=== PATIENT | male | born 1935 | race Caucasian/White ===

== ENCOUNTER 2016-12-01 23:48 | Inpatient (IN) ==
--- NOTE | 2016-12-02 00:31 | Emergency Department Note ---
Disposition Clinical Impression: Elevated troponin, Respiratory distress, Hypoxia, Lactic acidosis, Non-small cell cancer of left lung Pulmonary embolism Qualifiers: Pulmonary embolism type: other Chronicity: acute Acute cor pulmonale presence: without acute cor pulmonale Qualified Code(s): I26.99 - Other pulmonary embolism without acute cor pulmonale UTI (urinary tract infection) Qualifiers: Urinary tract infection type: site unspecified Hematuria presence: without hematuria Qualified Code(s): N39.0 - Urinary tract infection, site not specified Disposition: Admitted As Inpatient Condition: Fair Time of Disposition: 03:04 SOB HPI - General Chief Complaint: ED Shortness of Breath/Dyspnea Stated Complaint: TRACEE Time Seen by Provider: 12/02/16 00:04 Source: patient, EMS Mode of arrival: EMS Limitations: no limitations Nursing Notes Reviewed: Yes Vital Signs Reviewed: Yes - History of Present Illness 81-year-old male history of non-small cell lung carcinoma, COPD presents to the ED via EMS for difficulty breathing and hypoxia. Earlier this evening around 2200 patient was short of breath while at rest, hypoxic 76% on room air. He does not have any home oxygen supplementation. He typically sits around 88 to 90% on room air. Recently he has been very short of breath especially on exertion states anytime he takes more than 2 steps he is very winded. He is currently being treated for radiation pneumonitis on a steroid taper. He was diagnosed with cancer 1 year ago received 5 radiation treatments but needed to stop due to the radiation pneumonitis. He is on the 2nd round of steroid taper. He currently takes 2 tablets a day. He scheduled for CT of the chest tomorrow with a follow-up appointment to his radiologists oncologist Dr. Gautam . Dr. Jorgensen is his oncologist. Denies any fevers, chest pain, headache. Denies any nausea or vomiting. Denies any history of blood clots, recent long-distance travel or hospitalizations. He recently had a pacemaker placed this year. Denies any history of cardiac ischemic disease. Pt Subjective Complaint: shortness of breath - Related Data Home Medications Medication Instructions Recorded Confirmed Allopurinol [Zyloprim 300 MG] 300 mg PO DAILY 09/28/15 12/02/16 Aspirin Enteric Coated [Aspirin EC] 81 mg PO DAILY 09/28/15 12/02/16 Clopidogrel Bisulfate [Plavix] 75 mg PO DAILY 09/28/15 12/02/16 Gluc/Bartolome-MSM#1/C/Jasper/Arturo/Bor 1 tab PO DAILY 09/28/15 12/02/16 [Osteo Bi-Flex Caplet] Nitroglycerin [Nitrostat] 0.4 mg SL [id number] PRN 09/28/15 12/02/16 Pentoxifylline [TRENtal] 400 mg PO TIDWM 09/28/15 12/02/16 Pravastatin Sodium [Pravachol] 80 mg PO DAILY 09/28/15 12/02/16 Tamsulosin HCl [Flomax] 0.4 mg PO DAILY 09/28/15 12/02/16 Omeprazole [PriLOSEC] 20 mg PO DAILY 10/29/15 12/02/16 Atenolol [Tenormin] 50 mg PO DAILY 12/02/16 12/02/16 Cholecalciferol (D-3) [Vitamin D] 1,000 unit PO DAILY 12/02/16 12/02/16 Previous Rx's Medication Instructions Recorded Albuterol Sulfate [Albuterol 2 puff IH Q4HR PRN #1 hfa.aer.ad 09/11/16 Inhaler] Budesonide/Formoterol 160/4.5 2 puff IH BIDR #1 hfa.aer.ad 09/11/16 [Symbicort 160/4.5] predniSONE [Prednisone] 20 mg PO DAILY #60 tab.ds.pk 11/17/16 Allergies Allergy/AdvReac Type Severity Reaction Status Date / Time indomethacin [From Indocin] Allergy Dizziness Verified 04/24/16 08:27 All systems ED: reviewed and negative except as stated. Constitutional: Reports: weakness. Denies: fever, chills Cardiovascular: Reports: dyspnea on exertion. Denies: chest pain Respiratory: Reports: cough, dyspnea Gastrointestinal: Denies: abdominal pain, nausea, vomiting Genitourinary: Denies: urgency, dysuria Musculoskeletal: Denies: back pain Integumentary: Denies: rash, abrasion Neurological: Denies: headache Past Medical History - Past Medical History Attestation: Yes The following information was validated with the patient. Source: patient, obtained from family Medical history: Reports: cancer, COPD, coronary artery disease, hypertension, kidney stones, peripheral artery disease, TIA Surgical history: Reports: angioplasty/stent, carotid endarterectomy, LE Bypass Psychiatric history: Reports: no psych history - Social History Smoking Status: Former smoker Smokeless Tobacco Status: No Alcohol use: Reports: none Drug use: Reports: none Physical Exam - General Limitations: no limitations General appearance: alert, in no apparent distress - Head Head exam: atraumatic, normocephalic, normal inspection - Eye Eye exam: Present: normal appearance, PERRL, EOMI - ENT ENT exam: normal exam, normal oropharynx, mucous membranes moist - Neck Neck exam: Present: normal inspection, full ROM, trachea midline - Chest Chest inspection: Present: normal inspection, symmetric chest wall rise, other ( PACEMAKER CHEST WALL) - Respiratory Respiratory exam: Present: normal lung sounds bilaterally, respiratory distress (CONVERSATIONAL DYSPNEA). Absent: wheezes - Cardiovascular Cardiovascular exam: Present: regular rate, normal rhythm, normal heart sounds - Abdominal Exam Abdominal exam: Present: soft, Non-Tender, normal bowel sounds. Absent: tenderness, distention, guarding, rebound, rigidity - Extremities Exam Extremities exam: Present: normal inspection, full ROM, pedal edema (+1 LEFT). Absent: tenderness - Back Exam Back exam: Present: normal inspection, full ROM. Absent: tenderness - Neurological Exam Neurological exam: Present: alert, oriented X3 - Psychiatric Psychiatric exam: Present: normal affect, normal mood - Skin Skin exam: Present: warm, dry, intact, normal color Course Course Narrative: 81-year-old male presents with difficulty breathing. He has a history of non- small cell lung carcinoma. On initial presentation he was hypoxic lower 90%. He was placed on 3 L nasal cannula current oxygen saturation in the mid-90s. He has some conversational dyspnea. Lungs are clear to auscultation bilaterally. He has some mild pitting edema to lower extremities. Given his history of active cancer will get CTA of the chest rule out possible pulmonary embolism versus pneumonia. EKG, basic labs, troponin, lactate and urinalysis ordered. Anticipate admission, disposition pending workup. - Reevaluation(s) Reevaluation #1: Troponin is elevated 0.06. BNP is 585. He has some pitting edema to his left lower extremity. White blood cell count is likely elevated due to his steroids. His lactic acid is elevated 2.4. Due to his history of congestive heart failure will cautiously hydrate him 500 mL at a time, BP is stable at this time. Will continue to reassess. He continues to deny any chest pain. Patient will likely need admission. Reevaluation #2: Newly discovered pulmonary embolism in the right lower lobe. Patient will be placed on anticoagulation. He also has elevated troponin. CT does suggest some mild right heart strain. Patient remains hemodynamically stable. He is 96 % on 3 L nasal cannula. I do not believe he is a candidate for fibrinolytic. CT also shows new opacity, given his non-small cell carcinoma history suspect this is likely due to malignancy versus pneumonia. His elevation of his white blood cell count is likely due to his steroids as he has been afebrile. We will not treat for pneumonia at this time. Will obtain 2 sets of blood cultures. His urinalysis appears consistent with infection with positive nitrite and leuk esterase. Will treat it empirically with ceftriaxone. His repeat lactate improved after 500 mL down to 1.5. Patient will need admission. Impression is elevated troponin, new pulmonary embolism, UTI, lactic acidosis , history of non-small cell lung carcinoma. - Consultations Consultation #1: Spoke with radiologist Dr. Tovar reports right lower lobe posterior segment pulmonary embolism with right upper lobe new groundglass opacity suggestive of possible malignancy versus pneumonia. Time: 02:11 Consultation #2: Spoke with on-call hospitalist rex Montilla to admit for elevated troponin, respiratory distress, hypoxia, UTI, lactic acidosis, new pulmonary embolism. No further orders at this time Vital Signs Temperature 97.3 F L 12/01/16 23:50 Pulse Rate 99 12/01/16 23:50 Respiratory Rate 18 12/01/16 23:50 Blood Pressure 131/75 12/01/16 23:50 O2 Sat by Pulse Oximetry 86 12/01/16 23:50 Temperature 97.7 F 12/02/16 16:06 Pulse Rate 73 12/02/16 16:06 Respiratory Rate 16 12/02/16 16:16 Blood Pressure 132/73 12/02/16 16:06 O2 Sat by Pulse Oximetry 95 12/02/16 16:16 Oxygen Delivery Oxygen Delivery Nasal Cannula Shortness of Breath/Dyspnea - Medical Records Medical records reviewed: Yes I reviewed the patient's medical records. - Lab Data Lab results reviewed: Yes I reviewed the patient's lab results. Result diagrams: 12/02/16 00:43 12/02/16 00:43 Lab Results 12/02/16 12/02/16 12/02/16 Range/Units 00:43 00:43 00:43 WBC 20.9 H (4.3-11.1) K/mcL RBC 4.77 (4.19-5.50) M/mcL Hgb 14.2 (12.9-16.9) g/dL Hct 43.4 (37.5-50.1) % MCV 91.0 (83.0-100.0) fL MCH 29.8 (28.0-33.3) pg MCHC 32.7 (31.6-35.5) g/dL RDW 16.5 H (11.5-14.5) % Plt Count 175 (140-400) K/mcL MPV 9.7 (9.4-12.4) fL Immature Gran % 4.6 H (0-4) % Seg Neutrophils % 89.0 % Lymphocytes % 2.1 % Monocytes % 4.1 % Eosinophils % 0.0 % Basophils % 0.2 % Neutrophils # 18.6 H (1.6-8.9) K/mcL Lymphocytes # 0.4 L (0.6-4.6) K/mcL Monocytes # 0.9 (0.0-1.3) K/mcL Eosinophils # 0.0 (0.0-0.6) K/mcL Basophils # 0.1 (0.0-0.2) K/mcL PT (9.4-12.1) Seconds INR APTT (26.0-36.0) Seconds Sodium 135 L (136-145) mEq/L Potassium 3.9 (3.5-4.5) mEq/L Chloride 106 (98-109) mEq/L Carbon Dioxide 20 (19-29) mEq/L BUN 34 H (8-26) mg/dL Creatinine 1.15 (0.72-1.25) mg/dL Est GFR ( Amer) > 60 (> 60) Est GFR (Non-Af Amer) > 60 (> 60) BUN/Creatinine Ratio 30 H (6-26) Glucose 158 H (70-99) mg/dL Calculated Osmolality 291 (280-300) Lactic Acid 2.4 H (0.5-2.2) mmol/L Calcium 9.2 (8.6-10.8) mg/dL Troponin I (0-0.03) ng/mL B-Natriuretic Peptide (0-100) pg/mL Urine Color (Yellow) Urine Clarity (Clear) Urine pH (5.0-8.0) pH Units Ur Specific [place] (1.010-1.025) Urine Protein (Neg-Trace) mg/dL Urine Glucose (UA) (Normal) mg/dL Urine Ketones (Negative) mg/dL Urine Blood (Negative) Urine Nitrite (Negative) Urine Bilirubin (Negative) Urine Urobilinogen (Normal) mg/dL Ur Leukocyte Esterase (Negative) Urine Microscopic RBC (0-3) per hpf Urine Microscopic WBC (0-3) per hpf Ur Squamous Epith Cells (None-Few) per lpf Urine Bacteria (None-Few) per hpf Hyaline Casts (None-Few) per lpf Ur Culture Indicated? (NO) A. baumannii (PCR) (Not Detect) Nadeen albicans (PCR) (Not Detect) C. glabrata (PCR) (Not Detect) C. krusei (PCR) (Not Detect) C. parapsilosis (PCR) (Not Detect) C. tropicalis (PCR) (Not Detect) Enterobacteriac sp PCR (Not Detect) E. cloacae complex PCR (Not Detect) Enterococcus sp PCR (Not Detect) E. coli (PCR) (Not Detect) H. influenzae (PCR) (Not Detect) Klebsiella oxytoca PCR (Not Detect) Klebsiella pneumoniae (Not Detect) List. monocytogenes PCR (Not Detect) N. meningitidis (PCR) (Not Detect) Proteus species (PCR) (Not Detect) Serratia marcescens PCR (Not Detect) Staphylococcus sp PCR (Not Detect) Staph aureus (PCR) (Not Detect) mecA-Methicil Res Gene (Not Detect) Streptococcus sp PCR (Not Detect) Group A Strep DNA (Not Detect) Group B Strep (PCR) (Not Detect) Strep pneumoniae (PCR) (Not Detect) P. aeruginosa (PCR) (Not Detect) Young/B-Vanco Res Genes (Not Detect) KPC (blaKPC) Detect PCR (Not Detect) 12/02/16 12/02/16 12/02/16 Range/Units 00:43 00:43 00:43 WBC (4.3-11.1) K/mcL RBC (4.19-5.50) M/mcL Hgb (12.9-16.9) g/dL Hct (37.5-50.1) % MCV (83.0-100.0) fL MCH (28.0-33.3) pg MCHC (31.6-35.5) g/dL RDW (11.5-14.5) % Plt Count (140-400) K/mcL MPV (9.4-12.4) fL Immature Gran % (0-4) % Seg Neutrophils % % Lymphocytes % % Monocytes % % Eosinophils % % Basophils % % Neutrophils # (1.6-8.9) K/mcL Lymphocytes # (0.6-4.6) K/mcL Monocytes # (0.0-1.3) K/mcL Eosinophils # (0.0-0.6) K/mcL Basophils # (0.0-0.2) K/mcL PT 12.1 (9.4-12.1) Seconds INR 1.1 APTT 27.4 (26.0-36.0) Seconds Sodium (136-145) mEq/L Potassium (3.5-4.5) mEq/L Chloride (98-109) mEq/L Carbon Dioxide (19-29) mEq/L BUN (8-26) mg/dL Creatinine (0.72-1.25) mg/dL Est GFR ( Amer) (> 60) Est GFR (Non-Af Amer) (> 60) BUN/Creatinine Ratio (6-26) Glucose (70-99) mg/dL Calculated Osmolality (280-300) Lactic Acid (0.5-2.2) mmol/L Calcium (8.6-10.8) mg/dL Troponin I 0.06 H* (0-0.03) ng/mL B-Natriuretic Peptide 585 H (0-100) pg/mL Urine Color (Yellow) Urine Clarity (Clear) Urine pH (5.0-8.0) pH Units Ur Specific [place] (1.010-1.025) Urine Protein (Neg-Trace) mg/dL Urine Glucose (UA) (Normal) mg/dL Urine Ketones (Negative) mg/dL Urine Blood (Negative) Urine Nitrite (Negative) Urine Bilirubin (Negative) Urine Urobilinogen (Normal) mg/dL Ur Leukocyte Esterase (Negative) Urine Microscopic RBC (0-3) per hpf Urine Microscopic WBC (0-3) per hpf Ur Squamous Epith Cells (None-Few) per lpf Urine Bacteria (None-Few) per hpf Hyaline Casts (None-Few) per lpf Ur Culture Indicated? (NO) A. baumannii (PCR) (Not Detect) Nadeen albicans (PCR) (Not Detect) C. glabrata (PCR) (Not Detect) C. krusei (PCR) (Not Detect) C. parapsilosis (PCR) (Not Detect) C. tropicalis (PCR) (Not Detect) Enterobacteriac sp PCR (Not Detect) E. cloacae complex PCR (Not Detect) Enterococcus sp PCR (Not Detect) E. coli (PCR) (Not Detect) H. influenzae (PCR) (Not Detect) Klebsiella oxytoca PCR (Not Detect) Klebsiella pneumoniae (Not Detect) List. monocytogenes PCR (Not Detect) N. meningitidis (PCR) (Not Detect) Proteus species (PCR) (Not Detect) Serratia marcescens PCR (Not Detect) Staphylococcus sp PCR (Not Detect) Staph aureus (PCR) (Not Detect) mecA-Methicil Res Gene (Not Detect) Streptococcus sp PCR (Not Detect) Group A Strep DNA (Not Detect) Group B Strep (PCR) (Not Detect) Strep pneumoniae (PCR) (Not Detect) P. aeruginosa (PCR) (Not Detect) Young/B-Vanco Res Genes (Not Detect) KPC (blaKPC) Detect PCR (Not Detect) 12/02/16 12/02/16 12/02/16 Range/Units 01:30 02:30 02:34 WBC (4.3-11.1) K/mcL RBC (4.19-5.50) M/mcL Hgb (12.9-16.9) g/dL Hct (37.5-50.1) % MCV (83.0-100.0) fL MCH (28.0-33.3) pg MCHC (31.6-35.5) g/dL RDW (11.5-14.5) % Plt Count (140-400) K/mcL MPV (9.4-12.4) fL Immature Gran % (0-4) % Seg Neutrophils % % Lymphocytes % % Monocytes % % Eosinophils % % Basophils % % Neutrophils # (1.6-8.9) K/mcL Lymphocytes # (0.6-4.6) K/mcL Monocytes # (0.0-1.3) K/mcL Eosinophils # (0.0-0.6) K/mcL Basophils # (0.0-0.2) K/mcL PT (9.4-12.1) Seconds INR APTT (26.0-36.0) Seconds Sodium (136-145) mEq/L Potassium (3.5-4.5) mEq/L Chloride (98-109) mEq/L Carbon Dioxide (19-29) mEq/L BUN (8-26) mg/dL Creatinine (0.72-1.25) mg/dL Est GFR ( Amer) (> 60) Est GFR (Non-Af Amer) (> 60) BUN/Creatinine Ratio (6-26) Glucose (70-99) mg/dL Calculated Osmolality (280-300) Lactic Acid 1.5 (0.5-2.2) mmol/L Calcium (8.6-10.8) mg/dL Troponin I (0-0.03) ng/mL B-Natriuretic Peptide (0-100) pg/mL Urine Color Dark Yellow (Yellow) Urine Clarity Turbid A (Clear) Urine pH 5.5 (5.0-8.0) pH Units Ur Specific [place] 1.023 (1.010-1.025) Urine Protein 100 H (Neg-Trace) mg/dL Urine Glucose (UA) Normal (Normal) mg/dL Urine Ketones Trace H (Negative) mg/dL Urine Blood Large H (Negative) Urine Nitrite Positive A (Negative) Urine Bilirubin Negative (Negative) Urine Urobilinogen Normal (Normal) mg/dL Ur Leukocyte Esterase Large H (Negative) Urine Microscopic RBC TNTC H (0-3) per hpf Urine Microscopic WBC 50-100 H (0-3) per hpf Ur Squamous Epith Cells Moderate H (None-Few) per lpf Urine Bacteria Many H (None-Few) per hpf Hyaline Casts Few (None-Few) per lpf Ur Culture Indicated? YES A (NO) A. baumannii (PCR) Not Detected (Not Detect) Nadeen albicans (PCR) Not Detected (Not Detect) C. glabrata (PCR) Not Detected (Not Detect) C. krusei (PCR) Not Detected (Not Detect) C. parapsilosis (PCR) Not Detected (Not Detect) C. tropicalis (PCR) Not Detected (Not Detect) Enterobacteriac sp PCR DETECTED A (Not Detect) E. cloacae complex PCR Not Detected (Not Detect) Enterococcus sp PCR Not Detected (Not Detect) E. coli (PCR) DETECTED A (Not Detect) H. influenzae (PCR) Not Detected (Not Detect) Klebsiella oxytoca PCR Not Detected (Not Detect) Klebsiella pneumoniae Not Detected (Not Detect) List. monocytogenes PCR Not Detected (Not Detect) N. meningitidis (PCR) Not Detected (Not Detect) Proteus species (PCR) Not Detected (Not Detect) Serratia marcescens PCR Not Detected (Not Detect) Staphylococcus sp PCR Not Detected (Not Detect) Staph aureus (PCR) Not Detected (Not Detect) mecA-Methicil Res Gene N/A (Not Detect) Streptococcus sp PCR Not Detected (Not Detect) Group A Strep DNA Not Detected (Not Detect) Group B Strep (PCR) Not Detected (Not Detect) Strep pneumoniae (PCR) Not Detected (Not Detect) P. aeruginosa (PCR) Not Detected (Not Detect) Young/B-Vanco Res Genes N/A (Not Detect) KPC (blaKPC) Detect PCR Not Detected (Not Detect) 12/02/16 Range/Units 06:49 WBC (4.3-11.1) K/mcL RBC (4.19-5.50) M/mcL Hgb (12.9-16.9) g/dL Hct (37.5-50.1) % MCV (83.0-100.0) fL MCH (28.0-33.3) pg MCHC (31.6-35.5) g/dL RDW (11.5-14.5) % Plt Count (140-400) K/mcL MPV (9.4-12.4) fL Immature Gran % (0-4) % Seg Neutrophils % % Lymphocytes % % Monocytes % % Eosinophils % % Basophils % % Neutrophils # (1.6-8.9) K/mcL Lymphocytes # (0.6-4.6) K/mcL Monocytes # (0.0-1.3) K/mcL Eosinophils # (0.0-0.6) K/mcL Basophils # (0.0-0.2) K/mcL PT (9.4-12.1) Seconds INR APTT 71.7 H D (26.0-36.0) Seconds Sodium (136-145) mEq/L Potassium (3.5-4.5) mEq/L Chloride (98-109) mEq/L Carbon Dioxide (19-29) mEq/L BUN (8-26) mg/dL Creatinine (0.72-1.25) mg/dL Est GFR ( Amer) (> 60) Est GFR (Non-Af Amer) (> 60) BUN/Creatinine Ratio (6-26) Glucose (70-99) mg/dL Calculated Osmolality (280-300) Lactic Acid (0.5-2.2) mmol/L Calcium (8.6-10.8) mg/dL Troponin I (0-0.03) ng/mL B-Natriuretic Peptide (0-100) pg/mL Urine Color (Yellow) Urine Clarity (Clear) Urine pH (5.0-8.0) pH Units Ur Specific [place] (1.010-1.025) Urine Protein (Neg-Trace) mg/dL Urine Glucose (UA) (Normal) mg/dL Urine Ketones (Negative) mg/dL Urine Blood (Negative) Urine Nitrite (Negative) Urine Bilirubin (Negative) Urine Urobilinogen (Normal) mg/dL Ur Leukocyte Esterase (Negative) Urine Microscopic RBC (0-3) per hpf Urine Microscopic WBC (0-3) per hpf Ur Squamous Epith Cells (None-Few) per lpf Urine Bacteria (None-Few) per hpf Hyaline Casts (None-Few) per lpf Ur Culture Indicated? (NO) A. baumannii (PCR) (Not Detect) Nadeen albicans (PCR) (Not Detect) C. glabrata (PCR) (Not Detect) C. krusei (PCR) (Not Detect) C. parapsilosis (PCR) (Not Detect) C. tropicalis (PCR) (Not Detect) Enterobacteriac sp PCR (Not Detect) E. cloacae complex PCR (Not Detect) Enterococcus sp PCR (Not Detect) E. coli (PCR) (Not Detect) H. influenzae (PCR) (Not Detect) Klebsiella oxytoca PCR (Not Detect) Klebsiella pneumoniae (Not Detect) List. monocytogenes PCR (Not Detect) N. meningitidis (PCR) (Not Detect) Proteus species (PCR) (Not Detect) Serratia marcescens PCR (Not Detect) Staphylococcus sp PCR (Not Detect) Staph aureus (PCR) (Not Detect) mecA-Methicil Res Gene (Not Detect) Streptococcus sp PCR (Not Detect) Group A Strep DNA (Not Detect) Group B Strep (PCR) (Not Detect) Strep pneumoniae (PCR) (Not Detect) P. aeruginosa (PCR) (Not Detect) Young/B-Vanco Res Genes (Not Detect) KPC (blaKPC) Detect PCR (Not Detect) - Radiology Data Radiology results reviewed: Yes I reviewed the patient's radiology results. Chest CTA 12/02/16 00:33 IMPRESSION: 1. Pulmonary emboli within the posterior segmental branches of the right lower lobe. 2. RV: LV ratio of 1.05. However the evaluation of the heart is slightly limited due to motion artifact, but this may represent mild right heart dysfunction. 3. Redemonstration of extensive consolidation/airspace opacities, atelectasis and fibrosis of the right lower lobe with associated pleural thickening and small effusion. The right lower lobe lung mass is obscured. 4. Small left base pleural effusion with surrounding pleural enhancement, which is nonspecific. 5. New areas of ground-glass opacities in right upper lobe, which are nonspecific, could represent infection versus neoplasm. 6. Mediastinal lymph nodes are slightly smaller, largest measuring 13 mm. Findings were discussed with Tarv Mitchell at 2:19 am on 12/02/2016. D/ / Jos Tovar MD / Jos Tovar MD Interpreting Provider: Jos Tovar MD - EKG Data EKG attestation: Yes I reviewed and interpreted this EKG. EKG results narrative: EKG performed 001 electronic ventricular paste rhythm 91 bpm QRS 153 no Sgarbossa criteria. Compared to old EKG performed 09/16/2016 shows consistent findings. No acute ischemic changes. Critical Care Time Critical Care Time: Yes Total Critical Care Time: 60 Attestation: The high probability of a clinically significant, sudden or life threatening deterioration of the [pulm] system(s) required my full and direct attention, intervention and personal management. The aggregate critical care time was [60] minutes. This time is in addition to time spent performing reported procedures but includes the following: [X] Data Review and interpretation [X] Patient assessment and monitoring of vital signs [X] Documentation [X] Medication orders and management Attestation Statement - Attestation Attestation: I personally interviewed and examined this patient and my medical decision- making was reviewed with the ED Resident Physician, Dr. Mitchell I agree with the documented findings, disposition and treatment plan as described except to the extent set forth below. Pt is a 81 yo wm, hx non-small cell lung CA, s/p LLL lobectomy and steroetactic bx and radiation of R lung, who presents with grad worsening SOB and hypoxia. Pt improved on NC O2 on arrival to ED. Per pt's family, pt has been running with 85-88% RA O2 sats at home, awaiting approval for suppl O2 at home. Pt with worsening breathing over passt 2-3 days. No F/C, no cough/hemoptysis. Pt deneis any CP/press, no diaphoresis. No other assocd sxs or complaints. Pt has been weaning his steroids, which he was taking for radiation pneumonitis. Pt scheduled for repeat CT chest imaging in am. Agree with PE findings as documented. Pt with improvement in breathing on supple O2, and reports feeling "much better ". VSS. Pt's labs show UTI, and elev trop. EKg shows no acute findings, and pt has denied any CP throughout eD course. CT chest shows subsegmental PE on R with mild heart strain, questionable pneumonia vs inflammation. Cultures pending, and antibx initiated in ED. Gentle fluid administration with elev lactate. Pt remained hemodynamically stable, and heparin initiated in ED. Family and pt informed of test results and agree with admission and furhter treatment.
[2016-12-02] MEDS ORDERED: Dexamethasone 4 MG/ML VIAL IVP ONE (00:34)
[2016-12-02 00:50] LABS: Basophils # 0.1 K/mcL (0.0-0.2); Basophils % 0.2 %; Hematocrit 43.4 % (37.5-50.1); Hemoglobin 14.2 g/dL (12.9-16.9); Immature Granulocytes % 4.6 % (0-4); Lymphocytes # 0.4 K/mcL (0.6-4.6); Lymphocytes % 2.1 %; Mean Corpuscular HGB Conc 32.7 g/dL (31.6-35.5); Mean Corpuscular Hemoglobin 29.8 pg (28.0-33.3); Mean Platelet Volume 9.7 fL (9.4-12.4); Monocytes # 0.9 K/mcL (0.0-1.3); Monocytes % 4.1 %; Neutrophils # 18.6 K/mcL (1.6-8.9); Platelet Count 175 K/mcL (140-400); Red Blood Count 4.77 M/mcL (4.19-5.50); Red Cell Distribution Width 16.5 % (11.5-14.5)
[2016-12-02 01:03] LABS: BUN/Creatinine Ratio 30 (6-26); Blood Urea Nitrogen 34 mg/dL (8-26); Calcium 9.2 mg/dL (8.6-10.8); Carbon Dioxide 20 mEq/L (19-29); Chloride 106 mEq/L (98-109); Glucose 158 mg/dL (70-99); Osmolality,Calculated 291 (280-300); Potassium 3.9 mEq/L (3.5-4.5); Sodium 135 mEq/L (136-145); eGFR For African Americans > 60 (> 60); eGFR For Non-African Americans > 60 (> 60)
[2016-12-02] MEDS ORDERED: 0.9 % Sodium Chloride 500 ML IVC ONE (01:15)
[2016-12-02 01:40] LABS: Bilirubin,Urine Negative (Negative); Blood,Urine Large (Negative); Clarity,Urine Turbid (Clear); Color,Urine Dark Yellow (Yellow); Glucose,Urine (UA) Normal (Normal); Ketones,Urine Trace mg/dL (Negative); Leukocyte Esterase,Urine Large (Negative); Nitrite,Urine Positive (Negative); PH,Urine 5.5 pH Units (5.0-8.0); Protein,Urine 100 mg/dL (Neg-Trace); Specific Gravity,Urine 1.023 (1.010-1.025); Urobilinogen,Urine Normal (Normal)
[2016-12-02 01:42] LABS: Bacteria,Urine Many per hpf (None-Few); Hyaline Casts,Urine Few per lpf (None-Few); RBC,Urine TNTC per hpf (0-3); Squamous Epithelial Cell,Urine Moderate per lpf (None-Few); WBC,Urine 50-100 per hpf (0-3)
[2016-12-02] MEDS ORDERED: *HR* Heparin 5,000 UNIT/ML VIAL IVP PRN ×2 (02:16)
[2016-12-02] MEDS ORDERED: *HR* Heparin 5,000 UNIT/ML VIAL IVP ONE (02:16)
[2016-12-02 02:36] LABS: INR 1.1; Prothrombin Time 12.1 Seconds (9.4-12.1)
[2016-12-02 02:38] LABS: Activated Partial Thrombo Time 27.4 Seconds (26.0-36.0)
[2016-12-02] MEDS: Heparin 25,000 UNIT/500 ML D5W 25,000 UNIT/500 ML MLS IVC SCH (03:02)
--- NOTE | 2016-12-02 03:09 | Internal Med History&Physical ---
Date of Encounter: 12/02/16 Time of Encounter: 03:08 Assessment and Plan (1) Essential hypertension Current visit: No Status: Chronic will continue home meds (2) Pulmonary embolism Current visit: Yes Status: Acute CTA showed segmental PE on right posterior side of the lung. he has been started on heparin drip at ED. high risk given active cancer. sating 95% on 3 l, will titrate o2 to maintain sats >95%. will also order ECHO to check for RV strain and b/l doppler of lower legs to r/ o DVT. he is currently hemodynamically stable. Qualifiers: Pulmonary embolism type: other Chronicity: acute Acute cor pulmonale presence: without acute cor pulmonale Qualified Code(s): I26.99 - Other pulmonary embolism without acute cor pulmonale (3) Hypoxia Current visit: Yes Status: Acute better with 3 l of o2 nasal cannula,will continue that for now. (4) Non-small cell cancer of left lung Current visit: Yes Status: Acute follows with and DR. Gautam for radiation treatment. received radiation treatment 1 yr ago and is being treated for radiation pneumonitis. will continue the tapering dose of steroids here. (5) UTI (urinary tract infection) Current visit: Yes Status: Acute will send urine cx. starting on Ceftriaxone which will cover UTI/pneumonia' Qualifiers: Urinary tract infection type: site unspecified Hematuria presence: without hematuria Qualified Code(s): N39.0 - Urinary tract infection, site not specified (6) Radiation pneumonitis Current visit: Yes Status: Acute patinet being treated for radiation pneumonitis with steroids and is on tapering dose now. will continue the tapering dose now and will consult oncology for further recommendations on duration of treatment. Internal Medicine - H&P: HPI Chief complaint: sob Admitted From: Home Plans for Post Hospital Care: Home History of present illness: Mr. Nunez is a 81 year old male with history of small cell lung carcinoma, COPD presents to the ED via EMS for difficulty breathing and hypoxia. Earlier this evening around 2200 patient was short of breath while at rest, hypoxic 76% on room air. He does not have any home oxygen supplementation. He typically sits around 88 to 90% on room air. as per the grand daughter and the , he has been very short of breath especially on exertion. He had small cell lung ca and has been cancer free for the last 10 yrs however had a relapse last yr and follows with radiation oncology. He is currently being treated for radiation pneumonitis on a steroid taper. He has received 5 radiation treatments but needed to stop due to the radiation pneumonitis. He is on the 2nd round of steroids. He currently takes 2 tablets a day. He scheduled for CT of the chest tomorrow with a follow-up appointment to his radiologists oncologist Dr. Gautam . Dr. Jorgensen is his oncologist. Denies any fevers, chest pain, headache. Denies any nausea or vomiting. Denies any history of blood clots, recent long-distance travel or hospitalizations. He recently had a pacemaker placed this year. Denies any history of cardiac ischemic disease. Past Med Surg Social Fam HX - Past Medical History Medical history: cancer, COPD, coronary artery disease, hypertension, kidney stones, peripheral artery disease, TIA Psychiatric history: no psych history - Past Surgical History Surgical History: angioplasty/stent, carotid endarterectomy, LE Bypass - Social History Smoking Status: Former smoker Smokeless Tobacco Status: No Alcohol use: none Drug use: none - Family History Mother Hx Family Cardiac Disorders: Yes (CAD) Internal Medicine - H&P: Meds Allopurinol [Zyloprim 300 MG] 300 mg PO DAILY 09/28/15 [History] Aspirin Enteric Coated [Aspirin EC] 81 mg PO DAILY 09/28/15 [History] Clopidogrel Bisulfate [Plavix] 75 mg PO DAILY 09/28/15 [History] Gluc/Bartolome-MSM#1/C/Jasper/Arturo/Bor [Osteo Bi-Flex Caplet] 1 each PO DAILY 09/28/15 [ History] Nitroglycerin [Nitrostat] 0.4 mg SL AD PRN 09/28/15 [History] Pentoxifylline [TRENtal] 400 mg PO TIDWM 09/28/15 [History] Pravastatin Sodium [Pravachol] 80 mg PO DAILY 09/28/15 [History] Tamsulosin HCl [Flomax] 0.4 mg PO DAILY 09/28/15 [History] Omeprazole [PriLOSEC] 20 mg PO DAILY 10/29/15 [History] Albuterol Sulfate [Albuterol Inhaler] 2 puff IH Q4HR PRN #1 hfa.aer.ad 09/11/16 [Rx] Budesonide/Formoterol 160/4.5 [Symbicort 160/4.5] 2 puff IH BIDR #1 hfa.aer.ad 09/11/16 [Rx] Guaifenesin [Guaifenesin ER] 1,200 mg PO Q12H PRN #60 tab.er.12h 09/11/16 [Rx] Lidocaine/Prilocaine CREAM [Emla] 5 gm TP PRN PRN #1 tube 09/11/16 [Rx] predniSONE [PredniSONE] 10 mg PO DAILY #160 tablet 10/02/16 [Rx] Fluconazole [Diflucan] 100 mg PO DAILY #5 tablet 10/23/16 [Rx] predniSONE [Prednisone] 20 mg PO DAILY #60 tab.ds.pk 11/17/16 [Rx] Allergies indomethacin [From Indocin] Allergy (Verified 04/24/16 08:27) Dizziness All Systems PM: A 10-system review of systems was performed and is negative for pertinent findings except as documented above in the HPI. - Constitutional Constitutional: as per HPI - EENT Eyes: as per HPI Ears: as per HPI Nose, mouth and throat: as per HPI - Breasts Breasts: as per HPI - Cardiovascular Cardiovascular ROS IM: as per HPI - Respiratory Respiratory: as per HPI - Gastrointestinal Gastrointestinal: as per HPI - Genitourinary Genitourinary ROS male: as per HPI - Musculoskeletal Musculoskeletal ROS IM: as per HPI - Integumentary Integumentary IM: as per HPI - Constitutional Vitals: Temp Pulse Resp BP Pulse Ox 97.3 F L 72 20 133/78 96 12/01/16 23:50 12/02/16 02:46 12/02/16 02:46 12/02/16 02:46 12/02/16 02:46 General appearance: Present: A&O X 3, no acute distress Exam: neck-supple chest- b/l clinically clear , no added sounds CVS-s1 and s2, no mr/g/ abd-soft, non tender , bs are present ext- no edema neuro- no focal neuro deficits, alert and awake. Internal Med - H&P Results - Labs CBC & Chem 7: 12/02/16 00:43 12/02/16 00:43
[2016-12-02] MEDS: Albuterol 2.5 MG/3 ML NEBULIZER IH SCH ×5 (08:25→23:35)
[2016-12-02] MEDS: predniSONE 10 MG TABLET PO SCH (09:47)
[2016-12-02] MEDS: Fluconazole 100 MG TABLET PO SCH (09:47)
[2016-12-02] MEDS: Aspirin Enteric Coated 81 MG Tablet PO SCH (09:48)
[2016-12-02] MEDS: Budesonide/Formoterol 160/4.5 MDI IH SCH ×2 (10:56→20:46)
[2016-12-02 15:10] LABS: Enterococcus by PCR Not Detected (Not Detect); blaKPC Carbapenem-Resist Gene Not Detected (Not Detect)
[2016-12-02 15:11] LABS: Acinetobacter baumannii by PCR Not Detected (Not Detect); Candida albicans by PCR Not Detected (Not Detect); Candida glabrata by PCR Not Detected (Not Detect); Candida krusei by PCR Not Detected (Not Detect); Candida parapsilosis by PCR Not Detected (Not Detect); Candida tropicalis by PCR Not Detected (Not Detect); Escherichia coli by PCR ***DETECTED*** (Not Detect); Klebsiella oxytoca by PCR Not Detected (Not Detect); Klebsiella pneumoniae by PCR Not Detected (Not Detect); Pseudomonas aeruginosa by PCR Not Detected (Not Detect); Serratia marcescens by PCR Not Detected (Not Detect); Staphylococcus aureus by PCR Not Detected (Not Detect); Streptococcus agalactiae(B)PCR Not Detected (Not Detect); Streptococcus by PCR Not Detected (Not Detect); Streptococcus pneumoniae PCR Not Detected (Not Detect); Streptococcus pyogenes (A) PCR Not Detected (Not Detect)
--- NOTE | 2016-12-02 15:33 | Internal Med Progress Note ---
<Suzanne Mark - Last Filed: 12/02/16 16:12> Date of Encounter: 12/02/16 Time of Encounter: 09:30 - Assessment and plan (1) Bacteremia Current Visit: Yes Status: Acute Assessment and plan: - 2/2 Blood cultures from 12/02/16 grew GNR, likely E. coli per PCR. Further identification and sensitivity pending. - Likely secondary to UTI. - Continue IV ceftriaxone (since 12/01) - Continue to monitor. (2) Pulmonary embolism Current Visit: Yes Status: Acute Assessment and plan: - CTA chest on 12/02/16 found pulmonary emboli within the posterior segmental branches of the right lower lobe. - Troponin downtrended from 0.06 to 0.02. - Echo today shows LVEF 60%, mild LV diastoic dysfunction and normal right ventricular size and function. Also noted Severe pulmonary hypertension with estimated RVSP = 68 mmHg. - Given troponin and echo do not indicate right heart strain, no need of TPA at this time. - Continue heparin drip. - Will discuss with patient different anticoagulation options including novel oral anticoagulants. Qualifiers: Pulmonary embolism type: other Chronicity: acute Acute cor pulmonale presence: without acute cor pulmonale Qualified Code(s): I26.99 - Other pulmonary embolism without acute cor pulmonale (3) UTI (urinary tract infection) Current Visit: Yes Status: Acute Assessment and plan: - Complicated UTI (given male gender) with urinary symptom (difficulty urinating ) and leukocytosis (20.9) - UA positive for nitrite and leukocyte esterase strongly suggestive of UTI. - Urine culture pending. - Likely E. coli given positive on PCR and blood cultures. - Continue IV ceftriaxone (since 12/01). Will 14-day course of antibiotic for complicated UTI. Qualifiers: Urinary tract infection type: site unspecified Hematuria presence: without hematuria Qualified Code(s): N39.0 - Urinary tract infection, site not specified (4) Radiation pneumonitis Current Visit: Yes Status: Chronic Assessment and plan: - Continue chronic prednisone therapy. 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 - Per patient, his oncologist told him that he is cancer-free at his oncology visit this year. (6) COPD (chronic obstructive pulmonary disease) Current Visit: Yes Status: Chronic Assessment and plan: - Continue steroid and scheduled albuterol. Qualifiers: COPD type: unspecified COPD Qualified Code(s): J44.9 - Chronic obstructive pulmonary disease, unspecified - Subjective Interval history: This note is NOT for billing purpose. Patient was seen and examined this morning. Patient still has some dry cough but overall feels breathing better. Patient reports having difficulty urinating. Patient denies fever, chills, nausea, vomiting, diarrhea, chest pain , abdominal pain. - Constitutional Vitals: Temp Pulse Resp BP Pulse Ox 97.7 F 77 18 124/71 95 12/02/16 12:00 12/02/16 12:00 12/02/16 12:00 12/02/16 12:00 12/02/16 12:00 General appearance: Present: A&O X 3, no acute distress - Head Head exam: Present: atraumatic, normocephalic - Eye Eye exam: Present: EOMI, PERRL, conjuntiva pink, sclera anicteric - Neck Neck exam general surgery: Present: supple, trachea midline. Absent: lymphadenopathy - Respiratory Respiratory exam: Present: CTAB. Absent: accessory muscle use, rhonchi, wheezes - Cardiovascular Cardiovascular exam: Present: RRR, +S1, +S2. Absent: diastolic murmur, gallop, rubs, systolic murmur - GI/Abdominal GI/Abdominal exam: Present: normal bowel sounds, soft, no peritoneal signs. Absent: distended, tenderness - Extremities Exam Extremities exam: Present: warm, radial pulses palpable and symetrical. Absent : calf tenderness, cyanotic, pedal edema - Neurological Exam Neurological exam: Present: CN II-XII intact, oriented X3, no focal deficits. Absent: pronater drift, facial droop, speech deficit - Skin Skin exam: Present: dry, intact, warm Internal Medicine: Result - Labs CBC & Chem 7: 12/02/16 00:43 12/02/16 00:43 Labs: Cardiac Enzymes 12/02/16 Range/Units 14:55 Troponin I 0.02 (0-0.03) ng/mL - ABG Interpretation ABG results: PT/INR, D-dimer PT 12.1 Seconds (9.4-12.1) 12/02/16 00:43 Consult Discharge Plan - Plan Referrals: Farshad Lunsford MD [Primary Care Provider] - <Heriberto Murillo - Last Filed: 12/02/16 17:07> Date of Encounter: 12/02/16 - Constitutional Vitals: Temp Pulse Resp BP Pulse Ox 97.7 F 73 16 132/73 95 12/02/16 16:06 12/02/16 16:06 12/02/16 16:06 12/02/16 16:06 12/02/16 16:06 Internal Medicine: Result - Labs CBC & Chem 7: 12/02/16 00:43 12/02/16 00:43 Labs: Cardiac Enzymes 12/02/16 Range/Units 14:55 Troponin I 0.02 (0-0.03) ng/mL - ABG Interpretation ABG results: PT/INR, D-dimer PT 12.1 Seconds (9.4-12.1) 12/02/16 00:43 - Attending Attestation I examined this patient and my medical decision-making was reviewed with the Resident Physician on 12/02/16. I agree with the documented findings, disposition and treatment plan as described except to the extent set forth below. 81 M with Acute hypoxemia secondary to Acute sub-segmental PE and severe Pulm HTN demand ischemia with slighlty elevated troponin on exam , GN bacteremia possibly from E.cOli UTI Physical exam revealed a chronically ill-looking elderly man in no form of distress, on O2 by NC, chest with equal air entry, S1 S2, RRR, abdomen is benign , no pedal edema labs and Imaging reviewed, ECHO noted, normal R heart function and size, severe Pulm HTN Plan is to continue antibiotics, increase Ceftriaxone to 2g daily, follow final cultures, continue heparin, discuss NICOLE with patient, resume home meds, continue oxygen Rest of details as in Resident's documentation
--- NOTE | 2016-12-02 16:33 | Electrocardiograph Report ---
[place] [id number] Test Date: 2016-12-02 Pat Name: Randolph Nunez Department: 102 Room: [facility], [place] Gender: M [employer]: : 1935 Requested By: Areli Swanson Order Number: [id number] Reading MD: Randolph Tim Measurements Intervals [place] Rate: 91 P: 42 ND: 124 QRS: -63 QRSD: 153 T: 79 QT: 381 QTc: 430 Interpretive Statements ELECTRONIC VENTRICULAR PACEMAKER ABNORMAL RHYTHM ECG Electronically Signed On 12-02-2016 16:31:37 EDT by Randolph Tim
--- NOTE | 2016-12-02 17:13 | Venous Imaging Report ---
LE Venous Duplex Patient Name:Randolph Nunez Order Number:[id number] Procedure Date:12/02/2016 Date:1935ge:81 yrs Gender:Male Location:[facility] Room #: 2A62 Lag Screwer:Francisco Garcia RN Referring MD:Geovany Valdivia MD glass cut off supervisor:Farshad Lunsford MD Reading MD:Pako Nguyen MD Primary Indications:Pulmonary Embolism Secondary Indications: Risk Factors Yes/No Hypertension Yes Diabetes No Hypercholesterolemia Yes Smoker Previous Yes Anticoagulants Yes Hx of DVT No Impressions: Normal bilateral lower extremity deep and superficial venous exam. Recommendations: Test completed on 12/02/2016 at 2:00:00 pm. Findings Venous Duplex Results: Right: Venous imaging of the lower extremity reveals full patency and normal vessel compressibility of the right distal iliac, right common femoral, right superficial femoral, right popliteal, right posterior tibial, right peroneal, right great saphenous and right lesser saphenous. Doppler signals in the evaluated veins were normal. Left: Venous imaging of the lower extremity reveals full patency and normal vessel compressibility of the left distal iliac, left common femoral, left superficial femoral, left popliteal, left posterior tibial, left peroneal, left great saphenous and left lesser saphenous. Doppler signals in the evaluated veins were normal. Prior Study: No prior study available for comparison. Lower Extremity Venous Duplex Side Vein Compress Spontaneous Flow Augment Diameter (cm) Depth (cm) Right Distal Iliac Normal Yes Phasic Yes Right Common Femoral Normal Yes Phasic Yes Right Superficial Femoral Normal Yes Phasic Yes Right Popliteal Normal Yes Phasic Yes Right Posterior Tibial Normal Yes Phasic Yes Right Peroneal Normal Yes Phasic Yes Right Great Saphenous Normal Yes Phasic Yes Right Lesser Saphenous Normal Yes Phasic Yes Left Distal Iliac Normal Yes Phasic Yes Left Common Femoral Normal Yes Phasic Yes Left Superficial Femoral Normal Yes Phasic Yes Left Popliteal Normal Yes Phasic Yes Left Posterior Tibial Normal Yes Phasic Yes Left Peroneal Normal Yes Phasic Yes Left Great Saphenous Normal Yes Phasic Yes Left Lesser Saphenous Normal Yes Phasic Yes Updated by Pako Nguyen MD on 12/02/2016 5:07:16 PM electronically signed on 12/02/2016 5:08:22 PM with status of Final
[2016-12-03] MEDS: Heparin 25,000 UNIT/500 ML D5W 25,000 UNIT/500 ML MLS IVC SCH (02:12)
[2016-12-03] MEDS: Albuterol 2.5 MG/3 ML NEBULIZER IH SCH ×5 (04:33→20:55)
[2016-12-03 06:25] LABS: Basophils # 0.1 K/mcL (0.0-0.2); Basophils % 0.3 %; Hematocrit 38.8 % (37.5-50.1); Hemoglobin 12.7 g/dL (12.9-16.9); Immature Granulocytes % 2.6 % (0-4); Lymphocytes # 0.6 K/mcL (0.6-4.6); Lymphocytes % 3.5 %; Mean Corpuscular HGB Conc 32.7 g/dL (31.6-35.5); Mean Corpuscular Hemoglobin 29.7 pg (28.0-33.3); Mean Corpuscular Volume 90.9 fL (83.0-100.0); Mean Platelet Volume 10.3 fL (9.4-12.4); Monocytes # 0.8 K/mcL (0.0-1.3); Monocytes % 4.2 %; Neutrophils # 16.4 K/mcL (1.6-8.9); Platelet Count 167 K/mcL (140-400); Red Blood Count 4.27 M/mcL (4.19-5.50); Red Cell Distribution Width 16.6 % (11.5-14.5); Segmented Neutrophils % 89.4 %
[2016-12-03 06:38] LABS: BUN/Creatinine Ratio 33 (6-26); Blood Urea Nitrogen 30 mg/dL (8-26); Calcium 8.8 mg/dL (8.6-10.8); Carbon Dioxide 22 mEq/L (19-29); Chloride 104 mEq/L (98-109); Glucose 164 mg/dL (70-99); Osmolality,Calculated 288 (280-300); Potassium 3.9 mEq/L (3.5-4.5); Sodium 134 mEq/L (136-145); eGFR For African Americans > 60 (> 60); eGFR For Non-African Americans > 60 (> 60)
--- NOTE | 2016-12-03 08:09 | Oncology Inp Consult Note ---
Date of Encounter: 12/03/16 Time of Encounter: 08:06 - Data of Consult Patient: known to practice within the last 3 years Consult date: 12/03/16 Requesting Physician: Heriberto Murillo MD Primary Care Provider: Farshad Lunsford MD - Consult Narrative Reason for consult: History of lung cancer, Pulmonary embolism. History of present illness: Mr. Nunez is a 81 year old gentleman who is established with oncologist for ongoing management of previously treated lung cancer. He follows up with Dr. Nahun Gautam and myself. I have summarized patient's heme/onc background below based on my most recent office report dated 10/01/16. Oncology history: He initially presented with unexplained hypotension and recurrent near syncopal episode associated with exertional dyspnea. Chest x-ray revealed a right lower lobe mass and the subsequent chest CT 08/24/15 showed a 4.2 cm spiculated right lower lobe mass associated with 1.5 cm right hilar and a 1.1 cm precarinal node suspicious for primary lung cancer. CT-guided biopsy 09/12/15 was positive for non-small cell carcinoma immunopositive for CK 5/6, p63, TTF-1 overall compatible with squamous cell histology. PFT 09/11/15 showed an FEV1 70% predicted (2L). PET/CT 09/26/15 confirmed hypermetabolic right lower lobe mass compatible with biopsy confirmed malignancy. Mildly hypermetabolic right hilar and mediastinal nodes including subcarinal, AP window lymph nodes considered indeterminate. Reactive etiology not excluded. Brain MRI 10/01/15 and was negative for intracranial metastasis. Bronchoscopy and EBUSNA/left lower lobe BAL by Dr. Isabel Holden 10/16/15 showed atypical cells suspicious for squamous cell carcinoma. FNA of subcarinal and right hilar lymph node was reportedly nondiagnostic. Specimen was only blood.No viable cells He had defintive SBRT to his right lower lobe, biopsy-proven malignant mass and has done well subsequently with no definitive evidence of disease recurrence. Treatment summary: 11/13-11/29/15: SBRT for clinically localized,right sided lung cancer under the care of Dr. Gautam. Most recent imaging: Chest CT 09/02/16 showed interval decrease in size of fentanyl 3.4 cm spiculated mass in the right lower lobe consistent with treatment-related changes. There is some interval increase in peritumoral opacity likely due to post radiation fibrosis. Stable mediastinal adenopathy mild severity. No other evidence of recurrent/progressive malignancy. At his last office visit, he was having radiation pneumonitis and started on a course of steroids by Dr. Gautam. He was last seen 10/23/16 and was scheduled for follow-up tomorrow. I reviewed Dr. Gautam's office report for details. Patient is currently hospitalized for acute hypoxemic respiratory failure after presenting with progressive shortness of breath. He is also been diagnosed with a UTI which is under active treatment by the hospital team. A CT angiogram on admission showed pulmonary embolism within the posterior segmental branches of the right lower lobe. Additional findings of extensive consolidation/as this opacity with atelectasis of fibrosis in the right lower lobe associated with pleural thickening and small effusion. Likely related to previous treatments including radiotherapy. New groundglass opacity in the right upper lobe nonspecific. Mediastinal lymphadenopathy improving. Currently measures 1.3 cm. Lower extremity Doppler negative for DVT. For his pulmonary embolism, he has been started on heparin drip. As also on supplemental O2 and is maintaining good oxygenation. For his UTI, he is on IV Rocephin. Oncology is consulted re: since underlying lung cancer and pulmonary embolism. Patient seen and examined at bedside with present who provided additional information. Chart review for details of ongoing care by hospital team which is much appreciated. He reports feeling considerably better since hospitalization. He notes progressive dyspnea with activity intolerance over the last week and a half or so. He is also having right upper quadrant abdominal pain at today's visit. Rest of past medical, surgical, family, social history detailed below and verified with patient today. Review of systems: 12 point review of systems performed with patient and positive findings noted in history of present illness. All other systems are negative: Physical exam: Vital Signs Temp 97.5 F L 12/03/16 04:27 Pulse 85 12/03/16 04:27 Resp 14 12/03/16 04:35 BP 163/88 12/03/16 04:27 Pulse Ox 98 12/03/16 04:35 GENERAL: Alert and oriented, chronically ill appearing. Mental Status: Affect appropriate for circumstances HEENT: Sclerae anicteric. No mucositis or thrush. No other oral or pharyngeal lesions or erythema. Skin: No rashes or petechiae. No evidence of skin malignancy Lymph nodes: No cervical, supraclavicular, axillary, or inguinal adenopathy. Lungs: Clear to auscultation bilaterally. Clear to percussion bilaterally. Cardiovascular: Regular rate and rhythm. No gallops, murmurs, or rubs. Abdomen: Soft, nontender; No organomegaly or masses palpable. Extremities: No edema. No calf swelling or tenderness. No joint deformity. Neurologic: Alert, normal gait; no focal weakness or sensory abnormalities. Results: Laboratory Last Values WBC 18.4 K/mcL (4.3-11.1) H 12/03/16 05:59 RBC 4.27 M/mcL (4.19-5.50) 12/03/16 05:59 Hgb 12.7 g/dL (12.9-16.9) L D 12/03/16 05:59 Hct 38.8 % (37.5-50.1) 12/03/16 05:59 MCV 90.9 fL (83.0-100.0) 12/03/16 05:59 MCH 29.7 pg (28.0-33.3) 12/03/16 05:59 MCHC 32.7 g/dL (31.6-35.5) 12/03/16 05:59 RDW 16.6 % (11.5-14.5) H 12/03/16 05:59 Plt Count 167 K/mcL (140-400) 12/03/16 05:59 MPV 10.3 fL (9.4-12.4) 12/03/16 05:59 Immature Gran % 2.6 % (0-4) 12/03/16 05:59 Seg Neutrophils % 89.4 % 12/03/16 05:59 Lymphocytes % 3.5 % 12/03/16 05:59 Monocytes % 4.2 % 12/03/16 05:59 Eosinophils % 0.0 % 12/03/16 05:59 Basophils % 0.3 % 12/03/16 05:59 Neutrophils # 16.4 K/mcL (1.6-8.9) H 12/03/16 05:59 Lymphocytes # 0.6 K/mcL (0.6-4.6) 12/03/16 05:59 Monocytes # 0.8 K/mcL (0.0-1.3) 12/03/16 05:59 Eosinophils # 0.0 K/mcL (0.0-0.6) 12/03/16 05:59 Basophils # 0.1 K/mcL (0.0-0.2) 12/03/16 05:59 PT 12.1 Seconds (9.4-12.1) 12/02/16 00:43 INR 1.1 12/02/16 00:43 APTT 70.0 Seconds (26.0-36.0) H 12/03/16 05:59 Sodium 134 mEq/L (136-145) L 12/03/16 05:59 Potassium 3.9 mEq/L (3.5-4.5) 12/03/16 05:59 Chloride 104 mEq/L (98-109) 12/03/16 05:59 Carbon Dioxide 22 mEq/L (19-29) 12/03/16 05:59 BUN 30 mg/dL (8-26) H 12/03/16 05:59 Creatinine 0.92 mg/dL (0.72-1.25) 12/03/16 05:59 Est GFR ( Amer) > 60 (> 60) 12/03/16 05:59 Est GFR (Non-Af Amer) > 60 (> 60) 12/03/16 05:59 BUN/Creatinine Ratio 33 (6-26) H 12/03/16 05:59 Glucose 164 mg/dL (70-99) H 12/03/16 05:59 Calculated Osmolality 288 (280-300) 12/03/16 05:59 Lactic Acid 1.5 mmol/L (0.5-2.2) 12/02/16 02:34 Calcium 8.8 mg/dL (8.6-10.8) 12/03/16 05:59 Troponin I 0.02 ng/mL (0-0.03) 12/02/16 14:55 B-Natriuretic Peptide 585 pg/mL (0-100) H 12/02/16 00:43 Urine Color Dark Yellow (Yellow) 12/02/16 01:30 Urine Clarity Turbid (Clear) A 12/02/16 01:30 Urine pH 5.5 pH Units (5.0-8.0) 12/02/16 01:30 Ur Specific [place] 1.023 (1.010-1.025) 12/02/16 01:30 Urine Protein 100 mg/dL (Neg-Trace) H 12/02/16 01:30 Urine Glucose (UA) Normal mg/dL (Normal) 12/02/16 01:30 Urine Ketones Trace mg/dL (Negative) H 12/02/16 01:30 Urine Blood Large (Negative) H 12/02/16 01:30 Urine Nitrite Positive (Negative) A 12/02/16 01:30 Urine Bilirubin Negative (Negative) 12/02/16 01:30 Urine Urobilinogen Normal mg/dL (Normal) 12/02/16 01:30 Ur Leukocyte Esterase Large (Negative) H 12/02/16 01:30 Urine Microscopic RBC TNTC per hpf (0-3) H 12/02/16 01:30 Urine Microscopic WBC 50-100 per hpf (0-3) H 12/02/16 01:30 Ur Squamous Epith Cells Moderate per lpf (None-Few) H 12/02/16 01:30 Urine Bacteria Many per hpf (None-Few) H 12/02/16 01:30 Hyaline Casts Few per lpf (None-Few) 12/02/16 01:30 Ur Culture Indicated? YES (NO) A 12/02/16 01:30 A. baumannii (PCR) Not Detected (Not Detect) 12/02/16 02:30 Nadeen albicans (PCR) Not Detected (Not Detect) 12/02/16 02:30 C. glabrata (PCR) Not Detected (Not Detect) 12/02/16 02:30 C. krusei (PCR) Not Detected (Not Detect) 12/02/16 02:30 C. parapsilosis (PCR) Not Detected (Not Detect) 12/02/16 02:30 C. tropicalis (PCR) Not Detected (Not Detect) 12/02/16 02:30 Enterobacteriac sp PCR DETECTED (Not Detect) A 12/02/16 02:30 E. cloacae complex PCR Not Detected (Not Detect) 12/02/16 02:30 Enterococcus sp PCR Not Detected (Not Detect) 12/02/16 02:30 E. coli (PCR) DETECTED (Not Detect) A 12/02/16 02:30 H. influenzae (PCR) Not Detected (Not Detect) 12/02/16 02:30 Klebsiella oxytoca PCR Not Detected (Not Detect) 12/02/16 02:30 Klebsiella pneumoniae Not Detected (Not Detect) 12/02/16 02:30 List. monocytogenes PCR Not Detected (Not Detect) 12/02/16 02:30 N. meningitidis (PCR) Not Detected (Not Detect) 12/02/16 02:30 Proteus species (PCR) Not Detected (Not Detect) 12/02/16 02:30 Serratia marcescens PCR Not Detected (Not Detect) 12/02/16 02:30 Staphylococcus sp PCR Not Detected (Not Detect) 12/02/16 02:30 Staph aureus (PCR) Not Detected (Not Detect) 12/02/16 02:30 mecA-Methicil Res Gene N/A (Not Detect) 12/02/16 02:30 Streptococcus sp PCR Not Detected (Not Detect) 12/02/16 02:30 Group A Strep DNA Not Detected (Not Detect) 12/02/16 02:30 Group B Strep (PCR) Not Detected (Not Detect) 12/02/16 02:30 Strep pneumoniae (PCR) Not Detected (Not Detect) 12/02/16 02:30 P. aeruginosa (PCR) Not Detected (Not Detect) 12/02/16 02:30 Young/B-Vanco Res Genes N/A (Not Detect) 12/02/16 02:30 KPC (blaKPC) Detect PCR Not Detected (Not Detect) 12/02/16 02:30 Radiographic studies: I personally reviewed and interpreted patient's most recent imaging studies dated 12/02/16. I discussed the findings with the patient today. Chest CTA 12/02/16 00:33 IMPRESSION: 1. Pulmonary emboli within the posterior segmental branches of the right lower lobe. 2. RV:LV ratio of 1.05. However the evaluation of the heart is slightly limited due to motion artifact, but this may represent mild right heart dysfunction. 3. Redemonstration of extensive consolidation/airspace opacities, atelectasis and fibrosis of the right lower lobe with associated pleural thickening and small effusion. The right lower lobe lung mass is obscured. 4. Small left base pleural effusion with surrounding pleural enhancement, which is nonspecific. 5. New areas of ground-glass opacities in the right upper lobe, which are nonspecific, could represent infection versus neoplasm. 6. Mediastinal lymph nodes are slightly smaller, largest measuring 13 mm. Findings were discussed with Trav Mitchell at 2:19 am on 12/02/2016. D/ / 12/02/2016 07:16:52 Jos Tovar MD / Myrna Dutton Interpreting Provider: Jos Tovar MD Impression/recommendations: Metachronous Rt. sided lung cancer. Suspected T2 Nx M0. Treatment intent curative. His been definitively treated with radiation therapy. He did not require chemotherapy. Based on his most recent imaging, no unequivocal evidence of lung cancer progression. I suspect multitude of changes described on imaging may be related to radiation pneumonitis. Previously noted mediastinal lymphadenopathy continues to improve. We reviewed the natural history of possibly clinically localized lung cancer and discussed NCCN guidelines for management/surveillance. I do not believe he has active malignancy at this time. He will need continued radiographic surveillance and Dr. Gautam recommended repeat chest CT sometime around mid November. I think CT scan from this hospitalization to suffice for that purpose. We'll defer to Dr. Gautam. Radiation pneumonitis: He is on a course of steroids per Dr. Gautam. He reports recent deterioration of his respiratory symptoms leading up to his current hospitalization. Evidently, had been on a tapering course of steroids and I wonder if we need to re-escalated steroid dosing at this time. We'll recommend to increase his steroid dose to 40 mg prednisone by mouth daily also unit of equivalent. Upon discharge, he will follow-up with Dr. Gautam regarding need for steroid dose adjustment. He also has inhaled bronchodilator at home but does not think it helped much. Pulmonary embolism. He has no clinical risk factors for venous catheter embolism and lower extremity Doppler is negative. I'm not sure this is an in situ thrombus in his pulmonary vasculature on account of ongoing inflammation. Nevertheless, he will need anticoagulation for 3 months at a minimum. Duration of anticoagulation to be determined by residual clot burden and result of thrombophilia studies. He is doing okay on heparin infusion with no bleeding issues. I think he can be transitioned to a Lovenox or oral anticoagulant. Coumadin versus NOACs I equally reasonable considerations depending on coverage status and patient preference. Please send d-dimer assay, factor V Leiden and prothrombin gene mutations prior to discharge. Upon discharge, we'll set up an outpatient follow-up for further recommendations. Right-sided chest wall pain: This is an ongoing problem for him. He reports right upper quadrant abdominal pain today. I'm sure this is related to his underlying lung cancer diagnosis. We'll recommend a right upper quadrant abdomen ultrasound or CT scan for further evaluation. We'll follow the patient along with you. Please call with interval questions. Thank you for your excellent ongoing care for allowing us to see him while in- house. Past Med Surg Social Fam HX - Past Medical History Medical history: cancer, COPD, coronary artery disease, hypertension, kidney stones, peripheral artery disease, TIA Psychiatric history: no psych history - Past Surgical History Surgical History: angioplasty/stent, carotid endarterectomy, LE Bypass - Social History Smoking Status: Former smoker Smokeless Tobacco Status: No Alcohol use: none Drug use: none - Family History Mother Hx Family Cardiac Disorders: Yes (CAD) Medications and Allergies Allopurinol [Zyloprim 300 MG] 300 mg PO DAILY 09/28/15 [History] Aspirin Enteric Coated [Aspirin EC] 81 mg PO DAILY 09/28/15 [History] Clopidogrel Bisulfate [Plavix] 75 mg PO DAILY 09/28/15 [History] Gluc/[place]-MSM#1/C/[place]asper/Arturo/Bor [Osteo Bi-Flex Caplet] 1 tab PO DAILY 09/28/15 [ History] Nitroglycerin [Nitrostat] 0.4 mg SL [id number] PRN 09/28/15 [History] Pentoxifylline [TRENtal] 400 mg PO TIDWM 09/28/15 [History] Pravastatin Sodium [Pravachol] 80 mg PO DAILY 09/28/15 [History] Tamsulosin HCl [Flomax] 0.4 mg PO DAILY 09/28/15 [History] Omeprazole [PriLOSEC] 20 mg PO DAILY 10/29/15 [History] Albuterol Sulfate [Albuterol Inhaler] 2 puff IH Q4HR PRN #1 hfa.aer.ad 09/11/16 [Rx] Budesonide/Formoterol 160/4.5 [Symbicort 160/4.5] 2 puff IH BIDR #1 hfa.aer.ad 04/20/17 [Rx] predniSONE [Prednisone] 20 mg PO DAILY #60 tab.ds.pk 11/17/16 [Rx] Atenolol [Tenormin] 50 mg PO DAILY 12/02/16 [History] Cholecalciferol (D-3) [Vitamin D] 1,000 unit PO DAILY 12/02/16 [History] Allergies indomethacin [From Indocin] Allergy (Verified 04/24/16 08:27) Dizziness Oncology - Exam - Constitutional Vitals: Temp Pulse Resp BP Pulse Ox 97.5 F L 85 14 163/88 98 12/03/16 04:27 12/03/16 04:27 12/03/16 04:35 12/03/16 04:27 12/03/16 04:35 Oncology - Results - Labs Labs: Short CBC 12/03/16 Range/Units 05:59 WBC 18.4 H (4.3-11.1) K/mcL Hgb 12.7 L D (12.9-16.9) g/dL Hct 38.8 (37.5-50.1) % Plt Count 167 (140-400) K/mcL Neutrophils # 16.4 H (1.6-8.9) K/mcL BMP 12/03/16 05:59 Sodium 134 L Potassium 3.9 Chloride 104 Carbon Dioxide 22 BUN 30 H Creatinine 0.92 Glucose 164 H Calcium 8.8 Cardiac Enzymes 12/02/16 Range/Units 14:55 Troponin I 0.02 (0-0.03) ng/mL Consult Discharge Plan - Plan Referrals: Farshad Lunsford MD [Primary Care Provider] -
[2016-12-03] MEDS: Budesonide/Formoterol 160/4.5 MDI IH SCH ×2 (08:20→20:55)
[2016-12-03] MEDS: Aspirin Enteric Coated 81 MG Tablet PO SCH (09:13)
[2016-12-03] MEDS: predniSONE 10 MG TABLET PO SCH (09:14)
[2016-12-03] MEDS: Fluconazole 100 MG TABLET PO SCH (09:14)
--- NOTE | 2016-12-03 09:28 | Internal Med Progress Note ---
<Suzanne Mark - Last Filed: 12/03/16 13:23> Date of Encounter: 12/03/16 Time of Encounter: 08:45 - Assessment and plan (1) Bacteremia Current Visit: Yes Status: Acute Assessment and plan: - 2/2 Blood cultures from 12/02/16 grew GNR, likely E. coli per PCR. Further identification and sensitivity pending. - Likely secondary to UTI (with urine culture also grew GNR). - Continue IV ceftriaxone (since 12/01) - Continue to monitor. (2) Pulmonary embolism Current Visit: Yes Status: Acute Assessment and plan: - CTA chest on 12/02/16 found pulmonary emboli within the posterior segmental branches of the right lower lobe. - Troponin downtrended from 0.06 to 0.02. - Echo on 12/02/16 shows LVEF 60%, mild LV diastoic dysfunction and normal right ventricular size and function. Also noted severe pulmonary hypertension with estimated RVSP = 68 mmHg. - Given troponin and echo do not indicate right heart strain, no need of TPA at this time. - Currently on heparin drip. Will switch to Lovenox so patient can have less blood draw. - Oncology is okay with either Coumadin or DOAC for patient's long-term anticoagulation. - Will have read check for Lovenox and Eliquis and then discuss with patient different anticoagulation options. Qualifiers: Pulmonary embolism type: other Chronicity: acute Acute cor pulmonale presence: without acute cor pulmonale Qualified Code(s): I26.99 - Other pulmonary embolism without acute cor pulmonale (3) UTI (urinary tract infection) Current Visit: Yes Status: Acute Assessment and plan: - Complicated UTI (given male gender) with urinary symptom (difficulty urinating ) and leukocytosis on admission (20.9) - UA positive for nitrite and leukocyte esterase strongly suggestive of UTI. - Urine culture grew GNR. Final identification and sensitivity pending. - Likely E. coli given positive on PCR and blood cultures. - Continue IV ceftriaxone (since 12/01). Will need 14-day course of antibiotic for complicated UTI. Qualifiers: Urinary tract infection type: site unspecified Hematuria presence: without hematuria Qualified Code(s): N39.0 - Urinary tract infection, site not specified (4) Radiation pneumonitis Current Visit: Yes Status: Chronic Assessment and plan: - Continue prednisone. 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 - No active cancer at this time per oncology. (6) COPD (chronic obstructive pulmonary disease) Current Visit: Yes Status: Chronic Assessment and plan: - Continue steroid and scheduled albuterol. Qualifiers: COPD type: unspecified COPD Qualified Code(s): J44.9 - Chronic obstructive pulmonary disease, unspecified - Subjective Interval history: No significant event noted overnight. Patient was seen and examined this morning. Patient still has some RUQ pain aggravated by breathing or cough. Patient reports breathing improve. Patient denies fever, chills, nausea, vomiting, diarrhea. - Constitutional Vitals: Temp Pulse Resp BP Pulse Ox 98.3 F 91 16 161/77 3 12/03/16 08:15 12/03/16 08:15 12/03/16 08:23 12/03/16 08:15 12/03/16 09:00 General appearance: Present: cooperative, A&O X 3, no acute distress - Head Head exam: Present: atraumatic, normocephalic - Eye Eye exam: Present: EOMI, PERRL, conjuntiva pink, sclera anicteric - Neck Neck exam general surgery: Present: supple, trachea midline. Absent: lymphadenopathy - Respiratory Respiratory exam: Present: rales (Right basilar crackles). Absent: accessory muscle use, rhonchi, wheezes - Cardiovascular Cardiovascular exam: Present: RRR, +S1, +S2. Absent: diastolic murmur, gallop, rubs, systolic murmur - GI/Abdominal GI/Abdominal exam: Present: normal bowel sounds, soft, tenderness (RUQ), no peritoneal signs. Absent: distended - Extremities Exam Extremities exam: Present: warm, radial pulses palpable and symetrical. Absent : calf tenderness, cyanotic, pedal edema - Neurological Exam Neurological exam: Present: CN II-XII intact, oriented X3, no focal deficits. Absent: pronater drift, facial droop, speech deficit - Skin Skin exam: Present: dry, intact, warm Internal Medicine: Result - Labs CBC & Chem 7: 12/03/16 05:59 12/03/16 05:59 Labs: Short CBC 12/03/16 Range/Units 05:59 WBC 18.4 H (4.3-11.1) K/mcL Hgb 12.7 L D (12.9-16.9) g/dL Hct 38.8 (37.5-50.1) % Plt Count 167 (140-400) K/mcL Neutrophils # 16.4 H (1.6-8.9) K/mcL BMP 12/03/16 05:59 Sodium 134 L Potassium 3.9 Chloride 104 Carbon Dioxide 22 BUN 30 H Creatinine 0.92 Glucose 164 H Calcium 8.8 Cardiac Enzymes 12/02/16 Range/Units 14:55 Troponin I 0.02 (0-0.03) ng/mL - ABG Interpretation ABG results: PT/INR, D-dimer PT 12.1 Seconds (9.4-12.1) 12/02/16 00:43 Consult Discharge Plan - Plan Referrals: Farshad Lunsford MD [Primary Care Provider] - 12/11/16 11:00 am <Heriberto Murillo - Last Filed: 12/03/16 16:12> Date of Encounter: 12/03/16 - Constitutional Vitals: Temp Pulse Resp BP Pulse Ox 98.2 F 87 16 130/68 93 12/03/16 11:02 12/03/16 11:02 12/03/16 15:54 12/03/16 11:02 12/03/16 15:54 Internal Medicine: Result - Labs CBC & Chem 7: 12/03/16 05:59 12/03/16 05:59 Labs: Short CBC 12/03/16 Range/Units 05:59 WBC 18.4 H (4.3-11.1) K/mcL Hgb 12.7 L D (12.9-16.9) g/dL Hct 38.8 (37.5-50.1) % Plt Count 167 (140-400) K/mcL Neutrophils # 16.4 H (1.6-8.9) K/mcL BMP 12/03/16 05:59 Sodium 134 L Potassium 3.9 Chloride 104 Carbon Dioxide 22 BUN 30 H Creatinine 0.92 Glucose 164 H Calcium 8.8 - ABG Interpretation ABG results: PT/INR, D-dimer PT 12.1 Seconds (9.4-12.1) 12/02/16 00:43 - Attending Attestation I examined this patient and my medical decision-making was reviewed with the Resident Physician on 12/03/16. I agree with the documented findings, disposition and treatment plan as described except to the extent set forth below. 81 M with Acute hypoxemia secondary to Acute sub-segmental PE and severe Pulm HTN demand ischemia with slightly elevated troponin on exam , GN bacteremia possibly from E.cOli UTI Complained of RUQ pain, which is reproducible, no other abdominal symptoms Physical exam revealed a chronically ill-looking elderly man in no form of distress, on O2 by NC, chest with equal air entry, S1 S2, RRR, abdomen is benign , no pedal edema labs and Imaging reviewed, ECHO noted, normal R heart function and size, severe Pulm HTN, Leukocytosis improving Plan is to continue antibiotics, follow final cultures, switch heparin drip to lovenox, , discussed NICOLE/lovenox injections with patient, SW to find out cost/co -pay. Obtain GB USS for RUQ pain. Oncologist review noted and appreciated, continue oxygen, will require O2 qualification prior to discharge Rest of details as in Resident's documentation
[2016-12-03] MEDS: APIXABAN 5 MG TABLET PO SCH (21:45)
[2016-12-03] MEDS: Melatonin 3 MG TABLET PO SCH (21:45)
[2016-12-03] MEDS ORDERED: *HR* Enoxaparin 80 MG/0.8 ML SYRINGE SQ SCH (22:00)
[2016-12-04] MEDS: Albuterol 2.5 MG/3 ML NEBULIZER IH SCH ×7 (00:07→23:29)
[2016-12-04 07:01] LABS: Hematocrit 37.8 % (37.5-50.1); Hemoglobin 12.1 g/dL (12.9-16.9); Mean Corpuscular Hemoglobin 29.5 pg (28.0-33.3); Mean Corpuscular Volume 92.2 fL (83.0-100.0); Mean Platelet Volume 10.3 fL (9.4-12.4); Platelet Count 158 K/mcL (140-400); Red Cell Distribution Width 16.7 % (11.5-14.5)
[2016-12-04 07:16] LABS: BUN/Creatinine Ratio 29 (6-26); Blood Urea Nitrogen 27 mg/dL (8-26); Calcium 8.6 mg/dL (8.6-10.8); Carbon Dioxide 23 mEq/L (19-29); Chloride 106 mEq/L (98-109); Glucose 143 mg/dL (70-99); Osmolality,Calculated 290 (280-300); Potassium 3.9 mEq/L (3.5-4.5); Sodium 136 mEq/L (136-145); eGFR For African Americans > 60 (> 60); eGFR For Non-African Americans > 60 (> 60)
[2016-12-04] MEDS: Budesonide/Formoterol 160/4.5 MDI IH SCH ×2 (07:51→20:03)
[2016-12-04] MEDS: predniSONE 10 MG TABLET PO SCH (08:59)
[2016-12-04] MEDS: APIXABAN 5 MG TABLET PO SCH ×2 (08:59→20:22)
[2016-12-04] MEDS: Aspirin Enteric Coated 81 MG Tablet PO SCH (08:59)
[2016-12-04] MEDS: Fluconazole 100 MG TABLET PO SCH (09:00)
--- NOTE | 2016-12-04 13:30 | Internal Med Progress Note ---
<Suzanne Mark - Last Filed: 12/04/16 16:35> Date of Encounter: 12/04/16 Time of Encounter: 10:15 - Assessment and plan (1) Bacteremia Current Visit: Yes Status: Acute Assessment and plan: - 2/2 Blood cultures from 12/02/16 grew bullock-sensitive E. coli - Likely secondary to UTI (as urine culture also grew E. coli). - Continue IV ceftriaxone (since 12/01). Case was discussed with infectious diseases specialist on the phone. Patient can be switched to PO antibiotic on discharge and will need total 14-day course of treatment. - Continue to monitor. (2) Pulmonary embolism Current Visit: Yes Status: Acute Assessment and plan: - CTA chest on 12/02/16 found pulmonary emboli within the posterior segmental branches of the right lower lobe. - Troponin downtrended from 0.06 to 0.02. - Echo on 12/02/16 shows LVEF 60%, mild LV diastoic dysfunction and normal right ventricular size and function. Also noted severe pulmonary hypertension with estimated RVSP = 68 mmHg. - Given troponin and echo do not indicate right heart strain, no need of TPA at this time. - Oncology is okay with either Coumadin or DOAC for patient's long-term anticoagulation. - Patient chose Eliquis for his long-term anticoagulation drug and tolerates it well so far. Continue Eliquis. Qualifiers: Pulmonary embolism type: other Chronicity: acute Acute cor pulmonale presence: without acute cor pulmonale Qualified Code(s): I26.99 - Other pulmonary embolism without acute cor pulmonale (3) UTI (urinary tract infection) Current Visit: Yes Status: Acute Assessment and plan: - Complicated UTI (given male gender) with urinary symptom (difficulty urinating ) and leukocytosis on admission (20.9) - UA positive for nitrite and leukocyte esterase strongly suggestive of UTI. - Urine culture grew bullock-sensitive E. coli - Continue IV ceftriaxone (since 12/01). Will need at lease 14-day course of antibiotic for complicated UTI. Qualifiers: Urinary tract infection type: site unspecified Hematuria presence: without hematuria Qualified Code(s): N39.0 - Urinary tract infection, site not specified (4) Radiation pneumonitis Current Visit: Yes Status: Chronic Assessment and plan: - Continue prednisone. 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 - No active cancer at this time per oncology. (6) COPD (chronic obstructive pulmonary disease) Current Visit: Yes Status: Chronic Assessment and plan: - Continue steroid and scheduled albuterol. Qualifiers: COPD type: unspecified COPD Qualified Code(s): J44.9 - Chronic obstructive pulmonary disease, unspecified - Subjective Interval history: No significant event noted overnight. Patient was seen and examined this morning. Patient reports breathing and RUQ abd pain continue to improve. Patient denies fever, chills, nausea, vomiting, diarrhea. - Constitutional Vitals: Temp Pulse Resp BP Pulse Ox 97.6 F 92 24 148/78 90 12/04/16 12:18 12/04/16 12:18 12/04/16 12:18 12/04/16 12:18 12/04/16 12:18 General appearance: Present: cooperative, A&O X 3, no acute distress - Head Head exam: Present: atraumatic, normocephalic - Eye Eye exam: Present: EOMI, PERRL, conjuntiva pink, sclera anicteric - Neck Neck exam general surgery: Present: supple, trachea midline - Respiratory Respiratory exam: Present: rales (Mild right basilar crackles). Absent: accessory muscle use, rhonchi, wheezes - Cardiovascular Cardiovascular exam: Present: RRR, +S1, +S2. Absent: diastolic murmur, gallop, rubs, systolic murmur - GI/Abdominal GI/Abdominal exam: Present: normal bowel sounds, soft, no peritoneal signs. Absent: distended, tenderness - Extremities Exam Extremities exam: Present: warm, radial pulses palpable and symetrical. Absent : calf tenderness, cyanotic, pedal edema - Neurological Exam Neurological exam: Present: oriented X3, no focal deficits. Absent: pronater drift, facial droop, speech deficit - Skin Skin exam: Present: dry, intact, warm Internal Medicine: Result - Labs CBC & Chem 7: 12/04/16 06:31 12/04/16 06:31 Labs: Short CBC 12/04/16 Range/Units 06:31 WBC 15.2 H (4.3-11.1) K/mcL Hgb 12.1 L (12.9-16.9) g/dL Hct 37.8 (37.5-50.1) % Plt Count 158 (140-400) K/mcL [facility] 12/04/16 06:31 Sodium 136 Potassium 3.9 Chloride 106 Carbon Dioxide 23 BUN 27 H Creatinine 0.92 Glucose 143 H Calcium 8.6 - ABG Interpretation ABG results: PT/INR, D-dimer PT 12.1 Seconds (9.4-12.1) 12/02/16 00:43 - Impressions Impressions Gallbladder Ultrasound 12/03/16 17:00 IMPRESSION: Somewhat limited evaluation due to bowel gas and patient's inability to breath hold. No acute findings. D/ / Shilpa Meza MD / Shilpa Meza MD Interpreting Provider: Shilpa Meza MD Consult Discharge Plan - Plan Referrals: Farshad Lunsford MD [Primary Care Provider] - 12/11/16 11:00 am <Heriberto Murillo T - Last Filed: 12/04/16 17:34> Date of Encounter: 12/04/16 - Constitutional Vitals: Temp Pulse Resp BP Pulse Ox 98.3 F 81 22 160/78 94 12/04/16 16:37 12/04/16 16:37 12/04/16 16:37 12/04/16 16:37 12/04/16 16:37 Internal Medicine: Result - Labs CBC & Chem 7: 12/04/16 06:31 12/04/16 06:31 Labs: Short CBC 12/04/16 Range/Units 06:31 WBC 15.2 H (4.3-11.1) K/mcL Hgb 12.1 L (12.9-16.9) g/dL Hct 37.8 (37.5-50.1) % Plt Count 158 (140-400) K/mcL [facility] 12/04/16 06:31 Sodium 136 Potassium 3.9 Chloride 106 Carbon Dioxide 23 BUN 27 H Creatinine 0.92 Glucose 143 H Calcium 8.6 - ABG Interpretation ABG results: PT/INR, D-dimer PT 12.1 Seconds (9.4-12.1) 12/02/16 00:43 - Impressions Impressions Gallbladder Ultrasound 12/03/16 17:00 IMPRESSION: Somewhat limited evaluation due to bowel gas and patient's inability to breath hold. No acute findings. D/ / Shilpa Meza MD / Shilpa Meza MD Interpreting Provider: Shilpa Meza MD - Attending Attestation I examined this patient and my medical decision-making was reviewed with the Resident Physician on 12/03/16. I agree with the documented findings, disposition and treatment plan as described except to the extent set forth below. 81 M with Acute hypoxemia secondary to Acute sub-segmental PE and severe Pulm HTN, demand ischemia with slightly elevated troponin on exam , GN bacteremia from E.cOli and complicated UTI Has no new complains on evaluation today. Physical exam revealed a chronically ill-looking elderly man in no form of distress, on O2 by NC, chest with equal air entry, S1 S2, RRR, abdomen is benign , no pedal edema labs and Imaging reviewed, ECHO noted, normal R heart function and size, severe Pulm HTN, Leukocytosis improving. Gall bladder USS unremarkable. Plan is to continue antibiotics, repeat blood cultures. Restart and titrate antihypertensives. O2 qualification. Likely discharge a.m.... Rest of details as in Resident's documentation
[2016-12-04] MEDS: Melatonin 3 MG TABLET PO SCH (20:22)
[2016-12-04] MEDS ORDERED: Melatonin 3 MG TABLET PO SCH (20:51)
[2016-12-05] MEDS: Albuterol 2.5 MG/3 ML NEBULIZER IH SCH ×4 (04:40→16:07)
[2016-12-05 06:48] LABS: Hematocrit 39.2 % (37.5-50.1); Hemoglobin 12.9 g/dL (12.9-16.9); Mean Corpuscular HGB Conc 32.9 g/dL (31.6-35.5); Mean Corpuscular Hemoglobin 30.3 pg (28.0-33.3); Mean Platelet Volume 10.4 fL (9.4-12.4); Platelet Count 168 K/mcL (140-400); Red Blood Count 4.26 M/mcL (4.19-5.50); Red Cell Distribution Width 17.2 % (11.5-14.5)
[2016-12-05 06:52] LABS: BUN/Creatinine Ratio 27 (6-26); Blood Urea Nitrogen 23 mg/dL (8-26); Calcium 8.7 mg/dL (8.6-10.8); Carbon Dioxide 26 mEq/L (19-29); Chloride 104 mEq/L (98-109); Glucose 97 mg/dL (70-99); Osmolality,Calculated 286 (280-300); Potassium 4.4 mEq/L (3.5-4.5); Sodium 136 mEq/L (136-145); eGFR For African Americans > 60 (> 60); eGFR For Non-African Americans > 60 (> 60)
[2016-12-05] MEDS: Budesonide/Formoterol 160/4.5 MDI IH SCH (07:53)
[2016-12-05] MEDS: Aspirin Enteric Coated 81 MG Tablet PO SCH (10:35)
[2016-12-05] MEDS: predniSONE 10 MG TABLET PO SCH (10:35)
[2016-12-05] MEDS: APIXABAN 5 MG TABLET PO SCH (10:35)
[2016-12-05] MEDS: Fluconazole 100 MG TABLET PO SCH (10:36)
[2016-12-05 12:24] VITALS: BP 116/75
--- NOTE | 2016-12-05 13:02 | Discharge Summary ---
<Suzanne Mark - Last Filed: 12/05/16 15:02> Date of Encounter: 12/05/16 Time of Encounter: 10:30 - Discharge Diagnosis (1) Pulmonary embolism Priority: Primary Status: Acute Qualifiers: Pulmonary embolism type: other Chronicity: acute Acute cor pulmonale presence: without acute cor pulmonale Qualified Code(s): I26.99 - Other pulmonary embolism without acute cor pulmonale (2) Acute respiratory failure with hypoxia Priority: Secondary Status: Acute Comments: - O2 sat 86% on room air in ED. Patient was not on home oxygen. - Likely secondary to PE. - Patient is qualified for home oxygen and will go home with 4.5 L of continuous oxygen. (3) Bacteremia Priority: Primary Status: Acute (4) UTI (urinary tract infection) Priority: Primary Status: Acute Qualifiers: Urinary tract infection type: site unspecified Hematuria presence: without hematuria Qualified Code(s): N39.0 - Urinary tract infection, site not specified (5) Radiation pneumonitis Priority: Secondary Status: Chronic (6) History of lung cancer Priority: Secondary Status: Chronic (7) COPD (chronic obstructive pulmonary disease) Priority: Secondary Status: Chronic Qualifiers: COPD type: unspecified COPD Qualified Code(s): J44.9 - Chronic obstructive pulmonary disease, unspecified - Discharge Medications Prescriptions: Cefdinir [Omnicef] 300 mg PO BID #20 capsule Home Medications: Allopurinol [Zyloprim 300 MG] 300 mg PO DAILY 09/28/15 [History] Aspirin Enteric Coated [Aspirin EC] 81 mg PO DAILY 09/28/15 [History] Clopidogrel Bisulfate [Plavix] 75 mg PO DAILY 09/28/15 [History] Gluc/Bartolome-MSM#1/C/Jasper/Arturo/Bor [Osteo Bi-Flex Caplet] 1 tab PO DAILY 09/28/15 [ History] Nitroglycerin [Nitrostat] 0.4 mg SL [id number] PRN 09/28/15 [History] Pentoxifylline [TRENtal] 400 mg PO TIDWM 09/28/15 [History] Pravastatin Sodium [Pravachol] 80 mg PO DAILY 09/28/15 [History] Tamsulosin HCl [Flomax] 0.4 mg PO DAILY 09/28/15 [History] Omeprazole [PriLOSEC] 20 mg PO DAILY 10/29/15 [History] Albuterol Sulfate [Albuterol Inhaler] 2 puff IH Q4HR PRN #1 hfa.aer.ad 09/11/16 [Rx] Budesonide/Formoterol 160/4.5 [Symbicort 160/4.5] 2 puff IH BIDR #1 hfa.aer.ad 09/11/16 [Rx] predniSONE [Prednisone] 20 mg PO DAILY #60 tab.ds.pk 11/17/16 [Rx] Atenolol [Tenormin] 50 mg PO DAILY 12/02/16 [History] Cholecalciferol (D-3) [Vitamin D] 1,000 unit PO DAILY 12/02/16 [History] Apixaban [Eliquis] 10 mg PO BID #78 tab 12/05/16 [Rx] Cefdinir [Omnicef] 300 mg PO BID #20 capsule 12/05/16 [Rx] Allergies/Adverse Reactions: Allergies indomethacin [From Indocin] Allergy (Verified 04/24/16 08:27) Dizziness Procedures/tests Complete & Pending: Procedures Performed prior 72 hours Category Date Time Status US gall bladder [US] Routine Exams 12/03/16 17:00 Completed Date of admission: 12/02/16 12:01 Primary care physician: Farshad Lunsford MD Consults: 12/04/16 09:05 Consult to Occupational Therapy [CONS] Routine Comment: Evaluate, develop and implement POC Reason for Consult: d/c planning Consult to Physical Therapy [CONS] Routine Comment: Evaluate, develop and implement POC Reason for Consult: weakness, d/c planning Consult to Yard Conductor [CONS] Routine Reason for SW Consult: d/c planning, home O2 Discharging clinician: Suzanne Mark Anticipated date of discharge: 12/05/16 - Patient Status Disposition: Home Health Service Condition: Fair Functional capacity at discharge: uses cane/walker Overall status at discharge: patient is progressing back to baseline - Discharge Instructions Instructions: Pulmonary Embolism (DC), Urinary Tract Infection in Men (DC) Follow Up With: Farshad Lunsford MD [Primary Care Provider] - 12/11/16 11:00 am Additional Instructions: Please take 10 more days of cefdinir 300 mg twice a day to finish total 14-day course of antibiotic therapy for complicated UTI. Please take Eliquis 10 mg twice a day for 5 more days and then 5 mg twice a day. Please follow up with your primary care provider within a week regarding your hospitalization and anticoagulation/antiplatelet therapy. - Diet and Activity Activity: as per physical therapy Diet: low fat, low cholesterol Hospital course: Mr. Nunez is a 81 year old male with COPD (not on home oxygen), CAD, HTN, history of lung cancer s/p radiation therapy and associate radiation pneumonitis currently on prednisone. Patient presented with worsening shortness of breath and was noted to be hypoxic (86%) on room air with leukocytosis (20.9) . CTA chest on 12/02/16 found pulmonary emboli within the posterior segmental branches of the right lower lobe. Patient was admitted on 12/02/16 for pulmonary embolism and started on heparin drip. Troponin downtrended from 0.06 to 0.02. Echo on 12/02/16 shows LVEF 60%, mild LV diastoic dysfunction and normal right ventricular size and function, suggestive of no right heart strain. Oncology states no active cancer at this time and is okay with either Coumadin or DOAC for patient's long-term anticoagulation. Different anticoagulation options were discussed with patient and he chose to be on Eliquis, which was started on night. Patient is also qualified for 4.5 L of continuous home oxygen. Patient was also noted to have blood cultures and urine culture positive for bullock -sensitive E. coli. Patient is on IV ceftriaxone since admission and his urinary symptoms and leukocytosis improve. Given patient improves clinically and remains hemodynamically stable, patient will be discharged home with home oxygen and home health as recommended by PT/OT. Patient is instructed to take 10 more days of cefdinir 300 mg twice a day to finish total 14-day course of antibiotic therapy for complicated UTI. Patient will continue Eliquis 10 mg twice a day for 5 more days and then 5 mg twice a day. Patient will follow up with his primary care provider within a week regarding his hospitalization and anticoagulation/antiplatelet therapy. Patient and his family verbalized their understanding and agreed with the discharge plan. All questions answered. - Time Spent with Patient Total time spent providing and/or coordinating discharge services: Greater than 30 minutes - Constitutional Vitals: Temp Pulse Resp BP Pulse Ox 97.7 F 77 20 116/75 95 12/05/16 12:20 12/05/16 12:20 12/05/16 12:20 12/05/16 12:20 12/05/16 12:20 General appearance: Present: cooperative, A&O X 3, no acute distress - Head Head exam: Present: atraumatic, normocephalic - Eye Eye exam: Present: EOMI, PERRL, conjuntiva pink, sclera anicteric - Neck Neck exam general surgery: Present: supple, trachea midline. Absent: lymphadenopathy - Respiratory Respiratory exam: Present: rales (Right basilar crackles). Absent: accessory muscle use, rhonchi, wheezes - Cardiovascular Cardiovascular exam: Present: RRR, +S1, +S2. Absent: diastolic murmur, gallop, rubs, systolic murmur - GI/Abdominal GI/Abdominal exam: Present: normal bowel sounds, soft, no peritoneal signs. Absent: distended, tenderness - Extremities Exam Extremities exam: Present: warm, radial pulses palpable and symetrical. Absent : calf tenderness, cyanotic, pedal edema - Neurological Exam Neurological exam: Present: CN II-XII intact, oriented X3, no focal deficits. Absent: pronater drift, facial droop, speech deficit - Skin Skin exam: Present: dry, intact, warm <Heriberto Murillo T - Last Filed: 12/05/16 17:37> Date of Encounter: 12/05/16 Procedures/tests Complete & Pending: Procedures Performed prior 72 hours Category Date Time Status US gall bladder [US] Routine Exams 12/03/16 17:00 Completed Date of admission: 12/02/16 12:01 Primary care physician: Farshad Lunsford MD Consults: 12/04/16 09:05 Consult to Occupational Therapy [CONS] Routine Comment: Evaluate, develop and implement POC Reason for Consult: d/c planning Consult to Physical Therapy [CONS] Routine Comment: Evaluate, develop and implement POC Reason for Consult: weakness, d/c planning Consult to Yard Conductor [CONS] Routine Reason for SW Consult: d/c planning, home O2 Hospital course: Mr. Nunez is a 81 year old male - Time Spent with Patient Total time spent providing and/or coordinating discharge services: - Constitutional Vitals: Temp Pulse Resp BP Pulse Ox 97.7 F 77 20 116/75 92 12/05/16 12:20 12/05/16 12:20 12/05/16 16:07 12/05/16 12:20 12/05/16 16:07 - Attending Attestation I examined this patient and my medical decision-making was reviewed with the Resident Physician on 12/05/16. I agree with the documented findings, disposition and treatment plan as described except to the extent set forth below. Seen and evaluated at bedside with family Mr Nunez was admitted and managed for acute hypoxic respiratory failure secondary to PE with mild demand ischemia, E.Coli UTI and E.Coli bacteremia He has no new complains today, his physical exam is unremarkable, repeat blood culture is preliminary negative and his leukocytosis is down-trending He is stable for discharge home with home O2, antibiotics, anticoagulation, PT/ OT home health as recommended. Plan of care discussed with family and the patient who verbalized understanding Rest of details as in resident physicians documentation
--- NOTE | 2016-12-05 14:10 | Physician Discharge Referral ---
Home Health/Hosp Referral Info Transfer to: Home Health Provider in Charge Post Discharge: PCP - Diagnosis (1) Bacteremia Priority: Primary Status: Acute (2) Pulmonary embolism Priority: Primary Status: Acute (3) UTI (urinary tract infection) Priority: Primary Status: Acute (4) Radiation pneumonitis Priority: Secondary Status: Chronic (5) History of lung cancer Priority: Secondary Status: Chronic (6) COPD (chronic obstructive pulmonary disease) Priority: Secondary Status: Chronic - Respiratory Orders Oxygen / L per min (4.5 L) Smoking Cessation: Smoking cessation has been advised. For more information, call the [place] Tobacco Quit Line at 0-252-HMLK-NOW. - Diet/Nutrition Diet/Nutrition Orders: Cardiac - Activity Activity Orders: Walker - Services Needed Following services are medically necessary services: Home Health Aide, Physical Therapy, Occupational Therapy - Transfer Medications Prescriptions: Cefdinir [Omnicef] 300 mg PO BID #20 capsule Home Medications: Allopurinol [Zyloprim 300 MG] 300 mg PO DAILY 09/28/15 [History] Aspirin Enteric Coated [Aspirin EC] 81 mg PO DAILY 09/28/15 [History] Clopidogrel Bisulfate [Plavix] 75 mg PO DAILY 09/28/15 [History] Gluc/Bartolome-MSM#1/C/Jasper/Arturo/Bor [Osteo Bi-Flex Caplet] 1 tab PO DAILY 09/28/15 [ History] Nitroglycerin [Nitrostat] 0.4 mg SL [id number] PRN 09/28/15 [History] Pentoxifylline [TRENtal] 400 mg PO TIDWM 09/28/15 [History] Pravastatin Sodium [Pravachol] 80 mg PO DAILY 09/28/15 [History] Tamsulosin HCl [Flomax] 0.4 mg PO DAILY 09/28/15 [History] Omeprazole [PriLOSEC] 20 mg PO DAILY 10/29/15 [History] Albuterol Sulfate [Albuterol Inhaler] 2 puff IH Q4HR PRN #1 hfa.aer.ad 09/11/16 [Rx] Budesonide/Formoterol 160/4.5 [Symbicort 160/4.5] 2 puff IH BIDR #1 hfa.aer.ad 09/11/16 [Rx] predniSONE [Prednisone] 20 mg PO DAILY #60 tab.ds.pk 11/17/16 [Rx] Atenolol [Tenormin] 50 mg PO DAILY 12/02/16 [History] Cholecalciferol (D-3) [Vitamin D] 1,000 unit PO DAILY 12/02/16 [History] Apixaban [Eliquis] 10 mg PO BID #78 tab 12/05/16 [Rx] Cefdinir [Omnicef] 300 mg PO BID #20 capsule 12/05/16 [Rx] Allergies/Adverse Reactions: Allergies indomethacin [From Indocin] Allergy (Verified 04/24/16 08:27) Dizziness Certification: Further, I certify that my clinical findings support that this patient is homebound (i.e. absences from home require considerable and taxing effort and are for medical reasons or [employer] or infrequently or short duration when for other reasons) because: Homebound Reason: Patient requires assistance of a person or device to safely leave home Attestation: My signature below is to certify that this patient is under my care and that I, or nurse practitioner, or a physician's assistant store manager trainee working with me, has a face-to -face encounter with this patient.
== END 2016-12-05 17:27 | disposition home health service (06) | DRG 175 ==
LOC: EMEROO 23:48 → 2ANU 23:48 → SUATTDRO 12-02 03:02 → 2ANU 12-02 03:20
PROVIDERS: ADMIT Hospitalist; ATTEND Internal Medicine

== ENCOUNTER 2017-01-29 11:55 | Inpatient (IN) ==
[2017-01-29] MEDS ORDERED: methylPREDNISolone 125 MG/2 ML VIAL IVP ONE (12:07)
[2017-01-29] MEDS ORDERED: Ipratropium/Albuterol Neb 3 ML IH ONE (12:07)
--- NOTE | 2017-01-29 12:11 | Emergency Department Note ---
Disposition Clinical Impression: COPD exacerbation, Hypoxia Disposition: Admitted As Inpatient Condition: Fair Referrals: Farshad Lunsford MD [Primary Care Provider] - SOB HPI - General Chief Complaint: ED Shortness of Breath/Dyspnea Stated Complaint: TRACEE / back pain Time Seen by Provider: 01/29/17 11:58 Source: patient, family Mode of arrival: private vehicle Limitations: age Nursing Notes Reviewed: Yes Vital Signs Reviewed: Yes - History of Present Illness 81-year-old male history of lung cancer currently being treated with radiation, CAD, pulmonary embolism on anticoagulation who presents to the ER from his radiation oncologist office due to respiratory difficulty. Family reports that he was diagnosed with a PE over the last few months. They state since that time he has been short of breath and was recently on a steroid taper over the weekend but started having worsening shortness of breath as a taper his dose. He was seen today by his radiation oncologist who referred him here due to Haldol he was breathing there. He was found to be 80% on 5 L which is his usual oxygen requirement. Family reports a cough at home. He has had no fevers. Denies chest pain but has had some back pain. Reports compliance with his anticoagulation. No other complaints. Pt Subjective Complaint: shortness of breath Onset (ago): day(s) Context: other Severity: severe Consistency/Duration: gradually worsening Improves with: oxygen, rest Worsens with: nothing Known history of: PE, other (Lung cancer) Associated symptoms: Reports: cough. Denies: chest pain, fever, diaphoresis, nausea/vomiting Treatment prior to arrival: oxygen Cough present: Yes Cough Description: Involuntary Cough Frequency: Intermittent Sputum production: No Sputum Amount: None - Related Data Home oxygen amount: other (5 L) Home Medications Medication Instructions Recorded Confirmed Allopurinol [Zyloprim 300 MG] 300 mg PO DAILY 09/28/15 01/29/17 Aspirin Enteric Coated [Aspirin EC] 81 mg PO DAILY 09/28/15 01/29/17 Gluc/Bartolome-MSM#1/C/Jasper/Arturo/Bor 1 tab PO DAILY 09/28/15 01/29/17 [Osteo Bi-Flex Caplet] Nitroglycerin [Nitrostat] 0.4 mg SL [id number] PRN 09/28/15 01/29/17 Pentoxifylline [TRENtal] 400 mg PO TIDWM 09/28/15 01/29/17 Pravastatin Sodium [Pravachol] 80 mg PO DAILY 09/28/15 01/29/17 Tamsulosin HCl [Flomax] 0.4 mg PO DAILY 09/28/15 01/29/17 Omeprazole [PriLOSEC] 20 mg PO DAILY 10/29/15 01/29/17 Atenolol [Tenormin] 0.5 tab PO DAILY 12/02/16 01/29/17 Benzonatate [Tessalon] 100 mg PO TID 12/09/16 01/29/17 Previous Rx's Medication Instructions Recorded Apixaban [Eliquis] 10 mg PO BID #78 tab 12/05/16 Allergies Allergy/AdvReac Type Severity Reaction Status Date / Time indomethacin [From Indocin] Allergy Dizziness Verified 01/29/17 11:14 All systems ED: reviewed and negative except as stated. Constitutional: Denies: fever Cardiovascular: Denies: chest pain Respiratory: Reports: cough, dyspnea. Denies: hemoptysis Gastrointestinal: Denies: abdominal pain, nausea, vomiting, diarrhea Musculoskeletal: Reports: back pain. Denies: neck pain Past Medical History - Past Medical History Attestation: Yes The following information was validated with the patient. Source: patient, obtained from family Medical history: Reports: cancer, COPD, coronary artery disease, hypertension, kidney stones, peripheral artery disease, TIA Surgical history: Reports: angioplasty/stent, carotid endarterectomy, LE Bypass Psychiatric history: Reports: no psych history - Social History Smoking Status: Former smoker Smokeless Tobacco Status: No Alcohol use: Reports: none Drug use: Reports: none Physical Exam - General Limitations: no limitations General appearance: alert, in no apparent distress - Head Head exam: atraumatic, normocephalic, normal inspection - Eye Eye exam: Present: normal appearance, EOMI - ENT ENT exam: normal exam - Neck Neck exam: Present: normal inspection, full ROM - Chest Chest inspection: Present: normal inspection, symmetric chest wall rise - Respiratory Respiratory exam: Present: accessory muscle use, other (Diminished breath sounds bilaterally worse on the left.). Absent: wheezes, stridor - Cardiovascular Cardiovascular exam: Present: regular rate, normal rhythm, normal heart sounds - Abdominal Exam Abdominal exam: Present: soft, Non-Tender. Absent: tenderness, rigidity - Extremities Exam Extremities exam: Present: normal inspection, full ROM - Expanded Upper Extremity Exam Shoulder exam: Present: normal inspection, full ROM Arm exam: Present: normal inspection, full ROM Elbow exam: Present: normal inspection, full ROM Forearm/Wrist exam: Present: normal inspection, full ROM Hand exam: Present: normal inspection, full ROM Vascular exam: Normal: radial pulse - Expanded Lower Extremity Exam Hip/Pelvis exam: Present: normal inspection, full ROM Upper leg exam: Present: normal inspection, full ROM Knee exam: Present: normal inspection, full ROM Lower leg exam: Present: normal inspection, full ROM Ankle exam: Present: normal inspection, full ROM Foot/toe exam: Present: normal inspection, full ROM Neurovascular/Tendon exam: Absent: motor deficit, sensory deficit - Neurological Exam Neurological exam: Present: alert, other (GCS 15. Nonfocal neurologic exam.) - Psychiatric Psychiatric exam: Present: normal affect, normal mood - Skin Skin exam: Present: warm, dry, intact, normal color Course Course Narrative: Patient seen and examined. He was hypoxic here on nasal cannula. Patient placed on nonrebreather with improvement to 100% O2 saturation. We will obtain an EKG, chest x-ray as well as labs including coags and troponin. Respiratory therapy called and patient attempted BiPAP but states he was unable to tolerated. We will keep him on a nonrebreather. - Reevaluation(s) Reevaluation #1: Patient now currently on 4 L nasal cannula satting in the high 90s. Discussed results of imaging and lab work with the patient and family. They are in agreement with being admitted to the hospital. Hospitalist paged. Vital Signs Temperature 98.1 F 01/29/17 12:05 Pulse Rate 78 01/29/17 12:05 Respiratory Rate 16 01/29/17 12:05 Blood Pressure 144/83 01/29/17 12:05 O2 Sat by Pulse Oximetry 100 01/29/17 12:05 Temperature 98.1 F 01/29/17 12:05 Pulse Rate 83 01/29/17 13:20 Respiratory Rate 17 01/29/17 13:20 Blood Pressure 138/69 01/29/17 13:20 O2 Sat by Pulse Oximetry 95 01/29/17 13:20 Oxygen Delivery Oxygen Delivery Nasal Cannula Shortness of Breath/Dyspnea - [facility] Narrative Medical decision making narrative: 81-year-old male history of lung cancer currently undergoing radiation therapy, PE currently on anticoagulation who presents to the ER due to respiratory distress and hypoxia. Patient was 80% on 5 L nasal cannula which is his normal home oxygen requirement. Reports he was recently on a steroid taper. Sent by radiation oncology for admission. No chest pain. EKG is paced without ischemic features. Chest x-ray as read by radiology demonstrates no acute changes from his prior CTA. Patient was given DuoNeb treatment and steroids here. He is currently on 4 L nasal cannula. He was admitted to the hospitalist service for hypoxia and COPD exacerbation. I examined this patient and my medical decision-making was reviewed with the Resident Physician. I agree with the documented findings, disposition and treatment plan as described except to the extent set forth below. Patient was seen on arrival with Dr. Ko, I agree with his evaluation and management plan, supervised the care of the patient's stay. She has a history of lung cancer had a lobectomy done on the right several years ago. No cancer on the left side received radiation treatments for it this year; no chemotherapy at this time. Also COPD. Has a history of PE this year and is on Elaquis . Has developed increasing shortness of breath. Family thinks it is due to the fact he has been off steroids. That he uses for his COPD. His sats are low. But he is not in any distress at this time. He said he gets more distressed and more dyspneic when he is unable to rate. He does have some edema in his lower extremities but no calf pain. Denies any chest pain or fevers. He is nontoxic in appearance. We started him on BiPAP he said he could not tolerate that well so we got him back on regular oxygen and breathing treatments and then we will reassess. He will need admission. He is in agreement with this plan. Chest X-Ray 01/29/17 11:59 IMPRESSION: Given differences in modality there is no significant change from prior CTA chest 01/02/2017, with persistent dense, hazy and streaky opacities to the mid to lower lung zones bilaterally, right more than left. These likely reflect a combination of small bilateral pleural effusions, right larger than left, atelectasis, scarring/fibrosis, and posttreatment change, along with, in the case of the right lower lung zone, superimposed persistent lesion. Reference can be made to the prior CTA chest 01/02/2017, for additional information. No evidence for new acute cardiopulmonary process is seen. D/ / 01/29/2017 12:29:54 Trav Munoz MD / esrttasia Interpreting Provider: Trav Munoz MD - Lab Data Lab results reviewed: Yes I reviewed the patient's lab results. Result diagrams: 01/29/17 12:53 01/29/17 12:53 Lab Results 01/29/17 01/29/17 01/29/17 Range/Units 12:53 12:53 12:53 WBC 12.8 H (4.3-11.1) K/mcL RBC 4.57 (4.19-5.50) M/mcL Hgb 13.5 (12.9-16.9) g/dL Hct 43.3 (37.5-50.1) % MCV 94.7 (83.0-100.0) fL MCH 29.5 (28.0-33.3) pg MCHC 31.2 L (31.6-35.5) g/dL RDW 15.3 H (11.5-14.5) % Plt Count 289 (140-400) K/mcL MPV 9.9 (9.4-12.4) fL Immature Gran % 1.0 (0-4) % Seg Neutrophils % 87.8 % Lymphocytes % 4.8 % Monocytes % 5.9 % Eosinophils % 0.2 % Basophils % 0.3 % Neutrophils # 11.3 H (1.6-8.9) K/mcL Lymphocytes # 0.6 (0.6-4.6) K/mcL Monocytes # 0.8 (0.0-1.3) K/mcL Eosinophils # 0.0 (0.0-0.6) K/mcL Basophils # 0.0 (0.0-0.2) K/mcL PT 16.9 H (9.4-12.1) Seconds INR 1.6 APTT 31.8 (26.0-36.0) Seconds Sodium 139 (136-145) mEq/L Potassium 4.0 (3.5-4.5) mEq/L Chloride 101 (98-109) mEq/L Carbon Dioxide 26 (19-29) mEq/L BUN 18 (8-26) mg/dL Creatinine 1.01 (0.72-1.25) mg/dL Est GFR ( Amer) > 60 (> 60) Est GFR (Non-Af Amer) > 60 (> 60) BUN/Creatinine Ratio 18 (6-26) Glucose 99 (70-99) mg/dL Calculated Osmolality 290 (280-300) Calcium 9.7 (8.6-10.8) mg/dL Troponin I (0-0.03) ng/mL B-Natriuretic Peptide (0-100) pg/mL 01/29/17 01/29/17 Range/Units 12:53 12:53 WBC (4.3-11.1) K/mcL RBC (4.19-5.50) M/mcL Hgb (12.9-16.9) g/dL Hct (37.5-50.1) % MCV (83.0-100.0) fL MCH (28.0-33.3) pg MCHC (31.6-35.5) g/dL RDW (11.5-14.5) % Plt Count (140-400) K/mcL MPV (9.4-12.4) fL Immature Gran % (0-4) % Seg Neutrophils % % Lymphocytes % % Monocytes % % Eosinophils % % Basophils % % Neutrophils # (1.6-8.9) K/mcL Lymphocytes # (0.6-4.6) K/mcL Monocytes # (0.0-1.3) K/mcL Eosinophils # (0.0-0.6) K/mcL Basophils # (0.0-0.2) K/mcL PT (9.4-12.1) Seconds INR APTT (26.0-36.0) Seconds Sodium (136-145) mEq/L Potassium (3.5-4.5) mEq/L Chloride (98-109) mEq/L Carbon Dioxide (19-29) mEq/L BUN (8-26) mg/dL Creatinine (0.72-1.25) mg/dL Est GFR ( Amer) (> 60) Est GFR (Non-Af Amer) (> 60) BUN/Creatinine Ratio (6-26) Glucose (70-99) mg/dL Calculated Osmolality (280-300) Calcium (8.6-10.8) mg/dL Troponin I 0.02 (0-0.03) ng/mL B-Natriuretic Peptide 308 H (0-100) pg/mL - Radiology Data Radiology results reviewed: Yes I reviewed the patient's radiology results. Chest X-Ray 01/29/17 11:59 IMPRESSION: Given differences in modality there is no significant change from prior CTA chest 01/02/2017, with persistent dense, hazy and streaky opacities to the mid to lower lung zones bilaterally, right more than left. These likely reflect a combination of small bilateral pleural effusions, right larger than left, atelectasis, scarring/fibrosis, and posttreatment change, along with, in the case of the right lower lung zone, superimposed persistent lesion. Reference can be made to the prior CTA chest 01/02/2017, for additional information. No evidence for new acute cardiopulmonary process is seen. D/ / 01/29/2017 12:29:54 Trav Munoz MD / ancelmo Interpreting Provider: Trav Munoz MD - EKG Data EKG attestation: Yes I reviewed and interpreted this EKG. EKG results narrative: EKG demonstrates a ventricularly paced rhythm with a rate of 84 bpm. Left axis deviation. WA interval 136. QRS duration 161. QTC 419. No gross ST elevations or depressions. No acute ischemic findings. No significant changes from previous EKG dated 12/02/16. Stoney.Terrance - Steven Situation: Demographics, MOA Background: Presenting Complaint, Relevant PMH, Meds, & Allergies Assessment: Vital Signs, Course and respsone to treatment, Exam Concerns, Patient/Family Expectation, Pertinant Lab Results, Outstanding Labs Recommendation: Barrier(s) to disposition, Recommendation based on pending studies, treatments, or consults S.BTheo Report Given to: Dr. Alexys Harris Repor Time: 13:42
[2017-01-29 13:06] LABS: Basophils % 0.3 %; Eosinophils % 0.2 %; Hematocrit 43.3 % (37.5-50.1); Hemoglobin 13.5 g/dL (12.9-16.9); Lymphocytes # 0.6 K/mcL (0.6-4.6); Lymphocytes % 4.8 %; Mean Corpuscular HGB Conc 31.2 g/dL (31.6-35.5); Mean Corpuscular Hemoglobin 29.5 pg (28.0-33.3); Mean Corpuscular Volume 94.7 fL (83.0-100.0); Mean Platelet Volume 9.9 fL (9.4-12.4); Monocytes # 0.8 K/mcL (0.0-1.3); Monocytes % 5.9 %; Neutrophils # 11.3 K/mcL (1.6-8.9); Platelet Count 289 K/mcL (140-400); Red Blood Count 4.57 M/mcL (4.19-5.50); Red Cell Distribution Width 15.3 % (11.5-14.5); Segmented Neutrophils % 87.8 %
[2017-01-29 13:14] LABS: INR 1.6; Prothrombin Time 16.9 Seconds (9.4-12.1)
[2017-01-29 13:16] LABS: Activated Partial Thrombo Time 31.8 Seconds (26.0-36.0)
[2017-01-29 13:19] LABS: BUN/Creatinine Ratio 18 (6-26); Blood Urea Nitrogen 18 mg/dL (8-26); Calcium 9.7 mg/dL (8.6-10.8); Carbon Dioxide 26 mEq/L (19-29); Chloride 101 mEq/L (98-109); Glucose 99 mg/dL (70-99); Osmolality,Calculated 290 (280-300); Sodium 139 mEq/L (136-145); eGFR For African Americans > 60 (> 60); eGFR For Non-African Americans > 60 (> 60)
[2017-01-29] MEDS ORDERED: Ondansetron 4 MG/2 ML VIAL IVP PRN (15:21)
[2017-01-29] MEDS ORDERED: *HR* Morphine 2 MG/ML SYRINGE IVP PRN (15:21)
[2017-01-29] MEDS ORDERED: *HR* HYDROcodone/Acet 5/325 mg TABLET PO PRN (15:21)
[2017-01-29] MEDS ORDERED: Acetaminophen 325 MG TABLET PO PRN (15:21)
[2017-01-29] MEDS ORDERED: Naloxone 0.4 MG/ML INJ IVP PRN (15:21)
[2017-01-29] MEDS ORDERED: Nitroglycerin 0.4 MG TAB.SUBL SL PRN (15:28)
[2017-01-29] MEDS ORDERED: Pantoprazole 40 MG VIAL IVP SCH (15:30)
[2017-01-29 15:57] LABS: Bilirubin,Urine Negative (Negative); Blood,Urine Negative (Negative); Clarity,Urine Clear (Clear); Color,Urine Yellow (Yellow); Glucose,Urine (UA) Normal (Normal); Ketones,Urine Negative (Negative); Leukocyte Esterase,Urine Small (Negative); Nitrite,Urine Negative (Negative); Protein,Urine Negative (Neg-Trace); Specific Gravity,Urine 1.017 (1.010-1.025); Urobilinogen,Urine Normal (Normal)
[2017-01-29 15:59] LABS: Bacteria,Urine None Seen per hpf (None-Few); Hyaline Casts,Urine None Seen per lpf (None-Few); RBC,Urine 0-3 per hpf (0-3); Squamous Epithelial Cell,Urine Few per lpf (None-Few)
[2017-01-29] MEDS: Ipratropium/Albuterol Neb 3 ML IH SCH ×3 (16:04→23:38)
[2017-01-29] MEDS: MethylPREDNISolone 40 MG/ML VIAL IVP SCH ×2 (16:16→23:30)
--- NOTE | 2017-01-29 16:20 | Internal Med History&Physical ---
Date of Encounter: 01/29/17 Time of Encounter: 15:00 Assessment and Plan (1) COPD exacerbation Current visit: Yes Status: Acute Patient presents with acute exacerbation of COPD. Patient has known history of PE and is currently on Eliquis for anticoagulation. He also reports a cough with minimal sputum production and pain that is centralized to his back that he states is similar to when he was diagnosed with his non-small cell lung cancer of the left lung. 1-View CXR today shows no significant change from prior CTA of the chest on 01/02/17 with persistent and dense haze and streaky opacities to the mid to lower lung zones bilaterally, right more than left. These likely reflect a combination of small bilateral pleural effusions, right larger than left, atelectasis, scarring/fibrosis, and post-treatment change along with in the case of the right lower lung zone, superimposed lesion. Patient placed on supplemental O2 with continuous SpO2 monitoring, DuoNebs Q4 scheduled, Solumedrol IVP 40 mg Q8. Patient to be monitored closely for signs of respiratory and/or cardiac distress. (2) Hypoxia Current visit: Yes Status: Acute Patient presents with acute hypoxia upon admission to the ED today. Patient states he was at his oncologist's office and found to have an SpO2 of 80% on 5L of O2. Patient was sent to the ED where he was given a DuoNeb treatment and steroids. Patient reports he recently finished a treatment of oral steroids last week. ABGs ordered. Patient to be placed on supplemental O2 with continuous SpO2 monitoring. DuoNebs ordered Q4 scheduled. Patient placed as falls/safety precautions due to SOB. (3) Leukocytosis Current visit: Yes Status: Acute Patient presents with WBC of 12.8 on admission to ED today. Patient reports history of chronic UTIs but denies any current symptoms, recent illness, nausea , vomiting, fever, chills, or weakness. Patient's vital signs include temperature of 98.1, HR of 83, RR of 17, BP of 138/69, and SpO2 of 95% on supplemental O2. Patient does not currently meet sepsis criteria. U/A with reflex micro ordered due to WBC and hx of UTIs. Will administer IV antibiotics based on U/A results if appropriate. Follow-up labs ordered to monitor WBC. Qualifiers: Leukocytosis type: unspecified Qualified Code(s): D72.829 - Elevated white blood cell count, unspecified (4) CAD (coronary artery disease) Current visit: Yes Status: Chronic Patient presents with history of chronic coronary artery disease. Patient reports TIA in 1999 as well as angioplasty with stent placement, carotid endarterectomy, and lower extremity bypass. Patient is currently on Eliquis for anticoagulation. Patient also reports pacemaker placement and EKG today is unchanged from previous EKG showing chronic ventricular pacemaker abnormal rhythm ECG. Patient to be placed on continuous cardiac telemetry. Initial troponin today was 0.02. Will trend troponins x2. Will continue patient's HTN and HLD medications as well as aspirin therapy. Qualifiers: Coronary Disease-Associated Artery/Lesion type: unspecified vessel or lesion type [place] vs. transplanted heart: [place] heart Associated angina: without angina Qualified Code(s): I25.10 - Atherosclerotic heart disease of [place] coronary artery without angina pectoris (5) Non-small cell cancer of left lung Current visit: Yes Status: Chronic Patient presents with history of non-small cell cancer of the left lung. Patient reports he received 5 radiation treatments last year but did not due to chemotherapy treatments. Patient to follow-up with oncologist post-discharge. (6) DVT prophylaxis Current visit: Yes Status: Acute Patient to be placed on DVT prophylaxis due to current admission protocol and bedrest status. Will continue patient's Eliquis. Internal Medicine - H&P: HPI Chief complaint: Shortness of Breath/Dyspnea Admitted From: Emergency Dept Plans for Post Hospital Care: Home History of present illness: Mr. Nunez is a 81 year old male with medical history of non-small cell lung cancer, COPD, CAD, HTN, chronic UTIs, PAD, and TIA in 1999 presents from the ED with chief complaint of severe shortness of breath and dyspnea. Patient reports he recently completed a steroid taper last week. He was seen by his oncologist today who referred him to the ED when he was found to have an SPO2 of 80% on 5 L. Mr. Nunez reports a cough with minimum sputum production and pain radiated to the center of his back. He reports similar to what he was diagnosed with lung cancer. He states he was recently diagnosed with PE and placed on Eliquis. He denies chest pain, fever, recent illness, nausea, vomiting , diaphoresis, abdominal pain, headache, generalized weakness, dizziness, pre- syncope, or syncope. On admission to the ED, the patient was given a DuoNeb breathing treatment and steroids which he reports helped his breathing. He states that he is usually on 4L of O2 at home but had to increase it to 5L yesterday due to increasing SOB. Patient's vital signs on admission the ED include temperature of 98.1F, heart rate of 83, respiratory rate is 17, BP of 138/69, an SPO2 of 95% on nasal cannula @ 5L. on examination, patient is hemodynamically stable and reports no acute distress. Information taken from the patient, his family, chart review, imaging studies, and previous medical records. Mr. Nunez is at high risk for further respiratory distress based on his current symptoms and hypoxia, dx of lung cancer, and risk factors/hx and will be placed as inpatient status. Time spent with patient >40 minutes. Past Med Surg Social Fam HX - Past Medical History Source: patient Medical history: cancer, COPD, coronary artery disease, hypertension, peripheral artery disease, TIA Psychiatric history: no psych history - Past Surgical History Surgical History: angioplasty/stent, carotid endarterectomy, LE Bypass, LE stent (s) - Social History Smoking Status: Former smoker Packs per day: 2 PPD - Reports quitting in 1993 Smokeless Tobacco Status: No Alcohol use: none Drug use: none Occupational status: retired Current living situation: Home, With Family Activity Level: Independent ambulation, Uses cane/walker Recent Out of Country Travel Within the Last 8 Weeks: No Exposure or Possible Exposure to Illness During Travel: No - Family History Father Race: Family Member Ethnicity: Non- Living Status: Age at : 92 Cause of : Pneumonia Hx Family Cardiac Disorders: Yes (Stroke, [place], HTN) Mother Race: Family Member Ethnicity: Non- Living Status: Age at : 80 Cause of : HD Hx Family Cardiac Disorders: Yes (HD, HTN) Hx Family Endocrine Disorder: Yes (DM) Brother Race: Family Member Ethnicity: Non- Living Status: Still Living Hx Family Cardiac Disorders: Yes (HD, Heart valve replacement) Sister Race: Family Member Ethnicity: Non- Living Status: Age at : 60 Cause of : Lung cancer Hx Family Cancer: Yes (Lung) Internal Medicine - H&P: Meds Allopurinol [Zyloprim 300 MG] 300 mg PO DAILY 09/28/15 [History] Aspirin Enteric Coated [Aspirin EC] 81 mg PO DAILY 09/28/15 [History] Gluc/Bartolome-MSM#1/C/Jasper/Arturo/Bor [Osteo Bi-Flex Caplet] 1 tab PO DAILY 09/28/15 [ History] Nitroglycerin [Nitrostat] 0.4 mg SL [id number] PRN 09/28/15 [History] Pentoxifylline [TRENtal] 400 mg PO TIDWM 09/28/15 [History] Pravastatin Sodium [Pravachol] 80 mg PO DAILY 09/28/15 [History] Tamsulosin HCl [Flomax] 0.4 mg PO DAILY 09/28/15 [History] Omeprazole [PriLOSEC] 20 mg PO DAILY 10/29/15 [History] Atenolol [Tenormin] 12.5 mg PO DAILY 12/02/16 [History] Benzonatate [Tessalon] 100 mg PO TID 12/09/16 [History] Apixaban [Eliquis] 5 mg PO BID 01/29/17 [History] 3 Allergy/AdvReac Type Severity Reaction Status Date / Time indomethacin [From Indocin] Allergy Dizziness Verified 01/29/17 11:14 All Systems PM: A 10-system review of systems was performed and is negative for pertinent findings except as documented above in the HPI. - Constitutional Constitutional: as per HPI, weakness (From SOB), no chills, no fever(s), no night sweats - EENT Eyes: no change in vision, no discharge, no pain, no photophobia Ears: no ear discharge, no ear pain, no tinnitus Nose, mouth and throat: no dysphagia, no nasal discharge, no neck pain, no sore throat - Breasts Breasts: as per HPI - Cardiovascular Cardiovascular ROS IM: as per HPI, dyspnea, dyspnea on exertion, edema ( Bilateral non-pitting edema of LEs) - Respiratory Respiratory: as per HPI, cough, dyspnea, dyspnea on exertion, wheezing - Gastrointestinal Gastrointestinal: as per HPI, constipation, no abdominal pain, no diarrhea, no hematemesis, no hematochezia, no melena, no nausea, no vomiting - Genitourinary Genitourinary ROS male: as per HPI - Musculoskeletal Musculoskeletal ROS IM: no numbness, no tingling - Integumentary Integumentary IM: no rash, no unusual bruising - Neurological Neurological ROS: no confusion, no convulsions, no focal weakness, no numbness, no tingling, no tremor(s) - Psychiatric Psychiatric: as per HPI - Endocrine Endocrine IM: as per HPI - Hematologic/Lymphatic Hematologic/Lymphatic: no easy bruising - Allergic/Immunologic Allergic/Immunologic: as per HPI - Constitutional Vitals: Temp Pulse Resp BP Pulse Ox 97.9 F 100 16 187/83 95 01/29/17 14:49 01/29/17 14:49 01/29/17 14:49 01/29/17 14:49 01/29/17 14:49 General appearance: Present: cooperative, A&O X 3, pleasant, no acute distress, answers questions appropriately - Head Head exam: Present: atraumatic, normocephalic - Eye Eye exam: Present: PERRL, conjuntiva pink, sclera anicteric Pupils: Present: PERRL - ENT ENT exam: Present: normal exam, normal external ear exam - Neck Neck exam general surgery: Present: normal inspection, supple, trachea midline - Respiratory Respiratory exam: Present: accessory muscle use, decreased breath sounds, wheezes - Cardiovascular Additional comments: Ventricular pacing. - GI/Abdominal GI/Abdominal exam: Present: normal bowel sounds, soft, no peritoneal signs. Absent: distended, tenderness - Rectal Rectal exam: Present: deferred - Additional comments: exam deferred. - Extremities Exam Extremities exam: Present: warm, radial pulses palpable and symmetrical. Absent : calf tenderness, cyanotic, pedal edema - Back Exam Back exam: Present: normal inspection - Neurological Exam Neurological exam: Present: CN II-XII intact, oriented X3, no focal deficits. Absent: pronater drift, facial droop, speech deficit - Psychiatric Psychiatric exam: Present: normal affect, normal mood - Skin Skin exam: Present: dry, intact Internal Med - H&P Results - Labs CBC & Chem 7: 01/29/17 12:53 01/29/17 12:53 Labs: Urine 01/29/17 Range/Units 15:30 Urine Color Yellow (Yellow) Urine Clarity Clear (Clear) Urine pH 6.0 (5.0-8.0) pH Units Ur Specific [place] 1.017 (1.010-1.025) Urine Protein Negative (Neg-Trace) mg/dL Urine Glucose (UA) Normal (Normal) mg/dL - EKG Data Prior EKG available for review: yes When compared to previous EKG: there is no significant change EKG comments: 01/29/17 16:30 EKG dated 12/02/16 shows electronic ventricular pacemaker with abnormal rhythm ECG. EKG dated 01/29/17 shows electronic ventricular pacemaker with abnormal rhythm ECG.
[2017-01-29] MEDS ORDERED: APIXABAN 5 MG TABLET PO SCH (21:00)
[2017-01-29] MEDS: Melatonin 3 MG TABLET PO PRN (21:27)
[2017-01-29] MEDS: Benzonatate 100 MG CAPSULE PO SCH (21:27)
[2017-01-30] MEDS: Ipratropium/Albuterol Neb 3 ML IH SCH ×5 (03:32→20:00)
[2017-01-30] MEDS ORDERED: *HR* Heparin 5,000 UNIT/ML VIAL IVP PRN ×4 (04:02→09:00)
[2017-01-30] MEDS ORDERED: Aspirin 325 MG TABLET PO ONE (04:04)
[2017-01-30 04:31] LABS: Basophils % 0.1 %; Hematocrit 38.6 % (37.5-50.1); Hemoglobin 12.5 g/dL (12.9-16.9); Immature Granulocytes % 0.8 % (0-4); Lymphocytes # 0.4 K/mcL (0.6-4.6); Lymphocytes % 3.9 %; Mean Corpuscular HGB Conc 32.4 g/dL (31.6-35.5); Mean Corpuscular Hemoglobin 30.2 pg (28.0-33.3); Mean Corpuscular Volume 93.2 fL (83.0-100.0); Mean Platelet Volume 9.5 fL (9.4-12.4); Monocytes # 0.1 K/mcL (0.0-1.3); Monocytes % 0.9 %; Neutrophils # 10.7 K/mcL (1.6-8.9); Platelet Count 265 K/mcL (140-400); Red Blood Count 4.14 M/mcL (4.19-5.50); Red Cell Distribution Width 15.2 % (11.5-14.5); Segmented Neutrophils % 94.3 %
[2017-01-30 04:37] LABS: INR 1.6; Prothrombin Time 17.1 Seconds (9.4-12.1)
[2017-01-30 04:40] LABS: Activated Partial Thrombo Time 30.7 Seconds (26.0-36.0)
[2017-01-30 04:44] LABS: Hemoglobin A1C 5.6 %
[2017-01-30 04:53] LABS: Alanine Aminotransferase 10 Units/L (0-55); Albumin/Globulin Ratio 0.8 (1.1-2.2); Alkaline Phosphatase 78 Units/L (38-126); Aspartate Amino Transferase 15 Units/L (5-34); BUN/Creatinine Ratio 20 (6-26); Bilirubin,Total 0.8 mg/dL (0.2-1.2); Blood Urea Nitrogen 22 mg/dL (8-26); Calcium 9.8 mg/dL (8.6-10.8); Carbon Dioxide 23 mEq/L (19-29); Chloride 101 mEq/L (98-109); Chol/HDL Ratio 3.5 (0-4.9); Cholesterol 174 mg/dL (< 200); Globulin 3.6 g/dL (2.4-3.5); Glucose 174 mg/dL (70-99); HDL Cholesterol 50 mg/dL (40-59); LDL Cholesterol,Calculated 107 mg/dL (0-99); Magnesium 1.6 mg/dL (1.6-2.6); Osmolality,Calculated 294 (280-300); Potassium 3.9 mEq/L (3.5-4.5); Sodium 138 mEq/L (136-145); Total Protein 6.6 g/dL (6.0-8.3); Triglycerides 86 mg/dL (< 150); eGFR For African Americans > 60 (> 60); eGFR For Non-African Americans > 60 (> 60)
--- NOTE | 2017-01-30 08:25 | Cardiology Consult Note ---
Date of Encounter: 01/30/17 Time of Encounter: 08:21 Assessment and Plan (1) Atypical chest pain Current Visit: Yes Status: Acute Atypical chest pain in the setting of SOB, hypoxia, PE, and SVT. EKG shows SVT, HR [address] depression in the anterior lateral leads. Troponin 0.03, 0.03, 0.04. Likely demand ischemia in the setting of hypoxia, SVT, DCHF, and COPD exacerbation. TTE 11/2016- Normal LV systolic function, LVEF 60%. Atypical septal motion consistent with ventricular pacing. Mild left ventricular diastolic dysfunction. Normal right ventricular size and function. A device lead was visualized in the right atrium and right ventricle. Moderate-severe tricuspid regurgitation. Severe pulmonary hypertension. Estimated RVSP = 68 mmHg. Continue medical management. Continue asa, statin, and bb. PRN SL NTG. Agree with IV lasix for fluid overload. Increase atenolol. (2) Diastolic CHF, acute on chronic Current Visit: Yes Status: Acute Acute diastolic and right sided CHF. TTE 11/2016 showed preserved EF. Moderate to severe TR. Severe pulmonary hypertension CXR shows small bilateral pleural effusions. BNP 308. Increasing BLE edema, SOB, and orthopnea. Multi-factoral in the setting of DCHF , COPD exacerbation, recent PE, and RLL lung CA. Agree with IV lasix started today. Strict I&O and daily weights, Low sodium diet. (3) CAD (coronary artery disease) Current Visit: Yes Status: Chronic H/o PCI to the 1st diagonal artery in 2013. Continue asa, statin, and bb. Qualifiers: Coronary Disease-Associated Artery/Lesion type: unspecified vessel or lesion type [place] vs. transplanted heart: tling[place] heart Associated angina: without angina Qualified Code(s): I25.10 - Atherosclerotic heart disease of [place] coronary artery without angina pectoris (4) Pacemaker Current Visit: Yes Status: Acute Dual chamber PPM in place secondary to SSS. Last device check 09/23/16 showed no events. (5) SVT (supraventricular tachycardia) Current Visit: Yes Status: Acute H/o of SVT seen on previous PPM reports per last cardiology note. EKG shows SVT HR 176. Increase beta-anthony. Discussion w patient/family: The assessment and plan as outlined above was discussed with the patient and/or family members who expressed understanding and agreement. All questions were answered. Thank you for involving us in the care of your patient. Please call with any questions. History of Present Illness Consult date: 01/30/17 Requesting physician: Tee Kong Consult reason: Chest pain, EKG changes Chief complaint: SOB History of present illness: Mr. 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 He was found to be hypoxic with SPO2 at 80%. Cardiology consulted for chest pain and EKG changes. Last night he was ambulating to the bathroom when he became SOB and developed right lower chest pain. Pain increases with deep breath. SPO2 seen to be 70% at that time and HR up to 170's. EKG was completed and showed atrial tachycardia and ST depression in the anterior and lateral leads. Heart rate and symptoms resolved with rest. He admits to intermittent right lower chest pain when he is SOB. Previous cardiac tasting: TTE 12/02/16: Normal LV systolic function, LVEF 60%. Atypical septal motion consistent with ventricular pacing. Mild left ventricular diastolic dysfunction. Normal right ventricular size and function. A device lead was visualized in the right atrium and right ventricle. Moderate-severe tricuspid regurgitation. Severe pulmonary hypertension. Estimated RVSP = 68 mmHg. Holter monitor 08/09/15: Baseline rhythm normal sinus with markedly prolonged first degree AV block. Occasional PVCs. No symptoms noted. C 07/11/13: 30% stenosis in the Mid LAD. 40% stenosis of the Ostial 1st Diagonal. 80% stenosis in the 1st Diagonal at bifurcation, PTCA and DIEUDONNE placed. 30% stenosis in the Mid Circumflex.40% stenosis in the Distal Circumflex. 30% stenosis in the Mid RCA. Carotid utrasound:The right internal carotid artery is occluded. The left carotid arteries have minimal plaque throughout. Past Med Surg Social Fam HX - Past Medical History Medical history: cancer, COPD, coronary artery disease, hypertension, peripheral artery disease, TIA Psychiatric history: no psych history - Past Surgical History Surgical History: angioplasty/stent, carotid endarterectomy, LE Bypass, LE stent (s) - Social History Smoking Status: Former smoker Packs per day: 2 PPD - Reports quitting in 1993 Smokeless Tobacco Status: No Alcohol use: none Drug use: none - Family History Father Race: Family Member Ethnicity: Non- Living Status: Age at : 92 Cause of : Pneumonia Hx Family Cardiac Disorders: Yes (Stroke, [place], HTN) Hx Family Neurologic Disorders: Yes (Stroke) Brother Race: Family Member Ethnicity: Non- Living Status: Still Living Hx Family Cardiac Disorders: Yes (HD, Heart valve replacement) Sister Race: Family Member Ethnicity: Non- Living Status: Age at : 60 Cause of : Lung cancer Hx Family Cancer: Yes (Lung) Mother Race: Family Member Ethnicity: Non- Living Status: Age at : 80 Cause of : HD Hx Family Cardiac Disorders: Yes (HD, HTN) Hx Family Endocrine Disorder: Yes (DM) Medications and Allergies Allopurinol [Zyloprim 300 MG] 300 mg PO DAILY 09/28/15 [History] Aspirin Enteric Coated [Aspirin EC] 81 mg PO DAILY 09/28/15 [History] Gluc/Bartolome-MSM#1/C/Jasper/Arturo/Bor [Osteo Bi-Flex Caplet] 1 tab PO DAILY 09/28/15 [ History] Nitroglycerin [Nitrostat] 0.4 mg SL [id number] PRN 09/28/15 [History] Pentoxifylline [TRENtal] 400 mg PO TIDWM 09/28/15 [History] Pravastatin Sodium [Pravachol] 80 mg PO DAILY 09/28/15 [History] Tamsulosin HCl [Flomax] 0.4 mg PO DAILY 09/28/15 [History] Omeprazole [PriLOSEC] 20 mg PO DAILY 10/29/15 [History] Atenolol [Tenormin] 12.5 mg PO DAILY 12/02/16 [History] Benzonatate [Tessalon] 100 mg PO TID 12/09/16 [History] Apixaban [Eliquis] 5 mg PO BID 01/29/17 [History] 3 Allergy/AdvReac Type Severity Reaction Status Date / Time indomethacin [From Indocin] Allergy Dizziness Verified 01/29/17 11:14 All Systems Review: A 10-system review of systems was performed and is negative for pertinent findings except as documented above in the HPI. Physical Examination Vital Signs, Last 4 Hours Temp Pulse Resp BP Pulse Ox 01/30/17 05:03 98.3 F 90 16 143/82 91 General: Conversant, No Apparent Distress, Other (Ill appearing elderly male. ) HEENT: Atraumatic, Normocephaly, Mucus Membranes Moist Neck: No JVD, Normal carotid pulses Cardiac: Reg Rate and Rhythm, Normal S1 and S2, No Murmur Lungs: Normal Breath Sounds, No Wheeze, Rales, Rhonchi, Other (lung sounds diminished more on right) Neuro: Alert and responsive, No focal deficits noted Abdomen: Soft, Non-Tender Skin: No rashes noted on visualized skin Musculoskeletal: No Chest Wall Tenderness Extremities: No Clubbing, No Cyanosis, Normal Pulses, Other (1+ edema BLE. ) Results 01/30/17 04:14 01/30/17 04:14 Lab Results 01/29/17 01/30/17 01/30/17 23:14 04:14 04:14 WBC 11.4 H Hgb 12.5 L Hct 38.6 Plt Count 265 INR APTT Sodium Potassium Chloride Carbon Dioxide BUN Creatinine Glucose Calcium Magnesium Total Bilirubin AST ALT Alkaline Phosphatase Troponin I 0.02 0.04 H* 01/30/17 01/30/17 04:14 04:14 WBC Hgb Hct Plt Count INR 1.6 APTT 30.7 Sodium 138 Potassium 3.9 Chloride 101 Carbon Dioxide 23 BUN 22 Creatinine 1.10 Glucose 174 H Calcium 9.8 Magnesium 1.6 Total Bilirubin 0.8 AST 15 ALT 10 Alkaline Phosphatase 78 Troponin I - Imaging and Cardiology Echo: report reviewed Cardiac cath: report reviewed Consult Discharge Plan - Plan Referrals: Farshad Lunsford MD [Primary Care Provider] -
[2017-01-30] MEDS ORDERED: Heparin 25,000 UNIT/500 ML D5W 25,000 UNIT/500 ML MLS IVC SCH (09:00)
--- NOTE | 2017-01-30 09:28 | Internal Med Progress Note ---
Date of Encounter: 01/30/17 Time of Encounter: 09:28 - Assessment and plan (1) Acute and chronic respiratory failure with hypoxia Current Visit: Yes Status: Acute Assessment and plan: Due to COPD exacerbation as well as CHF exacerbation and possible obstructive pneumonia / pneumonitis reviewed CXR - patchy infiltrates in RML, RLL, concerned for obstructive pneumonia / pneumonitis Cont Duoneb and O2 Slightly better today.. start tapering steroids Stable mass in Rt Lung.. consulted heme Onc.. regarding rx options for chemo vs radiation therapy for that mass Will defer to Heme Onc for further imaging studies CTA of chest Since he does have worsening shortness of breath with above mentioned comorbidities, he may get benefit with home CPAP / BiPAP Pulmonary consulted (2) Pneumonitis Current Visit: Yes Status: Acute Assessment and plan: Mostly bacterial Started on empirical abx Zosyn Sputum cx ordered (3) Diastolic CHF, acute on chronic Current Visit: Yes Status: Acute Assessment and plan: Reviewed 2 D Echo from showed normal LVEF 60 %, Mild diastolic dysfunction No need to repeat another 2 D echo He is mild CHF exacerbation too Started him on Lasix 20 IV BID Cont BB , ASA (4) Essential hypertension Current Visit: No Status: Chronic Assessment and plan: stable with current meds (5) Elevated troponin Current Visit: No Status: Acute Assessment and plan: due to demand ischemia no further work needed (6) Pulmonary embolism Current Visit: No Status: Chronic Assessment and plan: Cont eliquis No need to change to Heparin Qualifiers: Pulmonary embolism type: other Chronicity: acute Acute cor pulmonale presence: without acute cor pulmonale Qualified Code(s): I26.99 - Other pulmonary embolism without acute cor pulmonale (7) History of lung cancer Current Visit: No Status: Chronic Assessment and plan: Stable Rt LL mass consulted Heme Onc for further eval (8) COPD exacerbation Current Visit: Yes Status: Acute Assessment and plan: on Steroids, Duoneb and O2 - Subjective Interval history: Mr. Nunez is a 81 year old male with medical history of non-small cell lung cancer, COPD, CAD, HTN, chronic UTIs, PAD, and TIA in 1999 presents from the ED with chief complaint of severe shortness of breath and dyspnea. Patient reports he recently completed a steroid taper last week. He was seen by his oncologist today who referred him to the ED when he was found to have an SPO2 of 80% on 5 L. Mr. Nunez reports a cough with minimum sputum production and pain radiated to the center of his back. Pt's radiation oncologist Dr. Gautam recommend him to go to ER for further evaluation. Pt was admitted here for acute on chronic hypoxic respiratory failure. He is alert, awake and O x 3, denied any chest pain, except some Rt chest wall pain with cough. Pt stated he is feeling little better now.. Currently on 4 lit O2 NC. Does c/o Cough.. with minimal expectoration - Constitutional Vitals: Temp Pulse Resp BP Pulse Ox 98.3 F 90 16 143/82 91 01/30/17 05:03 01/30/17 05:03 01/30/17 05:03 01/30/17 05:03 01/30/17 05:03 General appearance: Present: cooperative, A&O X 3, pleasant, no acute distress, answers questions appropriately - Head Head exam: Present: atraumatic, normal inspection - Respiratory Respiratory exam: Present: decreased breath sounds, rales, respiratory distress (mild), wheezes. Absent: rhonchi - Cardiovascular Cardiovascular exam: Present: RRR, +S1, +S2. Absent: systolic murmur - GI/Abdominal GI/Abdominal exam: Present: normal bowel sounds, soft. Absent: rebound, rigid, tenderness - Extremities Exam Extremities exam: Present: pedal edema (1-2+). Absent: calf tenderness, tenderness - Neurological Exam Neurological exam: Present: alert, oriented X3 - Psychiatric Psychiatric exam: Present: normal affect, normal mood Internal Medicine: Result - Labs CBC & Chem 7: 01/30/17 04:14 01/30/17 04:14 Labs: Short CBC 01/30/17 Range/Units 04:14 WBC 11.4 H (4.3-11.1) K/mcL Hgb 12.5 L (12.9-16.9) g/dL Hct 38.6 (37.5-50.1) % Plt Count 265 (140-400) K/mcL Neutrophils # 10.7 H (1.6-8.9) K/mcL BMP 01/30/17 04:14 Sodium 138 Potassium 3.9 Chloride 101 Carbon Dioxide 23 BUN 22 Creatinine 1.10 Glucose 174 H Calcium 9.8 Cardiac Enzymes 01/29/17 01/30/17 Range/Units 23:14 04:14 Troponin I 0.02 0.04 H* (0-0.03) ng/mL Liver Function 01/30/17 Range/Units 04:14 Total Bilirubin 0.8 (0.2-1.2) mg/dL AST 15 (5-34) Units/L ALT 10 (0-55) Units/L Alkaline Phosphatase 78 (38-126) Units/L Albumin 3.0 L (3.5-5.0) g/dL Urine 01/29/17 Range/Units 15:30 Urine Color Yellow (Yellow) Urine Clarity Clear (Clear) Urine pH 6.0 (5.0-8.0) pH Units Ur Specific [place] 1.017 (1.010-1.025) Urine Protein Negative (Neg-Trace) mg/dL Urine Glucose (UA) Normal (Normal) mg/dL - ABG Interpretation ABG results: PT/INR, D-dimer PT 17.1 Seconds (9.4-12.1) H 01/30/17 04:14 Consult Discharge Plan - Plan Referrals: Farshad Lunsford MD [Primary Care Provider] -
[2017-01-30] MEDS: Aspirin Enteric Coated 81 MG Tablet PO SCH (09:29)
[2017-01-30] MEDS: Benzonatate 100 MG CAPSULE PO SCH ×3 (09:29→20:58)
[2017-01-30] MEDS: MethylPREDNISolone 40 MG/ML VIAL IVP SCH ×2 (09:32→20:59)
[2017-01-30] MEDS: APIXABAN 5 MG TABLET PO SCH ×2 (11:47→20:58)
[2017-01-30] MEDS: Piperacillin/Tazobactam 3.375 GM in D5% in Water (Mini-Bag+) 100 ML IVPB SCH ×2 (11:47→16:01)
--- NOTE | 2017-01-30 12:46 | Pulmonology Consult Note ---
Date of Encounter: 01/30/17 Time of Encounter: 12:30 Assessment and Plan (1) Acute and chronic respiratory failure with hypoxia Current Visit: Yes Status: Acute Patient symptoms got worsened after he stopped chronic prednisone therapy . With his Severe COPD with emphysema with background of lung cancer . Patient should be on chronic prednisone therapy (2) COPD with exacerbation Current Visit: Yes Status: Acute Patient presentation more like COPD exacerbation than worsening of lung cancer or recurrent PE on eliquis . Will treat with Duo neb will add symbicort , patient should go home on Symbicort . Will change to Po prednisone 40 mg PO tomorrow slowly taper over 20 days to Prednisone 10 mg , patient should not completely stop prednisone , counseled about pros and cons of chronic steroid therapy . Reasonable to give IV antibiotics can change to PO levofloxacin tomoorrow . Patient should be walked to his baseline activities and ascertain O2 needs (3) Pulmonary embolism Current Visit: No Status: Chronic low suspicion for recurrent PE. Qualifiers: Pulmonary embolism type: other Chronicity: acute Acute cor pulmonale presence: without acute cor pulmonale Qualified Code(s): I26.99 - Other pulmonary embolism without acute cor pulmonale (4) Non-small cell cancer of right lung Current Visit: Yes Status: Chronic Comparing the silvering applicator flim of CT scan in December with current chest xray no significant progression of disease , patient has some pleural effusion will follow it up not enough amount to do thoracentesis. History of Present Illness Consult date: 01/30/17 Requesting physician: Rosetta Perez Chief complaint: Shortness of breadth History of present illness: Mr. Nunez is a 81 year old male with medical history of non-small cell lung cancer, COPD, CAD, HTN, chronic UTIs, PAD, and TIA in 1999 presents from the ED with chief complaint of severe shortness of breath and dyspnea. According to family patient is seen by radiation oncologist who put him on chronic prednisone therapy 10 days he tapered it off after tapering slowly developed shortness of breadth some cough and not much sputum production , he had this right sided chest pain which is on and off patient had PE two months ago started on eliquis regularly takes it , patient required Oxygen more than his baseline that is 5 litres , at baseline he uses 4 litres normally walks to the bathroom mostly he sits in the house sometimes he moves around , patient doesnt complain fever or chills , denies any other constitutional symptoms . Pulmonary was consulted for worsening of his chronic hypoxic respiratory failure. Past Med Surg Social Fam HX - Past Medical History Medical history: cancer, COPD, coronary artery disease, hypertension, peripheral artery disease, TIA Psychiatric history: no psych history - Past Surgical History Surgical History: angioplasty/stent, carotid endarterectomy, LE Bypass, LE stent (s) - Social History Smoking Status: Former smoker Packs per day: 2 PPD - Reports quitting in 1993 Smokeless Tobacco Status: No Alcohol use: none Drug use: none - Family History Father Race: Family Member Ethnicity: Non- Living Status: Age at : 92 Cause of : Pneumonia Hx Family Cardiac Disorders: Yes (Stroke, [place], HTN) Hx Family Neurologic Disorders: Yes (Stroke) Brother Race: Family Member Ethnicity: Non- Living Status: Still Living Hx Family Cardiac Disorders: Yes (HD, Heart valve replacement) Sister Race: Family Member Ethnicity: Non- Living Status: Age at : 60 Cause of : Lung cancer Hx Family Cancer: Yes (Lung) Mother Race: Family Member Ethnicity: Non- Living Status: Age at : 80 Cause of : HD Hx Family Cardiac Disorders: Yes (HD, HTN) Hx Family Endocrine Disorder: Yes (DM) Medications and Allergies Allopurinol [Zyloprim 300 MG] 300 mg PO DAILY 09/28/15 [History] Aspirin Enteric Coated [Aspirin EC] 81 mg PO DAILY 09/28/15 [History] Gluc/Bartolome-MSM#1/C/Jasper/Arturo/Bor [Osteo Bi-Flex Caplet] 1 tab PO DAILY 09/28/15 [ History] Nitroglycerin [Nitrostat] 0.4 mg SL [id number] PRN 09/28/15 [History] Pentoxifylline [TRENtal] 400 mg PO TIDWM 09/28/15 [History] Pravastatin Sodium [Pravachol] 80 mg PO DAILY 09/28/15 [History] Tamsulosin HCl [Flomax] 0.4 mg PO DAILY 09/28/15 [History] Omeprazole [PriLOSEC] 20 mg PO DAILY 10/29/15 [History] Atenolol [Tenormin] 12.5 mg PO DAILY 12/02/16 [History] Benzonatate [Tessalon] 100 mg PO TID 12/09/16 [History] Apixaban [Eliquis] 5 mg PO BID 01/29/17 [History] 3 Allergy/AdvReac Type Severity Reaction Status Date / Time indomethacin [From Indocin] Allergy Dizziness Verified 01/29/17 11:14 All Systems: A 10-system review of systems was performed and is negative for pertinent findings except as documented above in the HPI. Physical Examination Vital Signs: Vital Signs, Last 4 Hours Temp Pulse Resp BP Pulse Ox 01/30/17 12:20 20 95 01/30/17 11:56 97.7 F 87 16 129/72 91 Results - Laboratory Findings CBC and BMP: 01/30/17 04:14 01/30/17 04:14 PT/INR, D-dimer PT 17.1 Seconds (9.4-12.1) H 01/30/17 04:14 Abnormal lab findings: Abnormal lab results WBC 11.4 K/mcL (4.3-11.1) H 01/30/17 04:14 RBC 4.14 M/mcL (4.19-5.50) L 01/30/17 04:14 Hgb 12.5 g/dL (12.9-16.9) L 01/30/17 04:14 RDW 15.2 % (11.5-14.5) H 01/30/17 04:14 Neutrophils # 10.7 K/mcL (1.6-8.9) H 01/30/17 04:14 Lymphocytes # 0.4 K/mcL (0.6-4.6) L 01/30/17 04:14 PT 17.1 Seconds (9.4-12.1) H 01/30/17 04:14 Glucose 174 mg/dL (70-99) H 01/30/17 04:14 Troponin I 0.04 ng/mL (0-0.03) H* 01/30/17 04:14 B-Natriuretic Peptide 308 pg/mL (0-100) H 01/29/17 12:53 Albumin 3.0 g/dL (3.5-5.0) L 01/30/17 04:14 Globulin 3.6 g/dL (2.4-3.5) H 01/30/17 04:14 Albumin/Globulin Ratio 0.8 (1.1-2.2) L 01/30/17 04:14 LDL Cholesterol, Calc 107 mg/dL (0-99) H 01/30/17 04:14 Ur Leukocyte Esterase Small (Negative) H 01/29/17 15:30 Urine Microscopic WBC 3-5 per hpf (0-3) H 01/29/17 15:30 Ur Culture Indicated? YES (NO) A 01/29/17 15:30 - Clinical Findings Intake & Output: Intake & Output 01/29/17 01/30/17 01/30/17 23:59 07:59 15:59 Intake Total 120 / 120 Balance 120 / 120 Weight 83 kg Consult Discharge Plan - Plan Referrals: Farshad Lunsford MD [Primary Care Provider] -
[2017-01-30] MEDS: Furosemide 20 MG/2 ML VIAL IVP SCH ×2 (13:02→20:59)
--- NOTE | 2017-01-30 15:44 | Electrocardiograph Report ---
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
--- NOTE | 2017-01-30 16:27 | Electrocardiograph Report ---
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
[2017-01-30] MEDS: Budesonide/Formoterol 160/4.5 MDI IH SCH ×2 (20:00→20:14)
[2017-01-30] MEDS ORDERED: Magnesium Sulfate 2 GM in D5% in Water 100 ML IVPB ONE (21:46)
[2017-01-31] MEDS: Piperacillin/Tazobactam 3.375 GM in D5% in Water (Mini-Bag+) 100 ML IVPB SCH (00:04)
[2017-01-31] MEDS: Ipratropium/Albuterol Neb 3 ML IH SCH ×6 (00:08→20:13)
[2017-01-31] MEDS: Budesonide/Formoterol 160/4.5 MDI IH SCH ×2 (07:59→20:11)
[2017-01-31 08:14] LABS: Hematocrit 36.7 % (37.5-50.1); Hemoglobin 11.9 g/dL (12.9-16.9); Mean Corpuscular HGB Conc 32.4 g/dL (31.6-35.5); Mean Corpuscular Hemoglobin 30.4 pg (28.0-33.3); Mean Corpuscular Volume 93.6 fL (83.0-100.0); Mean Platelet Volume 9.8 fL (9.4-12.4); Platelet Count 288 K/mcL (140-400); Red Blood Count 3.92 M/mcL (4.19-5.50); Red Cell Distribution Width 15.7 % (11.5-14.5)
[2017-01-31 08:29] LABS: Monocytes # 0.5 K/mcL (0.0-1.3); Neutrophils # 22.3 K/mcL (1.6-8.9); Platelet Estimate Normal (Normal)
[2017-01-31 08:41] LABS: Alanine Aminotransferase 13 Units/L (0-55); Albumin 2.8 g/dL (3.5-5.0); Albumin/Globulin Ratio 0.9 (1.1-2.2); Alkaline Phosphatase 65 Units/L (38-126); Aspartate Amino Transferase 22 Units/L (5-34); BUN/Creatinine Ratio 24 (6-26); Bilirubin,Total 0.5 mg/dL (0.2-1.2); Carbon Dioxide 30 mEq/L (19-29); Chloride 100 mEq/L (98-109); Globulin 3.1 g/dL (2.4-3.5); Glucose 142 mg/dL (70-99); Magnesium 2.3 mg/dL (1.6-2.6); Osmolality,Calculated 294 (280-300); Potassium 3.9 mEq/L (3.5-4.5); Sodium 137 mEq/L (136-145); Total Protein 5.9 g/dL (6.0-8.3); eGFR For African Americans > 60 (> 60); eGFR For Non-African Americans 51 (> 60)
[2017-01-31 08:42] LABS: Blood Urea Nitrogen 33 mg/dL (8-26)
--- NOTE | 2017-01-31 09:21 | Pulmonology Progress Note ---
Date of Encounter: 01/31/17 Time of Encounter: 09:00 Assessment and Plan (1) Acute and chronic respiratory failure with hypoxia Current Visit: Yes Status: Acute Due to COPD exacerbation patient is getting better on the current regimen of bronchodilators and steroids (2) COPD with exacerbation Current Visit: Yes Status: Acute Patient looks like he is steroid dependent as the exacerbation started after his steroid was weaned off . To walk him to see his exercise oxygen needs . if he is ready to go home send him home on steroid taper to eventually to prednisone 10 mg patient should be on this regimen for 10 mg daily for atleast 1 -2 months and then reasess will change IV Zosyn and PO Levofloxacin as patient doesnt bring much sputum low suspicion for pseudomonal pneumonia . To complete a 7 day course of Levofloxacin. (3) Pulmonary embolism Current Visit: No Status: Chronic To continue Eliquis no signs of bleeding Qualifiers: Pulmonary embolism type: other Chronicity: chronic Acute cor pulmonale presence: without acute cor pulmonale Qualified Code(s): I27.82 - Chronic pulmonary embolism (4) Non-small cell cancer of right lung Current Visit: Yes Status: Chronic Patient is followed up by radiation oncologist. Subjective Principal diagnosis: Acute on chronic Hypoxic respiratory failure Interval history: Patient is saying he is feeling lot better denies any chest pain ,yet to walk today Objective PUL Vital signs: Last Vital Signs Temp 98.1 F 01/31/17 07:53 Pulse 79 01/31/17 07:53 Resp 16 01/31/17 08:00 BP 130/75 01/31/17 07:53 Pulse Ox 96 01/31/17 08:00 Auscultation: bilateral: wheezes (mild scattered wheezes ) Results - Laboratory Findings CBC and BMP: 01/31/17 06:48 01/31/17 06:48 PT/INR, D-dimer PT 17.1 Seconds (9.4-12.1) H 01/30/17 04:14 Abnormal lab findings: Abnormal lab results WBC 23.7 K/mcL (4.3-11.1) H D 01/31/17 06:48 RBC 3.92 M/mcL (4.19-5.50) L 01/31/17 06:48 Hgb 11.9 g/dL (12.9-16.9) L 01/31/17 06:48 Hct 36.7 % (37.5-50.1) L 01/31/17 06:48 RDW 15.7 % (11.5-14.5) H 01/31/17 06:48 Neutrophils # 22.3 K/mcL (1.6-8.9) H 01/31/17 06:48 PT 17.1 Seconds (9.4-12.1) H 01/30/17 04:14 Carbon Dioxide 30 mEq/L (19-29) H 01/31/17 06:48 BUN 33 mg/dL (8-26) H D 01/31/17 06:48 Creatinine 1.35 mg/dL (0.72-1.25) H 01/31/17 06:48 Est GFR (Non-Af Amer) 51 (> 60) L 01/31/17 06:48 Glucose 142 mg/dL (70-99) H 01/31/17 06:48 Troponin I 0.04 ng/mL (0-0.03) H* 01/30/17 04:14 B-Natriuretic Peptide 308 pg/mL (0-100) H 01/29/17 12:53 Serum Total Protein 5.9 g/dL (6.0-8.3) L 01/31/17 06:48 Albumin 2.8 g/dL (3.5-5.0) L 01/31/17 06:48 Albumin/Globulin Ratio 0.9 (1.1-2.2) L 01/31/17 06:48 LDL Cholesterol, Calc 107 mg/dL (0-99) H 01/30/17 04:14 Ur Leukocyte Esterase Small (Negative) H 01/29/17 15:30 Urine Microscopic WBC 3-5 per hpf (0-3) H 01/29/17 15:30 Ur Culture Indicated? YES (NO) A 01/29/17 15:30 - Microbiology Findings Microbiology Findings: Microbiology, Last 48 Hours 01/29/17 15:30 Urine Culture - Final Urine,Clean Catch No growth. - Clinical Findings Intake & Output: Intake & Output 01/30/17 01/31/17 01/31/17 23:59 07:59 15:59 Intake Total 100 / 100 525 / 525 Output Total 0 / 0 450 / 450 Balance 100 / 100 75 / 75 Weight 85.4 kg Consult Discharge Plan - Plan Referrals: [place],Farshad E, MD [Primary Care Provider] -
[2017-01-31] MEDS: MethylPREDNISolone 40 MG/ML VIAL IVP SCH (09:46)
[2017-01-31] MEDS: Aspirin Enteric Coated 81 MG Tablet PO SCH (09:46)
[2017-01-31] MEDS: Benzonatate 100 MG CAPSULE PO SCH ×3 (09:46→20:39)
[2017-01-31] MEDS: levoFLOXacin 750 MG TABLET PO SCH (09:49)
[2017-01-31] MEDS: APIXABAN 5 MG TABLET PO SCH ×2 (09:49→20:39)
--- NOTE | 2017-01-31 12:29 | Internal Med Progress Note ---
Date of Encounter: 01/31/17 Time of Encounter: 11:45 - Assessment and plan (1) Acute and chronic respiratory failure with hypoxia Current Visit: Yes Status: Acute Assessment and plan: Due to COPD exacerbation as well as CHF exacerbation and possible obstructive pneumonia / pneumonitis reviewed CXR - patchy infiltrates in RML, RLL, concerned for obstructive pneumonia / pneumonitis Cont Duoneb and O2 Slightly better today.. start tapering steroids Stable mass in Rt Lung.. Need to f/u with his Radiation Oncologist regarding rx options for chemo vs radiation therapy for that mass Pulmonary on board WBC elevated due to mostly reactive due to steroids. (2) Pneumonitis Current Visit: Yes Status: Acute Assessment and plan: Mostly bacterial Improving changed abx to PO today by Pulm Sputum cx ordered (3) Sinus tachycardia Current Visit: Yes Status: Acute Assessment and plan: Mostly due to resp failure improved d/c Cardizem gtt switched to PO Cardizem (4) Diastolic CHF, acute on chronic Current Visit: Yes Status: Acute Assessment and plan: Reviewed 2 D Echo from showed normal LVEF 60 %, Mild diastolic dysfunction Improved Held Lasix due to VIK Cont BB , ASA (5) Essential hypertension Current Visit: No Status: Chronic Assessment and plan: stable with current meds (6) Elevated troponin Current Visit: No Status: Acute Assessment and plan: due to demand ischemia no further work needed (7) Pulmonary embolism Current Visit: No Status: Chronic Assessment and plan: Cont eliquis No need to change to Heparin Qualifiers: Pulmonary embolism type: other Chronicity: chronic Acute cor pulmonale presence: without acute cor pulmonale Qualified Code(s): I27.82 - Chronic pulmonary embolism (8) History of lung cancer Current Visit: No Status: Chronic Assessment and plan: Stable Rt LL mass consulted Heme Onc for further eval (9) COPD exacerbation Current Visit: Yes Status: Acute Assessment and plan: on Steroids, Duoneb and O2 may need to be chronic steroid therapy (10) VIK (acute kidney injury) Current Visit: Yes Status: Acute Assessment and plan: due to diuresis held Lasix check Cr in AM - Subjective Interval history: Mr. Nunez is a 81 year old male with medical history of non-small cell lung cancer, COPD, CAD, HTN, chronic UTIs, PAD, and TIA in 1999 presents from the ED with chief complaint of severe shortness of breath and dyspnea. Patient reports he recently completed a steroid taper last week. He was seen by his oncologist today who referred him to the ED when he was found to have an SPO2 of 80% on 5 L. Mr. Nunez reports a cough with minimum sputum production and pain radiated to the center of his back. Pt's radiation oncologist Dr. Gautam recommend him to go to ER for further evaluation. Pt was admitted here for acute on chronic hypoxic respiratory failure. He is alert, awake and O x 3, denied any chest pain, except some Rt chest wall pain with cough. Pt stated he is feeling little better now.. He did went into SVT last night trasnferred to 2NE for close monitoring. He was started on on Cardizem gtt.. Cureently on 2.5mg IV gtt. On 4 lit O2 NC. Does c/o Cough.. with minimal expectoration. - Constitutional Vitals: Temp Pulse Resp BP Pulse Ox 98.1 F 78 15 121/66 94 01/31/17 11:30 01/31/17 11:30 01/31/17 11:30 01/31/17 11:30 01/31/17 11:30 General appearance: Present: cooperative, A&O X 3, pleasant, no acute distress, answers questions appropriately - Head Head exam: Present: atraumatic, normal inspection - Respiratory Respiratory exam: Present: decreased breath sounds, wheezes. Absent: rales, respiratory distress, rhonchi - Cardiovascular Cardiovascular exam: Present: RRR, +S1, +S2. Absent: systolic murmur - GI/Abdominal GI/Abdominal exam: Present: normal bowel sounds, soft, no peritoneal signs. Absent: distended, tenderness - Extremities Exam Extremities exam: Present: pedal edema (trace). Absent: calf tenderness, tenderness - Neurological Exam Neurological exam: Present: alert, oriented X3 - Psychiatric Psychiatric exam: Present: normal affect, normal mood Internal Medicine: Result - Labs CBC & Chem 7: 01/31/17 06:48 01/31/17 06:48 Labs: Short CBC 01/31/17 Range/Units 06:48 WBC 23.7 H D (4.3-11.1) K/mcL Hgb 11.9 L (12.9-16.9) g/dL Hct 36.7 L (37.5-50.1) % Plt Count 288 (140-400) K/mcL Neutrophils # 22.3 H (1.6-8.9) K/mcL BMP 01/31/17 06:48 Sodium 137 Potassium 3.9 Chloride 100 Carbon Dioxide 30 H BUN 33 H D Creatinine 1.35 H Glucose 142 H Calcium 9.0 Liver Function 01/31/17 Range/Units 06:48 Total Bilirubin 0.5 (0.2-1.2) mg/dL AST 22 (5-34) Units/L ALT 13 (0-55) Units/L Alkaline Phosphatase 65 (38-126) Units/L Albumin 2.8 L (3.5-5.0) g/dL - ABG Interpretation ABG results: PT/INR, D-dimer PT 17.1 Seconds (9.4-12.1) H 01/30/17 04:14 - Impressions Impressions Chest X-Ray 01/30/17 22:20 IMPRESSION: No significant change compared to prior chest radiograph. Please reference prior CT chest for further details. D/ /31/2017 07:17:43 Jos Tovar MD / marjan Interpreting Provider: Jos Tovar MD Consult Discharge Plan - Plan Referrals: Farshad Lunsford MD [Primary Care Provider] -
[2017-01-31] MEDS: Melatonin 3 MG TABLET PO PRN (23:34)
[2017-02-01] MEDS: Ipratropium/Albuterol Neb 3 ML IH SCH ×4 (00:36→11:25)
[2017-02-01 03:42] LABS: Basophils % 0.1 %; Hematocrit 35.7 % (37.5-50.1); Hemoglobin 11.8 g/dL (12.9-16.9); Lymphocytes # 0.6 K/mcL (0.6-4.6); Lymphocytes % 3.1 %; Mean Corpuscular HGB Conc 33.1 g/dL (31.6-35.5); Mean Corpuscular Hemoglobin 31.1 pg (28.0-33.3); Mean Corpuscular Volume 93.9 fL (83.0-100.0); Mean Platelet Volume 9.7 fL (9.4-12.4); Monocytes % 4.7 %; Neutrophils # 18.8 K/mcL (1.6-8.9); Nucleated Red Blood Cells 0.1 /100 WBC (0); Platelet Count 275 K/mcL (140-400); Red Cell Distribution Width 15.6 % (11.5-14.5); Segmented Neutrophils % 91.1 %
[2017-02-01 03:55] LABS: BUN/Creatinine Ratio 26 (6-26); Blood Urea Nitrogen 35 mg/dL (8-26); Calcium 8.9 mg/dL (8.6-10.8); Carbon Dioxide 25 mEq/L (19-29); Chloride 102 mEq/L (98-109); Glucose 137 mg/dL (70-99); Magnesium 2.1 mg/dL (1.6-2.6); Osmolality,Calculated 294 (280-300); Potassium 4.2 mEq/L (3.5-4.5); Sodium 137 mEq/L (136-145); eGFR For African Americans > 60 (> 60); eGFR For Non-African Americans 51 (> 60)
[2017-02-01 07:08] VITALS: BP 134/75
[2017-02-01] MEDS: Budesonide/Formoterol 160/4.5 MDI IH SCH (07:31)
--- NOTE | 2017-02-01 07:53 | Pulmonology Progress Note ---
Date of Encounter: 02/01/17 Time of Encounter: 07:45 Assessment and Plan (1) Acute and chronic respiratory failure with hypoxia Current Visit: Yes Status: Acute Due to COPD exacerbation patient is getting better on the current regimen of bronchodilators and steroids. Patient is back to baseline he might be ready to go home today . Will walk him around to ascertain exercise oxygen needs (2) COPD with exacerbation Current Visit: Yes Status: Acute Patient looks like he is steroid dependent as the exacerbation started after his steroid was weaned off . To walk him to see his exercise oxygen needs . if he is ready to go home send him home on steroid taper to eventually to prednisone 10 mg patient should be on this regimen for 10 mg daily for atleast 1 -2 months and then reasess will change IV Zosyn to PO Levofloxacin as patient doesnt bring much sputum low suspicion for pseudomonal pneumonia . To complete a 7 day course of Levofloxacin. (3) Pulmonary embolism Current Visit: No Status: Chronic To continue Eliquis no signs of bleeding Qualifiers: Pulmonary embolism type: other Chronicity: chronic Acute cor pulmonale presence: without acute cor pulmonale Qualified Code(s): I27.82 - Chronic pulmonary embolism (4) Non-small cell cancer of right lung Current Visit: Yes Status: Chronic Patient is followed up by radiation oncologist. Subjective Principal diagnosis: Acute on chronic Hypoxic respiratory failure Interval history: Patient is saying he is feeling lot better denies any chest pain ,yet to walk today will ascertain exercise tolerance otherwise he says he is back to baseline Objective PUL Vital signs: Last Vital Signs Temp 97.6 F 02/01/17 07:07 Pulse 72 02/01/17 07:07 Resp 20 02/01/17 07:37 BP 134/75 02/01/17 07:07 Pulse Ox 97 02/01/17 07:37 Auscultation: right: diminished breath sounds, bilateral: wheezes (very minimal scattered wheezes ) Results - Laboratory Findings CBC and BMP: 02/01/17 03:15 02/01/17 03:15 PT/INR, D-dimer PT 17.1 Seconds (9.4-12.1) H 01/30/17 04:14 Abnormal lab findings: Abnormal lab results WBC 20.6 K/mcL (4.3-11.1) H 02/01/17 03:15 RBC 3.80 M/mcL (4.19-5.50) L 02/01/17 03:15 Hgb 11.8 g/dL (12.9-16.9) L 02/01/17 03:15 Hct 35.7 % (37.5-50.1) L 02/01/17 03:15 RDW 15.6 % (11.5-14.5) H 02/01/17 03:15 Neutrophils # 18.8 K/mcL (1.6-8.9) H 02/01/17 03:15 Nucleated RBCs/100 WBC 0.1 /100 WBC (0) H 02/01/17 03:15 PT 17.1 Seconds (9.4-12.1) H 01/30/17 04:14 BUN 35 mg/dL (8-26) H 02/01/17 03:15 Creatinine 1.34 mg/dL (0.72-1.25) H 02/01/17 03:15 Est GFR (Non-Af Amer) 51 (> 60) L 02/01/17 03:15 Glucose 137 mg/dL (70-99) H 02/01/17 03:15 Troponin I 0.04 ng/mL (0-0.03) H* 01/30/17 04:14 B-Natriuretic Peptide 308 pg/mL (0-100) H 01/29/17 12:53 Serum Total Protein 5.9 g/dL (6.0-8.3) L 01/31/17 06:48 Albumin 2.8 g/dL (3.5-5.0) L 01/31/17 06:48 Albumin/Globulin Ratio 0.9 (1.1-2.2) L 01/31/17 06:48 LDL Cholesterol, Calc 107 mg/dL (0-99) H 01/30/17 04:14 Ur Leukocyte Esterase Small (Negative) H 01/29/17 15:30 Urine Microscopic WBC 3-5 per hpf (0-3) H 01/29/17 15:30 Ur Culture Indicated? YES (NO) A 01/29/17 15:30 - Microbiology Findings Microbiology Findings: Microbiology, Last 48 Hours 01/29/17 15:30 Urine Culture - Final Urine,Clean Catch No growth. - Clinical Findings Intake & Output: Intake & Output 01/31/17 01/31/17 02/01/17 15:59 23:59 07:59 Intake Total 440 / 440 200 / 200 Output Total 200 / 200 0 / 0 Balance 240 / 240 200 / 200 Weight 83.4 kg Consult Discharge Plan - Plan Instructions: Metoprolol (By mouth), Diltiazem (By mouth), Furosemide (By mouth ), Prednisone (By mouth), Levofloxacin (By mouth), Ipratropium/Albuterol (By breathing), Budesonide/Formoterol (By breathing), Chronic Obstructive Pulmonary Disease (DC) Additional Instructions: Continue home oxygen @ 4L/MIN as previous. Referrals: Farshad Lunsford MD [Primary Care Provider] - (please follow up with in 5-7 days after discharge. call tomorrow to make appt.) Nahun Gautam MD [Partnered Physician] - (Please followup as previously scheduled.) Isabel Holden MD [Partnered Physician] - (Please followup within 2 weeks after discharge.) Prescriptions: Budesonide/Formoterol 160/4.5 [Symbicort 160/4.5] 2 puff IH BIDR #1 Diltiazem CD (24hr) [Cardizem CD] 120 mg PO DAILY #30 cap.er.24h Furosemide [Lasix] 20 mg PO DAILY PRN #15 tablet PRN Reason: Edema Ipratropium/Albuterol Neb [Duoneb] 3 ml IH Q6H PRN #120 inh PRN Reason: Shortness Of Breath levoFLOXacin [Levaquin] 500 mg PO DAILY #4 tablet Metoprolol [Lopressor] 50 mg PO BID #60 tab predniSONE [PredniSONE] 40 mg PO DAILY #30 tab
[2017-02-01] MEDS ORDERED: predniSONE 20 MG TABLET PO SCH (09:00)
[2017-02-01] MEDS: Aspirin Enteric Coated 81 MG Tablet PO SCH (10:03)
[2017-02-01] MEDS: Benzonatate 100 MG CAPSULE PO SCH (10:03)
[2017-02-01] MEDS: levoFLOXacin 750 MG TABLET PO SCH (10:04)
[2017-02-01] MEDS: APIXABAN 5 MG TABLET PO SCH (10:04)
--- NOTE | 2017-02-01 11:18 | Discharge Summary ---
Date of Encounter: 02/01/17 Time of Encounter: 11:13 - Discharge Diagnosis (1) Acute and chronic respiratory failure with hypoxia Priority: Primary Status: Acute (2) Pneumonitis Priority: Primary Status: Acute (3) Sinus tachycardia Priority: Secondary Status: Acute (4) Diastolic CHF, acute on chronic Priority: Secondary Status: Acute (5) Essential hypertension Priority: Secondary Status: Chronic (6) Elevated troponin Priority: Secondary Status: Acute (7) Pulmonary embolism Priority: Secondary Status: Chronic Qualifiers: Pulmonary embolism type: other Chronicity: chronic Acute cor pulmonale presence: without acute cor pulmonale Qualified Code(s): I27.82 - Chronic pulmonary embolism (8) History of lung cancer Priority: Secondary Status: Chronic (9) COPD exacerbation Priority: Primary Status: Acute (10) VIK (acute kidney injury) Priority: Secondary Status: Acute - Discharge Medications Prescriptions: Budesonide/Formoterol 160/4.5 [Symbicort 160/4.5] 2 puff IH BIDR #1 Diltiazem CD (24hr) [Cardizem CD] 120 mg PO DAILY #30 cap.er.24h Furosemide [Lasix] 20 mg PO DAILY PRN #15 tablet PRN Reason: Edema Ipratropium/Albuterol Neb [Duoneb] 3 ml IH Q6H PRN #120 inh PRN Reason: Shortness Of Breath levoFLOXacin [Levaquin] 500 mg PO DAILY #4 tablet Metoprolol [Lopressor] 50 mg PO BID #60 tab predniSONE [PredniSONE] 40 mg PO DAILY #30 tab Home Medications: Allopurinol [Zyloprim 300 MG] 300 mg PO DAILY 09/28/15 [History] Aspirin Enteric Coated [Aspirin EC] 81 mg PO DAILY 09/28/15 [History] Gluc/Bartolome-MSM#1/C/Jasper/Arturo/Bor [Osteo Bi-Flex Caplet] 1 tab PO DAILY 09/28/15 [ History] Nitroglycerin [Nitrostat] 0.4 mg SL [id number] PRN 09/28/15 [History] Pentoxifylline [TRENtal] 400 mg PO TIDWM 09/28/15 [History] Pravastatin Sodium [Pravachol] 80 mg PO DAILY 09/28/15 [History] Tamsulosin HCl [Flomax] 0.4 mg PO DAILY 09/28/15 [History] Omeprazole [PriLOSEC] 20 mg PO DAILY 10/29/15 [History] Benzonatate [Tessalon] 100 mg PO TID 12/09/16 [History] Apixaban [Eliquis] 5 mg PO BID 01/29/17 [History] Budesonide/Formoterol 160/4.5 [Symbicort 160/4.5] 2 puff IH BIDR #1 02/01/17 [ Rx] Diltiazem CD (24hr) [Cardizem CD] 120 mg PO DAILY #30 cap.er.24h 02/01/17 [Rx] Furosemide [Lasix] 20 mg PO DAILY PRN #15 tablet 02/01/17 [Rx] Ipratropium/Albuterol Neb [Duoneb] 3 ml IH Q6H PRN #120 inh 02/01/17 [Rx] Metoprolol [Lopressor] 50 mg PO BID #60 tab 02/01/17 [Rx] levoFLOXacin [Levaquin] 500 mg PO DAILY #4 tablet 02/01/17 [Rx] predniSONE [PredniSONE] 40 mg PO DAILY #30 tab 02/01/17 [Rx] Allergies/Adverse Reactions: 3 Allergy/AdvReac Type Severity Reaction Status Date / Time indomethacin [From Indocin] Allergy Dizziness Verified 01/29/17 11:14 Procedures/tests Complete & Pending: Procedures Performed prior 72 hours Category Date Time Status ECG 12 lead ECG [ECG] Routine Y 01/30/17 04:00 Completed Venous Doppler [EV venous imaging UE LT] Routine Y 02/01/17 06:59 Completed Date of admission: 01/29/17 15:21 Primary care physician: Farshad Lunsford MD Consults: 01/30/17 04:03 Consult to Cardiology [CONS] Routine Comment: Consulting Provider: Cardiology [place] Reason for Consult: chest pain, EKG changes Call Completed: No 01/30/17 09:17 Consult to Occupational Therapy [CONS] Routine Comment: Evaluate, develop and implement POC Reason for Consult: Eval and treat Consult to Physical Therapy [CONS] Routine Comment: Evaluate, develop and implement POC Reason for Consult: Possible need for PT/OT - discharge planning Consult to Center Rep [CONS] Routine Reason for SW Consult: Eval and treat 01/30/17 09:23 Consult to Oncology [CONS] Routine Consulting Provider: [facility] Reason for Consult: RLL NSCL.. ?? Obstrustive pneumonia, RLL Mass Call Completed: Yes Consult to Pulmonology [CONS] Routine Consulting Provider: Pulm [facility] [place] Reason for Consult: Acute hypoxic resp failure.. RLL Mass Call Completed: Yes - Patient Status Disposition: Home, Self-Care Condition: Fair Overall status at discharge: patient is back to baseline - Discharge Instructions Follow Up With: Farshad Lunsford MD [Primary Care Provider] - Isabel Holden MD [Partnered Physician] - Nahun Gautam MD [Partnered Physician] - Forms: ED Satisfaction Letter - Diet and Activity Activity: increase activity as tolerated Diet: low salt diet Hospital course: Mr. Nunez is a 81 year old male with medical history of non-small cell lung cancer, COPD, CAD, HTN, chronic UTIs, PAD, and TIA in 1999 presents from the ED with chief complaint of severe shortness of breath and dyspnea. Patient reports he recently completed a steroid taper last week. He was seen by his oncologist today who referred him to the ED when he was found to have an SPO2 of 80% on 5 L. Mr. Nunez reports a cough with minimum sputum production and pain radiated to the center of his back. Pt's radiation oncologist Dr. Gautam recommend him to go to ER for further evaluation. Pt was admitted here for acute on chronic hypoxic respiratory failure with pneumonia, also had mild acute on chronic diastolic heart failure. Pt was started on high dose systemic and INH steroids and empirical abx with Zosyn. He was also placed on low dose IV diuretics. His symptoms started improving slowly. 2 days ago he went into SVT due to respiratory distress, which resolved now with PO Metoprolol and Cardizem. Pt seems to be back to his baseline breathing spears, he wanted go home since y/d. Pt was evaluated by Md Physician Dermatologist who recommend to start him on chronic steroid therapy since he seems be more of steroid dependent at this stage. So will cont tapering his Prednisone from 40mg to 10mg and continue there after. I did talk to the pt and his family about this instructions. He is currently on 4 lit O2 and Spo2 @ 94, HR: 72, RR: 16 BP : 134/75 - Time Spent with Patient Total time spent providing and/or coordinating discharge services: Greater than 30 minutes (Spent 45 minutes on this patient's discharge summary due to complex medical problems and patient needed a lot of education regarding discharge instructions) - Constitutional Vitals: Temp Pulse Resp BP Pulse Ox 97.6 F 72 20 134/75 97 02/01/17 07:07 02/01/17 07:07 02/01/17 07:37 02/01/17 07:07 02/01/17 07:37 General appearance: Present: cooperative, A&O X 3, pleasant, no acute distress, answers questions appropriately - Head Head exam: Present: atraumatic, normal inspection - Respiratory Respiratory exam: Present: decreased breath sounds, wheezes. Absent: rales, respiratory distress, rhonchi - Cardiovascular Cardiovascular exam: Present: RRR, +S1, +S2. Absent: systolic murmur - GI/Abdominal GI/Abdominal exam: Present: normal bowel sounds, soft. Absent: rebound, rigid, tenderness - Extremities Exam Extremities exam: Absent: calf tenderness, pedal edema, tenderness - Neurological Exam Neurological exam: Present: alert, oriented X3 - Psychiatric Psychiatric exam: Present: normal affect, normal mood
--- NOTE | 2017-02-02 11:43 | Venous Imaging Report ---
UE Venous Duplex Patient Name:Randolph Nunez Order Number:[id number] Procedure Date:02/01/2017 Date:1935ge:81 yrs Gender:Male Location:[facility] Room #: Airport Driver:Gavin Bourne LISA Referring MD:Erasto Lerma MD manager public:Farshad Lunsford MD Reading MD:Pako Nguyen MD Primary Indications:Swelling Secondary Indications: Risk Factors Yes/No Anticoagulants Yes Hx of Chemotherapy Yes Impressions: Normal left upper extremity deep and superficial venous exam. Normal contralateral subclavian vein. Recommendations: After imaging the patient returned to their room. Findings Venous Duplex Results: Right: Venous imaging of the upper extremity reveals full patency and normal vessel compressibility of the right subclavian. Doppler signals in the evaluated veins were normal. Left: Venous imaging of the upper extremity reveals full patency and normal vessel compressibility of the left jugular, left subclavian, left axillary, left brachial, left cephalic, left basilic, left radial and left ulnar. Doppler signals in the evaluated veins were normal. Prior Study: No prior study available for comparison. Upper Extremity Venous Duplex Side Vein Compress Spontaneous Flow Augment Left Jugular Normal Yes Phasic Yes Left Subclavian Normal Yes Phasic Yes Left Axillary Normal Yes Phasic Yes Left Brachial Normal Yes Phasic Yes Left Cephalic Normal Yes Phasic Yes Left Basilic Normal Yes Phasic Yes Left Radial Normal Yes Phasic Yes Left Ulnar Normal Yes Phasic Yes Right Subclavian Normal Yes Phasic Yes Updated by Pako Nguyen MD on 02/02/2017 11:35:52 AM electronically signed on 02/02/2017 11:36:07 AM with status of Final
== END 2017-02-01 13:50 | disposition home or self-care (01) | DRG 190 ==
LOC: EMEROO 11:55 → 3NENU 11:55 → 2NENU 01-30 23:55
PROVIDERS: ADMIT Internal Medicine; ATTEND Family Medicine

== ENCOUNTER 2017-04-20 11:00 | Inpatient (IN) ==
[~2017-04-20 11:00] MED LIST: *HR* Midazolam HCl 5 MG/5 ML VIAL IVP ONE; *HR* Rocuronium Bromide 100 MG/10 ML VIAL IVC ONE
[2017-04-20] MEDS ORDERED: Ipratropium/Albuterol Neb 3 ML IH ONE (11:11)
[2017-04-20] MEDS ORDERED: Acetylcysteine 10% 2 ML INHSOL IH ONE (11:33)
[2017-04-20 11:37] LABS: Basophils % 0.2 %; Hematocrit 45.6 % (37.5-50.1); Hemoglobin 14.7 g/dL (12.9-16.9); Immature Granulocytes % 2.2 % (0-4); Lymphocytes # 0.5 K/mcL (0.6-4.6); Lymphocytes % 2.9 %; Mean Corpuscular HGB Conc 32.2 g/dL (31.6-35.5); Mean Corpuscular Hemoglobin 29.7 pg (28.0-33.3); Mean Corpuscular Volume 92.1 fL (83.0-100.0); Monocytes # 0.7 K/mcL (0.0-1.3); Monocytes % 3.9 %; Neutrophils # 16.2 K/mcL (1.6-8.9); Nucleated Red Blood Cells 0.3 /100 WBC (0); Platelet Count 236 K/mcL (140-400); Red Blood Count 4.95 M/mcL (4.19-5.50); Red Cell Distribution Width 15.3 % (11.5-14.5); Segmented Neutrophils % 90.8 %
[2017-04-20 11:50] LABS: BUN/Creatinine Ratio 18 (6-26); Blood Urea Nitrogen 22 mg/dL (8-26); Calcium 9.6 mg/dL (8.6-10.8); Carbon Dioxide 29 mEq/L (19-29); Chloride 95 mEq/L (98-109); Glucose 212 mg/dL (70-99); Osmolality,Calculated 296 (280-300); Potassium 3.9 mEq/L (3.5-4.5); Sodium 138 mEq/L (136-145); eGFR For African Americans > 60 (> 60); eGFR For Non-African Americans 56 (> 60)
--- NOTE | 2017-04-20 11:53 | Emergency Department Note ---
Disposition Clinical Impression: Acute exacerbation of chronic obstructive airways disease Community acquired pneumonia Qualifiers: Laterality: right Lung location: unspecified part of lung Qualified Code(s): J18.9 - Pneumonia, unspecified organism Disposition: Admitted As Inpatient Time of Disposition: 14:15 SOB HPI - General Chief Complaint: ED Shortness of Breath/Dyspnea Stated Complaint: TRACEE Time Seen by Provider: 04/20/17 11:07 Source: family, EMS Mode of arrival: EMS Limitations: no limitations Nursing Notes Reviewed: Yes Vital Signs Reviewed: Yes - History of Present Illness 81-year-old male presents to the ED complaining of shortness of breath. Patient does have a history of COPD he also has a history of a lobectomy on the left side and has had radiation to the right side due to lung cancer. Patient is always on 4 L of oxygen. They said that over the past 2 days they have noticed increased shortness of breath where they have bumped his oxygen level to 5 L by mask nasal cane. He does not have a BiPAP or CPAP machine at home. Patient has had a history of having pneumonias was last recently admitted to the hospital in January. Otherwise has been doing well. They have noticed that he has been warm they have not actually checked his temperature this that he has felt warm and also had some chills. He otherwise is having normal bowel movements no pain with urination, no abdominal pain, no chest pain, no headaches , no blurry vision, no back pain, no neck pain, no pain or tingling down the arms or legs or any generalized numbness. - Related Data Home Medications Medication Instructions Recorded Confirmed Allopurinol [Zyloprim 300 MG] 300 mg PO DAILY 09/28/15 04/20/17 Aspirin Enteric Coated [Aspirin EC] 81 mg PO DAILY 09/28/15 04/20/17 Gluc/Bartolome-MSM#1/C/Jasper/Arturo/Bor 1 tab PO DAILY 09/28/15 04/20/17 [Osteo Bi-Flex Caplet] Nitroglycerin [Nitrostat] 0.4 mg SL [id number] PRN 09/28/15 04/20/17 Pentoxifylline [TRENtal] 400 mg PO TIDWM 09/28/15 04/20/17 Pravastatin Sodium [Pravachol] 80 mg PO DAILY 09/28/15 04/20/17 Tamsulosin HCl [Flomax] 0.4 mg PO DAILY 09/28/15 04/20/17 Omeprazole [PriLOSEC] 20 mg PO DAILY 10/29/15 04/20/17 Ipratropium/Albuterol Neb [Duoneb] 3 ml IH Q6HR PRN 02/09/17 04/20/17 Metoprolol Succinate 50 mg PO DAILY 04/20/17 04/20/17 PredniSONE [Deltasone] See Taper PO AD 04/20/17 04/20/17 Previous Rx's Medication Instructions Recorded Diltiazem CD (24hr) [Cardizem CD] 120 mg PO DAILY #30 cap.er.24h 02/01/17 Furosemide [Lasix] 20 mg PO DAILY PRN #15 tablet 02/01/17 Apixaban [Eliquis] 5 mg PO BID #60 tablet 02/09/17 Nystatin [Nystatin Suspension] 500,000 unit PO DAILY #200 ml 04/01/17 Allergies Allergy/AdvReac Type Severity Reaction Status Date / Time indomethacin [From Indocin] Allergy Dizziness Verified 01/29/17 11:14 Review of Systems: 10 point review of systems done and negative unless otherwise stated in history of present illness. All systems ED: reviewed and negative except as stated. Review of Systems: As Per HPI Past Medical History - Past Medical History Attestation: Yes The following information was validated with the patient. Medical history: Reports: cancer, COPD, coronary artery disease, hypertension, peripheral artery disease, TIA Surgical history: Reports: angioplasty/stent, carotid endarterectomy, LE Bypass , LE stent(s) Psychiatric history: Reports: no psych history - Social History Smoking Status: Former smoker Smokeless Tobacco Status: No Alcohol use: Reports: none Drug use: Reports: none Physical Exam - General Limitations: no limitations General appearance: alert - Head Head exam: atraumatic, normocephalic, normal inspection - Eye Eye exam: Present: normal appearance - ENT ENT exam: normal exam, normal oropharynx, mucous membranes moist - Neck Neck exam: Present: normal inspection, full ROM, trachea midline - Chest Chest inspection: Present: normal inspection, symmetric chest wall rise - Respiratory Respiratory exam: Present: respiratory distress, wheezes, accessory muscle use. Absent: stridor - Expanded Respiratory Exam Location: rhonchi: Left, Right, Upper, Lower, decreased breath sounds: Left, Lower - Cardiovascular Cardiovascular exam: Present: regular rate, normal rhythm, normal heart sounds - Abdominal Exam Abdominal exam: Present: soft, Non-Tender. Absent: tenderness, distention, guarding, rebound, rigidity - Extremities Exam Extremities exam: Present: normal inspection, full ROM, normal capillary refill. Absent: tenderness, pedal edema, joint swelling, calf tenderness - Expanded Lower Extremity Exam Neurovascular/Tendon exam: Present: normal capillary refill. Absent: pulse deficit, motor deficit, sensory deficit, tendon deficit - Back Exam Back exam: Present: normal inspection, full ROM. Absent: tenderness, CVA tenderness (R), CVA tenderness (L) - Neurological Exam Neurological exam: Present: alert, oriented X3 - Skin Skin exam: Present: warm, dry, intact, normal color Course Course Narrative: 81-year-old male presented to the ED complaining of shortness of breath is most likely COPD exacerbation most likely from a underlying pneumonia. This could be community-acquired pneumonia. We will start him down the sepsis pathway but he is non-septic shock at this time. We will get CBC, BMP, lactate with a timed lactate, blood cultures, chest x-ray. Will also start him on triple DuoNeb treatment we will also give him a Mucomyst in the nail to help with his possible mucous plugging. Patient family okay with this plan. Most likely disposition will be admission. - Reevaluation(s) Reevaluation #1: Labs came back showing a elevated lactate as well as a white count so most likely is going to be an admission will start antibiotics now. Also the elevated lactate patient needs normal saline fluid but due to his volume status and difficulty in breathing wean on oral forms we will place him on BiPAP once he finishes the duonebs. Also start fluids at that time. Time: 11:57 Vital Signs Temperature 98.2 F 04/20/17 11:03 Pulse Rate 115 04/20/17 11:03 Respiratory Rate 28 04/20/17 11:03 Blood Pressure 119/79 04/20/17 11:03 O2 Sat by Pulse Oximetry 93 04/20/17 11:03 Temperature 96.3 F L 04/20/17 18:00 Pulse Rate 78 04/20/17 18:00 Respiratory Rate 20 04/20/17 18:11 Blood Pressure 116/78 04/20/17 18:11 O2 Sat by Pulse Oximetry 100 04/20/17 18:11 Oxygen Delivery Oxygen Delivery Ventilator Procedures - Intubation Time out performed: Yes sedative: Ketamine Mg Given: 80 paralytic: Rocuronium Mg Given: 70 Laryngoscope: Clarissa ET Tube Size: 7.5 ET Tube Uncuffed: No Tube Secured Depth (cm): 23 Tube Secured Location: teeth Tube Placement Confirmation: visualized tube passing through cords, equal breath sounds bilaterally, no breath sounds over epigastrium Patient Tolerated Procedure: well Intubation Complications: none Shortness of Breath/Dyspnea - [facility] Narrative Medical decision making narrative: 81-year-old male presents to the ED complaining of shortness of breath. Patient does have a lobectomy on the left side had radiation to the right lung due to lung cancer. This occurred approximate year ago. Patient has had increased oxygen demand. Today we did triple DuoNeb treatment also gave him Mucomyst which did help with his breathing but he was still having a difficult time and was still hypoxic [place] was tried to start BiPAP. We did do an ABG which came back normal. He did have an elevated lactate as well as a white blood cell count chest x-ray did show a pneumonia as well as an effusion. Due to patient's high oxygen demand as well as elevated lactate we felt that admission was needed. I spoke with the hospitalist who felt that ICU would be a better place for this patient. At this time I spoke with the customer service rep who agreed and said they would come see the patient. After coming and seeing the patient asked if we would intubate the patient down here they would transfer with the event up to the ICU. We did intubate the patient with a 7.5 ET tube days, using direct laryngoscopy this was successfully done by myself under the supervision of Dr. Mayorga. We used 80 mg of ketamine, 70 mg of rocuronium and 5 mg of Versed to induce the patient. Procedure went well the tube was at 23 cm at the lip. Was then placed on the vent and bent it well. We did get a chest x -ray that confirmed the location. We did have to move it lower down in or to get good view of it within the chest. Patient is now admitted to the ICU in stable condition. The ICU, and tenseness had agreed to accept the patient. - Medical Records Medical records reviewed: Yes I reviewed the patient's medical records. - Lab Data Lab results reviewed: Yes I reviewed the patient's lab results. Result diagrams: 04/20/17 11:04/20/17 11: Lab Results 04/20/17 04/20/17 04/20/17 Range/Units 11: 11: 11: WBC 17.8 H (4.3-11.1) K/mcL RBC 4.95 (4.19-5.50) M/mcL Hgb 14.7 (12.9-16.9) g/dL Hct 45.6 (37.5-50.1) % MCV 92.1 (83.0-100.0) fL MCH 29.7 (28.0-33.3) pg MCHC 32.2 (31.6-35.5) g/dL RDW 15.3 H (11.5-14.5) % Plt Count 236 (140-400) K/mcL MPV 10.0 (9.4-12.4) fL Immature Gran % 2.2 (0-4) % Seg Neutrophils % 90.8 % Lymphocytes % 2.9 % Monocytes % 3.9 % Eosinophils % 0.0 % Basophils % 0.2 % Neutrophils # 16.2 H (1.6-8.9) K/mcL Lymphocytes # 0.5 L (0.6-4.6) K/mcL Monocytes # 0.7 (0.0-1.3) K/mcL Eosinophils # 0.0 (0.0-0.6) K/mcL Basophils # 0.0 (0.0-0.2) K/mcL Nucleated RBCs/100 WBC 0.3 H (0) /100 WBC ABG pH (7.32-7.45) pH Units ABG pCO2 (35-45) mmHg ABG pO2 (85-104) mmHg ABG HCO3 (21-27) mEq/L ABG Total CO2 (20-26) mEq/L ABG O2 Saturation (95-98) % ABG Base Excess (-2 to 3) mEq/L O2 Delivery Device Blood Gas Modality Inspired O2 (1-15=lpm [id number]=%) Sodium 138 (136-145) mEq/L Potassium 3.9 (3.5-4.5) mEq/L Chloride 95 L (98-109) mEq/L Carbon Dioxide 29 (19-29) mEq/L BUN 22 (8-26) mg/dL Creatinine 1.23 (0.72-1.25) mg/dL Est GFR ( Amer) > 60 (> 60) Est GFR (Non-Af Amer) 56 L (> 60) BUN/Creatinine Ratio 18 (6-26) Glucose 212 H (70-99) mg/dL Calculated Osmolality 296 (280-300) Lactic Acid 4.4 H* (0.5-2.2) mmol/L Calcium 9.6 (8.6-10.8) mg/dL Phosphorus 3.3 (2.3-4.7) mg/dL Magnesium 1.9 (1.6-2.6) mg/dL Total Bilirubin 1.2 (0.2-1.2) mg/dL Direct Bilirubin 0.5 (0.0-0.5) mg/dL Indirect Bilirubin 0.7 (0.0-1.2) mg/dL AST 17 (5-34) Units/L ALT 19 (0-55) Units/L Alkaline Phosphatase 74 (38-126) Units/L Troponin I (0-0.03) ng/mL B-Natriuretic Peptide (0-100) pg/mL Serum Total Protein 6.8 (6.0-8.3) g/dL Albumin 3.2 L (3.5-5.0) g/dL Globulin 3.6 H (2.4-3.5) g/dL Albumin/Globulin Ratio 0.9 L (1.1-2.2) 04/20/17 04/20/17 04/20/17 Range/Units 11: 11: 13:13 WBC (4.3-11.1) K/mcL RBC (4.19-5.50) M/mcL Hgb (12.9-16.9) g/dL Hct (37.5-50.1) % MCV (83.0-100.0) fL MCH (28.0-33.3) pg MCHC (31.6-35.5) g/dL RDW (11.5-14.5) % Plt Count (140-400) K/mcL MPV (9.4-12.4) fL Immature Gran % (0-4) % Seg Neutrophils % % Lymphocytes % % Monocytes % % Eosinophils % % Basophils % % Neutrophils # (1.6-8.9) K/mcL Lymphocytes # (0.6-4.6) K/mcL Monocytes # (0.0-1.3) K/mcL Eosinophils # (0.0-0.6) K/mcL Basophils # (0.0-0.2) K/mcL Nucleated RBCs/100 WBC (0) /100 WBC ABG pH 7.41 (7.32-7.45) pH Units ABG pCO2 38 (35-45) mmHg ABG pO2 75 L (85-104) mmHg ABG HCO3 24 (21-27) mEq/L ABG Total CO2 25 (20-26) mEq/L ABG O2 Saturation 95 (95-98) % ABG Base Excess 0 (-2 to 3) mEq/L O2 Delivery Device BiPAP Blood Gas Modality st Inspired O2 50.0 (1-15=lpm [id number]=%) Sodium (136-145) mEq/L Potassium (3.5-4.5) mEq/L Chloride (98-109) mEq/L Carbon Dioxide (19-29) mEq/L BUN (8-26) mg/dL Creatinine (0.72-1.25) mg/dL Est GFR ( Amer) (> 60) Est GFR (Non-Af Amer) (> 60) BUN/Creatinine Ratio (6-26) Glucose (70-99) mg/dL Calculated Osmolality (280-300) Lactic Acid (0.5-2.2) mmol/L Calcium (8.6-10.8) mg/dL Phosphorus (2.3-4.7) mg/dL Magnesium (1.6-2.6) mg/dL Total Bilirubin (0.2-1.2) mg/dL Direct Bilirubin (0.0-0.5) mg/dL Indirect Bilirubin (0.0-1.2) mg/dL AST (5-34) Units/L ALT (0-55) Units/L Alkaline Phosphatase (38-126) Units/L Troponin I 0.13 H* (0-0.03) ng/mL B-Natriuretic Peptide 234 H (0-100) pg/mL Serum Total Protein (6.0-8.3) g/dL Albumin (3.5-5.0) g/dL Globulin (2.4-3.5) g/dL Albumin/Globulin Ratio (1.1-2.2) 04/20/17 Range/Units 13:14 WBC (4.3-11.1) K/mcL RBC (4.19-5.50) M/mcL Hgb (12.9-16.9) g/dL Hct (37.5-50.1) % MCV (83.0-100.0) fL MCH (28.0-33.3) pg MCHC (31.6-35.5) g/dL RDW (11.5-14.5) % Plt Count (140-400) K/mcL MPV (9.4-12.4) fL Immature Gran % (0-4) % Seg Neutrophils % % Lymphocytes % % Monocytes % % Eosinophils % % Basophils % % Neutrophils # (1.6-8.9) K/mcL Lymphocytes # (0.6-4.6) K/mcL Monocytes # (0.0-1.3) K/mcL Eosinophils # (0.0-0.6) K/mcL Basophils # (0.0-0.2) K/mcL Nucleated RBCs/100 WBC (0) /100 WBC ABG pH (7.32-7.45) pH Units ABG pCO2 (35-45) mmHg ABG pO2 (85-104) mmHg ABG HCO3 (21-27) mEq/L ABG Total CO2 (20-26) mEq/L ABG O2 Saturation (95-98) % ABG Base Excess (-2 to 3) mEq/L O2 Delivery Device Blood Gas Modality Inspired O2 (1-15=lpm [id number]=%) Sodium (136-145) mEq/L Potassium (3.5-4.5) mEq/L Chloride (98-109) mEq/L Carbon Dioxide (19-29) mEq/L BUN (8-26) mg/dL Creatinine (0.72-1.25) mg/dL Est GFR ( Amer) (> 60) Est GFR (Non-Af Amer) (> 60) BUN/Creatinine Ratio (6-26) Glucose (70-99) mg/dL Calculated Osmolality (280-300) Lactic Acid 11.1 H* (0.5-2.2) mmol/L Calcium (8.6-10.8) mg/dL Phosphorus (2.3-4.7) mg/dL Magnesium (1.6-2.6) mg/dL Total Bilirubin (0.2-1.2) mg/dL Direct Bilirubin (0.0-0.5) mg/dL Indirect Bilirubin (0.0-1.2) mg/dL AST (5-34) Units/L ALT (0-55) Units/L Alkaline Phosphatase (38-126) Units/L Troponin I (0-0.03) ng/mL B-Natriuretic Peptide (0-100) pg/mL Serum Total Protein (6.0-8.3) g/dL Albumin (3.5-5.0) g/dL Globulin (2.4-3.5) g/dL Albumin/Globulin Ratio (1.1-2.2) - Radiology Data Radiology results reviewed: Yes I reviewed the patient's radiology results. - EKG Data EKG attestation: Yes I reviewed and interpreted this EKG. EKG results narrative: EKG done at 1114 review myself and attending shows electronically ventricular paced rhythm at a rate of 116, FL interval 87, QRS 168, QTC 445 with a normal axis. There is no acute ST changes, no acute T-wave changes, no signs of heart strain or heart block or hypertrophy, no signs of rigidity/got a syndrome. This is unchanged when compared with old EKG done 01/30/17. Attestation Statement - Attestation Attestation: I examined this patient and my medical decision-making was reviewed with the Resident Physician. I agree with the documented findings, disposition and treatment plan as described except to the extent set forth below. 81-year-old male presents ED because of dyspnea. He has had 2 day progression of increasing dyspnea with cough that has been productive of yellow sputum. No associated fevers. Denies pain. He has worsening orthopnea as well as exertional dyspnea. No peripheral edema. No abdominal pain. No vomiting. Poor fluid intake over the past 24 hours. He does have a history of lung cancer and has had prior left lower lobectomy and is also recently received radiation treatment to the right lung within the past year. No recent chemotherapy within the last 30 days. No recent hospitalizations. No known ill exposures. No long distance travel. Elderly male who is in mild to moderate respiratory distress on presentation. He is able to speak but only a short choppy sentences. He is on high flow oxygen maintaining her saturation around 88-92%. Oropharynx is clear mucous membranes are dry. Neck is supple. No JVD. Chest has coarse breath sounds throughout all lung samayoa with lateral expiratory wheezes. Cardiac exam is tachycardic, regular. Chest wall nontender. Abdomen soft and nontender. Extremities are well perfused, warm and dry. Chest x-ray exhibits pleural effusion and pneumonia on the right with infiltrate throughout the left base. Moderate volume loss. EKG is paced rhythm. Leukocytosis and elevated lactate of 4.4 are noted. Renal function is preserved. He was given sequential DuoNeb treatments along with Mucomyst with some transient improvement. IV antibiotics were started addressing community- acquired pneumonia and with expectations that he will would likely end up intensive care unit. He was placed on BiPAP due to persistent hypoxia and worsening respiratory distress and with this did exhibit some transient improvement. However, he became more fatigued. He was evaluated in the emergency department by pulmonary customer service rep who felt that he should be intubated prior to transfer to the intensive care unit. Patient and family were in agreement with this. He was continued on high flow auction. He was given a total of 2 L of fluid and a second IV was in place. Prior to the intubation he did not have any issues with hypotension but did have persistent tachycardia. He was given rocuronium, ketamine and Versed with adequate sedation and paralysis and was intubated with 7.5 mm ET tube on the first attempt by direct laryngoscopy. Tube was secured at 23 cm. There appeared to be some intermittent leaking with the positive pressure ventilation. 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 Audio Experience Expert also requested face and right internal jugular central line due to his climbing lactate as he will likely need CVP monitoring. There was further delay in getting him to the intensive care unit. Family consented to placement of central line for central hemolytic monitoring. Under ultrasound guidance, triple lumen catheters placed in the right internal jugular vein per Dr. Reynoso without difficulty. Chest x-ray confirms ET tube and central line to be in good position. He did have transient hypotension following intubation but this improved with sequential fluid boluses. He was subsequently admitted to the critical-care unit in critical condition. The high probability of a clinically significant, sudden or life threatening deterioration of the [Cardiovascular, neurovascular, renal] system(s) required my full and direct attention, intervention and personal management. The aggregate critical care time was [75] minutes. This time is in addition to time spent performing reported procedures but includes the following: [x] Data Review and interpretation [x] Patient assessment and monitoring of vital signs [x] Documentation [x] Medication orders and management
[2017-04-20] MEDS ORDERED: Aspirin 81 MG TAB.CHEW PO ONE (12:00)
[2017-04-20] MEDS ORDERED: 0.9 % Sodium Chloride 1,000 ML IVC ONE ×2 (12:01→15:45)
[2017-04-20] MEDS ORDERED: Vancomycin 1,000 MG in D5% in Water 250 ML IVPB ONE (12:02)
[2017-04-20] MEDS ORDERED: Piperacillin/Tazobactam 3.375 GM in D5% in Water 50 ML IVPB ONE (12:02)
[2017-04-20] MEDS ORDERED: Levofloxacin 750 MG/150 ML 750 MG/150 ML BAG IVPB ONE (12:02)
[2017-04-20] MEDS ORDERED: Piperacillin/Tazobactam 3.375 GM in 0.9 % Sodium Chloride Mini Bag 100 ML IVPB ONE ×2 (12:15→12:30)
[2017-04-20] MEDS ORDERED: TAZOBACTAM IVPB ONE (12:15)
[2017-04-20] MEDS ORDERED: SODIUM CHLORIDE 0.9% IVPB ONE (12:15)
[2017-04-20] MEDS ORDERED: PIPERACILLIN IVPB ONE (12:15)
[2017-04-20] MEDS ORDERED: *HR* LORazepam 2 MG/ML VIAL IVP ONE (13:15)
[2017-04-20 13:16] LABS: ABG Base Excess 0 mEq/L (-2 to 3); ABG HCO3 24 mEq/L (21-27); ABG Oxygen Saturation 95 % (95-98); ABG PCO2 38 mmHg (35-45); ABG PH 7.41 pH Units (7.32-7.45); ABG PO2 75 mmHg (85-104); ABG TCO2 25 mEq/L (20-26)
[2017-04-20] MEDS ORDERED: Ketamine *HR* 500 MG/10 ML MDV IVP ONE (13:29)
[2017-04-20] MEDS ORDERED: *HR* Rocuronium Bromide 50 MG/5 ML VIAL IVP ONE (13:32)
[2017-04-20] MEDS ORDERED: Ketamine *HR* 500 MG/10 ML MDV ONE (13:34)
[2017-04-20] MEDS: *HR* Midazolam HCl 2 MG/2 ML VIAL IVP ONE ×2 (13:41→15:24)
[2017-04-20] MEDS ORDERED: 0.9 % Sodium Chloride 1,000 ML ONE (14:25)
[2017-04-20] MEDS ORDERED: Naloxone 0.4 MG/ML INJ IVP PRN (14:28)
--- NOTE | 2017-04-20 14:29 | Pulmonology History & Physical ---
<Suzanne Mark - Last Filed: 04/20/17 17:07> Date of Encounter: 04/20/17 Time of Encounter: 13:30 Assessment and Plan (1) Severe sepsis Current visit: Yes Status: Acute - 3 SIRS criteria (tachycardia, tachypnea, leukocytosis) with lactic acid as high as 11.1 on initial presentation. - Likely secondary to pneumonia. - Blood cultures pending. - Will check UA and obtain sputum culture if possible. - Continue hydration with IV fluid starting with NS bolus x 2L. - Start IV vancomycin, Zosyn and levofloxacin. - Continue to monitor closely. (2) Acute and chronic respiratory failure with hypoxia Current visit: No Status: Acute - Significant respiratory distress despite of being on BiPAP. - Patient was intubated in ED and started on mechanical ventilation support. - Likely secondary to pneumonia and AE COPD in the setting of poor respiratory status at baseline from history of LLL lobectomy and right lung radiation. - Start empiric antibiotics for pneumonia. - Start steroid, Symbicort and Duoneb for AE COPD. - Continue to monitor closely. (3) Pneumonia Current visit: Yes Status: Acute - CXR found worsening airspace opacities in the bilateral lower lungs with enlarged right pleural effusion, concerning of pneumonia. - Will obtain sputum culture if possible. - Given patient's recent hospitalization in January 2017 and significant respiratory distress, will start IV vancomycin, Zosyn and levofloxacin. Qualifiers: Pneumonia type: due to unspecified organism Laterality: bilateral Lung location: lower lobe of lung Qualified Code(s): J18.9 - Pneumonia, unspecified organism (4) Acute exacerbation of chronic obstructive airways disease Current visit: Yes Status: Acute - Start Solu-Medrol 60 mg IV q6H, Symbicort and scheduled Duoneb. (5) Elevated troponin Current visit: No Status: Acute - Elevated troponin at 0.13. - No significant ischemic change on EKG. - Likely related to current hypoxic respiratory failure. - Continue trend troponin. 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 (7) History of pulmonary embolus (PE) Current visit: Yes Status: Chronic - On Eliquis at home. - Given patient is intubate and cannot take Eliquis PO, will switch to Lovenox SQ for now. (8) Sick sinus syndrome Current visit: No Status: Chronic - With pacemaker. (9) Diastolic CHF Current visit: Yes Status: Chronic - Echo from 12/02/16 found LVEF 60% with mild LV diastolic dysfunction. - BNP 234 today compared to 308 on 01/29/17. Qualifiers: Congestive heart failure chronicity: chronic Qualified Code(s): I50.32 - Chronic diastolic (congestive) heart failure History of Present Illness Chief complaint: Shortness of breath HPI: Mr. Nunez is a 81 year old male with PMH of CAD, tachy-sadi syndrome on pacemaker, dCHF(LVEF 60% with mild LV diastolic function per echo on 12/02/16), HTN, severe pulmonary hypertension, COPD on 4L home oxygen, history of TIA in 1999 and history of squamous cell lung cancer s/p radiation to right lung and LLL lobectomy. Patient presented to [place] ED for worsening shortness of breath. Lab in ED showed WBC 17.8, lactic acid 4.4 and troponin 0.13. CXR found worsening airspace opacities in the bilateral lower lungs with enlarged right pleural effusion, concerning of pneumonia. Patient was seen and examined in ED. Patient still has significant respiratory distress with accessory muscle use despite of being on BiPAP. Given patient's respiratory distress requiring BiPAP , much of history was obtained from talking to patient's family at bedside and reviewing medical records. Per patient's family, patient has worsening shortness of breath for past 2 days and needs increase of home oxygen to 5L. Patient is full code and agrees to have intubation when it's medically necessary. Past Med Surg Social Fam HX - Past Medical History Medical history: cancer, COPD, coronary artery disease, hypertension, peripheral artery disease, TIA Psychiatric history: no psych history - Past Surgical History Surgical History: angioplasty/stent, carotid endarterectomy, LE Bypass, LE stent (s) - Social History Smoking Status: Former smoker Smokeless Tobacco Status: No Alcohol use: none Drug use: none - Family History Father Family Member Ethnicity: Non- Living Status: Hx Family Cardiac Disorders: Yes (Stroke, [place], HTN) Hx Family Neurologic Disorders: Yes (Stroke) Brother Family Member Ethnicity: Non- Living Status: Still Living Hx Family Cardiac Disorders: Yes (HD, Heart valve replacement) Sister Family Member Ethnicity: Non- Living Status: Hx Family Cancer: Yes (Lung) Mother Family Member Ethnicity: Non- Living Status: Hx Family Cardiac Disorders: Yes (HD, HTN) Hx Family Endocrine Disorder: Yes (DM) Medications and Allergies Allopurinol [Zyloprim 300 MG] 300 mg PO DAILY 09/28/15 [History] Aspirin Enteric Coated [Aspirin EC] 81 mg PO DAILY 09/28/15 [History] Gluc/Bartolome-MSM#1/C/Jasper/Arturo/Bor [Osteo Bi-Flex Caplet] 1 tab PO DAILY 09/28/15 [ History] Nitroglycerin [Nitrostat] 0.4 mg SL [id number] PRN 09/28/15 [History] Pentoxifylline [TRENtal] 400 mg PO TIDWM 09/28/15 [History] Pravastatin Sodium [Pravachol] 80 mg PO DAILY 09/28/15 [History] Tamsulosin HCl [Flomax] 0.4 mg PO DAILY 09/28/15 [History] Omeprazole [PriLOSEC] 20 mg PO DAILY 10/29/15 [History] Diltiazem CD (24hr) [Cardizem CD] 120 mg PO DAILY #30 cap.er.24h 02/01/17 [Rx] Furosemide [Lasix] 20 mg PO DAILY PRN #15 tablet 02/01/17 [Rx] Apixaban [Eliquis] 5 mg PO BID #60 tablet 02/09/17 [Rx] Ipratropium/Albuterol Neb [Duoneb] 3 ml IH Q6HR PRN 02/09/17 [History] Nystatin [Nystatin Suspension] 500,000 unit PO DAILY #200 ml 04/01/17 [Rx] Metoprolol Succinate 50 mg PO DAILY 04/20/17 [History] PredniSONE [Deltasone] See Taper PO AD 04/20/17 [History] 3 Allergy/AdvReac Type Severity Reaction Status Date / Time indomethacin [From Indocin] Allergy Dizziness Verified 01/29/17 11:14 ROS unobtainable: other (Due to respiratory distress requiring BiPAP use.) Physical Examination General appearance: appears uncomfortable (With tachypnea) Eyes: nonicteric ENT: other (On BiPAP) Neck: supple Effort: very labored Inspection: normal Auscultation: bilateral: rales, rhonchi Cardiovascular: other (Tachycardia) Gastrointestinal: normoactive bowel sounds, soft Integumentary: normal Extremities: no cyanosis, edema Musculoskeletal: no deformities Results - Laboratory Findings CBC and BMP: 04/20/17 11:27 04/20/17 11:27 ABG ABG pH 7.41 pH Units (7.32-7.45) 04/20/17 13:13 ABG pCO2 38 mmHg (35-45) 04/20/17 13:13 ABG pO2 75 mmHg (85-104) L 04/20/17 13:13 ABG O2 Saturation 95 % (95-98) 04/20/17 13:13 Abnormal lab findings: Abnormal lab results WBC 17.8 K/mcL (4.3-11.1) H 04/20/17 11:27 RDW 15.3 % (11.5-14.5) H 04/20/17 11:27 Neutrophils # 16.2 K/mcL (1.6-8.9) H 04/20/17 11:27 Lymphocytes # 0.5 K/mcL (0.6-4.6) L 04/20/17 11:27 Nucleated RBCs/100 WBC 0.3 /100 WBC (0) H 04/20/17 11:27 ABG pO2 75 mmHg (85-104) L 04/20/17 13:13 Chloride 95 mEq/L (98-109) L 04/20/17 11:27 Est GFR (Non-Af Amer) 56 (> 60) L 04/20/17 11:27 Glucose 212 mg/dL (70-99) H 04/20/17 11:27 Lactic Acid 11.1 mmol/L (0.5-2.2) H* 04/20/17 13:14 Troponin I 0.13 ng/mL (0-0.03) H* 04/20/17 11:27 B-Natriuretic Peptide 234 pg/mL (0-100) H 04/20/17 11:27 - Diagnostic Findings Chest x-ray: report reviewed, image reviewed <Linda Ayon - Last Filed: 04/20/17 22:10> Date of Encounter: 04/20/17 History of Present Illness HPI: Mr. Nunez is a 81 year old male All Systems: A 10-system review of systems was performed and is negative for pertinent findings except as documented above in the HPI. Physical Examination Vital Signs: Vital Signs, Last 4 Hours Temp Pulse Resp BP Pulse Ox 04/20/17 18:11 20 116/78 100 04/20/17 18:00 96.3 F L 78 14 114/66 99 04/20/17 17:02 105 22 116/78 100 04/20/17 15:29 108 14 132/91 93 Results - Laboratory Findings CBC and BMP: 04/20/17 11:27 04/20/17 11:27 ABG ABG pH 7.29 pH Units (7.32-7.45) L 04/20/17 18:34 ABG pCO2 52 mmHg (35-45) H 04/20/17 18:34 ABG pO2 98 mmHg (85-104) 04/20/17 18:34 ABG O2 Saturation 97 % (95-98) 04/20/17 18:34 Abnormal lab findings: Abnormal lab results WBC 17.8 K/mcL (4.3-11.1) H 04/20/17 11:27 RDW 15.3 % (11.5-14.5) H 04/20/17 11:27 Neutrophils # 16.2 K/mcL (1.6-8.9) H 04/20/17 11:27 Lymphocytes # 0.5 K/mcL (0.6-4.6) L 04/20/17 11:27 Nucleated RBCs/100 WBC 0.3 /100 WBC (0) H 04/20/17 11:27 ABG pH 7.29 pH Units (7.32-7.45) L 04/20/17 18:34 ABG pCO2 52 mmHg (35-45) H 04/20/17 18:34 ABG Total CO2 27 mEq/L (20-26) H 04/20/17 18:34 Chloride 95 mEq/L (98-109) L 04/20/17 11:27 Est GFR (Non-Af Amer) 56 (> 60) L 04/20/17 11:27 Glucose 212 mg/dL (70-99) H 04/20/17 11:27 POC Glucose 269 (58-89) H 04/20/17 18:29 Lactic Acid 11.1 mmol/L (0.5-2.2) H* 11/27/17 13:14 Troponin I 0.13 ng/mL (0-0.03) H* 04/20/17 11:27 B-Natriuretic Peptide 234 pg/mL (0-100) H 04/20/17 11:27 Albumin 3.2 g/dL (3.5-5.0) L 04/20/17 11:27 Globulin 3.6 g/dL (2.4-3.5) H 04/20/17 11:27 Albumin/Globulin Ratio 0.9 (1.1-2.2) L 04/20/17 11:27 Urine Glucose (UA) 250 mg/dL (Normal) H 04/20/17 17:33 - Attending Attestation I saw the patient with the resident agree with History and Physical exam findings. Labs and Radiology were reviewed Ventilator data were reviewed tidal volume was adjusted and RR lung mechanics decent IRONER SOCK: Patient was following commands before intubation wanted to get intubated , after intubation patient was not following commands likely due to sedation vs septic encephalopathy NECK : No JVD appreciated Pulmonary : Patient is hypoxic and hypercarbic due to COPD exacerbation secondary pneumonia and right sided pleural effusion adjusted TV and RR will aim PH around 7.30 if there is not much endo tracheal aspirate will consider bronchoscopy airway examination and BAL since patient is immunocompromized with chronic prednisone therapy patient had previous squamous cell ca s/p LLL and Right Lung radiation . Cardiac : Patient has diastolic dysfunction currently hemodynamically stable in the background of sepsis may end up of septic shock will start on Levophed as needed Nutrition/GI: PPI prophylaxis Renal : Labs and UOP reviewed . Heme onc : All labs reviewed ID :Pneumonia will cover with broad spectrum antibiotics , blood cultures , urine cultures if not much endotracheal aspirate will do Bronchoscopy with BAL Endo: Patient is on chronic prednisone therpay will change to IV solumedrol Musculo skeletal / skin issues : No issues Disposition : Critically Ill Code status: Full Code Family/POA: , Daughter , Grand Daughter Spent 40 minutes of Critical Care in medical decision to protect vital organ function and prevent further decline
[2017-04-20] MEDS ORDERED: Calcium Gluconate 1,000 MG in D5% in Water 100 ML IVPB PRN (14:35)
[2017-04-20] MEDS ORDERED: Potassium Phosphate 44 MEQ in 0.9 % Sodium Chloride 250 ML IVPB PRN (14:35)
[2017-04-20 14:55] LABS: Alanine Aminotransferase 19 Units/L (0-55); Albumin 3.2 g/dL (3.5-5.0); Albumin/Globulin Ratio 0.9 (1.1-2.2); Alkaline Phosphatase 74 Units/L (38-126); Aspartate Amino Transferase 17 Units/L (5-34); Bilirubin,Direct 0.5 mg/dL (0.0-0.5); Bilirubin,Indirect 0.7 mg/dL (0.0-1.2); Bilirubin,Total 1.2 mg/dL (0.2-1.2); Globulin 3.6 g/dL (2.4-3.5); Magnesium 1.9 mg/dL (1.6-2.6); Phosphorous 3.3 mg/dL (2.3-4.7); Total Protein 6.8 g/dL (6.0-8.3)
[2017-04-20] MEDS ORDERED: *HR* FentaNYL (PF) 100 MCG/2 ML VIAL IVP ONE (14:59)
[2017-04-20] MEDS ORDERED: *HR* Midazolam HCl 5 MG/5 ML VIAL IVP ONE (14:59)
[2017-04-20 15:26] LABS: ABG Base Excess 0 mEq/L (-2 to 3); ABG HCO3 29 mEq/L (21-27); ABG Oxygen Saturation 89 % (95-98); ABG PCO2 68 mmHg (35-45); ABG PH 7.24 pH Units (7.32-7.45); ABG PO2 68 mmHg (85-104); ABG TCO2 31 mEq/L (20-26); Blood Gas Modality ASSIST CONTROL; Blood Gas PEEP 5 cm H2O; Blood Gas Respiration Rate 12; Blood Gas VT 600 cc
[2017-04-20] MEDS ORDERED: Vancomycin 1,250 MG in D5% in Water 250 ML IVPB SCH (16:00)
--- NOTE | 2017-04-20 16:11 | Emergency Department Note ---
Disposition Clinical Impression: Acute exacerbation of chronic obstructive airways disease Community acquired pneumonia Qualifiers: Laterality: right Lung location: unspecified part of lung Qualified Code(s): J18.9 - Pneumonia, unspecified organism Disposition: Admitted As Inpatient General Adult HPI - General Chief complaint: ED Shortness of Breath/Dyspnea Stated complaint: TRACEE Time Seen by Provider: 04/20/17 11:07 Source: family, EMS Mode of arrival: EMS Limitations: no limitations - History of Present Illness HPI Narrative: This is just a procedure note for the central line placement please refer to my full note for full history and physical. Pain Scale: 0 - Related Data Home Medications Medication Instructions Recorded Confirmed Allopurinol [Zyloprim 300 MG] 300 mg PO DAILY 09/28/15 04/20/17 Aspirin Enteric Coated [Aspirin EC] 81 mg PO DAILY 09/28/15 04/20/17 Gluc/Bartolome-MSM#1/C/Jasper/Arturo/Bor 1 tab PO DAILY 09/28/15 04/20/17 [Osteo Bi-Flex Caplet] Nitroglycerin [Nitrostat] 0.4 mg SL [id number] PRN 09/28/15 04/20/17 Pentoxifylline [TRENtal] 400 mg PO TIDWM 09/28/15 04/20/17 Pravastatin Sodium [Pravachol] 80 mg PO DAILY 09/28/15 04/20/17 Tamsulosin HCl [Flomax] 0.4 mg PO DAILY 09/28/15 04/20/17 Omeprazole [PriLOSEC] 20 mg PO DAILY 10/29/15 04/20/17 Ipratropium/Albuterol Neb [Duoneb] 3 ml IH Q6HR PRN 02/09/17 04/20/17 Metoprolol Succinate 50 mg PO DAILY 04/20/17 04/20/17 PredniSONE [Deltasone] See Taper PO AD 04/20/17 04/20/17 Previous Rx's Medication Instructions Recorded Diltiazem CD (24hr) [Cardizem CD] 120 mg PO DAILY #30 cap.er.24h 02/01/17 Furosemide [Lasix] 20 mg PO DAILY PRN #15 tablet 02/01/17 Apixaban [Eliquis] 5 mg PO BID #60 tablet 02/09/17 Nystatin [Nystatin Suspension] 500,000 unit PO DAILY #200 ml 04/01/17 Allergies Allergy/AdvReac Type Severity Reaction Status Date / Time indomethacin [From Indocin] Allergy Dizziness Verified 01/29/17 11:14 Past Medical History - Past Medical History Medical history: Reports: cancer, COPD, coronary artery disease, hypertension, peripheral artery disease, TIA Surgical history: Reports: angioplasty/stent, carotid endarterectomy, LE Bypass , LE stent(s) Psychiatric history: Reports: no psych history - Social History Smoking Status: Former smoker Smokeless Tobacco Status: No Alcohol use: Reports: none Drug use: Reports: none Physical Exam - General Limitations: no limitations General appearance: alert Course Vital Signs Temperature 98.2 F 04/20/17 11:03 Pulse Rate 115 04/20/17 11:03 Respiratory Rate 28 04/20/17 11:03 Blood Pressure 119/79 04/20/17 11:03 O2 Sat by Pulse Oximetry 93 04/20/17 11:03 Temperature 96.3 F L 04/20/17 18:00 Pulse Rate 78 04/20/17 18:00 Respiratory Rate 20 04/20/17 18:11 Blood Pressure 116/78 04/20/17 18:11 O2 Sat by Pulse Oximetry 100 04/20/17 18:11 Oxygen Delivery Oxygen Delivery Ventilator Procedures - Central Line Placement Right IJ Central Line Inserted*: Yes Central Line Catheter Replacement*: Yes Central Line Insertion: emergent Consent Obtained: written consent Procedural Pause: verify patient name and date of , timeout performed per policy, chuck and assess the site, assemble equipment and verify supplies, perform hand hygiene Patient Placed on Monitor/Pulse Ox: Yes (Patient currently intubated and on ventilator.) During the Procedure: clinician is wearing sterile gloves, cap, mask,& gown during insertion, sterile field and sterile technique are maintained, patient's face is covered with drape or mask and wearing a cap, everyone in room is wearing a mask Central Line Prep: Chlorhexidine scrub, sterile drapes applied Prep the Procedure Site: apply chloraprep to the skin using a back and forth scrubbing motion, apply chloraprep for 30 seconds (upper body), 1-2 min ( femoral sites), allow prep to dry, drape the patient with a full body drape Local Anesthetic: lidocaine 1% Amount of anesthesia used (mL): 3 Ultrasound Used for Placement: Yes Central Line Lumen Inserted: triple Post Procedure: sutured in place, good blood return, all ports aspirated, flushed, capped, sterile dressing applied, guide wire removed and visualized Post Procedure X-Ray: tip of catheter in good position, no pneumothorax seen Patient Tolerated Procedure: well Complications: none Name of Clinician Inserting Central Line: Dr. Wesly Reynoso Clinician Assisting/Completing Checklist: Dr. Blaine Mayorga Date: 04/20/17 Time: 16:12 Medical Decision Making - MDM Narrative Medical decision making narrative: This is just a procedure note for the central line placement please refer to my full note for full history and physical. - Lab Data Result diagrams: 04/20/17 11:27 04/20/17 11:27 Lab Results 04/20/17 04/20/17 04/20/17 Range/Units 11:27 11:27 11:27 WBC 17.8 H (4.3-11.1) K/mcL RBC 4.95 (4.19-5.50) M/mcL Hgb 14.7 (12.9-16.9) g/dL Hct 45.6 (37.5-50.1) % MCV 92.1 (83.0-100.0) fL MCH 29.7 (28.0-33.3) pg MCHC 32.2 (31.6-35.5) g/dL RDW 15.3 H (11.5-14.5) % Plt Count 236 (140-400) K/mcL MPV 10.0 (9.4-12.4) fL Immature Gran % 2.2 (0-4) % Seg Neutrophils % 90.8 % Lymphocytes % 2.9 % Monocytes % 3.9 % Eosinophils % 0.0 % Basophils % 0.2 % Neutrophils # 16.2 H (1.6-8.9) K/mcL Lymphocytes # 0.5 L (0.6-4.6) K/mcL Monocytes # 0.7 (0.0-1.3) K/mcL Eosinophils # 0.0 (0.0-0.6) K/mcL Basophils # 0.0 (0.0-0.2) K/mcL Nucleated RBCs/100 WBC 0.3 H (0) /100 WBC ABG pH (7.32-7.45) pH Units ABG pCO2 (35-45) mmHg ABG pO2 (85-104) mmHg ABG HCO3 (21-27) mEq/L ABG Total CO2 (20-26) mEq/L ABG O2 Saturation (95-98) % ABG Base Excess (-2 to 3) mEq/L O2 Delivery Device Blood Gas Modality Inspired O2 (1-15=lpm [id number]=%) Sodium 138 (136-145) mEq/L Potassium 3.9 (3.5-4.5) mEq/L Chloride 95 L (98-109) mEq/L Carbon Dioxide 29 (19-29) mEq/L BUN 22 (8-26) mg/dL Creatinine 1.23 (0.72-1.25) mg/dL Est GFR ( Amer) > 60 (> 60) Est GFR (Non-Af Amer) 56 L (> 60) BUN/Creatinine Ratio 18 (6-26) Glucose 212 H (70-99) mg/dL Calculated Osmolality 296 (280-300) Lactic Acid 4.4 H* (0.5-2.2) mmol/L Calcium 9.6 (8.6-10.8) mg/dL Phosphorus 3.3 (2.3-4.7) mg/dL Magnesium 1.9 (1.6-2.6) mg/dL Total Bilirubin 1.2 (0.2-1.2) mg/dL Direct Bilirubin 0.5 (0.0-0.5) mg/dL Indirect Bilirubin 0.7 (0.0-1.2) mg/dL AST 17 (5-34) Units/L ALT 19 (0-55) Units/L Alkaline Phosphatase 74 (38-126) Units/L Troponin I (0-0.03) ng/mL B-Natriuretic Peptide (0-100) pg/mL Serum Total Protein 6.8 (6.0-8.3) g/dL Albumin 3.2 L (3.5-5.0) g/dL Globulin 3.6 H (2.4-3.5) g/dL Albumin/Globulin Ratio 0.9 L (1.1-2.2) 04/20/17 04/20/17 04/20/17 Range/Units 11: 11: 13:13 WBC (4.3-11.1) K/mcL RBC (4.19-5.50) M/mcL Hgb (12.9-16.9) g/dL Hct (37.5-50.1) % MCV (83.0-100.0) fL MCH (28.0-33.3) pg MCHC (31.6-35.5) g/dL RDW (11.5-14.5) % Plt Count (140-400) K/mcL MPV (9.4-12.4) fL Immature Gran % (0-4) % Seg Neutrophils % % Lymphocytes % % Monocytes % % Eosinophils % % Basophils % % Neutrophils # (1.6-8.9) K/mcL Lymphocytes # (0.6-4.6) K/mcL Monocytes # (0.0-1.3) K/mcL Eosinophils # (0.0-0.6) K/mcL Basophils # (0.0-0.2) K/mcL Nucleated RBCs/100 WBC (0) /100 WBC ABG pH 7.41 (7.32-7.45) pH Units ABG pCO2 38 (35-45) mmHg ABG pO2 75 L (85-104) mmHg ABG HCO3 24 (21-27) mEq/L ABG Total CO2 25 (20-26) mEq/L ABG O2 Saturation 95 (95-98) % ABG Base Excess 0 (-2 to 3) mEq/L O2 Delivery Device BiPAP Blood Gas Modality st Inspired O2 50.0 (1-15=lpm [id number]=%) Sodium (136-145) mEq/L Potassium (3.5-4.5) mEq/L Chloride (98-109) mEq/L Carbon Dioxide (19-29) mEq/L BUN (8-26) mg/dL Creatinine (0.72-1.25) mg/dL Est GFR ( Amer) (> 60) Est GFR (Non-Af Amer) (> 60) BUN/Creatinine Ratio (6-26) Glucose (70-99) mg/dL Calculated Osmolality (280-300) Lactic Acid (0.5-2.2) mmol/L Calcium (8.6-10.8) mg/dL Phosphorus (2.3-4.7) mg/dL Magnesium (1.6-2.6) mg/dL Total Bilirubin (0.2-1.2) mg/dL Direct Bilirubin (0.0-0.5) mg/dL Indirect Bilirubin (0.0-1.2) mg/dL AST (5-34) Units/L ALT (0-55) Units/L Alkaline Phosphatase (38-126) Units/L Troponin I 0.13 H* (0-0.03) ng/mL B-Natriuretic Peptide 234 H (0-100) pg/mL Serum Total Protein (6.0-8.3) g/dL Albumin (3.5-5.0) g/dL Globulin (2.4-3.5) g/dL Albumin/Globulin Ratio (1.1-2.2) 04/20/17 Range/Units 13:14 WBC (4.3-11.1) K/mcL RBC (4.19-5.50) M/mcL Hgb (12.9-16.9) g/dL Hct (37.5-50.1) % MCV (83.0-100.0) fL MCH (28.0-33.3) pg MCHC (31.6-35.5) g/dL RDW (11.5-14.5) % Plt Count (140-400) K/mcL MPV (9.4-12.4) fL Immature Gran % (0-4) % Seg Neutrophils % % Lymphocytes % % Monocytes % % Eosinophils % % Basophils % % Neutrophils # (1.6-8.9) K/mcL Lymphocytes # (0.6-4.6) K/mcL Monocytes # (0.0-1.3) K/mcL Eosinophils # (0.0-0.6) K/mcL Basophils # (0.0-0.2) K/mcL Nucleated RBCs/100 WBC (0) /100 WBC ABG pH (7.32-7.45) pH Units ABG pCO2 (35-45) mmHg ABG pO2 (85-104) mmHg ABG HCO3 (21-27) mEq/L ABG Total CO2 (20-26) mEq/L ABG O2 Saturation (95-98) % ABG Base Excess (-2 to 3) mEq/L O2 Delivery Device Blood Gas Modality Inspired O2 (1-15=lpm [id number]=%) Sodium (136-145) mEq/L Potassium (3.5-4.5) mEq/L Chloride (98-109) mEq/L Carbon Dioxide (19-29) mEq/L BUN (8-26) mg/dL Creatinine (0.72-1.25) mg/dL Est GFR ( Amer) (> 60) Est GFR (Non-Af Amer) (> 60) BUN/Creatinine Ratio (6-26) Glucose (70-99) mg/dL Calculated Osmolality (280-300) Lactic Acid 11.1 H* (0.5-2.2) mmol/L Calcium (8.6-10.8) mg/dL Phosphorus (2.3-4.7) mg/dL Magnesium (1.6-2.6) mg/dL Total Bilirubin (0.2-1.2) mg/dL Direct Bilirubin (0.0-0.5) mg/dL Indirect Bilirubin (0.0-1.2) mg/dL AST (5-34) Units/L ALT (0-55) Units/L Alkaline Phosphatase (38-126) Units/L Troponin I (0-0.03) ng/mL B-Natriuretic Peptide (0-100) pg/mL Serum Total Protein (6.0-8.3) g/dL Albumin (3.5-5.0) g/dL Globulin (2.4-3.5) g/dL Albumin/Globulin Ratio (1.1-2.2) Attestation Statement - Attestation Attestation: I examined this patient and my medical decision-making was reviewed with the Resident Physician. I agree with the documented findings, disposition and treatment plan as described except to the extent set forth below.
[2017-04-20] MEDS ORDERED: *HR* LORazepam 2 MG/ML VIAL IVP STA ×2 (16:44→17:02)
[2017-04-20] MEDS: FentaNYL (PF) 1,000 MCG in 0.9 % Sodium Chloride 80 ML IVC SCH (17:32)
[2017-04-20] MEDS ORDERED: Lacri-Lube 3.5 GM TUBE BOTH EYES PRN (17:32)
[2017-04-20 17:43] LABS: Bilirubin,Urine Negative (Negative); Blood,Urine Negative (Negative); Clarity,Urine Clear (Clear); Color,Urine Yellow (Yellow); Glucose,Urine (UA) 250 mg/dL (Normal); Ketones,Urine Negative (Negative); Leukocyte Esterase,Urine Negative (Negative); Nitrite,Urine Negative (Negative); PH,Urine 6.5 pH Units (5.0-8.0); Protein,Urine Negative (Neg-Trace); Specific Gravity,Urine 1.013 (1.010-1.025); Urobilinogen,Urine Normal (Normal)
[2017-04-20] MEDS: Piperacillin/Tazobactam 3.375 GM in 0.9 % Sodium Chloride Mini Bag 100 ML IVPB SCH (18:15)
[2017-04-20] MEDS: 0.9 % Sodium Chloride 1,000 ML IVC SCH (18:19)
[2017-04-20] MEDS: Dexmedetomidine HCl 400 MCG/100 ML MLS IVC SCH (18:19)
[2017-04-20] MEDS: methylPREDNISolone 125 MG/2 ML VIAL IVP SCH ×2 (18:22→18:24)
[2017-04-20] MEDS: *HR* Enoxaparin 80 MG/0.8 ML SYRINGE SQ SCH (18:23)
[2017-04-20] MEDS: Ipratropium/Albuterol Neb 3 ML IH SCH ×2 (18:24→19:50)
[2017-04-20 18:44] LABS: ABG Base Excess -2 mEq/L (-2 to 3); ABG HCO3 25 mEq/L (21-27); ABG Oxygen Saturation 97 % (95-98); ABG PCO2 52 mmHg (35-45); ABG PH 7.29 pH Units (7.32-7.45); ABG PO2 98 mmHg (85-104); ABG TCO2 27 mEq/L (20-26)
[2017-04-20] MEDS: Budesonide/Formoterol 160/4.5 MDI IH SCH (19:51)
[2017-04-20] MEDS: Lacri-Lube 3.5 GM TUBE BOTH EYES SCH (21:11)
[2017-04-20] MEDS: Chlorhexidine Rinse 15 ML MOUTHWASH MM SCH (21:14)
[2017-04-20] MEDS: Norepinephrine 4 MG in D5% in Water 250 ML IVC SCH (21:35)
[2017-04-21] MEDS: Ipratropium/Albuterol Neb 3 ML IH SCH ×7 (00:29→19:31)
[2017-04-21] MEDS: methylPREDNISolone 125 MG/2 ML VIAL IVP SCH ×5 (00:43→23:43)
[2017-04-21] MEDS: Lacri-Lube 3.5 GM TUBE BOTH EYES SCH ×7 (00:44→23:42)
[2017-04-21] MEDS: 0.9 % Sodium Chloride 1,000 ML IVC SCH ×3 (00:45→21:08)
[2017-04-21] MEDS: Piperacillin/Tazobactam 3.375 GM in 0.9 % Sodium Chloride Mini Bag 100 ML IVPB SCH ×2 (01:16→07:17)
[2017-04-21] MEDS ORDERED: Vancomycin 1,250 MG in D5% in Water 250 ML IVPB SCH (04:00)
[2017-04-21] MEDS: FentaNYL (PF) 1,000 MCG in 0.9 % Sodium Chloride 80 ML IVC SCH ×3 (04:11→23:55)
[2017-04-21 04:23] LABS: ABG Base Excess 5 mEq/L (-2 to 3); ABG HCO3 28 mEq/L (21-27); ABG Oxygen Saturation 99 % (95-98); ABG PCO2 34 mmHg (35-45); ABG PH 7.51 pH Units (7.32-7.45); ABG PO2 105 mmHg (85-104); ABG TCO2 29 mEq/L (20-26); Blood Gas Modality VC; Blood Gas PEEP 5 cm H2O; Blood Gas Respiration Rate 18; Blood Gas VT 620 cc
[2017-04-21 04:38] LABS: Basophils % 0.1 %; Hematocrit 32.3 % (37.5-50.1); Immature Granulocytes % 1.5 % (0-4); Lymphocytes # 0.4 K/mcL (0.6-4.6); Lymphocytes % 2.6 %; Mean Corpuscular HGB Conc 33.4 g/dL (31.6-35.5); Mean Corpuscular Hemoglobin 30.3 pg (28.0-33.3); Mean Corpuscular Volume 90.5 fL (83.0-100.0); Mean Platelet Volume 9.5 fL (9.4-12.4); Monocytes # 0.3 K/mcL (0.0-1.3); Neutrophils # 12.8 K/mcL (1.6-8.9); Nucleated Red Blood Cells 0.4 /100 WBC (0); Platelet Count 177 K/mcL (140-400); Red Blood Count 3.57 M/mcL (4.19-5.50); Red Cell Distribution Width 15.3 % (11.5-14.5); Segmented Neutrophils % 93.8 %
[2017-04-21 04:40] LABS: Hemoglobin 10.8 g/dL (12.9-16.9)
[2017-04-21 04:42] LABS: VBG Ionized Calcium 1.08 mmol/L (1.15-1.35); VBG PH 7.46 pH Units (7.32-7.42)
[2017-04-21 04:48] LABS: Magnesium 1.3 mg/dL (1.6-2.6); Phosphorous 2.3 mg/dL (2.3-4.7)
[2017-04-21 04:50] LABS: BUN/Creatinine Ratio 21 (6-26); Blood Urea Nitrogen 23 mg/dL (8-26); Calcium 7.9 mg/dL (8.6-10.8); Carbon Dioxide 26 mEq/L (19-29); Chloride 103 mEq/L (98-109); Glucose 150 mg/dL (70-99); Osmolality,Calculated 293 (280-300); Potassium 3.5 mEq/L (3.5-4.5); Sodium 138 mEq/L (136-145); eGFR For African Americans > 60 (> 60); eGFR For Non-African Americans > 60 (> 60)
[2017-04-21] MEDS: Potassium Chloride 40 MEQ/200 ML BAG IVPB PRN (05:35)
[2017-04-21] MEDS: *HR* Enoxaparin 80 MG/0.8 ML SYRINGE SQ SCH ×2 (05:43→17:07)
[2017-04-21] MEDS ORDERED: Furosemide 40 MG/4 ML VIAL IVP ONE (06:53)
--- NOTE | 2017-04-21 07:13 | Electrocardiograph Report ---
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
[2017-04-21] MEDS: Chlorhexidine Rinse 15 ML MOUTHWASH MM SCH ×2 (07:17→21:15)
[2017-04-21] MEDS: Pantoprazole 40 MG VIAL IVPB SCH (07:17)
[2017-04-21] MEDS ORDERED: D5% in Water 1,000 ML IVC PRN (07:18)
[2017-04-21] MEDS ORDERED: *HR* Dextrose 50 % in Water (Syg) 50 ML SYRINGE IVP PRN (07:18)
[2017-04-21] MEDS ORDERED: Dextrose Gel 15 GM PO PRN ×2 (07:18)
[2017-04-21] MEDS: Levofloxacin 750 MG/150 ML 750 MG/150 ML BAG IVPB SCH (07:18)
[2017-04-21] MEDS: Budesonide/Formoterol 160/4.5 MDI IH SCH ×2 (07:59→19:31)
[2017-04-21 09:34] LABS: INR 1.9; Prothrombin Time 20.2 Seconds (9.4-12.1)
[2017-04-21] MEDS: Dexmedetomidine HCl 400 MCG/100 ML MLS IVC SCH ×2 (09:35→19:56)
[2017-04-21 09:37] LABS: Activated Partial Thrombo Time 27.9 Seconds (26.0-36.0)
--- NOTE | 2017-04-21 09:41 | Pulmonology Progress Note ---
<Suzanne Mark - Last Filed: 04/21/17 17:13> Date of Encounter: 04/21/17 Time of Encounter: 08:15 Assessment and Plan (1) Septic shock Current Visit: Yes Status: Acute - 3 SIRS criteria (tachycardia, tachypnea, leukocytosis) with lactic acid as high as 11.1 on initial presentation. Patient was also noted to have significant hypotension requiring Levophed. - Likely secondary to pneumonia. - Blood cultures pending. - UA does not indicate UTI. - Will obtain sputum culture if possible. - Improves as tachycardia, tachypnea and leukocytosis normalized and - Continue hydration with IV fluid and pressure support with Levophed. - Continue IV vancomycin, Zosyn and levofloxacin. - Continue to monitor closely. (2) Acute and chronic respiratory failure with hypoxia Current Visit: No Status: Acute - Significant respiratory distress despite of being on BiPAP. - Patient was intubated in ED and started on mechanical ventilation support. - Likely secondary to pneumonia and AE COPD in the setting of poor respiratory status at baseline from history of LLL lobectomy and right lung radiation. - Continue empiric antibiotics for pneumonia. - Continue steroid, Symbicort and Duoneb for AE COPD. - Continue to monitor closely. (3) Pneumonia Current Visit: Yes Status: Acute - CXR found worsening airspace opacities in the bilateral lower lungs with enlarged right pleural effusion, concerning of pneumonia. - Will obtain sputum culture if possible. - Given patient's recent hospitalization in January 2017 and significant respiratory distress, continue IV vancomycin (since 04/20), Zosyn (since 04/20) and levofloxacin (since 04/20). Further de-escalation based on clinical course and culture results. - May consider right thoracentesis if US suggests appropriate pocket and patient is stable. Qualifiers: Pneumonia type: due to unspecified organism Laterality: bilateral Lung location: lower lobe of lung Qualified Code(s): J18.9 - Pneumonia, unspecified organism (4) Acute exacerbation of chronic obstructive airways disease Current Visit: Yes Status: Acute - Continue Solu-Medrol, Symbicort and scheduled Duoneb. (5) Elevated troponin Current Visit: No Status: Acute - Elevated troponin at 0.13 in ED but remained adynamic (0.12, 0.13, 0.12) since. - No significant ischemic change on EKG. - Likely related to current hypoxic respiratory failure. 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 (7) History of pulmonary embolus (PE) Current Visit: Yes Status: Chronic - On Eliquis at home. - Given patient is intubate and cannot take Eliquis PO, Lovenox SQ can be the option but will hold for now given blood noted in suction. (8) Sick sinus syndrome Current Visit: No Status: Chronic - With pacemaker. (9) Diastolic CHF Current Visit: Yes Status: Chronic - Echo from 12/02/16 found LVEF 60% with mild LV diastolic dysfunction. - BNP 234 on 04/21/17 compared to 308 on 01/29/17. - Patient received one dose of Lasix IV 40 mg this morning. Qualifiers: Congestive heart failure chronicity: chronic Qualified Code(s): I50.32 - Chronic diastolic (congestive) heart failure Subjective Principal diagnosis: Acute on chronic respiratory failure Interval history: No significant event noted overnight. Patient was seen and examined this morning. Patient is still intubated and sedated. Objective PUL Vital signs: Last Vital Signs Temp 97.6 F 04/21/17 07:10 Pulse 68 04/21/17 09:00 Resp 17 04/21/17 09:37 BP 94/63 04/21/17 09:37 Pulse Ox 92 04/21/17 09:37 General appearance: other (Sedated and intubated) ENT: oropharynx dry, other (Intubated) Neck: supple Effort: normal Auscultation: bilateral: rales (bibasilar crackles) Cardiovascular: regular rate and rhythm Gastrointestinal: normoactive bowel sounds, soft Integumentary: normal Extremities: no cyanosis, edema (BLE pitting edema) Musculoskeletal: no deformities Ventilator Settings Ventilator Settings: Ventilator Settings, Last 8 Hours Ventilator Mode A/C Ventilator Mode A/C Ventilator Mode A/C Ventilator Mode A/C Ventilator Mode VC+ Ventilator Mode VC+ Ventilator Mode VC+ Ventilator Mode VC+ Ventilator Mode VC+ Ventilator Mode VC+ Ventilator Mode VC+ Ventilator Mode VC+ Ventilator Mode VC+ Ventilator Mode VC+ Ventilator Tidal Volume 520 Setting Ventilator Tidal Volume 520 Setting Ventilator Tidal Volume 520 Setting Ventilator Tidal Volume 520 Setting Ventilator Tidal Volume 520 Setting Ventilator Tidal Volume 620 Setting Ventilator Tidal Volume 620 Setting Ventilator Tidal Volume 620 Setting Ventilator Tidal Volume 620 Setting Ventilator Tidal Volume 620 Setting Ventilator Tidal Volume 620 Setting Ventilator Tidal Volume 620 Setting Ventilator Tidal Volume 620 Setting Ventilator Tidal Volume 620 Setting Ventilator Respiratory Rate 16 Setting Ventilator Respiratory Rate 16 Setting Ventilator Respiratory Rate 16 Setting Ventilator Respiratory Rate 16 Setting Ventilator Respiratory Rate 16 Setting Ventilator Respiratory Rate 18 Setting Ventilator Respiratory Rate 18 Setting Ventilator Respiratory Rate 18 Setting Ventilator Respiratory Rate 18 Setting Ventilator Respiratory Rate 18 Setting Ventilator Respiratory Rate 18 Setting Ventilator Respiratory Rate 18 Setting Ventilator Respiratory Rate 18 Setting Ventilator Respiratory Rate 18 Setting Actual Respiratory Rate 17 Actual Respiratory Rate 16 Actual Respiratory Rate 16 Actual Respiratory Rate 16 Actual Respiratory Rate 16 Actual Respiratory Rate 18 Actual Respiratory Rate 18 Actual Respiratory Rate 18 Actual Respiratory Rate 18 Actual Respiratory Rate 18 Actual Respiratory Rate 18 Actual Respiratory Rate 18 Actual Respiratory Rate 18 Positive End Expiratory 5 Pressure Positive End Expiratory 5 Pressure Positive End Expiratory 5 Pressure Positive End Expiratory 5 Pressure Positive End Expiratory 5 Pressure Positive End Expiratory 5 Pressure Positive End Expiratory 5 Pressure Positive End Expiratory 5 Pressure Positive End Expiratory 5 Pressure Positive End Expiratory 5 Pressure Positive End Expiratory 5 Pressure Positive End Expiratory 5 Pressure Positive End Expiratory 5 Pressure Positive End Expiratory 5 Pressure Peak Inspiratory Airway 26 Pressure Peak Inspiratory Airway 22 Pressure Peak Inspiratory Airway 24 Pressure Peak Inspiratory Airway 24 Pressure Peak Inspiratory Airway 23 Pressure Peak Inspiratory Airway 26 Pressure Peak Inspiratory Airway 26 Pressure Peak Inspiratory Airway 26 Pressure Peak Inspiratory Airway 26 Pressure Peak Inspiratory Airway 25 Pressure Peak Inspiratory Airway 25 Pressure Peak Inspiratory Airway 25 Pressure Results - Laboratory Findings CBC and BMP: 04/21/17 04:18 04/21/17 09:30 ABG ABG pH 7.51 pH Units (7.32-7.45) H 04/21/17 04:19 ABG pCO2 34 mmHg (35-45) L 04/21/17 04:19 ABG pO2 105 mmHg (85-104) H 04/21/17 04:19 ABG O2 Saturation 99 % (95-98) H 04/21/17 04:19 PT/INR, D-dimer PT 20.2 Seconds (9.4-12.1) H 04/21/17 09:26 Abnormal lab findings: Abnormal lab results WBC 13.7 K/mcL (4.3-11.1) H 04/21/17 04:18 RBC 3.57 M/mcL (4.19-5.50) L 04/21/17 04:18 Hgb 10.8 g/dL (12.9-16.9) L D 04/21/17 04:18 Hct 32.3 % (37.5-50.1) L 04/21/17 04:18 RDW 15.3 % (11.5-14.5) H 04/21/17 04:18 Neutrophils # 12.8 K/mcL (1.6-8.9) H 04/21/17 04:18 Lymphocytes # 0.4 K/mcL (0.6-4.6) L 04/21/17 04:18 Nucleated RBCs/100 WBC 0.4 /100 WBC (0) H 04/21/17 04:18 PT 20.2 Seconds (9.4-12.1) H 04/21/17 09:26 ABG pH 7.51 pH Units (7.32-7.45) H 04/21/17 04:19 ABG pCO2 34 mmHg (35-45) L 04/21/17 04:19 ABG pO2 105 mmHg (85-104) H 04/21/17 04:19 ABG HCO3 28 mEq/L (21-27) H 04/21/17 04:19 ABG Total CO2 29 mEq/L (20-26) H 04/21/17 04:19 ABG O2 Saturation 99 % (95-98) H 04/21/17 04:19 ABG Base Excess 5 mEq/L (-2 to 3) H 04/21/17 04:19 VBG pH 7.46 pH Units (7.32-7.42) H 04/21/17 04:39 Glucose 150 mg/dL (70-99) H 04/21/17 04:18 POC Glucose 229 (58-89) H 04/20/17 23:07 Calcium 7.9 mg/dL (8.6-10.8) L D 04/21/17 04:18 Venous Ioniz Calcium 1.08 mmol/L (1.15-1.35) L 04/21/17 04:39 Magnesium 1.3 mg/dL (1.6-2.6) L 04/21/17 04:18 Troponin I 0.12 ng/mL (0-0.03) H* 04/21/17 07:01 B-Natriuretic Peptide 234 pg/mL (0-100) H 04/20/17 11:27 Albumin 3.2 g/dL (3.5-5.0) L 04/20/17 11:27 Globulin 3.6 g/dL (2.4-3.5) H 04/20/17 11:27 Albumin/Globulin Ratio 0.9 (1.1-2.2) L 04/20/17 11:27 Urine Glucose (UA) 250 mg/dL (Normal) H 04/20/17 17:33 - Diagnostic Findings Chest x-ray: report reviewed, image reviewed - Clinical Findings Intake & Output: Intake & Output 04/20/17 04/21/17 04/21/17 23:59 07:59 15:59 Intake Total 1250 / 1250 1950 / 1950 360 / 360 Output Total 575 / 575 150 / 150 Balance 675 / 675 1800 / 1800 360 / 360 Weight 81.4 kg 83 kg Consult Discharge Plan - Plan Referrals: Farshad Lunsford MD [Primary Care Provider] - <Linda Ayon - Last Filed: 04/21/17 22:18> Date of Encounter: 04/21/17 Objective PUL Vital signs: Last Vital Signs Temp 99.6 F 04/21/17 20:56 Pulse 87 04/21/17 21:00 Resp 16 04/21/17 21:00 BP 93/60 04/21/17 21:00 Pulse Ox 96 04/21/17 21:00 Ventilator Settings Ventilator Settings: Ventilator Settings, Last 8 Hours Ventilator Mode VC+ Ventilator Mode VC+ Ventilator Mode VC+ Ventilator Mode VC+ Ventilator Mode VC+ Ventilator Mode VC+ Ventilator Mode VC+ Ventilator Mode VC+ Ventilator Mode VC+ Ventilator Mode VC+ Ventilator Tidal Volume 520 Setting Ventilator Tidal Volume 520 Setting Ventilator Tidal Volume 520 Setting Ventilator Tidal Volume 520 Setting Ventilator Tidal Volume 520 Setting Ventilator Tidal Volume 520 Setting Ventilator Tidal Volume 520 Setting Ventilator Tidal Volume 520 Setting Ventilator Tidal Volume 520 Setting Ventilator Tidal Volume 520 Setting Ventilator Respiratory Rate 16 Setting Ventilator Respiratory Rate 16 Setting Ventilator Respiratory Rate 16 Setting Ventilator Respiratory Rate 16 Setting Ventilator Respiratory Rate 16 Setting Ventilator Respiratory Rate 16 Setting Ventilator Respiratory Rate 16 Setting Ventilator Respiratory Rate 16 Setting Ventilator Respiratory Rate 16 Setting Ventilator Respiratory Rate 16 Setting Actual Respiratory Rate 16 Actual Respiratory Rate 16 Actual Respiratory Rate 19 Actual Respiratory Rate 16 Actual Respiratory Rate 16 Actual Respiratory Rate 16 Actual Respiratory Rate 17 Actual Respiratory Rate 16 Actual Respiratory Rate 16 Actual Respiratory Rate 16 Positive End Expiratory 5 Pressure Positive End Expiratory 5 Pressure Positive End Expiratory 5 Pressure Positive End Expiratory 5 Pressure Positive End Expiratory 5 Pressure Positive End Expiratory 5 Pressure Positive End Expiratory 5 Pressure Positive End Expiratory 5 Pressure Positive End Expiratory 5 Pressure Positive End Expiratory 5 Pressure Peak Inspiratory Airway 24 Pressure Peak Inspiratory Airway 23 Pressure Peak Inspiratory Airway 23 Pressure Peak Inspiratory Airway 24 Pressure Peak Inspiratory Airway 22 Pressure Peak Inspiratory Airway 22 Pressure Peak Inspiratory Airway 22 Pressure Peak Inspiratory Airway 23 Pressure Peak Inspiratory Airway 24 Pressure Peak Inspiratory Airway 34 Pressure Results - Laboratory Findings CBC and BMP: 04/21/17 04:18 04/21/17 09:30 ABG ABG pH 7.51 pH Units (7.32-7.45) H 04/21/17 04:19 ABG pCO2 34 mmHg (35-45) L 04/21/17 04:19 ABG pO2 105 mmHg (85-104) H 04/21/17 04:19 ABG O2 Saturation 99 % (95-98) H 04/21/17 04:19 PT/INR, D-dimer PT 20.2 Seconds (9.4-12.1) H 04/21/17 09:26 Abnormal lab findings: Abnormal lab results WBC 13.7 K/mcL (4.3-11.1) H 04/21/17 04:18 RBC 3.57 M/mcL (4.19-5.50) L 04/21/17 04:18 Hgb 10.8 g/dL (12.9-16.9) L D 04/21/17 04:18 Hct 32.3 % (37.5-50.1) L 04/21/17 04:18 RDW 15.3 % (11.5-14.5) H 04/21/17 04:18 Neutrophils # 12.8 K/mcL (1.6-8.9) H 04/21/17 04:18 Lymphocytes # 0.4 K/mcL (0.6-4.6) L 04/21/17 04:18 Nucleated RBCs/100 WBC 0.4 /100 WBC (0) H 04/21/17 04:18 PT 20.2 Seconds (9.4-12.1) H 04/21/17 09:26 ABG pH 7.51 pH Units (7.32-7.45) H 04/21/17 04:19 ABG pCO2 34 mmHg (35-45) L 04/21/17 04:19 ABG pO2 105 mmHg (85-104) H 04/21/17 04:19 ABG HCO3 28 mEq/L (21-27) H 04/21/17 04:19 ABG Total CO2 29 mEq/L (20-26) H 04/21/17 04:19 ABG O2 Saturation 99 % (95-98) H 04/21/17 04:19 ABG Base Excess 5 mEq/L (-2 to 3) H 04/21/17 04:19 VBG pO2 62 mmHg (25-50) H 04/21/17 09:41 VBG HCO3 29 mEq/L (21-27) H 04/21/17 09:41 Glucose 150 mg/dL (70-99) H 04/21/17 04:18 POC Glucose 129 (58-89) H 04/21/17 11:58 Calcium 7.9 mg/dL (8.6-10.8) L D 04/21/17 04:18 Venous Ioniz Calcium 1.13 mmol/L (1.15-1.35) L 04/21/17 09:41 Troponin I 0.12 ng/mL (0-0.03) H* 04/21/17 07:01 B-Natriuretic Peptide 234 pg/mL (0-100) H 04/20/17 11:27 Albumin 3.2 g/dL (3.5-5.0) L 04/20/17 11:27 Globulin 3.6 g/dL (2.4-3.5) H 04/20/17 11:27 Albumin/Globulin Ratio 0.9 (1.1-2.2) L 04/20/17 11:27 Urine Glucose (UA) 250 mg/dL (Normal) H 04/20/17 17:33 - Clinical Findings Intake & Output: Intake & Output 04/21/17 04/21/17 04/21/17 07:59 15:59 23:59 Intake Total 1950 / 1950 610 / 610 493 / 493 Output Total 150 / 150 675 / 675 200 / 200 Balance 1800 / 1800 -65 / -65 293 / 293 Weight 83 kg - Attending Attestation I saw the patient with the resident agree with History and Physical exam findings. 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 NECK : No JVD appreciated Pulmonary : Patient is hypoxic and hypercarbic due to COPD exacerbation secondary pneumonia and right sided pleural effusion adjusted TV and RR if there is not much endo tracheal aspirate will consider bronchoscopy airway examination and BAL since patient is immunocompromized with chronic prednisone therapy patient had previous squamous cell ca s/p LLL and Right Lung radiation , will postpone bronchscopy today as patient has severe bronchospasm with cant ventilate situation reversed with bronchodilators , will hold off thoracentesis for today will deeply sedate him Cardiac : Patient has diastolic dysfunction on and off levophed when he is off levophed will start diuresing him Nutrition/GI: will start trophic feeds .PPI prophylaxis Renal : Labs and UOP reviewed . Heme onc : All labs reviewed ID :Pneumonia will cover with broad spectrum antibiotics , blood cultures , urine cultures negative if not much endotracheal aspirate will do Bronchoscopy with BAL Endo: Patient is on chronic prednisone therapy will change to IV solumedrol Musculo skeletal / skin issues : No issues Disposition : Critically Ill Code status: Full Code Family/POA: , Daughter ,Son, Grand Daughter Spent 45 minutes of Critical care time in making medical decision making for preservation of vital organ function and further decline .
[2017-04-21 09:47] LABS: VBG HCO3 29 mEq/L (21-27); VBG Ionized Calcium 1.13 mmol/L (1.15-1.35); VBG PCO2 49 mmHg (41-51); VBG PH 7.38 pH Units (7.32-7.42); VBG PO2 62 mmHg (25-50)
[2017-04-21 09:49] LABS: Magnesium 1.8 mg/dL (1.6-2.6); Phosphorous 2.6 mg/dL (2.3-4.7); Potassium 3.8 mEq/L (3.5-4.5)
[2017-04-21] MEDS: Insulin LISPRO 300 UNITS/3 ML VIAL SQ SCH ×3 (12:37→23:43)
[2017-04-21] MEDS: Piperacillin/Tazobactam 3.375 GM/200 ML BAG IVPB SCH ×2 (15:04→23:43)
[2017-04-21] MEDS: Norepinephrine 4 MG in D5% in Water 250 ML IVC SCH (21:08)
[2017-04-21] MEDS: Vancomycin 1,250 MG in D5% in Water 250 ML IVPB SCH (21:15)
[2017-04-22] MEDS: Ipratropium/Albuterol Neb 3 ML IH SCH ×6 (00:27→20:22)
[2017-04-22] MEDS: Lacri-Lube 3.5 GM TUBE BOTH EYES SCH ×5 (03:25→21:31)
[2017-04-22 04:02] LABS: VBG HCO3 29 mEq/L (21-27); VBG Ionized Calcium 1.13 mmol/L (1.15-1.35); VBG PCO2 49 mmHg (41-51); VBG PH 7.37 pH Units (7.32-7.42); VBG PO2 76 mmHg (25-50)
[2017-04-22 04:05] LABS: Basophils % 0.1 %; Hemoglobin 10.8 g/dL (12.9-16.9); Immature Granulocytes % 1.6 % (0-4); Lymphocytes # 0.3 K/mcL (0.6-4.6); Lymphocytes % 2.1 %; Mean Corpuscular HGB Conc 31.8 g/dL (31.6-35.5); Mean Corpuscular Hemoglobin 29.7 pg (28.0-33.3); Mean Corpuscular Volume 93.4 fL (83.0-100.0); Mean Platelet Volume 10.2 fL (9.4-12.4); Monocytes # 0.3 K/mcL (0.0-1.3); Monocytes % 2.2 %; Nucleated Red Blood Cells 0.4 /100 WBC (0); Platelet Count 168 K/mcL (140-400); Red Blood Count 3.64 M/mcL (4.19-5.50); Red Cell Distribution Width 15.5 % (11.5-14.5)
[2017-04-22 04:08] LABS: BUN/Creatinine Ratio 23 (6-26); Blood Urea Nitrogen 30 mg/dL (8-26); Calcium 8.1 mg/dL (8.6-10.8); Carbon Dioxide 25 mEq/L (19-29); Chloride 104 mEq/L (98-109); Glucose 164 mg/dL (70-99); Magnesium 2.2 mg/dL (1.6-2.6); Osmolality,Calculated 294 (280-300); Phosphorous 3.7 mg/dL (2.3-4.7); Potassium 3.9 mEq/L (3.5-4.5); Sodium 137 mEq/L (136-145); eGFR For African Americans > 60 (> 60); eGFR For Non-African Americans 53 (> 60)
[2017-04-22 04:24] LABS: ABG Base Excess 2 mEq/L (-2 to 3); ABG HCO3 27 mEq/L (21-27); ABG Oxygen Saturation 97 % (95-98); ABG PCO2 42 mmHg (35-45); ABG PH 7.42 pH Units (7.32-7.45); ABG PO2 86 mmHg (85-104); ABG TCO2 28 mEq/L (20-26); Blood Gas Modality VC; Blood Gas PEEP 5 cm H2O; Blood Gas Respiration Rate 16; Blood Gas VT 520 cc
[2017-04-22] MEDS: Dexmedetomidine HCl 400 MCG/100 ML MLS IVC SCH ×3 (05:54→18:44)
[2017-04-22] MEDS: *HR* Enoxaparin 80 MG/0.8 ML SYRINGE SQ SCH ×2 (06:05→16:50)
[2017-04-22] MEDS: methylPREDNISolone 125 MG/2 ML VIAL IVP SCH (06:05)
[2017-04-22] MEDS: Insulin LISPRO 300 UNITS/3 ML VIAL SQ SCH ×3 (06:06→16:55)
[2017-04-22] MEDS: 0.9 % Sodium Chloride 1,000 ML IVC SCH (06:06)
[2017-04-22] MEDS: Piperacillin/Tazobactam 3.375 GM/200 ML BAG IVPB SCH ×2 (07:26→15:27)
[2017-04-22] MEDS: Levofloxacin 750 MG/150 ML 750 MG/150 ML BAG IVPB SCH (07:48)
[2017-04-22] MEDS: Chlorhexidine Rinse 15 ML MOUTHWASH MM SCH ×2 (07:48→21:30)
[2017-04-22] MEDS: Pantoprazole 40 MG VIAL IVPB SCH (07:48)
[2017-04-22] MEDS: Budesonide/Formoterol 160/4.5 MDI IH SCH ×2 (08:19→20:22)
--- NOTE | 2017-04-22 08:21 | Pulmonology Progress Note ---
<Suzanne Mark - Last Filed: 04/22/17 09:23> Date of Encounter: 04/22/17 Time of Encounter: 07:20 Assessment and Plan (1) Acute and chronic respiratory failure with hypoxia Current Visit: No Status: Acute - Significant respiratory distress initially despite of being on BiPAP. - Patient was intubated in ED and started on mechanical ventilation support. - Likely secondary to pneumonia and AE COPD in the setting of poor respiratory status at baseline from history of LLL lobectomy and right lung radiation. - Continue empiric antibiotics for pneumonia. - Continue steroid, Symbicort and Duoneb for AE COPD. - Continue to monitor closely in ICU. (2) Septic shock Current Visit: Yes Status: Acute - 3 SIRS criteria (tachycardia, tachypnea, leukocytosis) with lactic acid as high as 11.1 on initial presentation. Patient was also noted to have significant hypotension requiring Levophed. - Likely secondary to pneumonia. - Blood cultures pending. - UA does not indicate UTI. - Will obtain sputum culture if possible. - Resolved as tachycardia, tachypnea and leukocytosis normalized and patient had been weaned off from Levophed. - Continue hydration with IV fluid. - Continue IV vancomycin, Zosyn and levofloxacin. - Continue to monitor closely. (3) Pneumonia Current Visit: Yes Status: Acute - CXR found worsening airspace opacities in the bilateral lower lungs with enlarged right pleural effusion, concerning of pneumonia. - Will obtain sputum culture if possible. - Given patient's recent hospitalization in January 2017 and significant respiratory distress, continue IV vancomycin (since 04/20), Zosyn (since 04/20) and levofloxacin (since 04/20). Further de-escalation based on clinical course and culture results. - May consider right thoracentesis if US suggests appropriate pocket and patient is stable. - May consider bronchoscopy if respiratory sputum is needed. Qualifiers: Pneumonia type: due to unspecified organism Laterality: bilateral Lung location: lower lobe of lung Qualified Code(s): J18.9 - Pneumonia, unspecified organism (4) Acute exacerbation of chronic obstructive airways disease Current Visit: Yes Status: Acute - Continue Solu-Medrol, Symbicort and scheduled Duoneb. (5) Elevated troponin Current Visit: No Status: Acute - Elevated troponin at 0.13 in ED but remained adynamic (0.12, 0.13, 0.12) since. - No significant ischemic change on EKG. - Likely related to current hypoxic respiratory failure. 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 (7) History of pulmonary embolus (PE) Current Visit: Yes Status: Chronic - On Eliquis at home. - Continue Lovenox SQ. (8) Sick sinus syndrome Current Visit: No Status: Chronic - With pacemaker. (9) Diastolic CHF Current Visit: Yes Status: Chronic - Echo from 12/02/16 found LVEF 60% with mild LV diastolic dysfunction. - BNP 234 on 04/21/17 compared to 308 on 01/29/17. - Patient received one dose of Lasix IV 40 mg so far. Qualifiers: Congestive heart failure chronicity: chronic Qualified Code(s): I50.32 - Chronic diastolic (congestive) heart failure Subjective Principal diagnosis: Acute on chronic respiratory failure Interval history: No significant event noted overnight. Patient was seen and examined this morning. Patient is still intubated but more awake as patient opens his eyes spontaneously. Objective PUL Vital signs: Last Vital Signs Temp 98.8 F 04/22/17 07:49 Pulse 92 04/22/17 07:30 Resp 16 04/22/17 07:00 BP 122/63 04/22/17 07:00 Pulse Ox 98 04/22/17 07:00 General appearance: alert (Intubated) Eyes: nonicteric ENT: other (Intubated) Neck: supple Effort: normal Auscultation: left: clear, right: diminished breath sounds (RLL) Cardiovascular: regular rate and rhythm Gastrointestinal: normoactive bowel sounds, soft Integumentary: normal Extremities: no cyanosis, edema Musculoskeletal: no deformities Ventilator Settings Ventilator Settings: Ventilator Settings, Last 8 Hours Ventilator Mode VC+ Ventilator Mode VC+ Ventilator Mode VC+ Ventilator Mode VC+ Ventilator Mode VC+ Ventilator Mode VC+ Ventilator Mode VC+ Ventilator Mode VC+ Ventilator Mode VC+ Ventilator Mode VC+ Ventilator Mode VC+ Ventilator Mode VC+ Ventilator Tidal Volume 520 Setting Ventilator Tidal Volume 520 Setting Ventilator Tidal Volume 530 Setting Ventilator Tidal Volume 520 Setting Ventilator Tidal Volume 520 Setting Ventilator Tidal Volume 520 Setting Ventilator Tidal Volume 520 Setting Ventilator Tidal Volume 520 Setting Ventilator Tidal Volume 520 Setting Ventilator Tidal Volume 520 Setting Ventilator Tidal Volume 520 Setting Ventilator Tidal Volume 520 Setting Ventilator Respiratory Rate 16 Setting Ventilator Respiratory Rate 16 Setting Ventilator Respiratory Rate 16 Setting Ventilator Respiratory Rate 16 Setting Ventilator Respiratory Rate 16 Setting Ventilator Respiratory Rate 16 Setting Ventilator Respiratory Rate 16 Setting Ventilator Respiratory Rate 16 Setting Ventilator Respiratory Rate 16 Setting Ventilator Respiratory Rate 16 Setting Ventilator Respiratory Rate 16 Setting Ventilator Respiratory Rate 16 Setting Actual Respiratory Rate 16 Actual Respiratory Rate 16 Actual Respiratory Rate 21 Actual Respiratory Rate 21 Actual Respiratory Rate 20 Actual Respiratory Rate 22 Actual Respiratory Rate 20 Actual Respiratory Rate 16 Actual Respiratory Rate 22 Actual Respiratory Rate 19 Actual Respiratory Rate 16 Positive End Expiratory 5 Pressure Positive End Expiratory 5 Pressure Positive End Expiratory 5 Pressure Positive End Expiratory 5 Pressure Positive End Expiratory 5 Pressure Positive End Expiratory 5 Pressure Positive End Expiratory 5 Pressure Positive End Expiratory 5 Pressure Positive End Expiratory 5 Pressure Positive End Expiratory 5 Pressure Positive End Expiratory 5 Pressure Positive End Expiratory 5 Pressure Peak Inspiratory Airway 22 Pressure Peak Inspiratory Airway 22 Pressure Peak Inspiratory Airway 21 Pressure Peak Inspiratory Airway 20 Pressure Peak Inspiratory Airway 18 Pressure Peak Inspiratory Airway 18 Pressure Peak Inspiratory Airway 11 Pressure Peak Inspiratory Airway 20 Pressure Peak Inspiratory Airway 20 Pressure Peak Inspiratory Airway 22 Pressure Peak Inspiratory Airway 24 Pressure Results - Laboratory Findings CBC and BMP: 04/22/17 03:46 04/22/17 03:40 ABG ABG pH 7.42 pH Units (7.32-7.45) 04/22/17 04:21 ABG pCO2 42 mmHg (35-45) 04/22/17 04:21 ABG pO2 86 mmHg (85-104) 04/22/17 04:21 ABG O2 Saturation 97 % (95-98) 04/22/17 04:21 PT/INR, D-dimer PT 20.2 Seconds (9.4-12.1) H 04/21/17 09:26 Abnormal lab findings: Abnormal lab results WBC 14.9 K/mcL (4.3-11.1) H 04/22/17 03:46 RBC 3.64 M/mcL (4.19-5.50) L 04/22/17 03:46 Hgb 10.8 g/dL (12.9-16.9) L 04/22/17 03:46 Hct 34.0 % (37.5-50.1) L 04/22/17 03:46 RDW 15.5 % (11.5-14.5) H 04/22/17 03:46 Neutrophils # 14.0 K/mcL (1.6-8.9) H 04/22/17 03:46 Lymphocytes # 0.3 K/mcL (0.6-4.6) L 04/22/17 03:46 Nucleated RBCs/100 WBC 0.4 /100 WBC (0) H 04/22/17 03:46 PT 20.2 Seconds (9.4-12.1) H 04/21/17 09:26 ABG Total CO2 28 mEq/L (20-26) H 04/22/17 04:21 VBG pO2 76 mmHg (25-50) H 04/22/17 03:59 VBG HCO3 29 mEq/L (21-27) H 04/22/17 03:59 BUN 30 mg/dL (8-26) H 04/22/17 03:40 Creatinine 1.29 mg/dL (0.72-1.25) H 04/22/17 03:40 Est GFR (Non-Af Amer) 53 (> 60) L 04/22/17 03:40 Glucose 164 mg/dL (70-99) H 04/22/17 03:40 POC Glucose 149 (58-89) H 04/22/17 05:44 Calcium 8.1 mg/dL (8.6-10.8) L 04/22/17 03:40 Venous Ioniz Calcium 1.13 mmol/L (1.15-1.35) L 04/22/17 03:59 Troponin I 0.12 ng/mL (0-0.03) H* 04/21/17 07:01 B-Natriuretic Peptide 234 pg/mL (0-100) H 04/20/17 11:27 Albumin 3.2 g/dL (3.5-5.0) L 04/20/17 11:27 Globulin 3.6 g/dL (2.4-3.5) H 04/20/17 11:27 Albumin/Globulin Ratio 0.9 (1.1-2.2) L 04/20/17 11:27 Urine Glucose (UA) 250 mg/dL (Normal) H 04/20/17 17:33 - Clinical Findings Intake & Output: Intake & Output 04/21/17 04/22/17 04/22/17 23:59 07:59 15:59 Intake Total 1043 / 1043 456 / 456 Output Total 200 / 200 250 / 250 Balance 843 / 843 206 / 206 Weight 84.4 kg - VTE Documentation of Mechanical Device: Intermittent pneumatic compression device Consult Discharge Plan - Plan Referrals: Farshad Lunsford MD [Primary Care Provider] - <Linda Ayon - Last Filed: 04/22/17 21:52> Date of Encounter: 04/22/17 Objective PUL Vital signs: Last Vital Signs Temp 98.5 F 04/22/17 20:10 Pulse 100 04/22/17 21:00 Resp 17 04/22/17 21:00 BP 116/75 04/22/17 21:00 Pulse Ox 98 04/22/17 21:00 Ventilator Settings Ventilator Settings: Ventilator Settings, Last 8 Hours Ventilator Mode A/C Ventilator Mode VC+ Ventilator Mode A/C Ventilator Mode A/C Ventilator Mode A/C Ventilator Mode A/C Ventilator Mode A/C Ventilator Mode A/C Ventilator Mode A/C Ventilator Mode A/C Ventilator Mode A/C Ventilator Tidal Volume 520 Setting Ventilator Tidal Volume 520 Setting Ventilator Tidal Volume 520 Setting Ventilator Tidal Volume 520 Setting Ventilator Tidal Volume 520 Setting Ventilator Tidal Volume 520 Setting Ventilator Tidal Volume 520 Setting Ventilator Tidal Volume 520 Setting Ventilator Tidal Volume 520 Setting Ventilator Tidal Volume 520 Setting Ventilator Tidal Volume 520 Setting Ventilator Respiratory Rate 16 Setting Ventilator Respiratory Rate 16 Setting Ventilator Respiratory Rate 16 Setting Ventilator Respiratory Rate 16 Setting Ventilator Respiratory Rate 16 Setting Ventilator Respiratory Rate 16 Setting Ventilator Respiratory Rate 16 Setting Ventilator Respiratory Rate 16 Setting Ventilator Respiratory Rate 16 Setting Ventilator Respiratory Rate 16 Setting Ventilator Respiratory Rate 16 Setting Actual Respiratory Rate 17 Actual Respiratory Rate 16 Actual Respiratory Rate 18 Actual Respiratory Rate 19 Actual Respiratory Rate 20 Actual Respiratory Rate 20 Actual Respiratory Rate 20 Actual Respiratory Rate 16 Actual Respiratory Rate 16 Actual Respiratory Rate 16 Actual Respiratory Rate 16 Positive End Expiratory 5 Pressure Positive End Expiratory 5 Pressure Positive End Expiratory 5 Pressure Positive End Expiratory 5 Pressure Positive End Expiratory 5 Pressure Positive End Expiratory 5 Pressure Positive End Expiratory 5 Pressure Positive End Expiratory 5 Pressure Positive End Expiratory 5 Pressure Positive End Expiratory 5 Pressure Positive End Expiratory 5 Pressure Peak Inspiratory Airway 23 Pressure Peak Inspiratory Airway 23 Pressure Peak Inspiratory Airway 24 Pressure Peak Inspiratory Airway 20 Pressure Peak Inspiratory Airway 26 Pressure Peak Inspiratory Airway 26 Pressure Peak Inspiratory Airway 24 Pressure Peak Inspiratory Airway 23 Pressure Peak Inspiratory Airway 20 Pressure Peak Inspiratory Airway 23 Pressure Peak Inspiratory Airway 22 Pressure Results - Laboratory Findings CBC and BMP: 04/22/17 03:46 04/22/17 03:40 ABG ABG pH 7.42 pH Units (7.32-7.45) 04/22/17 04:21 ABG pCO2 42 mmHg (35-45) 04/22/17 04:21 ABG pO2 86 mmHg (85-104) 04/22/17 04:21 ABG O2 Saturation 97 % (95-98) 04/22/17 04:21 PT/INR, D-dimer PT 20.2 Seconds (9.4-12.1) H 04/21/17 09:26 Abnormal lab findings: Abnormal lab results WBC 14.9 K/mcL (4.3-11.1) H 04/22/17 03:46 RBC 3.64 M/mcL (4.19-5.50) L 04/22/17 03:46 Hgb 10.8 g/dL (12.9-16.9) L 04/22/17 03:46 Hct 34.0 % (37.5-50.1) L 04/22/17 03:46 RDW 15.5 % (11.5-14.5) H 04/22/17 03:46 Neutrophils # 14.0 K/mcL (1.6-8.9) H 04/22/17 03:46 Lymphocytes # 0.3 K/mcL (0.6-4.6) L 04/22/17 03:46 Nucleated RBCs/100 WBC 0.4 /100 WBC (0) H 04/22/17 03:46 PT 20.2 Seconds (9.4-12.1) H 04/21/17 09:26 ABG Total CO2 28 mEq/L (20-26) H 04/22/17 04:21 VBG pO2 76 mmHg (25-50) H 04/22/17 03:59 VBG HCO3 29 mEq/L (21-27) H 04/22/17 03:59 BUN 30 mg/dL (8-26) H 04/22/17 03:40 Creatinine 1.29 mg/dL (0.72-1.25) H 04/22/17 03:40 Est GFR (Non-Af Amer) 53 (> 60) L 04/22/17 03:40 Glucose 164 mg/dL (70-99) H 04/22/17 03:40 POC Glucose 202 (58-89) H 04/22/17 16:53 Calcium 8.1 mg/dL (8.6-10.8) L 04/22/17 03:40 Venous Ioniz Calcium 1.13 mmol/L (1.15-1.35) L 04/22/17 03:59 Troponin I 0.12 ng/mL (0-0.03) H* 04/21/17 07:01 B-Natriuretic Peptide 234 pg/mL (0-100) H 04/20/17 11:27 Albumin 3.2 g/dL (3.5-5.0) L 04/20/17 11:27 Globulin 3.6 g/dL (2.4-3.5) H 04/20/17 11:27 Albumin/Globulin Ratio 0.9 (1.1-2.2) L 04/20/17 11:27 Urine Glucose (UA) 250 mg/dL (Normal) H 04/20/17 17:33 - Clinical Findings Intake & Output: Intake & Output 04/22/17 04/22/17 04/22/17 07:59 15:59 23:59 Intake Total 456 / 456 746 / 746 695 / 695 Output Total 250 / 250 150 / 150 1150 / 1150 Balance 206 / 206 596 / 596 -455 / -455 Weight 84.4 kg - Attending Attestation I saw the patient with the resident agree with History and Physical exam findings. Labs and Radiology were reviewed Ventilator data were reviewed adjusted TV and RR DATABASE ADMINISTRATION PROJECT MANAGER: Patient is arousable from sedation follows commands on and off because of ventilator dysynchrony will keep him sedated . NECK : No JVD appreciated Pulmonary : Patient is hypoxic and hypercarbic due to COPD exacerbation secondary pneumonia and right sided pleural effusion adjusted TV and RR if there is not much endo tracheal aspirate will consider bronchoscopy airway examination and BAL since patient is immunocompromized with chronic prednisone therapy patient had previous squamous cell ca s/p LLL and Right Lung radiation , Was planning on Thoracentesis family declined didnt want to pursue inasive procedures tried SBT today was anxious became tachypneic started on desaturate Cardiac : Patient has diastolic dysfunction with fluid overload will continue diuresing him Nutrition/GI: will start trophic feeds .PPI prophylaxis Renal : Labs and UOP reviewed . Heme onc : All labs reviewed ID :Pneumonia will cover with broad spectrum antibiotics , blood cultures , urine cultures negative Endo: IV solumedrol Musculo skeletal / skin issues : No issues Disposition : Critically Ill Code status: Full Code Family/POA: , Daughter ,Son, Grand Daughter Had a lengthy discussion with and Grand daughter family is of opinion is that he is going through a lot leaning towards DNRADNI will revisit tomorrow .
[2017-04-22] MEDS: FentaNYL (PF) 1,000 MCG in 0.9 % Sodium Chloride 80 ML IVC SCH ×2 (09:10→16:13)
[2017-04-22] MEDS: Sennosides/Docusate Sodium TABLET PO SCH ×2 (09:45→21:30)
[2017-04-22] MEDS ORDERED: Furosemide 40 MG/4 ML VIAL IVP ONE (12:58)
[2017-04-22] MEDS: Potassium Chloride 40 MEQ/200 ML BAG IVPB PRN (14:29)
[2017-04-22] MEDS: MethylPREDNISolone 40 MG/ML VIAL IVP SCH (15:24)
[2017-04-22] MEDS: Vancomycin 1,250 MG in D5% in Water 250 ML IVPB SCH (15:33)
[2017-04-23] MEDS: Lacri-Lube 3.5 GM TUBE BOTH EYES SCH ×7 (00:15→23:27)
[2017-04-23] MEDS: Piperacillin/Tazobactam 3.375 GM/200 ML BAG IVPB SCH ×4 (00:15→23:28)
[2017-04-23] MEDS: MethylPREDNISolone 40 MG/ML VIAL IVP SCH ×4 (00:15→23:28)
[2017-04-23] MEDS: Insulin LISPRO 300 UNITS/3 ML VIAL SQ SCH ×5 (00:16→23:28)
[2017-04-23] MEDS: Ipratropium/Albuterol Neb 3 ML IH SCH ×7 (00:17→23:55)
[2017-04-23] MEDS: Dexmedetomidine HCl 400 MCG/100 ML MLS IVC SCH ×3 (02:12→17:38)
[2017-04-23 04:04] LABS: Basophils % 0.1 %; Hemoglobin 10.8 g/dL (12.9-16.9); Lymphocytes # 0.2 K/mcL (0.6-4.6); Lymphocytes % 1.5 %; Mean Corpuscular HGB Conc 31.8 g/dL (31.6-35.5); Mean Corpuscular Hemoglobin 29.6 pg (28.0-33.3); Mean Corpuscular Volume 93.2 fL (83.0-100.0); Mean Platelet Volume 9.6 fL (9.4-12.4); Monocytes # 0.4 K/mcL (0.0-1.3); Monocytes % 2.8 %; Neutrophils # 13.3 K/mcL (1.6-8.9); Nucleated Red Blood Cells 0.5 /100 WBC (0); Platelet Count 160 K/mcL (140-400); Red Blood Count 3.65 M/mcL (4.19-5.50); Red Cell Distribution Width 15.4 % (11.5-14.5); Segmented Neutrophils % 92.6 %
[2017-04-23 04:27] LABS: BUN/Creatinine Ratio 31 (6-26); Blood Urea Nitrogen 35 mg/dL (8-26); Calcium 8.6 mg/dL (8.6-10.8); Carbon Dioxide 29 mEq/L (19-29); Chloride 104 mEq/L (98-109); Glucose 183 mg/dL (70-99); Magnesium 2.3 mg/dL (1.6-2.6); Osmolality,Calculated 303 (280-300); Phosphorous 2.9 mg/dL (2.3-4.7); Potassium 4.1 mEq/L (3.5-4.5); Sodium 140 mEq/L (136-145); eGFR For African Americans > 60 (> 60); eGFR For Non-African Americans > 60 (> 60)
[2017-04-23 04:48] LABS: ABG Base Excess 5 mEq/L (-2 to 3); ABG HCO3 30 mEq/L (21-27); ABG Oxygen Saturation 97 % (95-98); ABG PCO2 47 mmHg (35-45); ABG PH 7.42 pH Units (7.32-7.45); ABG PO2 88 mmHg (85-104); ABG TCO2 31 mEq/L (20-26); Blood Gas Modality ASSIST CONTROL; Blood Gas PEEP 5 cm H2O; Blood Gas Respiration Rate 16; Blood Gas VT 520 cc
[2017-04-23] MEDS: *HR* Enoxaparin 80 MG/0.8 ML SYRINGE SQ SCH (05:04)
[2017-04-23] MEDS: FentaNYL (PF) 1,000 MCG in 0.9 % Sodium Chloride 80 ML IVC SCH ×2 (06:39→15:16)
[2017-04-23] MEDS: Levofloxacin 750 MG/150 ML 750 MG/150 ML BAG IVPB SCH (07:53)
[2017-04-23] MEDS: Sennosides/Docusate Sodium TABLET PO SCH ×2 (07:53→20:27)
[2017-04-23] MEDS: Pantoprazole 40 MG VIAL IVPB SCH (07:53)
[2017-04-23] MEDS: Chlorhexidine Rinse 15 ML MOUTHWASH MM SCH ×2 (07:54→20:27)
[2017-04-23] MEDS ORDERED: Aminoglycoside Consult 1 EACH MC ONE (07:54)
[2017-04-23] MEDS: Budesonide/Formoterol 160/4.5 MDI IH SCH ×2 (08:11→20:08)
[2017-04-23] MEDS: Vancomycin 1,250 MG in D5% in Water 250 ML IVPB SCH (09:30)
[2017-04-23] MEDS: Furosemide 40 MG/4 ML VIAL IVP SCH ×2 (10:14→16:25)
--- NOTE | 2017-04-23 16:32 | Procedure Note ---
<Serg Boyd - Last Filed: 04/23/17 16:30> Date of procedure: 04/23/17 Pre-op diagnosis: Pleural effusion Post-op diagnosis: same Procedure: A time-out was completed verifying correct patient, procedure, site, positioning , and special equipment if applicable. The patient remained intubated during the procedure an his right side was prepped and draped in a sterile manner after the appropriate infiltration level was confirmed by ultrasound. 1% lidocaine was used anesthetize the surrounding skin. A finder needle was then used to locate fluid and brown/alanna fluid was obtained. A 10-blade scalpel used to make the incision. The thoracentesis catheter was then threaded without difficulty. The patient had 1200mL of brown/alanna fluid removed. Attending Dr. Ayon was present for the entire procedure. A post-procedure chest x-ray was ordered and the fluid will be sent for several studies. Estimated Blood Loss: 0cc The patient tolerated the procedure well and there were no complications. Chest X-Ray 04/23/17 15:00 IMPRESSION: Decreased size of right pleural effusion, which appears partially loculated. No pneumothorax. Stable small left pleural effusion and bibasilar airspace consolidation and/or atelectasis. Surgeon: Serg Boyd Meeting Planner: Emmie Helms Estimated blood loss (cc): 0 Pathology: other (sent for pleural fluid analysis) Condition: critical Disposition: ICU <Linda Ayon - Last Filed: 04/23/17 23:39> Procedure: 1200 ml of hemorrhagic pleural effusion concerning for recurrence of malignancy . The thoracentesis was done after stopped the Lovenox after 12 hrs
[2017-04-23 17:00] LABS: Appearance of Pleural Fl Bloody (Clear)
[2017-04-23 17:05] LABS: LDH,Pleural Fluid 478 Units/L (No Ref Range); RBC,Pleural Fluid 0.085 M/mcL; Total Protein,Pleural Fluid 2.6 g/dL (No Ref Range); Triglycerides, Pleural Fluid 43 mg/dL (No Ref Range)
--- NOTE | 2017-04-23 18:37 | Pulmonology Progress Note ---
<Emmie Helms - Last Filed: 04/23/17 18:34> Date of Encounter: 04/23/17 Time of Encounter: 10:00 Assessment and Plan (1) Acute and chronic respiratory failure with hypoxia Current Visit: No Status: Acute - Significant respiratory distress initially despite of being on BiPAP. - Patient was intubated in ED and started on mechanical ventilation support. - Likely secondary to pneumonia and AE COPD in the setting of poor respiratory status at baseline from history of LLL lobectomy and right lung radiation. - Continue empiric antibiotics for pneumonia. - Continue steroid, Symbicort and Duoneb for AE COPD. - Continue to monitor closely in ICU. -Drained over a liter of pleural effusion today 04/23 during thoracentesis that was bloody. -FU pleural fluid analysis. -IV Lasix 40mg BID. - (2) Septic shock Current Visit: Yes Status: Acute - 3 SIRS criteria (tachycardia, tachypnea, leukocytosis) with lactic acid as high as 11.1 on initial presentation. Patient was also noted to have significant hypotension requiring Levophed. - Likely secondary to pneumonia. - Blood cultures pending. - UA does not indicate UTI. - Will obtain sputum culture if possible. - Resolved as tachycardia, tachypnea and leukocytosis normalized and patient had been weaned off from Levophed. - Continue hydration with IV fluid. - Continue IV Zosyn and levofloxacin. -DC Vancomycin on 04/23 today after 3 completed days. - Continue to monitor closely. (3) Pneumonia Current Visit: Yes Status: Acute - CXR found worsening airspace opacities in the bilateral lower lungs with enlarged right pleural effusion, concerning of pneumonia. - Will obtain sputum culture if possible. - Given patient's recent hospitalization in January 2017 and significant respiratory distress, Discontinue IV vancomycin today 04/23 (since 04/20) after 3 completed days, continue Zosyn (since 04/20) and levofloxacin (since 04/20). Further de-escalation based on clinical course and culture results. -FU Pleural Fluid Analysis Qualifiers: Pneumonia type: due to unspecified organism Laterality: bilateral Lung location: lower lobe of lung Qualified Code(s): J18.9 - Pneumonia, unspecified organism (4) Acute exacerbation of chronic obstructive airways disease Current Visit: Yes Status: Acute -continue solu-medrol, symbicort, and scheduled duoneb. (5) Elevated troponin Current Visit: No Status: Acute - Elevated troponin at 0.13 in ED but remained adynamic (0.12, 0.13, 0.12) since. - No significant ischemic change on EKG. - Likely related to current hypoxic respiratory failure. 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 (7) History of pulmonary embolus (PE) Current Visit: Yes Status: Chronic - On Eliquis at home. - Continue Lovenox SQ. (8) Sick sinus syndrome Current Visit: No Status: Chronic - With pacemaker. (9) Diastolic CHF Current Visit: Yes Status: Chronic - Echo from 12/02/16 found LVEF 60% with mild LV diastolic dysfunction. - BNP 234 on 04/21/17 compared to 308 on 01/29/17. - Start lasix 40mg IV BID today based on patients I&O's. Qualifiers: Congestive heart failure chronicity: chronic Qualified Code(s): I50.32 - Chronic diastolic (congestive) heart failure Subjective Principal diagnosis: Acute on chronic respiratory failure Interval history: No acute events over night. Family at bedside. They desire to proceed with thoracentesis. Objective PUL Vital signs: Last Vital Signs Temp 99.7 F H 04/23/17 15:57 Pulse 101 04/23/17 18:00 Resp 15 04/23/17 18:20 BP 102/63 04/23/17 18:00 Pulse Ox 98 04/23/17 18:20 General appearance: comatose, other (Intubated and sedated) Eyes: injected ENT: oropharynx dry Auscultation: bilateral: diminished breath sounds, wheezes, rales Cardiovascular: other (Borderline tachycardia) Gastrointestinal: normoactive bowel sounds, soft, non-tender, non-distended Integumentary: normal Extremities: no cyanosis, pulses normal, edema, anasarca Ventilator Settings Ventilator Settings: Ventilator Settings, Last 8 Hours Ventilator Mode VC+ Ventilator Mode VC+ Ventilator Mode VC+ Ventilator Mode VC+ Ventilator Mode VC+ Ventilator Mode VC+ Ventilator Mode VC+ Ventilator Mode VC+ Ventilator Mode VC+ Ventilator Mode VC+ Ventilator Mode VC+ Ventilator Tidal Volume 520 Setting Ventilator Tidal Volume 520 Setting Ventilator Tidal Volume 520 Setting Ventilator Tidal Volume 520 Setting Ventilator Tidal Volume 520 Setting Ventilator Tidal Volume 520 Setting Ventilator Tidal Volume 520 Setting Ventilator Tidal Volume 520 Setting Ventilator Tidal Volume 520 Setting Ventilator Tidal Volume 520 Setting Ventilator Tidal Volume 520 Setting Ventilator Respiratory Rate 16 Setting Ventilator Respiratory Rate 16 Setting Ventilator Respiratory Rate 16 Setting Ventilator Respiratory Rate 16 Setting Ventilator Respiratory Rate 16 Setting Ventilator Respiratory Rate 16 Setting Ventilator Respiratory Rate 16 Setting Ventilator Respiratory Rate 16 Setting Ventilator Respiratory Rate 16 Setting Ventilator Respiratory Rate 16 Setting Ventilator Respiratory Rate 16 Setting Actual Respiratory Rate 16 Actual Respiratory Rate 16 Actual Respiratory Rate 16 Actual Respiratory Rate 16 Actual Respiratory Rate 16 Actual Respiratory Rate 16 Actual Respiratory Rate 30 Actual Respiratory Rate 24 Actual Respiratory Rate 23 Actual Respiratory Rate 30 Actual Respiratory Rate 16 Positive End Expiratory 5 Pressure Positive End Expiratory 5 Pressure Positive End Expiratory 5 Pressure Positive End Expiratory 5 Pressure Positive End Expiratory 5 Pressure Positive End Expiratory 5 Pressure Positive End Expiratory 5 Pressure Positive End Expiratory 5 Pressure Positive End Expiratory 5 Pressure Positive End Expiratory 5 Pressure Positive End Expiratory 5 Pressure Peak Inspiratory Airway 26 Pressure Peak Inspiratory Airway 26 Pressure Peak Inspiratory Airway 26 Pressure Peak Inspiratory Airway 20 Pressure Peak Inspiratory Airway 20 Pressure Peak Inspiratory Airway 20 Pressure Peak Inspiratory Airway 23 Pressure Peak Inspiratory Airway 23 Pressure Peak Inspiratory Airway 23 Pressure Peak Inspiratory Airway 23 Pressure Peak Inspiratory Airway 24 Pressure Results - Laboratory Findings CBC and BMP: 04/23/17 03:48 04/23/17 03:48 ABG ABG pH 7.42 pH Units (7.32-7.45) 04/23/17 04:44 ABG pCO2 47 mmHg (35-45) H 04/23/17 04:44 ABG pO2 88 mmHg (85-104) 04/23/17 04:44 ABG O2 Saturation 97 % (95-98) 04/23/17 04:44 PT/INR, D-dimer PT 20.2 Seconds (9.4-12.1) H 04/21/17 09:26 Abnormal lab findings: Abnormal lab results WBC 14.4 K/mcL (4.3-11.1) H 04/23/17 03:48 RBC 3.65 M/mcL (4.19-5.50) L 04/23/17 03:48 Hgb 10.8 g/dL (12.9-16.9) L 04/23/17 03:48 Hct 34.0 % (37.5-50.1) L 04/23/17 03:48 RDW 15.4 % (11.5-14.5) H 04/23/17 03:48 Neutrophils # 13.3 K/mcL (1.6-8.9) H 04/23/17 03:48 Lymphocytes # 0.2 K/mcL (0.6-4.6) L 04/23/17 03:48 Nucleated RBCs/100 WBC 0.5 /100 WBC (0) H 04/23/17 03:48 PT 20.2 Seconds (9.4-12.1) H 04/21/17 09:26 ABG pCO2 47 mmHg (35-45) H 04/23/17 04:44 ABG HCO3 30 mEq/L (21-27) H 04/23/17 04:44 ABG Total CO2 31 mEq/L (20-26) H 04/23/17 04:44 ABG Base Excess 5 mEq/L (-2 to 3) H 04/23/17 04:44 VBG pO2 76 mmHg (25-50) H 04/22/17 03:59 VBG HCO3 29 mEq/L (21-27) H 04/22/17 03:59 BUN 35 mg/dL (8-26) H 04/23/17 03:48 BUN/Creatinine Ratio 31 (6-26) H 04/23/17 03:48 Glucose 183 mg/dL (70-99) H 04/23/17 03:48 POC Glucose 168 (58-89) H 04/23/17 18:29 Calculated Osmolality 303 (280-300) H 04/23/17 03:48 Venous Ioniz Calcium 1.13 mmol/L (1.15-1.35) L 04/22/17 03:59 Troponin I 0.12 ng/mL (0-0.03) H* 04/21/17 07:01 B-Natriuretic Peptide 234 pg/mL (0-100) H 04/20/17 11:27 Albumin 3.2 g/dL (3.5-5.0) L 04/20/17 11:27 Globulin 3.6 g/dL (2.4-3.5) H 04/20/17 11:27 Albumin/Globulin Ratio 0.9 (1.1-2.2) L 04/20/17 11:27 Urine Glucose (UA) 250 mg/dL (Normal) H 04/20/17 17:33 Pleural Appearance Bloody (Clear) A 04/23/17 15:02 Pleural RBC 0.085 M/mcL (0.000-0.002) H 04/23/17 15:02 - Clinical Findings Intake & Output: Intake & Output 04/23/17 04/23/17 04/23/17 07:59 15:59 23:59 Intake Total 617 / 617 778 / 778 251 / 251 Output Total 125 / 125 200 / 200 1600 / 1600 Balance 492 / 492 578 / 578 -1349 / -1349 Weight 84.52 kg - VTE Documentation of Mechanical Device: Intermittent pneumatic compression device Consult Discharge Plan - Plan Referrals: Farshad Lunsford MD [Primary Care Provider] - <Linda Ayon - Last Filed: 04/23/17 23:52> Date of Encounter: 04/23/17 Objective PUL Vital signs: Last Vital Signs Temp 98.4 F 04/23/17 20:37 Pulse 102 04/23/17 23:00 Resp 21 04/23/17 23:00 BP 102/81 04/23/17 23:00 Pulse Ox 98 04/23/17 23:00 Ventilator Settings Ventilator Settings: Ventilator Settings, Last 8 Hours Ventilator Mode VC+ Ventilator Mode VC+ Ventilator Mode VC+ Ventilator Mode VC+ Ventilator Mode VC+ Ventilator Mode VC+ Ventilator Mode VC+ Ventilator Mode VC+ Ventilator Mode VC+ Ventilator Mode VC+ Ventilator Mode VC+ Ventilator Mode VC+ Ventilator Tidal Volume 520 Setting Ventilator Tidal Volume 520 Setting Ventilator Tidal Volume 520 Setting Ventilator Tidal Volume 520 Setting Ventilator Tidal Volume 520 Setting Ventilator Tidal Volume 520 Setting Ventilator Tidal Volume 520 Setting Ventilator Tidal Volume 520 Setting Ventilator Tidal Volume 520 Setting Ventilator Tidal Volume 520 Setting Ventilator Tidal Volume 520 Setting Ventilator Tidal Volume 520 Setting Ventilator Respiratory Rate 16 Setting Ventilator Respiratory Rate 16 Setting Ventilator Respiratory Rate 16 Setting Ventilator Respiratory Rate 16 Setting Ventilator Respiratory Rate 16 Setting Ventilator Respiratory Rate 16 Setting Ventilator Respiratory Rate 16 Setting Ventilator Respiratory Rate 16 Setting Ventilator Respiratory Rate 16 Setting Ventilator Respiratory Rate 16 Setting Ventilator Respiratory Rate 16 Setting Ventilator Respiratory Rate 16 Setting Actual Respiratory Rate 21 Actual Respiratory Rate 19 Actual Respiratory Rate 19 Actual Respiratory Rate 17 Actual Respiratory Rate 16 Actual Respiratory Rate 17 Actual Respiratory Rate 16 Actual Respiratory Rate 16 Actual Respiratory Rate 16 Actual Respiratory Rate 16 Actual Respiratory Rate 16 Actual Respiratory Rate 16 Positive End Expiratory 5 Pressure Positive End Expiratory 5 Pressure Positive End Expiratory 5 Pressure Positive End Expiratory 5 Pressure Positive End Expiratory 5 Pressure Positive End Expiratory 5 Pressure Positive End Expiratory 5 Pressure Positive End Expiratory 5 Pressure Positive End Expiratory 5 Pressure Positive End Expiratory 5 Pressure Positive End Expiratory 5 Pressure Positive End Expiratory 5 Pressure Peak Inspiratory Airway 22 Pressure Peak Inspiratory Airway 23 Pressure Peak Inspiratory Airway 21 Pressure Peak Inspiratory Airway 22 Pressure Peak Inspiratory Airway 24 Pressure Peak Inspiratory Airway 18 Pressure Peak Inspiratory Airway 25 Pressure Peak Inspiratory Airway 26 Pressure Peak Inspiratory Airway 26 Pressure Peak Inspiratory Airway 26 Pressure Peak Inspiratory Airway 20 Pressure Peak Inspiratory Airway 20 Pressure Results - Laboratory Findings CBC and BMP: 04/23/17 03:48 04/23/17 03:48 ABG ABG pH 7.42 pH Units (7.32-7.45) 04/23/17 04:44 ABG pCO2 47 mmHg (35-45) H 04/23/17 04:44 ABG pO2 88 mmHg (85-104) 04/23/17 04:44 ABG O2 Saturation 97 % (95-98) 04/23/17 04:44 PT/INR, D-dimer PT 20.2 Seconds (9.4-12.1) H 04/21/17 09:26 Abnormal lab findings: Abnormal lab results WBC 14.4 K/mcL (4.3-11.1) H 04/23/17 03:48 RBC 3.65 M/mcL (4.19-5.50) L 04/23/17 03:48 Hgb 10.8 g/dL (12.9-16.9) L 04/23/17 03:48 Hct 34.0 % (37.5-50.1) L 04/23/17 03:48 RDW 15.4 % (11.5-14.5) H 04/23/17 03:48 Neutrophils # 13.3 K/mcL (1.6-8.9) H 04/23/17 03:48 Lymphocytes # 0.2 K/mcL (0.6-4.6) L 04/23/17 03:48 Nucleated RBCs/100 WBC 0.5 /100 WBC (0) H 04/23/17 03:48 PT 20.2 Seconds (9.4-12.1) H 04/21/17 09:26 ABG pCO2 47 mmHg (35-45) H 04/23/17 04:44 ABG HCO3 30 mEq/L (21-27) H 04/23/17 04:44 ABG Total CO2 31 mEq/L (20-26) H 04/23/17 04:44 ABG Base Excess 5 mEq/L (-2 to 3) H 04/23/17 04:44 VBG pO2 76 mmHg (25-50) H 04/22/17 03:59 VBG HCO3 29 mEq/L (21-27) H 04/22/17 03:59 BUN 35 mg/dL (8-26) H 04/23/17 03:48 BUN/Creatinine Ratio 31 (6-26) H 04/23/17 03:48 Glucose 183 mg/dL (70-99) H 04/23/17 03:48 POC Glucose 166 (58-89) H 04/23/17 23:19 Calculated Osmolality 303 (280-300) H 04/23/17 03:48 Venous Ioniz Calcium 1.13 mmol/L (1.15-1.35) L 04/22/17 03:59 Troponin I 0.12 ng/mL (0-0.03) H* 04/21/17 07:01 B-Natriuretic Peptide 234 pg/mL (0-100) H 04/20/17 11:27 Albumin 3.2 g/dL (3.5-5.0) L 04/20/17 11:27 Globulin 3.6 g/dL (2.4-3.5) H 04/20/17 11:27 Albumin/Globulin Ratio 0.9 (1.1-2.2) L 04/20/17 11:27 Urine Glucose (UA) 250 mg/dL (Normal) H 04/20/17 17:33 Pleural Appearance Bloody (Clear) A 04/23/17 15:02 Pleural RBC 0.085 M/mcL (0.000-0.002) H 04/23/17 15:02 - Microbiology Findings Microbiology Findings: Microbiology, Last 48 Hours 04/23/17 14:45 Body Fluid Culture - Preliminary Pleural Fluid - Clinical Findings Intake & Output: Intake & Output 04/23/17 04/23/17 04/23/17 07:59 15:59 23:59 Intake Total 617 / 617 778 / 778 661 / 661 Output Total 125 / 125 200 / 200 1999 / 1999 Balance 492 / 492 578 / 578 -1339 / -1339 Weight 84.52 kg - Attending Attestation I saw the patient with the resident agree with History and Physical exam findings. 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 Lovenox was held yesterday thoracentesis was done after 12 hrs of stopping of Lovenox . Cardiac : Patient has diastolic dysfunction with fluid overload will continue diuresing him Nutrition/GI: will start trophic feeds .PPI prophylaxis Renal : Labs and UOP reviewed . Heme onc : All labs reviewed ID :Pneumonia will cover with broad spectrum antibiotics , blood cultures , urine cultures negative Endo: IV solumedrol Musculo skeletal / skin issues : No issues Disposition : Critically Ill Code status: Full Code Family/POA: , Daughter ,Son, Grand children Spent 35 minute of critical care time in medical decision making to support vital organ function
[2017-04-24] MEDS: Ipratropium/Albuterol Neb 3 ML IH SCH ×6 (04:14→23:48)
[2017-04-24] MEDS: Lacri-Lube 3.5 GM TUBE BOTH EYES SCH ×5 (04:31→21:29)
[2017-04-24] MEDS: FentaNYL (PF) 1,000 MCG in 0.9 % Sodium Chloride 80 ML IVC SCH ×2 (04:36→21:33)
[2017-04-24] MEDS: Insulin LISPRO 300 UNITS/3 ML VIAL SQ SCH ×3 (05:11→18:34)
[2017-04-24 05:22] LABS: ABG Base Excess 9 mEq/L (-2 to 3); ABG HCO3 34 mEq/L (21-27); ABG Oxygen Saturation 96 % (95-98); ABG PCO2 48 mmHg (35-45); ABG PH 7.46 pH Units (7.32-7.45); ABG PO2 78 mmHg (85-104); ABG TCO2 35 mEq/L (20-26); Blood Gas Modality VC; Blood Gas PEEP 5 cm H2O; Blood Gas Respiration Rate 16; Blood Gas VT 520 cc
[2017-04-24 07:40] LABS: Basophils # 0.1 K/mcL (0.0-0.2); Basophils % 0.3 %; Hematocrit 33.5 % (37.5-50.1); Hemoglobin 10.7 g/dL (12.9-16.9); Immature Granulocytes % 3.9 % (0-4); Lymphocytes # 0.4 K/mcL (0.6-4.6); Lymphocytes % 2.3 %; Mean Corpuscular HGB Conc 31.9 g/dL (31.6-35.5); Mean Corpuscular Hemoglobin 30.1 pg (28.0-33.3); Mean Corpuscular Volume 94.4 fL (83.0-100.0); Mean Platelet Volume 10.1 fL (9.4-12.4); Monocytes # 0.7 K/mcL (0.0-1.3); Neutrophils # 15.6 K/mcL (1.6-8.9); Nucleated Red Blood Cells 0.3 /100 WBC (0); Platelet Count 169 K/mcL (140-400); Red Blood Count 3.55 M/mcL (4.19-5.50); Red Cell Distribution Width 15.6 % (11.5-14.5); Segmented Neutrophils % 89.5 %
[2017-04-24] MEDS: Budesonide/Formoterol 160/4.5 MDI IH SCH ×2 (07:50→19:51)
[2017-04-24 07:52] LABS: BUN/Creatinine Ratio 38 (6-26); Blood Urea Nitrogen 43 mg/dL (8-26); Calcium 8.3 mg/dL (8.6-10.8); Carbon Dioxide 31 mEq/L (19-29); Chloride 105 mEq/L (98-109); Glucose 167 mg/dL (70-99); Magnesium 2.2 mg/dL (1.6-2.6); Osmolality,Calculated 315 (280-300); Phosphorous 2.9 mg/dL (2.3-4.7); Potassium 3.9 mEq/L (3.5-4.5); Sodium 145 mEq/L (136-145); eGFR For African Americans > 60 (> 60); eGFR For Non-African Americans > 60 (> 60)
[2017-04-24 07:53] LABS: Total Protein 5.1 g/dL (6.0-8.3)
[2017-04-24] MEDS: Furosemide 40 MG/4 ML VIAL IVP SCH ×2 (09:10→18:35)
[2017-04-24] MEDS: MethylPREDNISolone 40 MG/ML VIAL IVP SCH ×2 (09:10→17:23)
[2017-04-24] MEDS: Piperacillin/Tazobactam 3.375 GM/200 ML BAG IVPB SCH ×2 (09:10→17:23)
[2017-04-24] MEDS: Levofloxacin 750 MG/150 ML 750 MG/150 ML BAG IVPB SCH (09:11)
[2017-04-24] MEDS: Pantoprazole 40 MG VIAL IVPB SCH (09:11)
[2017-04-24] MEDS: Sennosides/Docusate Sodium TABLET PO SCH ×2 (09:11→21:29)
[2017-04-24] MEDS: Chlorhexidine Rinse 15 ML MOUTHWASH MM SCH ×2 (09:11→21:29)
[2017-04-24 11:28] LABS: Heparin anti-factor XA LMWH 0.44 IU/mL (0.50-1.10); INR 1.1
[2017-04-24 11:30] LABS: Activated Partial Thrombo Time 23.7 Seconds (26.0-36.0)
--- NOTE | 2017-04-24 12:43 | Pulmonology Progress Note ---
<Emmie Helms - Last Filed: 04/24/17 17:01> Date of Encounter: 04/24/17 Time of Encounter: 10:00 Assessment and Plan (1) Acute and chronic respiratory failure with hypoxia Current Visit: No Status: Acute - Significant respiratory distress initially despite of being on BiPAP. - Patient was intubated in ED and started on mechanical ventilation support. - Likely secondary to pneumonia and AE COPD in the setting of poor respiratory status at baseline from history of LLL lobectomy and right lung radiation. - Continue empiric antibiotics for pneumonia. - Continue steroid, Symbicort and Duoneb for AE COPD. - Continue to monitor closely in ICU. -CPAP/SBT for 2 hours today. -Drained over a liter of pleural effusion yesterday 04/23 during thoracentesis that was bloody. -Pleural Fluid exudative -FU PE culture. -IV Lasix 40mg BID. (2) Diastolic CHF Current Visit: Yes Status: Chronic - Echo from 12/02/16 found LVEF 60% with mild LV diastolic dysfunction. - BNP 234 on 04/21/17 compared to 308 on 01/29/17. - Start lasix 40mg IV BID today based on patients I&O's. Qualifiers: Congestive heart failure chronicity: chronic Qualified Code(s): I50.32 - Chronic diastolic (congestive) heart failure (3) Septic shock Current Visit: Yes Status: Acute - 3 SIRS criteria (tachycardia, tachypnea, leukocytosis) with lactic acid as high as 11.1 on initial presentation. Patient was also noted to have significant hypotension requiring Levophed. - Likely secondary to pneumonia. - Blood cultures pending. - UA does not indicate UTI. - Will obtain sputum culture if possible. - Resolved as tachycardia, tachypnea and leukocytosis normalized and patient had been weaned off from Levophed. - Continue hydration with IV fluid. - Continue IV Zosyn and levofloxacin. -DC Vancomycin on 04/23 today after 3 completed days. - Continue to monitor closely. (4) Pneumonia Current Visit: Yes Status: Acute - CXR found worsening airspace opacities in the bilateral lower lungs with enlarged right pleural effusion, concerning of pneumonia. - Will obtain sputum culture if possible. - Given patient's recent hospitalization in January 2017 and significant respiratory distress, Discontinue IV vancomycin today 04/23 (since 04/20) after 3 completed days, continue Zosyn (since 04/20) and levofloxacin (since 04/20). Further de-escalation based on clinical course and culture results. -Pleural Fluid exudative effusion -FU PE culture- prelim negative Qualifiers: Pneumonia type: due to unspecified organism Laterality: bilateral Lung location: lower lobe of lung Qualified Code(s): J18.9 - Pneumonia, unspecified organism (5) Acute exacerbation of chronic obstructive airways disease Current Visit: Yes Status: Acute -continue solu-medrol, symbicort, and scheduled duoneb. (6) Elevated troponin Current Visit: No Status: Acute - Elevated troponin at 0.13 in ED but remained adynamic (0.12, 0.13, 0.12) since. - No significant ischemic change on EKG. - Likely related to current hypoxic respiratory failure. 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 (8) History of pulmonary embolus (PE) Current Visit: Yes Status: Chronic - On Eliquis at home. - Continue Lovenox SQ. (9) Sick sinus syndrome Current Visit: No Status: Chronic - With pacemaker. Subjective Principal diagnosis: Acute on chronic respiratory failure Interval history: No acute events over night. Patient oozing blood from IV site. CPAP for 2 hours this afternoon. Objective PUL Vital signs: Last Vital Signs Temp 99.1 F 04/24/17 12:15 Pulse 120 04/24/17 12:00 Resp 19 04/24/17 12:15 BP 96/55 04/24/17 12:15 Pulse Ox 97 04/24/17 12:15 General appearance: other (intubated and sedated) ENT: oropharynx moist Auscultation: bilateral: diminished breath sounds, rales Cardiovascular: other (tachycardia) Gastrointestinal: normoactive bowel sounds, soft, non-tender, non-distended Integumentary: normal Extremities: edema, anasarca unable to assess due to mental status Ventilator Settings Ventilator Settings: Ventilator Settings, Last 8 Hours Ventilator Mode CPAP Ventilator Mode CPAP Ventilator Mode CPAP Ventilator Mode VC+ Ventilator Mode VC+ Ventilator Mode VC+ Ventilator Mode VC+ Ventilator Mode VC+ Ventilator Mode VC+ Ventilator Mode VC+ Ventilator Mode VC+ Ventilator Mode VC+ Ventilator Mode VC+ Ventilator Tidal Volume 520 Setting Ventilator Tidal Volume 520 Setting Ventilator Tidal Volume 520 Setting Ventilator Tidal Volume 520 Setting Ventilator Tidal Volume 520 Setting Ventilator Tidal Volume 520 Setting Ventilator Tidal Volume 520 Setting Ventilator Tidal Volume 520 Setting Ventilator Tidal Volume 520 Setting Ventilator Tidal Volume 520 Setting Ventilator Tidal Volume 520 Setting Ventilator Respiratory Rate 16 Setting Ventilator Respiratory Rate 16 Setting Ventilator Respiratory Rate 16 Setting Ventilator Respiratory Rate 16 Setting Ventilator Respiratory Rate 16 Setting Ventilator Respiratory Rate 16 Setting Ventilator Respiratory Rate 16 Setting Ventilator Respiratory Rate 16 Setting Ventilator Respiratory Rate 16 Setting Ventilator Respiratory Rate 16 Setting Actual Respiratory Rate 24 Actual Respiratory Rate 24 Actual Respiratory Rate 27 Actual Respiratory Rate 16 Actual Respiratory Rate 16 Actual Respiratory Rate 28 Actual Respiratory Rate 24 Actual Respiratory Rate 28 Actual Respiratory Rate 20 Actual Respiratory Rate 20 Actual Respiratory Rate 28 Positive End Expiratory 5 Pressure Positive End Expiratory 5 Pressure Positive End Expiratory 5 Pressure Positive End Expiratory 5 Pressure Positive End Expiratory 5 Pressure Positive End Expiratory 5 Pressure Positive End Expiratory 5 Pressure Positive End Expiratory 5 Pressure Positive End Expiratory 5 Pressure Positive End Expiratory 5 Pressure Positive End Expiratory 5 Pressure Positive End Expiratory 5 Pressure Peak Inspiratory Airway 11 Pressure Peak Inspiratory Airway 12 Pressure Peak Inspiratory Airway 19 Pressure Peak Inspiratory Airway 19 Pressure Peak Inspiratory Airway 20 Pressure Peak Inspiratory Airway 20 Pressure Peak Inspiratory Airway 19 Pressure Peak Inspiratory Airway 21 Pressure Peak Inspiratory Airway 21 Pressure Peak Inspiratory Airway 20 Pressure Peak Inspiratory Airway 20 Pressure Results - Laboratory Findings CBC and BMP: 04/24/17 07:30 04/24/17 07:30 ABG ABG pH 7.46 pH Units (7.32-7.45) H 04/24/17 05:19 ABG pCO2 48 mmHg (35-45) H 04/24/17 05:19 ABG pO2 78 mmHg (85-104) L 04/24/17 05:19 ABG O2 Saturation 96 % (95-98) 04/24/17 05:19 PT/INR, D-dimer PT 12.0 Seconds (9.4-12.1) 04/24/17 11:10 Abnormal lab findings: Abnormal lab results WBC 17.5 K/mcL (4.3-11.1) H 04/24/17 07:30 RBC 3.55 M/mcL (4.19-5.50) L 04/24/17 07:30 Hgb 10.7 g/dL (12.9-16.9) L 04/24/17 07:30 Hct 33.5 % (37.5-50.1) L 04/24/17 07:30 RDW 15.6 % (11.5-14.5) H 04/24/17 07:30 Neutrophils # 15.6 K/mcL (1.6-8.9) H 04/24/17 07:30 Lymphocytes # 0.4 K/mcL (0.6-4.6) L 04/24/17 07:30 Nucleated RBCs/100 WBC 0.3 /100 WBC (0) H 04/24/17 07:30 APTT 23.7 Seconds (26.0-36.0) L 04/24/17 11:10 Heparin Anti-Xa, LM Wt 0.44 IU/mL (0.50-1.10) L 04/24/17 11:10 ABG pH 7.46 pH Units (7.32-7.45) H 04/24/17 05:19 ABG pCO2 48 mmHg (35-45) H 04/24/17 05:19 ABG pO2 78 mmHg (85-104) L 04/24/17 05:19 ABG HCO3 34 mEq/L (21-27) H 04/24/17 05:19 ABG Total CO2 35 mEq/L (20-26) H 04/24/17 05:19 ABG Base Excess 9 mEq/L (-2 to 3) H 04/24/17 05:19 VBG pO2 76 mmHg (25-50) H 04/22/17 03:59 VBG HCO3 29 mEq/L (21-27) H 04/22/17 03:59 Carbon Dioxide 31 mEq/L (19-29) H 04/24/17 07:30 BUN 43 mg/dL (8-26) H 04/24/17 07:30 BUN/Creatinine Ratio 38 (6-26) H 04/24/17 07:30 Glucose 167 mg/dL (70-99) H 04/24/17 07:30 POC Glucose 196 (58-89) H 04/24/17 11:05 Calculated Osmolality 315 (280-300) H 04/24/17 07:30 Calcium 8.3 mg/dL (8.6-10.8) L 04/24/17 07:30 Venous Ioniz Calcium 1.13 mmol/L (1.15-1.35) L 04/22/17 03:59 Troponin I 0.12 ng/mL (0-0.03) H* 04/21/17 07:01 B-Natriuretic Peptide 234 pg/mL (0-100) H 04/20/17 11:27 Serum Total Protein 5.1 g/dL (6.0-8.3) L 04/24/17 07:30 Albumin 3.2 g/dL (3.5-5.0) L 04/20/17 11:27 Globulin 3.6 g/dL (2.4-3.5) H 04/20/17 11:27 Albumin/Globulin Ratio 0.9 (1.1-2.2) L 04/20/17 11:27 Urine Glucose (UA) 250 mg/dL (Normal) H 04/20/17 17:33 Pleural Appearance Bloody (Clear) A 04/23/17 15:02 Pleural RBC 0.085 M/mcL (0.000-0.002) H 04/23/17 15:02 - Microbiology Findings Microbiology Findings: Microbiology, Last 48 Hours 04/23/17 14:45 Body Fluid Culture - Preliminary Pleural Fluid - Clinical Findings Intake & Output: Intake & Output 04/23/17 04/24/17 04/24/17 23:59 07:59 15:59 Intake Total 661 / 661 895 / 895 344 / 344 Output Total 1999 / 1999 550 / 550 1200 / 1200 Balance -1339 / -1339 345 / 345 -856 / -856 Weight 79.7 kg - VTE Documentation of Mechanical Device: Intermittent pneumatic compression device Consult Discharge Plan - Plan Referrals: Farshad Lunsford MD [Primary Care Provider] - <Linda Ayon - Last Filed: 04/24/17 23:18> Date of Encounter: 04/24/17 Objective PUL Vital signs: Last Vital Signs Temp 100.6 F H 04/24/17 20:28 Pulse 98 04/24/17 21:00 Resp 16 04/24/17 21:29 BP 95/65 04/24/17 21:29 Pulse Ox 98 04/24/17 21:29 Ventilator Settings Ventilator Settings: Ventilator Settings, Last 8 Hours Ventilator Mode VC+ Ventilator Mode VC+ Ventilator Mode VC+ Ventilator Mode VC+ Ventilator Mode VC+ Ventilator Mode VC+ Ventilator Mode VC+ Ventilator Mode VC+ Ventilator Mode VC+ Ventilator Tidal Volume 520 Setting Ventilator Tidal Volume 520 Setting Ventilator Tidal Volume 520 Setting Ventilator Tidal Volume 520 Setting Ventilator Tidal Volume 520 Setting Ventilator Tidal Volume 520 Setting Ventilator Tidal Volume 520 Setting Ventilator Tidal Volume 520 Setting Ventilator Tidal Volume 520 Setting Ventilator Respiratory Rate 16 Setting Ventilator Respiratory Rate 16 Setting Ventilator Respiratory Rate 16 Setting Ventilator Respiratory Rate 16 Setting Ventilator Respiratory Rate 16 Setting Ventilator Respiratory Rate 16 Setting Ventilator Respiratory Rate 16 Setting Ventilator Respiratory Rate 16 Setting Ventilator Respiratory Rate 16 Setting Actual Respiratory Rate 16 Actual Respiratory Rate 16 Actual Respiratory Rate 16 Actual Respiratory Rate 20 Actual Respiratory Rate 16 Actual Respiratory Rate 21 Actual Respiratory Rate 16 Actual Respiratory Rate 36 Actual Respiratory Rate 27 Positive End Expiratory 5 Pressure Positive End Expiratory 5 Pressure Positive End Expiratory 5 Pressure Positive End Expiratory 5 Pressure Positive End Expiratory 5 Pressure Positive End Expiratory 5 Pressure Positive End Expiratory 5 Pressure Positive End Expiratory 5 Pressure Positive End Expiratory 5 Pressure Peak Inspiratory Airway 23 Pressure Peak Inspiratory Airway 23 Pressure Peak Inspiratory Airway 22 Pressure Peak Inspiratory Airway 25 Pressure Peak Inspiratory Airway 22 Pressure Peak Inspiratory Airway 22 Pressure Peak Inspiratory Airway 25 Pressure Peak Inspiratory Airway 24 Pressure Peak Inspiratory Airway 24 Pressure Results - Laboratory Findings CBC and BMP: 04/24/17 07:30 04/24/17 07:30 ABG ABG pH 7.46 pH Units (7.32-7.45) H 04/24/17 05:19 ABG pCO2 48 mmHg (35-45) H 04/24/17 05:19 ABG pO2 78 mmHg (85-104) L 04/24/17 05:19 ABG O2 Saturation 96 % (95-98) 04/24/17 05:19 PT/INR, D-dimer PT 12.0 Seconds (9.4-12.1) 04/24/17 11:10 Abnormal lab findings: Abnormal lab results WBC 17.5 K/mcL (4.3-11.1) H 04/24/17 07:30 RBC 3.55 M/mcL (4.19-5.50) L 04/24/17 07:30 Hgb 10.7 g/dL (12.9-16.9) L 04/24/17 07:30 Hct 33.5 % (37.5-50.1) L 04/24/17 07:30 RDW 15.6 % (11.5-14.5) H 04/24/17 07:30 Neutrophils # 15.6 K/mcL (1.6-8.9) H 04/24/17 07:30 Lymphocytes # 0.4 K/mcL (0.6-4.6) L 04/24/17 07:30 Nucleated RBCs/100 WBC 0.3 /100 WBC (0) H 04/24/17 07:30 APTT 23.7 Seconds (26.0-36.0) L 04/24/17 11:10 Heparin Anti-Xa, LM Wt 0.44 IU/mL (0.50-1.10) L 04/24/17 11:10 ABG pH 7.46 pH Units (7.32-7.45) H 04/24/17 05:19 ABG pCO2 48 mmHg (35-45) H 04/24/17 05:19 ABG pO2 78 mmHg (85-104) L 04/24/17 05:19 ABG HCO3 34 mEq/L (21-27) H 04/24/17 05:19 ABG Total CO2 35 mEq/L (20-26) H 04/24/17 05:19 ABG Base Excess 9 mEq/L (-2 to 3) H 04/24/17 05:19 VBG pO2 76 mmHg (25-50) H 04/22/17 03:59 VBG HCO3 29 mEq/L (21-27) H 04/22/17 03:59 Carbon Dioxide 31 mEq/L (19-29) H 04/24/17 07:30 BUN 43 mg/dL (8-26) H 04/24/17 07:30 BUN/Creatinine Ratio 38 (6-26) H 04/24/17 07:30 Glucose 167 mg/dL (70-99) H 04/24/17 07:30 POC Glucose 146 (58-89) H 04/24/17 17:38 Calculated Osmolality 315 (280-300) H 04/24/17 07:30 Calcium 8.3 mg/dL (8.6-10.8) L 04/24/17 07:30 Venous Ioniz Calcium 1.13 mmol/L (1.15-1.35) L 04/22/17 03:59 Troponin I 0.12 ng/mL (0-0.03) H* 04/21/17 07:01 B-Natriuretic Peptide 234 pg/mL (0-100) H 04/20/17 11:27 Serum Total Protein 5.1 g/dL (6.0-8.3) L 04/24/17 07:30 Albumin 3.2 g/dL (3.5-5.0) L 04/20/17 11:27 Globulin 3.6 g/dL (2.4-3.5) H 04/20/17 11:27 Albumin/Globulin Ratio 0.9 (1.1-2.2) L 04/20/17 11:27 Urine Glucose (UA) 250 mg/dL (Normal) H 04/20/17 17:33 Pleural Appearance Bloody (Clear) A 04/23/17 15:02 Pleural RBC 0.085 M/mcL (0.000-0.002) H 04/23/17 15:02 - Microbiology Findings Microbiology Findings: Microbiology, Last 48 Hours 04/23/17 14:45 Body Fluid Culture - Preliminary Pleural Fluid - Clinical Findings Intake & Output: Intake & Output 04/24/17 04/24/17 04/24/17 07:59 15:59 23:59 Intake Total 895 / 895 544 / 544 420 / 420 Output Total 550 / 550 1200 / 1200 1850 / 1850 Balance 345 / 345 -656 / -656 -1430 / -1430 Weight 79.7 kg - Attending Attestation I saw the patient with the resident agree with History and Physical exam findings. Labs and Radiology were reviewed Ventilator data were reviewed a [employer] APPRENTICE: Patient has episodic anxiety to continue precedex and fentanyl slowly wean from propofol NECK : No JVD appreciated Pulmonary : Patient is hypoxic and hypercarbic due to COPD exacerbation secondary pneumonia and right sided pleural effusion adjusted TV and RR , to improve lung mechanics thoracentesis was done when i did ultrasound of the chest i saw echogenic density in the fluid suspected hemorrhagic fluid , Thoracentesis showed hemorrhagic effusion concerning for malignancy . Lovenox was held yesterday thoracentesis was done after 12 hrs of stopping of Lovenox . Pleural fluid more exudative , cytology pending CXR repeat today morning shows good expansion of lungs with some residual pleural effusion also there is some loculated effusion , patient did 2 hrs of SBT then the RR went up and he looked exhausted , he should be totally ready to extubated because he cannot be extubated to BIPAP because he doesnt tolerate BIPAP . If he is failing SBT it reasonable consult IR for draining of some loculated pleural fluid . Cardiac : Patient has diastolic dysfunction with fluid overload will continue diuresing him Nutrition/GI: will continue trophic feeds .PPI prophylaxis Renal : Labs and UOP reviewed . Heme onc : All labs reviewed ID :Pneumonia will cover with broad spectrum antibiotics , blood cultures , urine cultures negative Endo: IV solumedrol Musculo skeletal / skin issues : No issues Disposition : Critically Ill Code status: Full Code Family/POA: , Daughter ,Son, Grand children Spent 32 minutes of critical care time in medical decision making in support of vital organs and prevention of further decline
[2017-04-24] MEDS ORDERED: Furosemide 40 MG/4 ML VIAL IVP ONE (13:00)
[2017-04-24] MEDS: Dexmedetomidine HCl 400 MCG/100 ML MLS IVC SCH (17:28)
[2017-04-24] MEDS: *HR* Enoxaparin 80 MG/0.8 ML SYRINGE SQ SCH (18:36)
[2017-04-25] MEDS: Piperacillin/Tazobactam 3.375 GM/200 ML BAG IVPB SCH ×4 (00:37→23:31)
[2017-04-25] MEDS: MethylPREDNISolone 40 MG/ML VIAL IVP SCH ×4 (00:38→23:31)
[2017-04-25] MEDS: Lacri-Lube 3.5 GM TUBE BOTH EYES SCH ×7 (00:38→23:32)
[2017-04-25] MEDS: Insulin LISPRO 300 UNITS/3 ML VIAL SQ SCH ×4 (00:39→17:55)
[2017-04-25] MEDS: Ipratropium/Albuterol Neb 3 ML IH SCH ×6 (03:45→23:24)
[2017-04-25 05:01] LABS: Hemoglobin 10.6 g/dL (12.9-16.9); Mean Corpuscular HGB Conc 31.2 g/dL (31.6-35.5); Mean Corpuscular Hemoglobin 29.7 pg (28.0-33.3); Mean Corpuscular Volume 95.2 fL (83.0-100.0); Mean Platelet Volume 10.5 fL (9.4-12.4); Neutrophils # 13.6 K/mcL (1.6-8.9); Nucleated Red Blood Cells 0.3 /100 WBC (0); Platelet Count 153 K/mcL (140-400); Red Blood Count 3.57 M/mcL (4.19-5.50); Red Cell Distribution Width 15.7 % (11.5-14.5)
[2017-04-25 05:09] LABS: ABG Base Excess 11 mEq/L (-2 to 3); ABG HCO3 37 mEq/L (21-27); ABG Oxygen Saturation 98 % (95-98); ABG PCO2 52 mmHg (35-45); ABG PH 7.46 pH Units (7.32-7.45); ABG PO2 97 mmHg (85-104); ABG TCO2 38 mEq/L (20-26); Blood Gas Modality PRVC; Blood Gas PEEP 5 cm H2O; Blood Gas Respiration Rate 16; Blood Gas VT 520 cc
[2017-04-25 05:16] LABS: BUN/Creatinine Ratio 45 (6-26); Blood Urea Nitrogen 50 mg/dL (8-26); Calcium 8.3 mg/dL (8.6-10.8); Carbon Dioxide 33 mEq/L (19-29); Chloride 104 mEq/L (98-109); Glucose 203 mg/dL (70-99); Osmolality,Calculated 325 (280-300); Potassium 3.3 mEq/L (3.5-4.5); Sodium 148 mEq/L (136-145); eGFR For African Americans > 60 (> 60); eGFR For Non-African Americans > 60 (> 60)
[2017-04-25 05:18] LABS: Lymphocytes # 1.9 K/mcL (0.6-4.6)
[2017-04-25 05:19] LABS: Platelet Estimate Normal (Normal)
[2017-04-25] MEDS: *HR* Enoxaparin 80 MG/0.8 ML SYRINGE SQ SCH ×2 (05:54→17:54)
[2017-04-25] MEDS ORDERED: Potassium Chloride Elixir 20 MEQ/15 ML UDC GTUBE ONE (07:14)
[2017-04-25] MEDS: Budesonide/Formoterol 160/4.5 MDI IH SCH ×2 (08:21→19:47)
[2017-04-25] MEDS: Levofloxacin 750 MG/150 ML 750 MG/150 ML BAG IVPB SCH (09:34)
[2017-04-25] MEDS: Chlorhexidine Rinse 15 ML MOUTHWASH MM SCH ×2 (09:34→21:51)
[2017-04-25] MEDS: Pantoprazole 40 MG VIAL IVPB SCH (09:35)
[2017-04-25] MEDS: Dexmedetomidine HCl 400 MCG/100 ML MLS IVC SCH (09:35)
[2017-04-25] MEDS: Sennosides/Docusate Sodium TABLET PO SCH ×2 (09:35→21:51)
--- NOTE | 2017-04-25 13:29 | Pulmonology Progress Note ---
<Emmie Helms - Last Filed: 04/25/17 13:27> Date of Encounter: 04/25/17 Time of Encounter: 10:00 Assessment and Plan (1) Acute and chronic respiratory failure with hypoxia Current Visit: No Status: Acute - Significant respiratory distress initially despite of being on BiPAP. - Patient was intubated in ED and started on mechanical ventilation support. - Likely secondary to pneumonia and AE COPD in the setting of poor respiratory status at baseline from history of LLL lobectomy and right lung radiation. - Continue empiric antibiotics for pneumonia. - Continue steroid, Symbicort and Duoneb for AE COPD. - Continue to monitor closely in ICU. -CPAP/SBT for 2 hours yesterday. -Drained over a liter of pleural effusion 04/23 during thoracentesis that was bloody. -Pleural Fluid exudative -FU PE culture. -Decrease diuresis to daily 2/2 ABG alkalosis -Continue to CPAP today/SBT- ideally with family at bedside to help with patient 's anxiety. Patient handling it much improved today. -Continue to wean sedation. -If patient's respiratory status not improving by Thursday, we will consult IR for drainage of loculations in right sided pleural effusion. (2) Diastolic CHF Current Visit: Yes Status: Chronic -Echo from 12/02/16 found LVEF 60% with mild LV diastolic dysfunction. - BNP 234 on 04/21/17 compared to 308 on 01/29/17. - Decrease lasix to daily from BID for alkalosis. Qualifiers: Congestive heart failure chronicity: chronic Qualified Code(s): I50.32 - Chronic diastolic (congestive) heart failure (3) Septic shock Current Visit: Yes Status: Acute - 3 SIRS criteria (tachycardia, tachypnea, leukocytosis) with lactic acid as high as 11.1 on initial presentation. Patient was also noted to have significant hypotension requiring Levophed. - Likely secondary to pneumonia. - Blood cultures pending. - UA does not indicate UTI. - Will obtain sputum culture if possible. - Resolved as tachycardia, tachypnea and leukocytosis normalized and patient had been weaned off from Levophed. - Continue hydration with IV fluid. - Continue IV Zosyn and levofloxacin. -DC Vancomycin on 04/23 today after 3 completed days. - Continue to monitor closely. (4) Pneumonia Current Visit: Yes Status: Acute - CXR found worsening airspace opacities in the bilateral lower lungs with enlarged right pleural effusion, concerning of pneumonia. - Will obtain sputum culture if possible. - Given patient's recent hospitalization in January 2017 and significant respiratory distress, Discontinue IV vancomycin today 04/23 (since 04/20) after 3 completed days, continue Zosyn (since 04/20) and levofloxacin (since 04/20). Further de-escalation based on clinical course and culture results. -Pleural Fluid exudative effusion -FU PE culture- prelim negative Qualifiers: Pneumonia type: due to unspecified organism Laterality: bilateral Lung location: lower lobe of lung Qualified Code(s): J18.9 - Pneumonia, unspecified organism (5) Acute exacerbation of chronic obstructive airways disease Current Visit: Yes Status: Acute -continue solu-medrol, symbicort, and scheduled duoneb. (6) Elevated troponin Current Visit: No Status: Acute - Elevated troponin at 0.13 in ED but remained adynamic (0.12, 0.13, 0.12) since. - No significant ischemic change on EKG. - Likely related to current hypoxic respiratory failure. 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 (8) Sick sinus syndrome Current Visit: No Status: Chronic - With pacemaker. (9) History of pulmonary embolus (PE) Current Visit: Yes Status: Chronic - On Eliquis at home. - Continue Lovenox SQ. Subjective Principal diagnosis: Acute on chronic respiratory failure Interval history: No acute events over night. Patient resting comfortably. Handling CPAP well with family at bedside. Becomes anxioius during cpap. Blood pressure stable. Oxygen saturation stable at 99%. Objective PUL Vital signs: Last Vital Signs Temp 97.7 F 04/25/17 11:26 Pulse 101 04/25/17 12:00 Resp 23 04/25/17 12:04 BP 138/87 04/25/17 12:04 Pulse Ox 99 04/25/17 12:04 General appearance: no acute distress, other (Intubated and sedated) ENT: oropharynx dry Neck: supple Auscultation: bilateral: clear, rales (mild bibasilar, improved lung expansion) Cardiovascular: regular rate and rhythm Gastrointestinal: normoactive bowel sounds, soft, non-distended Extremities: no cyanosis, edema (2+), anasarca Musculoskeletal: no deformities unable to assess due to mental status Ventilator Settings Ventilator Settings: Ventilator Settings, Last 8 Hours Ventilator Mode CPAP Ventilator Mode VC+ Ventilator Mode VC+ Ventilator Mode VC+ Ventilator Mode VC+ Ventilator Mode VC+ Ventilator Mode VC+ Ventilator Mode VC+ Ventilator Mode VC+ Ventilator Mode VC+ Ventilator Mode VC+ Ventilator Mode VC+ Ventilator Mode VC+ Ventilator Tidal Volume 450 Setting Ventilator Tidal Volume 450 Setting Ventilator Tidal Volume 450 Setting Ventilator Tidal Volume 450 Setting Ventilator Tidal Volume 450 Setting Ventilator Tidal Volume 450 Setting Ventilator Tidal Volume 450 Setting Ventilator Tidal Volume 520 Setting Ventilator Tidal Volume 520 Setting Ventilator Tidal Volume 520 Setting Ventilator Tidal Volume 520 Setting Ventilator Tidal Volume 520 Setting Ventilator Respiratory Rate 16 Setting Ventilator Respiratory Rate 16 Setting Ventilator Respiratory Rate 16 Setting Ventilator Respiratory Rate 16 Setting Ventilator Respiratory Rate 16 Setting Ventilator Respiratory Rate 16 Setting Ventilator Respiratory Rate 16 Setting Ventilator Respiratory Rate 16 Setting Ventilator Respiratory Rate 16 Setting Ventilator Respiratory Rate 16 Setting Actual Respiratory Rate 23 Actual Respiratory Rate 23 Actual Respiratory Rate 18 Actual Respiratory Rate 18 Actual Respiratory Rate 22 Actual Respiratory Rate 20 Actual Respiratory Rate 16 Actual Respiratory Rate 18 Actual Respiratory Rate 16 Actual Respiratory Rate 16 Actual Respiratory Rate 16 Actual Respiratory Rate 16 Positive End Expiratory 5 Pressure Positive End Expiratory 5 Pressure Positive End Expiratory 5 Pressure Positive End Expiratory 5 Pressure Positive End Expiratory 5 Pressure Positive End Expiratory 5 Pressure Positive End Expiratory 5 Pressure Positive End Expiratory 5 Pressure Positive End Expiratory 5 Pressure Positive End Expiratory 5 Pressure Positive End Expiratory 5 Pressure Positive End Expiratory 5 Pressure Peak Inspiratory Airway 11 Pressure Peak Inspiratory Airway 11 Pressure Peak Inspiratory Airway 19 Pressure Peak Inspiratory Airway 19 Pressure Peak Inspiratory Airway 14 Pressure Peak Inspiratory Airway 18 Pressure Peak Inspiratory Airway 20 Pressure Peak Inspiratory Airway 23 Pressure Peak Inspiratory Airway 23 Pressure Peak Inspiratory Airway 23 Pressure Peak Inspiratory Airway 23 Pressure Peak Inspiratory Airway 23 Pressure Results - Laboratory Findings CBC and BMP: 04/25/17 04:40 04/25/17 04:40 ABG ABG pH 7.46 pH Units (7.32-7.45) H 04/25/17 05:06 ABG pCO2 52 mmHg (35-45) H 04/25/17 05:06 ABG pO2 97 mmHg (85-104) 04/25/17 05:06 ABG O2 Saturation 98 % (95-98) 04/25/17 05:06 PT/INR, D-dimer PT 12.0 Seconds (9.4-12.1) 04/24/17 11:10 Abnormal lab findings: Abnormal lab results WBC 15.4 K/mcL (4.3-11.1) H 04/25/17 04:40 RBC 3.57 M/mcL (4.19-5.50) L 04/25/17 04:40 Hgb 10.6 g/dL (12.9-16.9) L 04/25/17 04:40 Hct 34.0 % (37.5-50.1) L 04/25/17 04:40 MCHC 31.2 g/dL (31.6-35.5) L 04/25/17 04:40 RDW 15.7 % (11.5-14.5) H 04/25/17 04:40 Neutrophils # 13.6 K/mcL (1.6-8.9) H 04/25/17 04:40 Nucleated RBCs/100 WBC 0.3 /100 WBC (0) H 04/25/17 04:40 APTT 23.7 Seconds (26.0-36.0) L 04/24/17 11:10 Heparin Anti-Xa, LM Wt 0.44 IU/mL (0.50-1.10) L 04/24/17 11:10 ABG pH 7.46 pH Units (7.32-7.45) H 04/25/17 05:06 ABG pCO2 52 mmHg (35-45) H 04/25/17 05:06 ABG HCO3 37 mEq/L (21-27) H 04/25/17 05:06 ABG Total CO2 38 mEq/L (20-26) H 04/25/17 05:06 ABG Base Excess 11 mEq/L (-2 to 3) H 04/25/17 05:06 VBG pO2 76 mmHg (25-50) H 04/22/17 03:59 VBG HCO3 29 mEq/L (21-27) H 04/22/17 03:59 Sodium 148 mEq/L (136-145) H 04/25/17 04:40 Potassium 3.3 mEq/L (3.5-4.5) L 04/25/17 04:40 Carbon Dioxide 33 mEq/L (19-29) H 04/25/17 04:40 BUN 50 mg/dL (8-26) H 04/25/17 04:40 BUN/Creatinine Ratio 45 (6-26) H 04/25/17 04:40 Glucose 203 mg/dL (70-99) H 04/25/17 04:40 POC Glucose 191 (58-89) H 04/25/17 11:04 Calculated Osmolality 325 (280-300) H 04/25/17 04:40 Calcium 8.3 mg/dL (8.6-10.8) L 04/25/17 04:40 Venous Ioniz Calcium 1.13 mmol/L (1.15-1.35) L 04/22/17 03:59 Troponin I 0.12 ng/mL (0-0.03) H* 04/21/17 07:01 B-Natriuretic Peptide 234 pg/mL (0-100) H 04/20/17 11:27 Serum Total Protein 5.1 g/dL (6.0-8.3) L 04/24/17 07:30 Albumin 3.2 g/dL (3.5-5.0) L 04/20/17 11:27 Globulin 3.6 g/dL (2.4-3.5) H 04/20/17 11:27 Albumin/Globulin Ratio 0.9 (1.1-2.2) L 04/20/17 11:27 Urine Glucose (UA) 250 mg/dL (Normal) H 04/20/17 17:33 Pleural Appearance Bloody (Clear) A 04/23/17 15:02 Pleural RBC 0.085 M/mcL (0.000-0.002) H 04/23/17 15:02 - Microbiology Findings Microbiology Findings: Microbiology, Last 48 Hours 04/23/17 14:45 Body Fluid Culture - Preliminary Pleural Fluid - Clinical Findings Intake & Output: Intake & Output 04/24/17 04/25/17 04/25/17 23:59 07:59 15:59 Intake Total 620 / 620 579 / 579 597 / 597 Output Total 1850 / 1850 1050 / 1050 250 / 250 Balance -1230 / -1230 -471 / -471 347 / 347 Weight 82.2 kg - VTE Documentation of Mechanical Device: Intermittent pneumatic compression device Consult Discharge Plan - Plan Referrals: Farshad Lunsford MD [Primary Care Provider] - <Linda Ayon - Last Filed: 04/26/17 01:04> Date of Encounter: 04/26/17 Objective PUL Vital signs: Last Vital Signs Temp 97.7 F 04/25/17 15:14 Pulse 110 04/25/17 18:00 Resp 31 04/25/17 18:00 BP 133/85 04/25/17 18:00 Pulse Ox 97 04/25/17 18:00 Ventilator Settings Ventilator Settings: Ventilator Settings, Last 8 Hours Ventilator Mode VC+ Ventilator Mode VC+ Ventilator Mode VC+ Ventilator Mode VC+ Ventilator Mode VC+ Ventilator Mode CPAP Ventilator Mode CPAP Ventilator Mode CPAP Ventilator Mode CPAP Ventilator Mode CPAP Ventilator Mode VC+ Ventilator Mode VC+ Ventilator Mode VC+ Ventilator Tidal Volume 450 Setting Ventilator Tidal Volume 450 Setting Ventilator Tidal Volume 450 Setting Ventilator Tidal Volume 450 Setting Ventilator Tidal Volume 450 Setting Ventilator Tidal Volume 450 Setting Ventilator Tidal Volume 450 Setting Ventilator Tidal Volume 450 Setting Ventilator Tidal Volume 450 Setting Ventilator Tidal Volume 450 Setting Ventilator Respiratory Rate 16 Setting Ventilator Respiratory Rate 16 Setting Ventilator Respiratory Rate 16 Setting Ventilator Respiratory Rate 16 Setting Ventilator Respiratory Rate 16 Setting Ventilator Respiratory Rate 16 Setting Ventilator Respiratory Rate 16 Setting Actual Respiratory Rate 31 Actual Respiratory Rate 20 Actual Respiratory Rate 22 Actual Respiratory Rate 16 Actual Respiratory Rate 16 Actual Respiratory Rate 17 Actual Respiratory Rate 28 Actual Respiratory Rate 24 Actual Respiratory Rate 23 Actual Respiratory Rate 23 Actual Respiratory Rate 18 Actual Respiratory Rate 18 Positive End Expiratory 5 Pressure Positive End Expiratory 5 Pressure Positive End Expiratory 5 Pressure Positive End Expiratory 5 Pressure Positive End Expiratory 5 Pressure Positive End Expiratory 5 Pressure Positive End Expiratory 5 Pressure Positive End Expiratory 5 Pressure Positive End Expiratory 5 Pressure Positive End Expiratory 5 Pressure Positive End Expiratory 5 Pressure Positive End Expiratory 5 Pressure Positive End Expiratory 5 Pressure Peak Inspiratory Airway 11 Pressure Peak Inspiratory Airway 11 Pressure Peak Inspiratory Airway 11 Pressure Peak Inspiratory Airway 28 Pressure Peak Inspiratory Airway 21 Pressure Peak Inspiratory Airway 11 Pressure Peak Inspiratory Airway 11 Pressure Peak Inspiratory Airway 11 Pressure Peak Inspiratory Airway 11 Pressure Peak Inspiratory Airway 11 Pressure Peak Inspiratory Airway 19 Pressure Peak Inspiratory Airway 19 Pressure Results - Laboratory Findings CBC and BMP: 04/25/17 04:40 04/25/17 04:40 ABG ABG pH 7.45 pH Units (7.32-7.45) 04/25/17 14:32 ABG pCO2 52 mmHg (35-45) H 04/25/17 14:32 ABG pO2 94 mmHg (85-104) 04/25/17 14:32 ABG O2 Saturation 98 % (95-98) 04/25/17 14:32 PT/INR, D-dimer PT 12.0 Seconds (9.4-12.1) 04/24/17 11:10 Abnormal lab findings: Abnormal lab results WBC 15.4 K/mcL (4.3-11.1) H 04/25/17 04:40 RBC 3.57 M/mcL (4.19-5.50) L 04/25/17 04:40 Hgb 10.6 g/dL (12.9-16.9) L 04/25/17 04:40 Hct 34.0 % (37.5-50.1) L 04/25/17 04:40 MCHC 31.2 g/dL (31.6-35.5) L 04/25/17 04:40 RDW 15.7 % (11.5-14.5) H 04/25/17 04:40 Neutrophils # 13.6 K/mcL (1.6-8.9) H 04/25/17 04:40 Nucleated RBCs/100 WBC 0.3 /100 WBC (0) H 04/25/17 04:40 APTT 23.7 Seconds (26.0-36.0) L 04/24/17 11:10 Heparin Anti-Xa, LM Wt 0.44 IU/mL (0.50-1.10) L 04/24/17 11:10 ABG pCO2 52 mmHg (35-45) H 04/25/17 14:32 ABG HCO3 36 mEq/L (21-27) H 04/25/17 14:32 ABG Total CO2 37 mEq/L (20-26) H 04/25/17 14:32 ABG Base Excess 10 mEq/L (-2 to 3) H 04/25/17 14:32 VBG pO2 76 mmHg (25-50) H 04/22/17 03:59 VBG HCO3 29 mEq/L (21-27) H 04/22/17 03:59 Sodium 148 mEq/L (136-145) H 04/25/17 04:40 Potassium 3.3 mEq/L (3.5-4.5) L 04/25/17 04:40 Carbon Dioxide 33 mEq/L (19-29) H 04/25/17 04:40 BUN 50 mg/dL (8-26) H 04/25/17 04:40 BUN/Creatinine Ratio 45 (6-26) H 04/25/17 04:40 Glucose 203 mg/dL (70-99) H 04/25/17 04:40 POC Glucose 156 (58-89) H 04/25/17 17:33 Calculated Osmolality 325 (280-300) H 04/25/17 04:40 Calcium 8.3 mg/dL (8.6-10.8) L 04/25/17 04:40 Venous Ioniz Calcium 1.13 mmol/L (1.15-1.35) L 04/22/17 03:59 Troponin I 0.12 ng/mL (0-0.03) H* 04/21/17 07:01 B-Natriuretic Peptide 234 pg/mL (0-100) H 04/20/17 11:27 Serum Total Protein 5.1 g/dL (6.0-8.3) L 04/24/17 07:30 Albumin 3.2 g/dL (3.5-5.0) L 04/20/17 11:27 Globulin 3.6 g/dL (2.4-3.5) H 04/20/17 11:27 Albumin/Globulin Ratio 0.9 (1.1-2.2) L 04/20/17 11:27 Urine Glucose (UA) 250 mg/dL (Normal) H 04/20/17 17:33 Pleural Appearance Bloody (Clear) A 04/23/17 15:02 Pleural RBC 0.085 M/mcL (0.000-0.002) H 04/23/17 15:02 - Microbiology Findings Microbiology Findings: Microbiology, Last 48 Hours 04/23/17 14:45 Body Fluid Culture - Preliminary Pleural Fluid - Clinical Findings Intake & Output: Intake & Output 04/25/17 04/25/17 04/25/17 07:59 15:59 23:59 Intake Total 579 / 579 1133 / 1133 Output Total 1050 / 1050 475 / 475 Balance -471 / -471 658 / 658 Weight 82.2 kg - Attending Attestation I saw the patient with the resident agree with History and Physical exam findings. Labs and Radiology were reviewed Ventilator data were reviewed adjusted Tidal volume for lung protective strategy [employer]DER: Patient has episodic anxiety to continue precedex and fentanyl slowly wean from propofol, will add seroquel after checking the QT interval NECK : No JVD appreciated Pulmonary : Patient is hypoxic and hypercarbic due to COPD exacerbation secondary pneumonia and right sided pleural effusion adjusted TV and RR , to improve lung mechanics thoracentesis was done when i did ultrasound of the chest i saw echogenic density in the fluid suspected hemorrhagic fluid , Thoracentesis showed hemorrhagic effusion concerning for malignancy . Lovenox was held yesterday thoracentesis was done after 12 hrs of stopping of Lovenox . Pleural fluid more exudative , cytology pending CXR repeat today morning shows good expansion of lungs with some residual pleural effusion also there is some loculated effusion , patient did 3hrs of SBT then the RR went up and he looked exhausted , he should be totally ready to extubated because he cannot be extubated to BIPAP because he doesnt tolerate BIPAP . If he is failing SBT it reasonable to consult IR for draining of some loculated pleural fluid . will get CT chest without contrast Cardiac : Patient has diastolic dysfunction with fluid overload will continue diuresing him Nutrition/GI: will continue trophic feeds .PPI prophylaxis Renal : Labs and UOP reviewed . Heme onc : All labs reviewed ID :Pneumonia will cover with broad spectrum antibiotics , blood cultures , urine cultures negative Endo: IV solumedrol Musculo skeletal / skin issues : No issues Disposition : Critically Ill Code status: Full Code Family/POA: , Daughter ,Son, Grand children Spent 40 minutes of critical time in medical decision making to support vital organ function and to prevent further decline .
[2017-04-25 14:36] LABS: ABG Base Excess 10 mEq/L (-2 to 3); ABG HCO3 36 mEq/L (21-27); ABG Oxygen Saturation 98 % (95-98); ABG PCO2 52 mmHg (35-45); ABG PH 7.45 pH Units (7.32-7.45); ABG PO2 94 mmHg (85-104); ABG TCO2 37 mEq/L (20-26); Blood Gas Modality CPAP/PS; Blood Gas PEEP 5 cm H2O; Blood Gas Pressure Support 5 cm H2O
[2017-04-25] MEDS: FentaNYL (PF) 1,000 MCG in 0.9 % Sodium Chloride 80 ML IVC SCH (19:00)
[2017-04-26] MEDS: Insulin LISPRO 300 UNITS/3 ML VIAL SQ SCH ×5 (00:14→23:53)
[2017-04-26 03:37] LABS: Hematocrit 37.2 % (37.5-50.1); Hemoglobin 11.3 g/dL (12.9-16.9); Mean Corpuscular HGB Conc 30.4 g/dL (31.6-35.5); Mean Corpuscular Hemoglobin 29.7 pg (28.0-33.3); Mean Corpuscular Volume 97.6 fL (83.0-100.0); Nucleated Red Blood Cells 0.6 /100 WBC (0); Platelet Count 139 K/mcL (140-400); Red Blood Count 3.81 M/mcL (4.19-5.50); Red Cell Distribution Width 15.9 % (11.5-14.5)
[2017-04-26] MEDS: Ipratropium/Albuterol Neb 3 ML IH SCH ×6 (03:40→23:32)
[2017-04-26 03:49] LABS: BUN/Creatinine Ratio 61 (6-26); Blood Urea Nitrogen 54 mg/dL (8-26); Calcium 8.3 mg/dL (8.6-10.8); Carbon Dioxide 35 mEq/L (19-29); Chloride 109 mEq/L (98-109); Glucose 198 mg/dL (70-99); Osmolality,Calculated 332 (280-300); Potassium 4.2 mEq/L (3.5-4.5); Sodium 151 mEq/L (136-145); eGFR For African Americans > 60 (> 60); eGFR For Non-African Americans > 60 (> 60)
[2017-04-26 04:13] LABS: Basophilic Stippling 1+ (Not Present); Lymphocytes # 1.2 K/mcL (0.6-4.6); Monocytes # 0.4 K/mcL (0.0-1.3); Neutrophils # 18.2 K/mcL (1.6-8.9); Platelet Estimate Normal (Normal); Polychromasia 1+ (Not Present)
[2017-04-26 05:03] LABS: ABG Base Excess 12 mEq/L (-2 to 3); ABG HCO3 37 mEq/L (21-27); ABG Oxygen Saturation 98 % (95-98); ABG PCO2 48 mmHg (35-45); ABG PH 7.49 pH Units (7.32-7.45); ABG PO2 101 mmHg (85-104); ABG TCO2 38 mEq/L (20-26); Blood Gas Modality PRVC; Blood Gas PEEP 5 cm H2O; Blood Gas Respiration Rate 16; Blood Gas VT 450 cc
[2017-04-26] MEDS: Lacri-Lube 3.5 GM TUBE BOTH EYES SCH ×6 (05:15→23:53)
[2017-04-26] MEDS: *HR* Enoxaparin 80 MG/0.8 ML SYRINGE SQ SCH ×2 (05:15→18:02)
--- NOTE | 2017-04-26 07:32 | Pulmonology Progress Note ---
<Emmie Helms - Last Filed: 04/26/17 12:18> Date of Encounter: 04/26/17 Time of Encounter: 07:29 Assessment and Plan (1) Acute and chronic respiratory failure with hypoxia Current Visit: No Status: Acute - Significant respiratory distress initially despite of being on BiPAP. - Patient was intubated in ED and started on mechanical ventilation support. - Likely secondary to pneumonia and AE COPD in the setting of poor respiratory status at baseline from history of LLL lobectomy and right lung radiation. - Continue empiric antibiotics for pneumonia. - Continue steroid, Symbicort and Duoneb for AE COPD. - Continue to monitor closely in ICU. -CPAP/SBT for 3 hours yesterday. -Drained over a liter of pleural effusion 04/23 during thoracentesis that was bloody. -Pleural Fluid exudative -FU PE culture NGTD. -Decreased diuresis to daily 2/2 ABG alkalosis -Continue to CPAP today/SBT- ideally with family at bedside to help with patient 's anxiety. Patient handling it much improved today. -Continue to wean sedation. -CT chest without contrast on 04/26-bilateral pleural effusions, increased from pior study. Mass like consolidation in right lower lobe has increased likely due to adjacent atelectasis. -If patient's respiratory status not improving by Thursday, we will consult IR tomorrow for drainage of loculations in right sided pleural effusion and IR guided thoracentesis with CT placement. - (2) Diastolic CHF Current Visit: Yes Status: Chronic -Echo from 12/02/16 found LVEF 60% with mild LV diastolic dysfunction. - BNP 234 on 04/21/17 compared to 308 on 01/29/17. - Decrease lasix to daily from BID for alkalosis. Qualifiers: Congestive heart failure chronicity: chronic Qualified Code(s): I50.32 - Chronic diastolic (congestive) heart failure (3) Septic shock Current Visit: Yes Status: Acute - 3 SIRS criteria (tachycardia, tachypnea, leukocytosis) with lactic acid as high as 11.1 on initial presentation. Patient was also noted to have significant hypotension requiring Levophed. - Likely secondary to pneumonia. - Blood cultures Negative. - UA does not indicate UTI. - Will obtain sputum culture if possible. - Resolved as tachycardia, tachypnea and leukocytosis normalized and patient had been weaned off from Levophed. - Continue hydration with IV fluid. - Continue IV Zosyn and levofloxacin. -DC Vancomycin on 04/23 today after 3 completed days. - Continue to monitor closely. (4) Pneumonia Current Visit: Yes Status: Acute -CXR found worsening airspace opacities in the bilateral lower lungs with enlarged right pleural effusion, concerning of pneumonia. -Will obtain sputum culture if possible. -Given patient's recent hospitalization in January 2017 and significant respiratory distress, Discontinue IV vancomycin 04/23 (since 04/20) after 3 completed days, continue Zosyn (since 04/20) and levofloxacin (since 04/20). Further de-escalation based on clinical course and culture results. -Pleural Fluid exudative effusion -FU PE culture- prelim negative Qualifiers: Pneumonia type: due to unspecified organism Laterality: bilateral Lung location: lower lobe of lung Qualified Code(s): J18.9 - Pneumonia, unspecified organism (5) Acute exacerbation of chronic obstructive airways disease Current Visit: Yes Status: Acute -continue solu-medrol, symbicort, and scheduled duoneb. (6) Elevated troponin Current Visit: No Status: Acute - Elevated troponin at 0.13 in ED but remained adynamic (0.12, 0.13, 0.12) since. - No significant ischemic change on EKG. - Likely related to current hypoxic respiratory failure. 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 (8) Sick sinus syndrome Current Visit: No Status: Chronic - With pacemaker. (9) History of pulmonary embolus (PE) Current Visit: Yes Status: Chronic - On Eliquis at home. - Continue Lovenox SQ. Subjective Principal diagnosis: Acute on chronic respiratory failure Interval history: No acute events over night. Per nurse, patient becomes anxious during cpap if he knows he is on cpap. He does fine if he thinks he is still on mechanical ventilation. Patients vitals are stable. Good urinary output. Receiving tube feeds. Objective PUL Vital signs: Last Vital Signs Temp 98.5 F 04/26/17 05:13 Pulse 99 04/26/17 06:00 Resp 18 04/26/17 06:00 BP 127/79 04/26/17 06:00 Pulse Ox 97 04/26/17 06:00 General appearance: comatose (sedated and intubated) Eyes: nonicteric ENT: oropharynx moist Neck: supple Effort: normal Auscultation: left: diminished breath sounds (basilar), right: rales Cardiovascular: regular rate and rhythm Gastrointestinal: normoactive bowel sounds, soft, non-distended Integumentary: normal Extremities: edema, anasarca unable to assess due to mental status Ventilator Settings Ventilator Settings: Ventilator Settings, Last 8 Hours Ventilator Mode VC+ Ventilator Mode VC+ Ventilator Mode VC+ Ventilator Mode VC+ Ventilator Mode VC+ Ventilator Mode VC+ Ventilator Mode VC+ Ventilator Mode VC+ Ventilator Mode VC+ Ventilator Mode VC+ Ventilator Mode VC+ Ventilator Tidal Volume 450 Setting Ventilator Tidal Volume 450 Setting Ventilator Tidal Volume 450 Setting Ventilator Tidal Volume 450 Setting Ventilator Tidal Volume 450 Setting Ventilator Tidal Volume 450 Setting Ventilator Tidal Volume 450 Setting Ventilator Tidal Volume 450 Setting Ventilator Tidal Volume 450 Setting Ventilator Tidal Volume 450 Setting Ventilator Tidal Volume 450 Setting Ventilator Respiratory Rate 16 Setting Ventilator Respiratory Rate 16 Setting Ventilator Respiratory Rate 16 Setting Ventilator Respiratory Rate 16 Setting Ventilator Respiratory Rate 16 Setting Ventilator Respiratory Rate 16 Setting Ventilator Respiratory Rate 16 Setting Ventilator Respiratory Rate 16 Setting Ventilator Respiratory Rate 16 Setting Ventilator Respiratory Rate 16 Setting Ventilator Respiratory Rate 16 Setting Actual Respiratory Rate 18 Actual Respiratory Rate 21 Actual Respiratory Rate 22 Actual Respiratory Rate 21 Actual Respiratory Rate 18 Actual Respiratory Rate 19 Actual Respiratory Rate 19 Actual Respiratory Rate 19 Actual Respiratory Rate 17 Actual Respiratory Rate 17 Positive End Expiratory 5 Pressure Positive End Expiratory 5 Pressure Positive End Expiratory 5 Pressure Positive End Expiratory 5 Pressure Positive End Expiratory 5 Pressure Positive End Expiratory 5 Pressure Positive End Expiratory 5 Pressure Positive End Expiratory 5 Pressure Positive End Expiratory 5 Pressure Positive End Expiratory 5 Pressure Positive End Expiratory 5 Pressure Peak Inspiratory Airway 21 Pressure Peak Inspiratory Airway 21 Pressure Peak Inspiratory Airway 21 Pressure Peak Inspiratory Airway 21 Pressure Peak Inspiratory Airway 20 Pressure Peak Inspiratory Airway 21 Pressure Peak Inspiratory Airway 21 Pressure Peak Inspiratory Airway 23 Pressure Peak Inspiratory Airway 20 Pressure Peak Inspiratory Airway 19 Pressure Results - Laboratory Findings CBC and BMP: 04/26/17 03:30 04/26/17 03:30 ABG ABG pH 7.49 pH Units (7.32-7.45) H 04/26/17 04:58 ABG pCO2 48 mmHg (35-45) H 04/26/17 04:58 ABG pO2 101 mmHg (85-104) 04/26/17 04:58 ABG O2 Saturation 98 % (95-98) 04/26/17 04:58 PT/INR, D-dimer PT 12.0 Seconds (9.4-12.1) 04/24/17 11:10 Abnormal lab findings: Abnormal lab results WBC 19.8 K/mcL (4.3-11.1) H 04/26/17 03:30 RBC 3.81 M/mcL (4.19-5.50) L 04/26/17 03:30 Hgb 11.3 g/dL (12.9-16.9) L 04/26/17 03:30 Hct 37.2 % (37.5-50.1) L 04/26/17 03:30 MCHC 30.4 g/dL (31.6-35.5) L 04/26/17 03:30 RDW 15.9 % (11.5-14.5) H 04/26/17 03:30 Plt Count 139 K/mcL (140-400) L 04/26/17 03:30 Neutrophils # 18.2 K/mcL (1.6-8.9) H 04/26/17 03:30 Nucleated RBCs/100 WBC 0.6 /100 WBC (0) H 04/26/17 03:30 Polychromasia 1+ (Not Present) A 04/26/17 03:30 Basophilic Stippling 1+ (Not Present) A 04/26/17 03:30 APTT 23.7 Seconds (26.0-36.0) L 04/24/17 11:10 Heparin Anti-Xa, LM Wt 0.44 IU/mL (0.50-1.10) L 04/24/17 11:10 ABG pH 7.49 pH Units (7.32-7.45) H 04/26/17 04:58 ABG pCO2 48 mmHg (35-45) H 04/26/17 04:58 ABG HCO3 37 mEq/L (21-27) H 04/26/17 04:58 ABG Total CO2 38 mEq/L (20-26) H 04/26/17 04:58 ABG Base Excess 12 mEq/L (-2 to 3) H 04/26/17 04:58 VBG pO2 76 mmHg (25-50) H 04/22/17 03:59 VBG HCO3 29 mEq/L (21-27) H 04/22/17 03:59 Sodium 151 mEq/L (136-145) H 04/26/17 03:30 Carbon Dioxide 35 mEq/L (19-29) H 04/26/17 03:30 BUN 54 mg/dL (8-26) H 04/26/17 03:30 BUN/Creatinine Ratio 61 (6-26) H 04/26/17 03:30 Glucose 198 mg/dL (70-99) H 04/26/17 03:30 POC Glucose 236 (58-89) H 04/25/17 23:50 Calculated Osmolality 332 (280-300) H 04/26/17 03:30 Calcium 8.3 mg/dL (8.6-10.8) L 04/26/17 03:30 Venous Ioniz Calcium 1.13 mmol/L (1.15-1.35) L 04/22/17 03:59 Troponin I 0.12 ng/mL (0-0.03) H* 04/21/17 07:01 B-Natriuretic Peptide 234 pg/mL (0-100) H 04/20/17 11:27 Serum Total Protein 5.1 g/dL (6.0-8.3) L 04/24/17 07:30 Albumin 3.2 g/dL (3.5-5.0) L 04/20/17 11:27 Globulin 3.6 g/dL (2.4-3.5) H 04/20/17 11:27 Albumin/Globulin Ratio 0.9 (1.1-2.2) L 04/20/17 11:27 Urine Glucose (UA) 250 mg/dL (Normal) H 04/20/17 17:33 Pleural Appearance Bloody (Clear) A 04/23/17 15:02 Pleural RBC 0.085 M/mcL (0.000-0.002) H 04/23/17 15:02 - Microbiology Findings Microbiology Findings: Microbiology, Last 48 Hours 04/23/17 14:45 Body Fluid Culture - Preliminary Pleural Fluid - Clinical Findings Intake & Output: Intake & Output 04/25/17 04/25/17 04/26/17 15:59 23:59 07:59 Intake Total 1133 / 1133 731 / 731 389 / 389 Output Total 475 / 475 200 / 200 550 / 550 Balance 658 / 658 531 / 531 -161 / -161 Weight 80.8 kg - VTE Documentation of Mechanical Device: Intermittent pneumatic compression device Consult Discharge Plan - Plan Referrals: Farshad Lunsford MD [Primary Care Provider] - <Linda Ayon - Last Filed: 04/26/17 22:17> Date of Encounter: 04/26/17 Objective PUL Vital signs: Last Vital Signs Temp 98.1 F 04/26/17 15:48 Pulse 102 04/26/17 18:00 Resp 12 04/26/17 18:00 BP 117/78 04/26/17 18:00 Pulse Ox 98 04/26/17 18:00 Ventilator Settings Ventilator Settings: Ventilator Settings, Last 8 Hours Ventilator Mode CPAP Ventilator Mode CPAP Ventilator Mode CPAP Actual Respiratory Rate 12 Actual Respiratory Rate 13 Actual Respiratory Rate 14 Actual Respiratory Rate 12 Actual Respiratory Rate 13 Actual Respiratory Rate 18 Actual Respiratory Rate 15 Actual Respiratory Rate 18 Actual Respiratory Rate 10 Actual Respiratory Rate 10 Positive End Expiratory 5 Pressure Positive End Expiratory 5 Pressure Positive End Expiratory 5 Pressure Positive End Expiratory 5 Pressure Positive End Expiratory 5 Pressure Positive End Expiratory 5 Pressure Positive End Expiratory 5 Pressure Positive End Expiratory 5 Pressure Positive End Expiratory 5 Pressure Positive End Expiratory 5 Pressure Peak Inspiratory Airway 14 Pressure Peak Inspiratory Airway 14 Pressure Peak Inspiratory Airway 14 Pressure Peak Inspiratory Airway 14 Pressure Results - Laboratory Findings CBC and BMP: 04/26/17 03:30 04/26/17 03:30 ABG ABG pH 7.49 pH Units (7.32-7.45) H 04/26/17 04:58 ABG pCO2 48 mmHg (35-45) H 04/26/17 04:58 ABG pO2 101 mmHg (85-104) 04/26/17 04:58 ABG O2 Saturation 98 % (95-98) 04/26/17 04:58 PT/INR, D-dimer PT 12.0 Seconds (9.4-12.1) 04/24/17 11:10 Abnormal lab findings: Abnormal lab results WBC 19.8 K/mcL (4.3-11.1) H 04/26/17 03:30 RBC 3.81 M/mcL (4.19-5.50) L 04/26/17 03:30 Hgb 11.3 g/dL (12.9-16.9) L 04/26/17 03:30 Hct 37.2 % (37.5-50.1) L 04/26/17 03:30 MCHC 30.4 g/dL (31.6-35.5) L 04/26/17 03:30 RDW 15.9 % (11.5-14.5) H 04/26/17 03:30 Plt Count 139 K/mcL (140-400) L 04/26/17 03:30 Neutrophils # 18.2 K/mcL (1.6-8.9) H 04/26/17 03:30 Nucleated RBCs/100 WBC 0.6 /100 WBC (0) H 04/26/17 03:30 Polychromasia 1+ (Not Present) A 04/26/17 03:30 Basophilic Stippling 1+ (Not Present) A 04/26/17 03:30 APTT 23.7 Seconds (26.0-36.0) L 04/24/17 11:10 Heparin Anti-Xa, LM Wt 0.44 IU/mL (0.50-1.10) L 04/24/17 11:10 ABG pH 7.49 pH Units (7.32-7.45) H 04/26/17 04:58 ABG pCO2 48 mmHg (35-45) H 04/26/17 04:58 ABG HCO3 37 mEq/L (21-27) H 04/26/17 04:58 ABG Total CO2 38 mEq/L (20-26) H 04/26/17 04:58 ABG Base Excess 12 mEq/L (-2 to 3) H 04/26/17 04:58 VBG pO2 76 mmHg (25-50) H 04/22/17 03:59 VBG HCO3 29 mEq/L (21-27) H 04/22/17 03:59 Sodium 151 mEq/L (136-145) H 04/26/17 03:30 Carbon Dioxide 35 mEq/L (19-29) H 04/26/17 03:30 BUN 54 mg/dL (8-26) H 04/26/17 03:30 BUN/Creatinine Ratio 61 (6-26) H 04/26/17 03:30 Glucose 198 mg/dL (70-99) H 04/26/17 03:30 POC Glucose 204 (58-89) H 04/26/17 18:22 Calculated Osmolality 332 (280-300) H 04/26/17 03:30 Calcium 8.3 mg/dL (8.6-10.8) L 04/26/17 03:30 Venous Ioniz Calcium 1.13 mmol/L (1.15-1.35) L 04/22/17 03:59 Troponin I 0.12 ng/mL (0-0.03) H* 04/21/17 07:01 B-Natriuretic Peptide 234 pg/mL (0-100) H 04/20/17 11:27 Serum Total Protein 5.1 g/dL (6.0-8.3) L 04/24/17 07:30 Albumin 3.2 g/dL (3.5-5.0) L 04/20/17 11:27 Globulin 3.6 g/dL (2.4-3.5) H 04/20/17 11:27 Albumin/Globulin Ratio 0.9 (1.1-2.2) L 04/20/17 11:27 Urine Glucose (UA) 250 mg/dL (Normal) H 04/20/17 17:33 Pleural Appearance Bloody (Clear) A 04/23/17 15:02 Pleural RBC 0.085 M/mcL (0.000-0.002) H 04/23/17 15:02 - Microbiology Findings Microbiology Findings: Microbiology, Last 48 Hours 04/23/17 14:45 Body Fluid Culture - Final Pleural Fluid - Clinical Findings Intake & Output: Intake & Output 04/26/17 04/26/17 04/26/17 07:59 15:59 23:59 Intake Total 589 / 589 660 / 660 100 / 100 Output Total 675 / 675 1200 / 1200 Balance -86 / -86 -540 / -540 100 / 100 Weight 80.8 kg - Attending Attestation I saw the patient with the resident agree with History and Physical exam findings. Labs and Radiology were reviewed Ventilator data were reviewed adjusted Tidal volume for lung protective strategy and adjusted for metabolic alkalosis APPLICATION HELPER: Patient has episodic anxiety to continue precedex and fentanyl slowly wean from propofol, added seroquel , anxiety is a huge issue extubating the sedation. NECK : No JVD appreciated Pulmonary : Patient is hypoxic and hypercarbic due to COPD exacerbation secondary pneumonia and right sided pleural effusion adjusted TV and RR , to improve lung mechanics thoracentesis was done when i did ultrasound of the chest i saw echogenic density in the fluid suspected hemorrhagic fluid , Thoracentesis showed hemorrhagic effusion concerning for malignancy . Lovenox was held yesterday thoracentesis was done after 12 hrs of stopping of Lovenox . Pleural fluid more exudative , cytology pending CXR repeat today morning shows good expansion of lungs with some residual pleural effusion also there is some loculated effusion , patient did 3hrs of SBT then the RR went up and he looked exhausted , he should be totally ready to extubated because he cannot be extubated to BIPAP because he doesnt tolerate BIPAP . If he is failing SBT it reasonable to consult IR for draining of some loculated pleural fluid . Got CT chest w/o contrast which showed moderate pleural effusion with RLL consolidative opacity . Will need to follow pleural fluid cytology Cardiac : Patient has diastolic dysfunction with fluid overload will hold diuresis now alkalosis and hypernatremia Nutrition/GI: will continue trophic feeds .PPI prophylaxis Renal : Labs and UOP reviewed .Hypernatermia started to give some free water , Heme onc : All labs reviewed ID :Pneumonia will cover with broad spectrum antibiotics , blood cultures , urine cultures negative , pleural fluid culture was negative Endo: IV solumedrol Musculo skeletal / skin issues : No issues Disposition : Critically Ill Code status: Full Code Family/POA: , Daughter ,Son, Grand children Spent 35 minutes of Critical care time in medical decision making in preventing further vital organ decline and support vital organ function .
[2017-04-26] MEDS: FentaNYL (PF) 1,000 MCG in 0.9 % Sodium Chloride 80 ML IVC SCH ×2 (08:35→23:30)
[2017-04-26] MEDS: MethylPREDNISolone 40 MG/ML VIAL IVP SCH ×3 (09:01→23:53)
[2017-04-26] MEDS: Chlorhexidine Rinse 15 ML MOUTHWASH MM SCH ×2 (09:02→20:46)
[2017-04-26] MEDS: Pantoprazole 40 MG VIAL IVPB SCH (09:02)
[2017-04-26] MEDS: Levofloxacin 750 MG/150 ML 750 MG/150 ML BAG IVPB SCH (09:02)
[2017-04-26] MEDS: Sennosides/Docusate Sodium TABLET PO SCH ×2 (09:02→20:46)
[2017-04-26] MEDS: Furosemide 40 MG/4 ML VIAL IVP SCH (09:02)
[2017-04-26] MEDS: Piperacillin/Tazobactam 3.375 GM/200 ML BAG IVPB SCH ×3 (09:03→23:53)
[2017-04-26] MEDS: Budesonide/Formoterol 160/4.5 MDI IH SCH ×2 (11:14→19:46)
[2017-04-26] MEDS: Dexmedetomidine HCl 400 MCG/100 ML MLS IVC SCH ×2 (12:00→23:08)
[2017-04-27] MEDS: Ipratropium/Albuterol Neb 3 ML IH SCH ×5 (03:34→20:01)
[2017-04-27 03:57] LABS: VBG HCO3 38 mEq/L (21-27); VBG PCO2 60 mmHg (41-51); VBG PH 7.41 pH Units (7.32-7.42); VBG PO2 120 mmHg (25-50)
[2017-04-27 03:58] LABS: Mean Corpuscular HGB Conc 29.7 g/dL (31.6-35.5); Mean Corpuscular Hemoglobin 29.4 pg (28.0-33.3); Mean Corpuscular Volume 98.9 fL (83.0-100.0); Mean Platelet Volume 11.1 fL (9.4-12.4); Nucleated Red Blood Cells 0.6 /100 WBC (0); Platelet Count 118 K/mcL (140-400); Red Blood Count 3.74 M/mcL (4.19-5.50); Red Cell Distribution Width 15.9 % (11.5-14.5)
[2017-04-27 04:04] LABS: VBG Ionized Calcium 1.15 mmol/L (1.15-1.35); VBG PH 7.46 pH Units (7.32-7.42)
[2017-04-27 04:12] LABS: BUN/Creatinine Ratio 60 (6-26); Blood Urea Nitrogen 63 mg/dL (8-26); Calcium 8.7 mg/dL (8.6-10.8); Chloride 111 mEq/L (98-109); Glucose 187 mg/dL (70-99); Lymphocytes # 1.5 K/mcL (0.6-4.6); Magnesium 2.8 mg/dL (1.6-2.6); Monocytes # 0.7 K/mcL (0.0-1.3); Neutrophils # 15.6 K/mcL (1.6-8.9); Osmolality,Calculated 341 (280-300); Phosphorous 3.6 mg/dL (2.3-4.7); Potassium 4.9 mEq/L (3.5-4.5); Sodium 154 mEq/L (136-145); eGFR For African Americans > 60 (> 60); eGFR For Non-African Americans > 60 (> 60)
[2017-04-27 04:13] LABS: Platelet Estimate Decreased (Normal)
[2017-04-27 04:16] LABS: Carbon Dioxide 41 mEq/L (19-29)
[2017-04-27] MEDS: Lacri-Lube 3.5 GM TUBE BOTH EYES SCH ×6 (04:17→23:28)
[2017-04-27] MEDS: *HR* Enoxaparin 80 MG/0.8 ML SYRINGE SQ SCH (05:21)
[2017-04-27] MEDS: Insulin LISPRO 300 UNITS/3 ML VIAL SQ SCH ×4 (05:23→23:28)
[2017-04-27 05:45] LABS: ABG Base Excess 13 mEq/L (-2 to 3); ABG HCO3 39 mEq/L (21-27); ABG Oxygen Saturation 98 % (95-98); ABG PCO2 57 mmHg (35-45); ABG PH 7.45 pH Units (7.32-7.45); ABG PO2 105 mmHg (85-104); ABG TCO2 41 mEq/L (20-26); Blood Gas Modality PRVC; Blood Gas PEEP 5 cm H2O; Blood Gas Respiration Rate 16; Blood Gas VT 400 cc
--- NOTE | 2017-04-27 07:11 | Pulmonology Progress Note ---
<NancySalvador W - Last Filed: 04/27/17 10:42> Date of Encounter: 04/27/17 Objective PUL Vital signs: Last Vital Signs Temp 99.2 F 04/27/17 07:31 Pulse 105 04/27/17 10:00 Resp 15 04/27/17 10:00 BP 93/67 04/27/17 10:00 Pulse Ox 99 04/27/17 10:00 Ventilator Settings Ventilator Settings: Ventilator Settings, Last 8 Hours Ventilator Mode VC+ Ventilator Mode CPAP Ventilator Mode CPAP Ventilator Mode VC+ Ventilator Mode VC+ Ventilator Mode VC+ Ventilator Mode VC+ Ventilator Mode VC+ Ventilator Mode VC+ Ventilator Mode VC+ Ventilator Tidal Volume 400 Setting Ventilator Tidal Volume 400 Setting Ventilator Tidal Volume 400 Setting Ventilator Tidal Volume 400 Setting Ventilator Tidal Volume 400 Setting Ventilator Tidal Volume 400 Setting Ventilator Tidal Volume 400 Setting Ventilator Tidal Volume 400 Setting Ventilator Respiratory Rate 16 Setting Ventilator Respiratory Rate 16 Setting Ventilator Respiratory Rate 16 Setting Ventilator Respiratory Rate 16 Setting Ventilator Respiratory Rate 16 Setting Ventilator Respiratory Rate 16 Setting Ventilator Respiratory Rate 16 Setting Ventilator Respiratory Rate 16 Setting Actual Respiratory Rate 15 Actual Respiratory Rate 18 Actual Respiratory Rate 14 Actual Respiratory Rate 14 Actual Respiratory Rate 18 Actual Respiratory Rate 14 Actual Respiratory Rate 19 Actual Respiratory Rate 18 Actual Respiratory Rate 17 Actual Respiratory Rate 18 Actual Respiratory Rate 16 Actual Respiratory Rate 17 Positive End Expiratory 5 Pressure Positive End Expiratory 5 Pressure Positive End Expiratory 5 Pressure Positive End Expiratory 5 Pressure Positive End Expiratory 5 Pressure Positive End Expiratory 5 Pressure Positive End Expiratory 5 Pressure Positive End Expiratory 5 Pressure Positive End Expiratory 5 Pressure Positive End Expiratory 5 Pressure Positive End Expiratory 5 Pressure Positive End Expiratory 5 Pressure Peak Inspiratory Airway 12 Pressure Peak Inspiratory Airway 14 Pressure Peak Inspiratory Airway 14 Pressure Peak Inspiratory Airway 14 Pressure Peak Inspiratory Airway 17 Pressure Peak Inspiratory Airway 10 Pressure Peak Inspiratory Airway 11 Pressure Peak Inspiratory Airway 14 Pressure Peak Inspiratory Airway 12 Pressure Peak Inspiratory Airway 14 Pressure Results - Laboratory Findings CBC and BMP: 04/27/17 03:42 04/27/17 03:42 ABG ABG pH 7.45 pH Units (7.32-7.45) 04/27/17 05:41 ABG pCO2 57 mmHg (35-45) H 04/27/17 05:41 ABG pO2 105 mmHg (85-104) H 04/27/17 05:41 ABG O2 Saturation 98 % (95-98) 04/27/17 05:41 PT/INR, D-dimer PT 12.0 Seconds (9.4-12.1) 04/24/17 11:10 Abnormal lab findings: Abnormal lab results WBC 18.1 K/mcL (4.3-11.1) H 04/27/17 03:42 RBC 3.74 M/mcL (4.19-5.50) L 04/27/17 03:42 Hgb 11.0 g/dL (12.9-16.9) L 04/27/17 03:42 Hct 37.0 % (37.5-50.1) L 04/27/17 03:42 MCHC 29.7 g/dL (31.6-35.5) L 04/27/17 03:42 RDW 15.9 % (11.5-14.5) H 04/27/17 03:42 Plt Count 118 K/mcL (140-400) L 04/27/17 03:42 Metamyelocytes % 2.0 % (0) H 04/27/17 03:42 Neutrophils # 15.6 K/mcL (1.6-8.9) H 04/27/17 03:42 Nucleated RBCs/100 WBC 0.6 /100 WBC (0) H 04/27/17 03:42 Platelet Estimate Decreased (Normal) L 04/27/17 03:42 Polychromasia 1+ (Not Present) A 04/26/17 03:30 Basophilic Stippling 1+ (Not Present) A 04/26/17 03:30 APTT 23.7 Seconds (26.0-36.0) L 04/24/17 11:10 Heparin Anti-Xa, LM Wt 0.44 IU/mL (0.50-1.10) L 04/24/17 11:10 ABG pCO2 57 mmHg (35-45) H 04/27/17 05:41 ABG pO2 105 mmHg (85-104) H 04/27/17 05:41 ABG HCO3 39 mEq/L (21-27) H 04/27/17 05:41 ABG Total CO2 41 mEq/L (20-26) H 04/27/17 05:41 ABG Base Excess 13 mEq/L (-2 to 3) H 04/27/17 05:41 VBG pH 7.46 pH Units (7.32-7.42) H 04/27/17 04:01 VBG pCO2 60 mmHg (41-51) H 04/27/17 03:54 VBG pO2 120 mmHg (25-50) H 04/27/17 03:54 VBG HCO3 38 mEq/L (21-27) H 04/27/17 03:54 Sodium 154 mEq/L (136-145) H 04/27/17 03:42 Potassium 4.9 mEq/L (3.5-4.5) H 04/27/17 03:42 Chloride 111 mEq/L (98-109) H 04/27/17 03:42 Carbon Dioxide 41 mEq/L (19-29) H* 04/27/17 03:42 BUN 63 mg/dL (8-26) H 04/27/17 03:42 BUN/Creatinine Ratio 60 (6-26) H 04/27/17 03:42 Glucose 187 mg/dL (70-99) H 04/27/17 03:42 POC Glucose 210 (58-89) H 04/27/17 04:33 Calculated Osmolality 341 (280-300) H 04/27/17 03:42 Magnesium 2.8 mg/dL (1.6-2.6) H 04/27/17 03:42 Troponin I 0.12 ng/mL (0-0.03) H* 04/21/17 07:01 B-Natriuretic Peptide 234 pg/mL (0-100) H 04/20/17 11:27 Serum Total Protein 5.1 g/dL (6.0-8.3) L 04/24/17 07:30 Albumin 3.2 g/dL (3.5-5.0) L 04/20/17 11:27 Globulin 3.6 g/dL (2.4-3.5) H 04/20/17 11:27 Albumin/Globulin Ratio 0.9 (1.1-2.2) L 04/20/17 11:27 Urine Glucose (UA) 250 mg/dL (Normal) H 04/20/17 17:33 Pleural Appearance Bloody (Clear) A 04/23/17 15:02 Pleural RBC 0.085 M/mcL (0.000-0.002) H 04/23/17 15:02 - Microbiology Findings Microbiology Findings: Microbiology, Last 48 Hours 04/23/17 14:45 Body Fluid Culture - Final Pleural Fluid - Clinical Findings Intake & Output: Intake & Output 04/26/17 04/27/17 04/27/17 23:59 07:59 15:59 Intake Total 1229 / 1229 678.9 / 678.9 Output Total 250 / 250 450 / 450 Balance 979 / 979 228.9 / 228.9 Weight 84.7 kg Consult Discharge Plan - Plan Referrals: Farshad Lunsford MD [Primary Care Provider] - - Attending Attestation I examined this patient and my medical decision-making was reviewed with the Resident Physician. I agree with the documented findings, disposition and treatment plan as described except to the extent set forth below. Management removed during Multi Disciplinary Rounds. 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 Exudative effusion s/p Chest Tube. MOnitor output. CArdio: HFpEF cont to monitor FEN/GI Increase free water flushes through NG for Hypernatremia. Cont PPi prophylax RENAL Supect contraction. ID: Trating for PNA with plan to treat for & days. HEME/OCN: Cont LTA for VTE (Heparin gtt). Trend Plts. Skin Skin care per SILK [employer]ER routine Dispo:remain in ICU for vent mngt. Code DNAR <Emmie Helms H - Last Filed: 04/27/17 14:11> Date of Encounter: 04/27/17 Time of Encounter: 07:06 Assessment and Plan (1) Acute and chronic respiratory failure with hypoxia Current Visit: No Status: Acute - Significant respiratory distress initially despite of being on BiPAP. - Patient was intubated in ED and started on mechanical ventilation support. - Likely secondary to pneumonia and AE COPD in the setting of poor respiratory status at baseline from history of LLL lobectomy and right lung radiation. - Continue empiric antibiotics for pneumonia. - Continue steroid, Symbicort and Duoneb for AE COPD. -Drained over a liter of pleural effusion 04/23 during thoracentesis that was bloody. -Pleural Fluid exudative -FU PE culture NGTD. -CT chest without contrast on 04/26-bilateral pleural effusions, increased from pior study. Mass like consolidation in right lower lobe has increased likely due to adjacent atelectasis. -04/27- patient continuing to handle CPAP well. This was discontinued this morning secondary to IR arriving at bedside to place a chest tube. -Patient appears stable from respiratory stand put, he is handling CPAP and breathing trials well. Physical exam shows resolving bilateral lower extremity edema. Sodium 145, potassium 4.9, chloride 111 patient looks contracted. We will stop diuresis. Increase free water. -Chest tube placement revealed an initial output from the right pleural space of 1000 mL. -Bloody pleural fluid continuously coming from chest tube. Chest x-ray on April 27 status post chest tube placement shows interval decrease in size of the right pleural effusion. -Follow-up H&H (2) Septic shock Current Visit: Yes Status: Acute - 3 SIRS criteria (tachycardia, tachypnea, leukocytosis) with lactic acid as high as 11.1 on initial presentation. Patient was also noted to have significant hypotension requiring Levophed. - Likely secondary to pneumonia. - Blood cultures Negative. - UA does not indicate UTI. - Will obtain sputum culture if possible. - Resolved as tachycardia, tachypnea and leukocytosis normalized and patient had been weaned off from Levophed. - Continue hydration with IV fluid. - Continue IV Zosyn and levofloxacin. -DC Vancomycin on 04/23 today after 3 completed days. - Continue to monitor closely. 04/27- patient with fevers and lactic acid of 2.2. -Second set of blood cultures ordered 04/27 in addition to sputum cultures. Follow these up as they become available. -Continue to monitor closely. If fevers return, we will initiate treatment with meropenem and vancomycin, and discontinue Zosyn and Levaquin. -Increase free water. (3) Pneumonia Current Visit: Yes Status: Acute -CXR found worsening airspace opacities in the bilateral lower lungs with enlarged right pleural effusion, concerning of pneumonia. -Given patient's recent hospitalization in January 2017 and significant respiratory distress, Discontinue IV vancomycin 04/23 (since 04/20) after 3 completed days, continue Zosyn (since 04/20) and levofloxacin (since 04/20). Further de-escalation based on clinical course and culture results. -Pleural Fluid exudative effusion -FU PE culture from 04/23/2017- finalized and negative. -Second round of pleural fluid analysis, cytology, and culture ordered on April 27. -Follow-up results of pleural fluid analysis. -CXR 04/27- Interval decrease in size of right pleural effusion. Qualifiers: Pneumonia type: due to unspecified organism Laterality: bilateral Lung location: lower lobe of lung Qualified Code(s): J18.9 - Pneumonia, unspecified organism (4) Diastolic CHF Current Visit: Yes Status: Chronic -Echo from 12/02/16 found LVEF 60% with mild LV diastolic dysfunction. - BNP 234 on 04/21/17 compared to 308 on 01/29/17. - Discontinue Lasix Qualifiers: Congestive heart failure chronicity: chronic Qualified Code(s): I50.32 - Chronic diastolic (congestive) heart failure (5) Acute exacerbation of chronic obstructive airways disease Current Visit: Yes Status: Acute -DC solu-medrol on April 27. Continue symbicort and scheduled duoneb. (6) Thrombocytopenia Current Visit: Yes Status: Acute Patient's platelets 236 on admission on 04/20/2017, there down to 118 today. -continue to monitor (7) Elevated troponin Current Visit: No Status: Acute - Elevated troponin at 0.13 in ED but remained adynamic (0.12, 0.13, 0.12) since. - No significant ischemic change on EKG. - Likely related to current hypoxic respiratory failure. 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 (9) Sick sinus syndrome Current Visit: No Status: Chronic - With pacemaker. (10) History of pulmonary embolus (PE) Current Visit: Yes Status: Chronic - On Eliquis at home. - DC lovenox, start heparin drip. Subjective Principal diagnosis: Acute on chronic respiratory failure Interval history: No acute events over night. Patient doing great overnight. CPAP since 6:20. Sodium 154 overnight and potassium 4.9, Scr 1.05, BUN 63. Vitals Stable. Propoful started at midnight last night to decrease RR as patient becoming alkalotic. Patient's family on board with IR consultation today for CT guided chest tube placement with drainage. This morning, patient with a fever of 101.4 as well as tachycardia to 105. Objective PUL Vital signs: Last Vital Signs Temp 98.7 F 04/27/17 04:55 Pulse 103 04/27/17 06:00 Resp 19 04/27/17 06:04 BP 81/59 04/27/17 06:04 Pulse Ox 98 04/27/17 06:04 General appearance: comatose (Intubated and sedated) ENT: oropharynx dry Neck: supple Effort: other Auscultation: left: diminished breath sounds, right: rales Cardiovascular: other Gastrointestinal: normoactive bowel sounds, soft, non-distended Integumentary: normal Extremities: no cyanosis, pink and warm, edema (1+, improving significantly) unable to assess due to mental status Ventilator Settings Ventilator Settings: Ventilator Settings, Last 8 Hours Ventilator Mode VC+ Ventilator Mode VC+ Ventilator Mode VC+ Ventilator Mode VC+ Ventilator Mode VC+ Ventilator Mode VC+ Ventilator Mode VC+ Ventilator Mode VC+ Ventilator Mode VC+ Ventilator Mode VC+ Ventilator Mode VC+ Ventilator Mode VC+ Ventilator Tidal Volume 400 Setting Ventilator Tidal Volume 400 Setting Ventilator Tidal Volume 400 Setting Ventilator Tidal Volume 400 Setting Ventilator Tidal Volume 400 Setting Ventilator Tidal Volume 400 Setting Ventilator Tidal Volume 400 Setting Ventilator Tidal Volume 400 Setting Ventilator Tidal Volume 400 Setting Ventilator Tidal Volume 400 Setting Ventilator Tidal Volume 400 Setting Ventilator Tidal Volume 400 Setting Ventilator Respiratory Rate 16 Setting Ventilator Respiratory Rate 16 Setting Ventilator Respiratory Rate 16 Setting Ventilator Respiratory Rate 16 Setting Ventilator Respiratory Rate 16 Setting Ventilator Respiratory Rate 16 Setting Ventilator Respiratory Rate 16 Setting Ventilator Respiratory Rate 16 Setting Ventilator Respiratory Rate 16 Setting Ventilator Respiratory Rate 16 Setting Ventilator Respiratory Rate 16 Setting Ventilator Respiratory Rate 16 Setting Actual Respiratory Rate 19 Actual Respiratory Rate 18 Actual Respiratory Rate 17 Actual Respiratory Rate 18 Actual Respiratory Rate 16 Actual Respiratory Rate 17 Actual Respiratory Rate 17 Actual Respiratory Rate 22 Actual Respiratory Rate 23 Actual Respiratory Rate 16 Actual Respiratory Rate 19 Positive End Expiratory 5 Pressure Positive End Expiratory 5 Pressure Positive End Expiratory 5 Pressure Positive End Expiratory 5 Pressure Positive End Expiratory 5 Pressure Positive End Expiratory 5 Pressure Positive End Expiratory 5 Pressure Positive End Expiratory 5 Pressure Positive End Expiratory 5 Pressure Positive End Expiratory 5 Pressure Positive End Expiratory 5 Pressure Positive End Expiratory 5 Pressure Peak Inspiratory Airway 17 Pressure Peak Inspiratory Airway 10 Pressure Peak Inspiratory Airway 11 Pressure Peak Inspiratory Airway 14 Pressure Peak Inspiratory Airway 12 Pressure Peak Inspiratory Airway 14 Pressure Peak Inspiratory Airway 11 Pressure Peak Inspiratory Airway 16 Pressure Peak Inspiratory Airway 18 Pressure Peak Inspiratory Airway 19 Pressure Peak Inspiratory Airway 19 Pressure Results - Laboratory Findings CBC and BMP: 04/27/17 03:42 04/27/17 03:42 ABG ABG pH 7.45 pH Units (7.32-7.45) 04/27/17 05:41 ABG pCO2 57 mmHg (35-45) H 04/27/17 05:41 ABG pO2 105 mmHg (85-104) H 04/27/17 05:41 ABG O2 Saturation 98 % (95-98) 04/27/17 05:41 PT/INR, D-dimer PT 12.0 Seconds (9.4-12.1) 04/24/17 11:10 Abnormal lab findings: Abnormal lab results WBC 18.1 K/mcL (4.3-11.1) H 04/27/17 03:42 RBC 3.74 M/mcL (4.19-5.50) L 04/27/17 03:42 Hgb 11.0 g/dL (12.9-16.9) L 04/27/17 03:42 Hct 37.0 % (37.5-50.1) L 04/27/17 03:42 MCHC 29.7 g/dL (31.6-35.5) L 04/27/17 03:42 RDW 15.9 % (11.5-14.5) H 04/27/17 03:42 Plt Count 118 K/mcL (140-400) L 04/27/17 03:42 Metamyelocytes % 2.0 % (0) H 04/27/17 03:42 Neutrophils # 15.6 K/mcL (1.6-8.9) H 04/27/17 03:42 Nucleated RBCs/100 WBC 0.6 /100 WBC (0) H 04/27/17 03:42 Platelet Estimate Decreased (Normal) L 04/27/17 03:42 Polychromasia 1+ (Not Present) A 04/26/17 03:30 Basophilic Stippling 1+ (Not Present) A 04/26/17 03:30 APTT 23.7 Seconds (26.0-36.0) L 04/24/17 11:10 Heparin Anti-Xa, LM Wt 0.44 IU/mL (0.50-1.10) L 04/24/17 11:10 ABG pCO2 57 mmHg (35-45) H 04/27/17 05:41 ABG pO2 105 mmHg (85-104) H 04/27/17 05:41 ABG HCO3 39 mEq/L (21-27) H 04/27/17 05:41 ABG Total CO2 41 mEq/L (20-26) H 04/27/17 05:41 ABG Base Excess 13 mEq/L (-2 to 3) H 04/27/17 05:41 VBG pH 7.46 pH Units (7.32-7.42) H 04/27/17 04:01 VBG pCO2 60 mmHg (41-51) H 04/27/17 03:54 VBG pO2 120 mmHg (25-50) H 04/27/17 03:54 VBG HCO3 38 mEq/L (21-27) H 04/27/17 03:54 Sodium 154 mEq/L (136-145) H 04/27/17 03:42 Potassium 4.9 mEq/L (3.5-4.5) H 04/27/17 03:42 Chloride 111 mEq/L (98-109) H 04/27/17 03:42 Carbon Dioxide 41 mEq/L (19-29) H* 04/27/17 03:42 BUN 63 mg/dL (8-26) H 04/27/17 03:42 BUN/Creatinine Ratio 60 (6-26) H 04/27/17 03:42 Glucose 187 mg/dL (70-99) H 04/27/17 03:42 POC Glucose 210 (58-89) H 04/27/17 04:33 Calculated Osmolality 341 (280-300) H 04/27/17 03:42 Magnesium 2.8 mg/dL (1.6-2.6) H 04/27/17 03:42 Troponin I 0.12 ng/mL (0-0.03) H* 04/21/17 07:01 B-Natriuretic Peptide 234 pg/mL (0-100) H 04/20/17 11:27 Serum Total Protein 5.1 g/dL (6.0-8.3) L 04/24/17 07:30 Albumin 3.2 g/dL (3.5-5.0) L 04/20/17 11:27 Globulin 3.6 g/dL (2.4-3.5) H 04/20/17 11:27 Albumin/Globulin Ratio 0.9 (1.1-2.2) L 04/20/17 11:27 Urine Glucose (UA) 250 mg/dL (Normal) H 04/20/17 17:33 Pleural Appearance Bloody (Clear) A 04/23/17 15:02 Pleural RBC 0.085 M/mcL (0.000-0.002) H 04/23/17 15:02 - Microbiology Findings Microbiology Findings: Microbiology, Last 48 Hours 04/23/17 14:45 Body Fluid Culture - Final Pleural Fluid - Clinical Findings Intake & Output: Intake & Output 04/26/17 04/26/17 04/27/17 15:59 23:59 07:59 Intake Total 660 / 660 1229 / 1229 578.9 / 578.9 Output Total 1200 / 1200 250 / 250 400 / 400 Balance -540 / -540 979 / 979 178.9 / 178.9 Weight 84.7 kg - VTE Documentation of Mechanical Device: Intermittent pneumatic compression device
[2017-04-27] MEDS: MethylPREDNISolone 40 MG/ML VIAL IVP SCH (07:27)
[2017-04-27] MEDS: Chlorhexidine Rinse 15 ML MOUTHWASH MM SCH ×2 (07:27→21:23)
[2017-04-27] MEDS: Pantoprazole 40 MG VIAL IVPB SCH (07:27)
[2017-04-27] MEDS: Levofloxacin 750 MG/150 ML 750 MG/150 ML BAG IVPB SCH (07:28)
[2017-04-27] MEDS: Piperacillin/Tazobactam 3.375 GM/200 ML BAG IVPB SCH ×3 (07:28→23:29)
[2017-04-27] MEDS: Furosemide 40 MG/4 ML VIAL IVP SCH (07:28)
[2017-04-27] MEDS: Sennosides/Docusate Sodium TABLET PO SCH ×2 (07:29→21:23)
[2017-04-27] MEDS: Budesonide/Formoterol 160/4.5 MDI IH SCH ×2 (08:26→20:01)
--- NOTE | 2017-04-27 09:46 | IR Procedure Note ---
Date of procedure: 04/27/17 Consent Obtained: Written consent Timeout: Correct patient and procedure verified, Correct site verified, Time out performed, Skin prep completed Local anesthetic: Lidocaine 1% Indications: Right pleural effusion Procedure Performed: Right chest tube placement Results/Findings: 10F right chest tube placement Complications: None; Tolerated procedure well (Monitor on floor)
[2017-04-27] MEDS: Dexmedetomidine HCl 400 MCG/100 ML MLS IVC SCH (10:00)
[2017-04-27] MEDS ORDERED: *HR* Heparin 5,000 UNIT/ML VIAL IVP ONE (10:50)
[2017-04-27] MEDS ORDERED: *HR* Heparin 5,000 UNIT/ML VIAL IVP PRN ×2 (10:50)
[2017-04-27] MEDS: FentaNYL (PF) 1,000 MCG in 0.9 % Sodium Chloride 80 ML IVC SCH ×2 (11:14→23:59)
[2017-04-27] MEDS: Heparin 25,000 UNIT/500 ML D5W 25,000 UNIT/500 ML MLS IVC SCH (11:29)
[2017-04-27 13:03] LABS: Glucose,Pleural Fluid 125 mg/dL (No Ref Range); LDH,Pleural Fluid 1415 Units/L (No Ref Range); Total Protein,Pleural Fluid 2.5 g/dL (No Ref Range)
[2017-04-27 13:17] LABS: RBC,Pleural Fluid 0.327 M/mcL
[2017-04-27 14:43] LABS: Appearance of Pleural Fl Bloody (Clear)
[2017-04-27 15:52] LABS: INR 1.2; Prothrombin Time 13.5 Seconds (9.4-12.1)
[2017-04-27 15:55] LABS: Hematocrit 36.7 % (37.5-50.1); Mean Corpuscular Hemoglobin 29.5 pg (28.0-33.3); Mean Corpuscular Volume 98.4 fL (83.0-100.0); Mean Platelet Volume 12.2 fL (9.4-12.4); Platelet Count 126 K/mcL (140-400); Red Blood Count 3.73 M/mcL (4.19-5.50); Red Cell Distribution Width 15.8 % (11.5-14.5)
[2017-04-27 15:56] LABS: Activated Partial Thrombo Time 78.2 Seconds (26.0-36.0)
[2017-04-27 15:58] LABS: Total Protein 4.5 g/dL (6.0-8.3)
[2017-04-27] MEDS ORDERED: 0.9 % Sodium Chloride 1,000 ML IVC ONE (16:29)
--- NOTE | 2017-04-27 16:43 | Event Note ---
<Emmie Helms H - Last Filed: 04/27/17 16:41> Date of Encounter: 04/27/17 Time of Encounter: 16:41 Patient with blood pressure reading 87/62, low-grade fever. Pleural fluid analysis shows LDH 3 times the upper limit of normal with culture preliminarily showing gram-positive cocci suggestive of empyema. We have small bore chest tube in place with instructions to nursing to flush it with a 10 mL syringe of normal saline every 12 hours to prevent clotting. We have escalated antibiotic coverage to include vancomycin. We will order CT scan without contrast of the chest in the morning to further evaluate the progress of chest tube drainage. If patient not improving clinically, or if CT suggests persistent loculation, we will consult cardiothoracic surgery for potential surgical drainage. We have spoken with family who are at the bedside. They are aware of the plan. <Salvador Cruz W - Last Filed: 04/27/17 16:45> Date of Encounter: 04/27/17
[2017-04-27] MEDS ORDERED: Vancomycin 1,250 MG in D5% in Water 250 ML IVPB SCH ×2 (17:00→18:00)
[2017-04-27 18:47] LABS: BUN/Creatinine Ratio 58 (6-26); Blood Urea Nitrogen 65 mg/dL (8-26); Calcium 8.7 mg/dL (8.6-10.8); Carbon Dioxide 39 mEq/L (19-29); Chloride 110 mEq/L (98-109); Glucose 181 mg/dL (70-99); Osmolality,Calculated 347 (280-300); Potassium 4.5 mEq/L (3.5-4.5); Sodium 157 mEq/L (136-145); eGFR For African Americans > 60 (> 60); eGFR For Non-African Americans > 60 (> 60)
[2017-04-28] MEDS: Ipratropium/Albuterol Neb 3 ML IH SCH ×5 (00:12→15:46)
[2017-04-28] MEDS: Lacri-Lube 3.5 GM TUBE BOTH EYES SCH ×4 (03:31→15:20)
[2017-04-28 04:02] LABS: BUN/Creatinine Ratio 67 (6-26); Blood Urea Nitrogen 68 mg/dL (8-26); Calcium 8.2 mg/dL (8.6-10.8); Carbon Dioxide 32 mEq/L (19-29); Chloride 109 mEq/L (98-109); Glucose 210 mg/dL (70-99); Osmolality,Calculated 342 (280-300); Potassium 4.5 mEq/L (3.5-4.5); Sodium 153 mEq/L (136-145); eGFR For African Americans > 60 (> 60); eGFR For Non-African Americans > 60 (> 60)
[2017-04-28 04:07] LABS: Hemoglobin 10.6 g/dL (12.9-16.9)
[2017-04-28 04:08] LABS: Hematocrit 35.8 % (37.5-50.1); Mean Corpuscular HGB Conc 29.6 g/dL (31.6-35.5); Mean Corpuscular Hemoglobin 29.6 pg (28.0-33.3); Mean Platelet Volume 12.4 fL (9.4-12.4); Nucleated Red Blood Cells 0.9 /100 WBC (0); Platelet Count 160 K/mcL (140-400); Red Blood Count 3.58 M/mcL (4.19-5.50)
[2017-04-28 04:13] LABS: Activated Partial Thrombo Time 133.6 Seconds (26.0-36.0)
[2017-04-28 04:27] LABS: Heparin anti-factor XA UFH 1.68 IU/mL (0.30-0.70)
[2017-04-28 04:34] LABS: ABG Base Excess 10 mEq/L (-2 to 3); ABG HCO3 36 mEq/L (21-27); ABG Oxygen Saturation 95 % (95-98); ABG PCO2 53 mmHg (35-45); ABG PH 7.44 pH Units (7.32-7.45); ABG PO2 74 mmHg (85-104); ABG TCO2 37 mEq/L (20-26); Blood Gas Modality VC; Blood Gas PEEP 5 cm H2O; Blood Gas Respiration Rate 16; Blood Gas VT 400 cc
[2017-04-28 04:35] LABS: Lymphocytes # 2.7 K/mcL (0.6-4.6); Monocytes # 1.6 K/mcL (0.0-1.3); Neutrophils # 21.4 K/mcL (1.6-8.9)
[2017-04-28 04:36] LABS: Large Platelets Present (Not Present); Platelet Estimate Normal (Normal); Reactive Lymphocytes Present (Not Present); Smudge Cells Present (Not Present); Toxic Granulation Present (Not Present)
[2017-04-28] MEDS: Insulin LISPRO 300 UNITS/3 ML VIAL SQ SCH (05:45)
[2017-04-28] MEDS: Furosemide 40 MG/4 ML VIAL IVP SCH (06:13)
[2017-04-28] MEDS ORDERED: Ringers Solution, Lactated 1,000 ML IVC ONE (06:50)
[2017-04-28] MEDS: Piperacillin/Tazobactam 3.375 GM/200 ML BAG IVPB SCH (07:20)
[2017-04-28] MEDS: Sennosides/Docusate Sodium TABLET PO SCH (07:51)
[2017-04-28] MEDS: Chlorhexidine Rinse 15 ML MOUTHWASH MM SCH (07:51)
[2017-04-28] MEDS: Pantoprazole 40 MG VIAL IVPB SCH (07:51)
[2017-04-28] MEDS: Budesonide/Formoterol 160/4.5 MDI IH SCH (07:51)
[2017-04-28] MEDS ORDERED: predniSONE 20 MG TABLET PO SCH (09:00)
[2017-04-28] MEDS ORDERED: Meropenem 1,000 MG in Water for inj. (sterile) 10 ML IVP SCH (09:00)
--- NOTE | 2017-04-28 09:08 | Pulmonology Progress Note ---
<ScooterEmmie Galindo - Last Filed: 04/28/17 09:05> Date of Encounter: 04/28/17 Time of Encounter: 09:05 Assessment and Plan (1) Acute and chronic respiratory failure with hypoxia Current Visit: No Status: Acute - Significant respiratory distress initially despite of being on BiPAP. - Patient was intubated in ED and started on mechanical ventilation support. - Likely secondary to pneumonia and AE COPD in the setting of poor respiratory status at baseline from history of LLL lobectomy and right lung radiation. - Continue empiric antibiotics for pneumonia. - Continue steroid, Symbicort and Duoneb for AE COPD. -Drained over a liter of pleural effusion 04/23 during thoracentesis that was bloody. -Pleural Fluid exudative -FU PE culture NGTD. -CT chest without contrast on 04/26-bilateral pleural effusions, increased from pior study. Mass like consolidation in right lower lobe has increased likely due to adjacent atelectasis. -04/27- patient continuing to handle CPAP well. This was discontinued this morning secondary to IR arriving at bedside to place a chest tube. -Patient appears stable from respiratory stand put, he is handling CPAP and breathing trials well. Physical exam shows resolving bilateral lower extremity edema. Sodium 145, potassium 4.9, chloride 111 patient looks contracted. We will stop diuresis. Increase free water. -Chest tube placement revealed an initial output from the right pleural space of 1000 mL. -Bloody pleural fluid continuously coming from chest tube. Chest x-ray on April 27 status post chest tube placement shows interval decrease in size of the right pleural effusion. -Follow-up H&H -04/28- Pleural effusion with LDH 1415 with gram + cocci. Concern for empyema -DC zosyn and levaquin. Start meropenem and vanc -FU CT chest without contrast. (2) Septic shock Current Visit: Yes Status: Acute - 3 SIRS criteria (tachycardia, tachypnea, leukocytosis) with lactic acid as high as 11.1 on initial presentation. Patient was also noted to have significant hypotension requiring Levophed. - Likely secondary to pneumonia. - Blood cultures Negative. - UA does not indicate UTI. - Will obtain sputum culture if possible. - Resolved as tachycardia, tachypnea and leukocytosis normalized and patient had been weaned off from Levophed. - Continue hydration with IV fluid. - Continue IV Zosyn and levofloxacin. -DC Vancomycin on 04/23 today after 3 completed days. - Continue to monitor closely. 04/27- patient with fevers and lactic acid of 2.2. -Second set of blood cultures ordered 04/27 in addition to sputum cultures. Follow these up as they become available. -Continue to monitor closely. If fevers return, we will initiate treatment with meropenem and vancomycin, and discontinue Zosyn and Levaquin. -Increase free water. 04/28-patient hypotensive, tachycardiac with EKG on 04/28 showing atrial fibrillation with RVR, and white blood cell count trending upwards. -500 mL bolus of lactated Ringer's -Levophed started -Discontinue heparin drip -Stat lactic acid -Antibiotic change from Zosyn and Levaquin to vancomycin and meropenem. -Follow-up pleural fluid culture which preliminarily showed gram-positive cocci yesterday. This in addition to pleural fluid analysis on 04/27 indicative of pleural empyema. -Stat H&H (3) Pneumonia Current Visit: Yes Status: Acute -CXR found worsening airspace opacities in the bilateral lower lungs with enlarged right pleural effusion, concerning of pneumonia. -Given patient's recent hospitalization in January 2017 and significant respiratory distress, Discontinue IV vancomycin 04/23 (since 04/20) after 3 completed days, continue Zosyn (since 04/20) and levofloxacin (since 04/20). Further de-escalation based on clinical course and culture results. -Pleural Fluid exudative effusion -FU PE culture from 04/23/2017- finalized and negative. -Second round of pleural fluid analysis, cytology, and culture ordered on April 27. -Follow-up results of pleural fluid analysis. -CXR 04/27- Interval decrease in size of right pleural effusion. -04/28-pleural fluid analysis and culture indicative of pleural empyema. -Antibiotic escalation, vancomycin started 04/27, meropenem started . ( Zosyn and Levaquin discontinued on 04/28) -Follow-up CT scan this a.m. Qualifiers: Pneumonia type: due to unspecified organism Laterality: bilateral Lung location: lower lobe of lung Qualified Code(s): J18.9 - Pneumonia, unspecified organism (4) Diastolic CHF Current Visit: Yes Status: Chronic -Echo from 12/02/16 found LVEF 60% with mild LV diastolic dysfunction. - BNP 234 on 04/21/17 compared to 308 on 01/29/17. - Discontinued Lasix on April 27. Qualifiers: Congestive heart failure chronicity: chronic Qualified Code(s): I50.32 - Chronic diastolic (congestive) heart failure (5) Acute exacerbation of chronic obstructive airways disease Current Visit: Yes Status: Acute -DC solu-medrol on April 27. Continue symbicort and scheduled duoneb. (6) Thrombocytopenia Current Visit: Yes Status: Acute Patient's platelets 236 on admission on 04/20/2017, 118 yesterday, 160 today. -continue to monitor (7) Elevated troponin Current Visit: No Status: Acute - Elevated troponin at 0.13 in ED but remained adynamic (0.12, 0.13, 0.12) since. - No significant ischemic change on EKG. - Likely related to current hypoxic respiratory failure. 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 (9) Sick sinus syndrome Current Visit: No Status: Chronic - With pacemaker. (10) History of pulmonary embolus (PE) Current Visit: Yes Status: Chronic - On Eliquis at home. - Heparin drip discontinued on 04/28 secondary to bloody output from chest tube and hypotension. Subjective Principal diagnosis: Acute on chronic respiratory failure Interval history: No acute events over night. Patient's fevers resolving, as he was afebrile overnight. Body aches were escalated yesterday to include meropenem in the bank , Zosyn and Levaquin were discontinued. Patient was borderline hypotensive overnight with a few readings in the 80s over 40s systolic. He is satting well on FiO2 of 40%. CPAP this morning for 1 hour 45 minutes. Objective PUL Vital signs: Last Vital Signs Temp 98.8 F 04/28/17 08:00 Pulse 122 04/28/17 08:00 Resp 16 04/28/17 08:00 BP 87/40 04/28/17 08:00 Pulse Ox 100 04/28/17 08:00 General appearance: comatose, other (Sedated and intubated) ENT: oropharynx dry Effort: other (Intubated with mechanical ventilation) Auscultation: left: rales, right: diminished breath sounds Cardiovascular: other (Tachycardia, EKG 04/28 a fib with RVR) Gastrointestinal: normoactive bowel sounds, soft, non-distended Extremities: no clubbing, edema (3+), anasarca unable to assess due to mental status Ventilator Settings Ventilator Settings: Ventilator Settings, Last 8 Hours Ventilator Mode VC+ Ventilator Mode VC+ Ventilator Mode CPAP Ventilator Mode CPAP Ventilator Mode VC+ Ventilator Mode VC+ Ventilator Mode VC+ Ventilator Mode VC+ Ventilator Mode VC+ Ventilator Tidal Volume 400 Setting Ventilator Tidal Volume 400 Setting Ventilator Tidal Volume 400 Setting Ventilator Tidal Volume 400 Setting Ventilator Tidal Volume 400 Setting Ventilator Tidal Volume 400 Setting Ventilator Tidal Volume 400 Setting Ventilator Respiratory Rate 16 Setting Ventilator Respiratory Rate 16 Setting Ventilator Respiratory Rate 16 Setting Ventilator Respiratory Rate 16 Setting Ventilator Respiratory Rate 16 Setting Ventilator Respiratory Rate 16 Setting Ventilator Respiratory Rate 16 Setting Actual Respiratory Rate 16 Actual Respiratory Rate 25 Actual Respiratory Rate 30 Actual Respiratory Rate 21 Actual Respiratory Rate 24 Actual Respiratory Rate 30 Actual Respiratory Rate 21 Positive End Expiratory 5 Pressure Positive End Expiratory 5 Pressure Positive End Expiratory 5 Pressure Positive End Expiratory 5 Pressure Positive End Expiratory 5 Pressure Positive End Expiratory 5 Pressure Positive End Expiratory 5 Pressure Positive End Expiratory 5 Pressure Peak Inspiratory Airway 28 Pressure Peak Inspiratory Airway 17 Pressure Peak Inspiratory Airway 14 Pressure Peak Inspiratory Airway 18 Pressure Peak Inspiratory Airway 11 Pressure Peak Inspiratory Airway 11 Pressure Results - Laboratory Findings CBC and BMP: 04/28/17 03:35 04/28/17 03:35 ABG ABG pH 7.44 pH Units (7.32-7.45) 04/28/17 04:30 ABG pCO2 53 mmHg (35-45) H 04/28/17 04:30 ABG pO2 74 mmHg (85-104) L 04/28/17 04:30 ABG O2 Saturation 95 % (95-98) 04/28/17 04:30 PT/INR, D-dimer PT 13.5 Seconds (9.4-12.1) H 04/27/17 15:35 Abnormal lab findings: Abnormal lab results WBC 26.7 K/mcL (4.3-11.1) H 04/28/17 03:35 RBC 3.58 M/mcL (4.19-5.50) L 04/28/17 03:35 Hgb 10.6 g/dL (12.9-16.9) L 04/28/17 03:35 Hct 35.8 % (37.5-50.1) L 04/28/17 03:35 MCHC 29.6 g/dL (31.6-35.5) L 04/28/17 03:35 RDW 16.0 % (11.5-14.5) H 04/28/17 03:35 Metamyelocytes % 2.0 % (0) H 04/28/17 03:35 Myelocytes % 2.0 % (0) H 04/28/17 03:35 Neutrophils # 21.4 K/mcL (1.6-8.9) H 04/28/17 03:35 Monocytes # 1.6 K/mcL (0.0-1.3) H 04/28/17 03:35 Nucleated RBCs/100 WBC 0.9 /100 WBC (0) H 04/28/17 03:35 Reactive Lymphocytes Present (Not Present) A 04/28/17 03:35 Smudge Cells Present (Not Present) A 04/28/17 03:35 Toxic Granulation Present (Not Present) A 04/28/17 03:35 Large Platelets Present (Not Present) A 04/28/17 03:35 Polychromasia 1+ (Not Present) A 04/26/17 03:30 Basophilic Stippling 1+ (Not Present) A 04/26/17 03:30 PT 13.5 Seconds (9.4-12.1) H 04/27/17 15:35 APTT 133.6 Seconds (26.0-36.0) H* 04/28/17 03:35 Heparin Anti-Xa, LM Wt 0.44 IU/mL (0.50-1.10) L 04/24/17 11:10 Heparin Anti-Xa, Unfract 1.68 IU/mL (0.30-0.70) H* 04/28/17 03:35 ABG pCO2 53 mmHg (35-45) H 04/28/17 04:30 ABG pO2 74 mmHg (85-104) L 04/28/17 04:30 ABG HCO3 36 mEq/L (21-27) H 04/28/17 04:30 ABG Total CO2 37 mEq/L (20-26) H 04/28/17 04:30 ABG Base Excess 10 mEq/L (-2 to 3) H 04/28/17 04:30 VBG pH 7.46 pH Units (7.32-7.42) H 04/27/17 04:01 VBG pCO2 60 mmHg (41-51) H 04/27/17 03:54 VBG pO2 120 mmHg (25-50) H 04/27/17 03:54 VBG HCO3 38 mEq/L (21-27) H 04/27/17 03:54 Sodium 153 mEq/L (136-145) H 04/28/17 03:35 Carbon Dioxide 32 mEq/L (19-29) H 04/28/17 03:35 BUN 68 mg/dL (8-26) H 04/28/17 03:35 BUN/Creatinine Ratio 67 (6-26) H 04/28/17 03:35 Glucose 210 mg/dL (70-99) H 04/28/17 03:35 POC Glucose 201 (58-89) H 04/28/17 05:20 Calculated Osmolality 342 (280-300) H 04/28/17 03:35 Calcium 8.2 mg/dL (8.6-10.8) L 04/28/17 03:35 Magnesium 2.8 mg/dL (1.6-2.6) H 04/27/17 03:42 Troponin I 0.12 ng/mL (0-0.03) H* 04/21/17 07:01 B-Natriuretic Peptide 234 pg/mL (0-100) H 04/20/17 11:27 Serum Total Protein 4.5 g/dL (6.0-8.3) L 04/27/17 15:35 Albumin 3.2 g/dL (3.5-5.0) L 04/20/17 11:27 Globulin 3.6 g/dL (2.4-3.5) H 04/20/17 11:27 Albumin/Globulin Ratio 0.9 (1.1-2.2) L 04/20/17 11:27 Urine Glucose (UA) 250 mg/dL (Normal) H 04/20/17 17:33 Pleural Appearance Bloody (Clear) A 04/27/17 12:27 Pleural RBC 0.327 M/mcL (0.000-0.002) H 04/27/17 12:27 - Microbiology Findings Microbiology Findings: Microbiology, Last 48 Hours 04/27/17 12:27 Body Fluid Culture - Preliminary Pleural Fluid 04/23/17 14:45 Body Fluid Culture - Final Pleural Fluid - Clinical Findings Intake & Output: Intake & Output 04/27/17 04/28/17 04/28/17 23:59 07:59 15:59 Intake Total 2055 964 / 964 612 / 612 Output Total 2089 335 / 335 100 / 100 Balance -34 / -34 629 / 629 512 / 512 Weight 80.82 kg - VTE Documentation of Mechanical Device: Intermittent pneumatic compression device Consult Discharge Plan - Plan Referrals: Farshad Lunsford MD [Primary Care Provider] - <Salvador Cruz - Last Filed: 04/28/17 10:58> Date of Encounter: 04/28/17 Objective PUL Vital signs: Last Vital Signs Temp 98.8 F 04/28/17 08:00 Pulse 128 04/28/17 09:00 Resp 21 04/28/17 09:14 BP 69/59 04/28/17 09:14 Pulse Ox 99 04/28/17 09:14 Ventilator Settings Ventilator Settings: Ventilator Settings, Last 8 Hours Ventilator Mode VC+ Ventilator Mode VC+ Ventilator Mode VC+ Ventilator Mode VC+ Ventilator Mode CPAP Ventilator Mode CPAP Ventilator Mode VC+ Ventilator Mode VC+ Ventilator Mode VC+ Ventilator Tidal Volume 400 Setting Ventilator Tidal Volume 400 Setting Ventilator Tidal Volume 400 Setting Ventilator Tidal Volume 400 Setting Ventilator Tidal Volume 400 Setting Ventilator Tidal Volume 400 Setting Ventilator Tidal Volume 400 Setting Ventilator Respiratory Rate 16 Setting Ventilator Respiratory Rate 16 Setting Ventilator Respiratory Rate 16 Setting Ventilator Respiratory Rate 16 Setting Ventilator Respiratory Rate 16 Setting Ventilator Respiratory Rate 16 Setting Ventilator Respiratory Rate 16 Setting Actual Respiratory Rate 21 Actual Respiratory Rate 22 Actual Respiratory Rate 16 Actual Respiratory Rate 25 Actual Respiratory Rate 30 Actual Respiratory Rate 21 Actual Respiratory Rate 24 Positive End Expiratory 5 Pressure Positive End Expiratory 5 Pressure Positive End Expiratory 5 Pressure Positive End Expiratory 5 Pressure Positive End Expiratory 5 Pressure Positive End Expiratory 5 Pressure Positive End Expiratory 5 Pressure Positive End Expiratory 5 Pressure Peak Inspiratory Airway 11 Pressure Peak Inspiratory Airway 12 Pressure Peak Inspiratory Airway 28 Pressure Peak Inspiratory Airway 17 Pressure Peak Inspiratory Airway 14 Pressure Peak Inspiratory Airway 18 Pressure Results - Laboratory Findings CBC and BMP: 04/28/17 10:20 04/28/17 03:35 ABG ABG pH 7.44 pH Units (7.32-7.45) 04/28/17 04:30 ABG pCO2 53 mmHg (35-45) H 04/28/17 04:30 ABG pO2 74 mmHg (85-104) L 04/28/17 04:30 ABG O2 Saturation 95 % (95-98) 04/28/17 04:30 PT/INR, D-dimer PT 13.5 Seconds (9.4-12.1) H 04/27/17 15:35 Abnormal lab findings: Abnormal lab results WBC 26.7 K/mcL (4.3-11.1) H 04/28/17 03:35 RBC 3.58 M/mcL (4.19-5.50) L 04/28/17 03:35 Hgb 10.6 g/dL (12.9-16.9) L 04/28/17 03:35 Hct 35.8 % (37.5-50.1) L 04/28/17 03:35 MCHC 29.6 g/dL (31.6-35.5) L 04/28/17 03:35 RDW 16.0 % (11.5-14.5) H 04/28/17 03:35 Metamyelocytes % 2.0 % (0) H 04/28/17 03:35 Myelocytes % 2.0 % (0) H 04/28/17 03:35 Neutrophils # 21.4 K/mcL (1.6-8.9) H 04/28/17 03:35 Monocytes # 1.6 K/mcL (0.0-1.3) H 04/28/17 03:35 Nucleated RBCs/100 WBC 0.9 /100 WBC (0) H 04/28/17 03:35 Reactive Lymphocytes Present (Not Present) A 04/28/17 03:35 Smudge Cells Present (Not Present) A 04/28/17 03:35 Toxic Granulation Present (Not Present) A 04/28/17 03:35 Large Platelets Present (Not Present) A 04/28/17 03:35 Polychromasia 1+ (Not Present) A 04/26/17 03:30 Basophilic Stippling 1+ (Not Present) A 04/26/17 03:30 PT 13.5 Seconds (9.4-12.1) H 04/27/17 15:35 APTT 133.6 Seconds (26.0-36.0) H* 04/28/17 03:35 Heparin Anti-Xa, LM Wt 0.44 IU/mL (0.50-1.10) L 04/24/17 11:10 Heparin Anti-Xa, Unfract 1.68 IU/mL (0.30-0.70) H* 04/28/17 03:35 ABG pCO2 53 mmHg (35-45) H 04/28/17 04:30 ABG pO2 74 mmHg (85-104) L 04/28/17 04:30 ABG HCO3 36 mEq/L (21-27) H 04/28/17 04:30 ABG Total CO2 37 mEq/L (20-26) H 04/28/17 04:30 ABG Base Excess 10 mEq/L (-2 to 3) H 04/28/17 04:30 VBG pH 7.46 pH Units (7.32-7.42) H 04/27/17 04:01 VBG pCO2 60 mmHg (41-51) H 04/27/17 03:54 VBG pO2 120 mmHg (25-50) H 04/27/17 03:54 VBG HCO3 38 mEq/L (21-27) H 04/27/17 03:54 Sodium 153 mEq/L (136-145) H 04/28/17 03:35 Carbon Dioxide 32 mEq/L (19-29) H 04/28/17 03:35 BUN 68 mg/dL (8-26) H 04/28/17 03:35 BUN/Creatinine Ratio 67 (6-26) H 04/28/17 03:35 Glucose 210 mg/dL (70-99) H 04/28/17 03:35 POC Glucose 201 (58-89) H 04/28/17 05:20 Calculated Osmolality 342 (280-300) H 04/28/17 03:35 Calcium 8.2 mg/dL (8.6-10.8) L 04/28/17 03:35 Magnesium 2.8 mg/dL (1.6-2.6) H 04/27/17 03:42 Troponin I 0.12 ng/mL (0-0.03) H* 04/21/17 07:01 B-Natriuretic Peptide 234 pg/mL (0-100) H 04/20/17 11:27 Serum Total Protein 4.5 g/dL (6.0-8.3) L 04/27/17 15:35 Albumin 3.2 g/dL (3.5-5.0) L 04/20/17 11:27 Globulin 3.6 g/dL (2.4-3.5) H 04/20/17 11:27 Albumin/Globulin Ratio 0.9 (1.1-2.2) L 04/20/17 11:27 Urine Glucose (UA) 250 mg/dL (Normal) H 04/20/17 17:33 Pleural Appearance Bloody (Clear) A 04/27/17 12:27 Pleural RBC 0.327 M/mcL (0.000-0.002) H 04/27/17 12:27 - Microbiology Findings Microbiology Findings: Microbiology, Last 48 Hours 04/27/17 12:27 Body Fluid Culture - Preliminary Pleural Fluid 04/23/17 14:45 Body Fluid Culture - Final Pleural Fluid - Clinical Findings Intake & Output: Intake & Output 04/27/17 04/28/17 04/28/17 23:59 07:59 15:59 Intake Total 2156 / 2156 964 / 964 2308 / 2308 Output Total 2090 / 2090 335 / 335 100 / 100 Balance 66 / 66 629 / 629 2208 / 2208 Weight 80.82 kg - Attending Attestation I examined this patient and my medical decision-making was reviewed with the Resident Physician. I agree with the documented findings, disposition and treatment plan as described except to the extent set forth below. We independently had [id number] contact with the patient. Patient seen and examined at bedside Labs, radiology, chart personally reviewed. Management was reviewed during multidisciplinary critical care rounds. FORENSIC SERGEANT: Sedated on vent he does easily arouse to my voice when sedation is held. Goal King 2 continues daily cont daily SAT Pulm: Acute on chronic hypoxic hypercarbic respiratory on ventilator except full oxygenation ventilation today not candidate for SBT because of worsening sepsis and overall instability. Status post chest tube placement with evidence of empyema repeat CT scan pending may need cardiothoracic opinion as far as ongoing management if drainage is not complete that is large-bore chest tube placement versus less likely surgical decortication Cards: Tachycardic overnight appears to be in SVT possible atrial fibrillation I suspect is going in and out of sinus tachycardia and atrial fibrillation blood pressure has been ordered. He is responding to fluid boluses consider loading with amiodarone. Checking troponin FEN-GI: Continue enteral nutrition continue PPI prophylaxis Renal: No evidence of acute kidney injury continue to monitor urine place electrolytes including potassium and magnesium ID: Pneumonia with empyema on broad-spectrum antibiotics white count continues to worsen with overall evidence of worsening sepsis although lactate is high normal yesterday rechecking today. Still feel that his total body water fluid overloaded but intravascularly drywith low albumin will switch to Colloid for volume expansion. Have brought antimicrobials to vancomycin and meropenem given pyrexia yesterday and worsening leukocytosis Heme/Onc: on heparin drip for history of DVT yesterday blood counts of or stable yesterday and overnight today there was a drop in hemoglobin I1 gram and some evidence of dark stools I feel that the risk of further bleeding outweighs the continuation of heparin infusion at this time so we will stop. White count has improved from yesterday Endo: Glucose Monitored Integ/MSK: Skin Care per routine ICU Nursing Protocol to prevent ulcers. Lines: All lines examined without evidence of infection : Dispo: Remain in ICU CODE: The KESHIA overall prognosis is very poor I am planning family meeting today to reestablish goals care
[2017-04-28] MEDS: Heparin 25,000 UNIT/500 ML D5W 25,000 UNIT/500 ML MLS IVC SCH (09:09)
[2017-04-28] MEDS: Dexmedetomidine HCl 400 MCG/100 ML MLS IVC SCH (09:11)
[2017-04-28] MEDS ORDERED: Ringers Solution, Lactated 500 ML IVC ONE (09:17)
[2017-04-28] MEDS ORDERED: Norepinephrine 4 MG in D5% in Water 250 ML IVC SCH (09:30)
[2017-04-28 10:35] LABS: Hematocrit 30.9 % (37.5-50.1); Hemoglobin 9.4 g/dL (12.9-16.9)
[2017-04-28] MEDS ORDERED: Insulin LISPRO 300 UNITS/3 ML VIAL SQ SCH (10:49)
[2017-04-28] MEDS ORDERED: Vancomycin 1,250 MG in D5% in Water 250 ML IVPB SCH (11:00)
[2017-04-28] MEDS ORDERED: Amiodarone Premix 360 MG/200 ML BAG IVC ONE (11:26)
[2017-04-28] MEDS ORDERED: Amiodarone Premix 150 MG/100 ML BAG IVPB ONE (11:26)
[2017-04-28] MEDS: FentaNYL (PF) 1,000 MCG in 0.9 % Sodium Chloride 80 ML IVC SCH (12:02)
--- NOTE | 2017-04-28 12:36 | Event Note ---
Date of Encounter: 04/28/17 Time of Encounter: 12:33 I met with the patient's (his next of kin) and 2 of his adult children along with the bedside ICU nurse and the hospital single needle tufting machine operator. Patient has clearly deteriorated clinically over the last 48 hours and family is can concerned about ongoing aggressive care and wishes to transition to comfort measures. They feel that he has "suffered enough" and that their father would not want to continue to be kept alive in this situation given his poor clinical functional status at baseline multiple medical problems and prolonged hospitalization in the intensive care unit. I feel that this is a compassionate request and in an harmony with their loved ones goals of care at outset of hospitalization. His CODE STATUS will be transitioned to comfort care measures only when the family decides to make that final decision. I also consulted the palliative care service for continued management outside of the ICU under hospice care. The patient is unable to participate in giving a making treatment decisions. The discussion was necessary for determining treatment decision. This discussion took place in the ICU consultation room. The total meeting time was 20minutes.
[2017-04-28 15:48] VITALS: BP 91/47
[2017-04-28] MEDS ORDERED: *HR* LORazepam 2 MG/ML VIAL IVP PRN (16:44)
[2017-04-28] MEDS ORDERED: Atropine Sulfate 1% 40 DROP/2 ML BOTTLE SL PRN (16:45)
[2017-04-28] MEDS ORDERED: Amiodarone Premix 360 MG/200 ML BAG IVC SCH (17:30)
[2017-04-28] MEDS ORDERED: Aminoglycoside Consult 1 EACH MC ONE (20:24)
--- NOTE | 2017-04-28 22:26 | Electrocardiograph Report ---
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
--- NOTE | 2017-04-29 07:01 | Electrocardiograph Report ---
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
--- NOTE | 2017-04-29 22:53 | Electrocardiograph Report ---
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
--- NOTE | 2017-04-30 10:52 | Death Note ---
<ReyzionEmmie tolentino H - Last Filed: 04/30/17 11:04> Discharge Sum: Summary - Date and Time Date of admission: 04/20/17 13:51 Date of : 04/28/17 Time of : 18:45 - Summary Details: Mr. 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 Patient presented to [facility] emergency department on 04/20/2017 for worsening shortness of breath. He was found to be septic with a white blood cell count of 17.9 and lactic acid 4.4. He also had elevated troponins at 0.13. Chest x-ray found airspace opacities in the bilateral lower lungs with an enlarged right pleural effusion concerning for pneumonia. Patient rapidly declined requiring BiPAP and subsequent endotracheal intubation in the emergency department. Patient was admitted with septic shock, acute and chronic respiratory failure with hypoxia, pneumonia, acute exacerbation of COPD, and elevated troponin. During inital hospitalization, patient required pressors, was treated with IV vancomycin, Zosyn and Levaquin, was started on steroids, Symbicort and DuoNeb's for acute exacerbation of COPD, underwent right-sided thoracentesis, and began diuretics for diastolic CHF. Patient was able to be weaned off levophed, and demonstrated improved lung mechanics with initial interventions. As hospitalization progressed, IR consultation for chest tube placement was made on April 27 as previous thoracentesis while productive of over a liter of fluid, was complicated by loculations and bloody outflow of pleural fluid. IR placed a chest tube successfully on 04/27 and subsequent pleural effusion analysis indicated pleural empyema of the right hemithorax. While chest tube output was good, patient developed fevers overnight and increasing leukocytosis. Patient's antibiotics were altered to include vancomycin and meropenem. Patient became hypotensive, and was given a bolus of fluids as well as resumption of Levophed. Discussions were initiated with the patient's family including his and 3 adult children. They were all in agreement that they believed that their father/ had suffered enough. They wished to stop all aggressive interventions at this point. They made the decision to withdraw care and bring hospice onboard. Patient was extubated on 04/28 at approximately 4 PM. He shortly thereafter at 6:45 PM. - Additional Data Confirmation of as documented by pronouncing clinician: no pulse, no respirations, no heart sounds, pupils fixed and dilated Family: at bedside Attending/PCP notified?: Yes Attending physician: Linda Ayon MD Hospice patient?: Yes Discharge Sum: Diag - PCOD Probable Cause of : Cardiorespiratory arrest Discharge Sum: Prov - Provider Primary care physician: Farshad Lunsford MD Admitting clinician: Linda Ayon Attending physician on admission: Linda Ayon Consults: 04/27/17 07:04 Consult to Interventional Radiology [CONS] Stat Consulting Provider: Radiology Interventional Cols Reason for Consult: thoracentesis and chest tube placement in right pleural space Call Completed: Yes Pronouncing clinician: Salvador Cruz <Salvador Cruz - Last Filed: 04/30/17 14:01> Discharge Sum: Summary - Date and Time Date of admission: 04/20/17 13:51 - Additional Data Attending physician: Linda Ayon MD Discharge Sum: Prov - Provider Primary care physician: Farshad Lunsford MD Consults: 04/27/17 07:04 Consult to Interventional Radiology [CONS] Stat Consulting Provider: Radiology Interventional Cols Reason for Consult: thoracentesis and chest tube placement in right pleural space Call Completed: Yes - Attending Attestation I examined this patient and my medical decision-making was reviewed with the Resident Physician. I agree with the documented findings, disposition and treatment plan as described except to the extent set forth below. We independently had [id number] contact with the patient
== END 2017-04-28 20:25 | disposition expired | DRG 870 ==
LOC: EMEROO 11:00 → ICNU 13:51
PROVIDERS: ADMIT Internal Medicine Pulmonary Disease; ATTEND Internal Medicine Pulmonary Disease